=== PATIENT | female | born 1975 | race Caucasian/White ===

== ENCOUNTER 2017-04-28 14:52 | Inpatient (IN) | payer MEDICAID ==
[~2017-04-28] VITALS: Ht 160 cm; Wt 72.6 kg
[~2017-04-28 14:52] MED LIST: ALPR0.25 PO; AMLO5TAB2 PO; AMLO5TAB4 PO; CALC200T3 PO; CEFD300C37 PO; CIPR500T87 PO; CYAN10005 PO; DIAZ5TAB PO; FLUC200T PO; FOLI-17 PO; HYDR2TAB40 PO; LEVE500T53 PO; LEVO750T26 PO; MAGN400T26 PO; METO25TA35 PO; METO50TA82 PO; METR500T PO; MULT-484 PO; ONDA4TAB10 PO; OXYC5CAP4 PO; OXYC5TAB3 PO; POLY17PO5 PO; POTA20TA89 PO; RISPERADOL; THIA100T6 PO; celexa
[2017-04-28 16:00] LABS: HEMATOCRIT 39.1 % (34.6-47.8); HEMOGLOBIN 12.7 g/dL (11.7-16.4); WHITE BLOOD COUNT 13.7 x10^3/uL (3.4-10)
[2017-04-28 16:09] LABS: BLOOD UREA NITROGEN 6 mg/dL (7-18)
[2017-04-28] MEDS ORDERED: ONDANSETRON 2MG/ML, 2ML IVPush ONE (16:30)
[2017-04-28] MEDS ORDERED: SODIUM CHLORIDE 0.9% 1,000ML IVBOLUS ONE ×2 (16:30→18:30)
[2017-04-28] MEDS ORDERED: SODIUM CHLORIDE FLUSH 10ML SYR IVF ONE (16:30)
[2017-04-28 16:33] LABS: ASPARTATE AMINO TRANSFERASE 88 U/L (15-37)
[2017-04-28] MEDS ORDERED: ONDANSETRON 2MG/ML, 2ML ONE (16:49)
[2017-04-28] MEDS ORDERED: MORPHINE SULFATE 4 MG/ML, 1ML ONE ×2 (16:49→17:27)
[2017-04-28] MEDS: MORPHINE SULFATE 4 MG/ML, 1ML IVPush PRN ×2 (16:51→17:27)
[2017-04-28] MEDS ORDERED: POTASSIUM CHLORIDE 40 MEQ in SODIUM CHLORIDE 0.9% 500 ML IV ONE (17:00)
[2017-04-28] MEDS ORDERED: CEFTRIAXONE PMX 1GM/50ML 50 ML ONE (18:27)
[2017-04-28] MEDS ORDERED: CEFTRIAXONE PMX 1GM/50ML 50 ML IV ONE (18:30)
[2017-04-28] MEDS: ENOXAPARIN 40 MG/0.4 ML SQ SCH (20:00)
[2017-04-28] MEDS ORDERED: ONDANSETRON 2MG/ML, 2ML IVPush PRN (20:00)
[2017-04-28] MEDS ORDERED: MAGNESIUM SULFATE PMX 2GM/50ML 50 ML IV ONE (20:30)
[2017-04-28 20:43] VITALS: BP 116/80
[2017-04-28] MEDS: POTASSIUM CHLORIDE 30 MEQ in SODIUM CHLORIDE 0.9% 1,000 ML IV SCH (21:14)
[2017-04-28] MEDS: NICOTINE 14MG/24 HR PATCH.TD24 TD SCH (21:15)
[2017-04-28] MEDS: HYDROmorphone 2 MG/ML, 1ML IVPush PRN (21:16)
[2017-04-28 21:34] VITALS: BP 113/76
[2017-04-28] MEDS: METOPROLOL TARTRATE 50 MG TABLET PO SCH (21:34)
[2017-04-29] MEDS: HYDROmorphone 2 MG/ML, 1ML IVPush PRN ×8 (00:33→22:47)
[2017-04-29 01:55] VITALS: BP 99/65
[2017-04-29 05:56] LABS: HEMATOCRIT 32.6 % (34.6-47.8); HEMOGLOBIN 10.6 g/dL (11.7-16.4); WHITE BLOOD COUNT 12.4 x10^3/uL (3.4-10)
[2017-04-29 06:16] LABS: ASPARTATE AMINO TRANSFERASE 66 U/L (15-37); BLOOD UREA NITROGEN 7 mg/dL (7-18)
[2017-04-29 07:07] VITALS: BP 98/67
[2017-04-29] MEDS ORDERED: HYDROmorphone 1 MG/ML, 1ML ONE ×4 (07:17→16:18)
[2017-04-29] MEDS: POTASSIUM CHLORIDE 30 MEQ in SODIUM CHLORIDE 0.9% 1,000 ML IV SCH ×2 (08:13→23:19)
[2017-04-29 08:55] VITALS: BP 104/69
[2017-04-29] MEDS: METOPROLOL TARTRATE 50 MG TABLET PO SCH ×2 (08:56→20:23)
[2017-04-29] MEDS ORDERED: CALCIUM GLUCONATE 9.2 MEQ in SODIUM CHLORIDE 0.9% 100 ML IV ONE (12:00)
[2017-04-29] MEDS ORDERED: MAGNESIUM SULFATE PMX 2GM/50ML 50 ML IV ONE (12:00)
[2017-04-29 16:26] VITALS: BP 104/71
[2017-04-29] MEDS: CEFTRIAXONE PMX 1GM/50ML 50 ML IV SCH (18:26)
[2017-04-29 19:55] VITALS: BP 114/83
[2017-04-29] MEDS: NICOTINE 14MG/24 HR PATCH.TD24 TD SCH (20:23)
[2017-04-29] MEDS: ENOXAPARIN 40 MG/0.4 ML SQ SCH (20:23)
[2017-04-29 21:00] VITALS: BP 114/69
[2017-04-30] MEDS: HYDROmorphone 2 MG/ML, 1ML IVPush PRN ×7 (01:29→20:47)
[2017-04-30 02:20] VITALS: BP 113/76
[2017-04-30] MEDS ORDERED: OMNIPAQUE 350 MG/ML, 100ML BOTTLE ONE (08:08)
[2017-04-30] MEDS ORDERED: HYDROmorphone 1 MG/ML, 1ML ONE ×4 (08:10→17:53)
[2017-04-30] MEDS: METOPROLOL TARTRATE 50 MG TABLET PO SCH ×2 (08:16→20:47)
[2017-04-30 11:11] VITALS: BP 114/76
[2017-04-30 11:13] LABS: HEMOGLOBIN 9.9 g/dL (11.7-16.4); WHITE BLOOD COUNT 12.8 x10^3/uL (3.4-10)
[2017-04-30] MEDS: POTASSIUM CHLORIDE 30 MEQ in SODIUM CHLORIDE 0.9% 1,000 ML IV SCH ×2 (11:14→20:48)
[2017-04-30 11:21] LABS: BLOOD UREA NITROGEN 9 mg/dL (7-18)
[2017-04-30 11:30] LABS: ANISOCYTOSIS 1+
[2017-04-30 11:31] LABS: POLYCHROMASIA 1+
[2017-04-30 13:07] VITALS: BP 106/74
[2017-04-30] MEDS: CEFTRIAXONE PMX 1GM/50ML 50 ML IV SCH (17:55)
[2017-04-30 20:44] VITALS: BP 123/89
[2017-04-30] MEDS: ENOXAPARIN 40 MG/0.4 ML SQ SCH (20:47)
[2017-04-30] MEDS: NICOTINE 14MG/24 HR PATCH.TD24 TD SCH (20:47)
[2017-04-30] MEDS: NYSTATIN 500,000 UNITS/5 ML UDC PO SCH (20:48)
[2017-05-01] MEDS: HYDROmorphone 2 MG/ML, 1ML IVPush PRN ×6 (00:27→19:34)
[2017-05-01 02:02] VITALS: BP 125/74
[2017-05-01] MEDS ORDERED: HYDROmorphone 2 MG/ML, 1ML ONE (06:39)
[2017-05-01] MEDS: NYSTATIN 500,000 UNITS/5 ML UDC PO SCH ×5 (06:43→19:40)
[2017-05-01 07:30] VITALS: BP 121/84
[2017-05-01] MEDS: METOPROLOL TARTRATE 50 MG TABLET PO SCH ×3 (09:49→20:56)
[2017-05-01] MEDS: POTASSIUM CHLORIDE 30 MEQ in SODIUM CHLORIDE 0.9% 1,000 ML IV SCH ×2 (09:49→20:56)
[2017-05-01 10:42] LABS: HEMATOCRIT 29.9 % (34.6-47.8); HEMOGLOBIN 9.7 g/dL (11.7-16.4); WHITE BLOOD COUNT 11.8 x10^3/uL (3.4-10)
[2017-05-01 10:56] LABS: BLOOD UREA NITROGEN 6 mg/dL (7-18)
[2017-05-01 11:00] LABS: ASPARTATE AMINO TRANSFERASE 59 U/L (15-37)
[2017-05-01 13:22] VITALS: BP 127/89
[2017-05-01] MEDS ORDERED: MAGNESIUM SULFATE PMX 2GM/50ML 50 ML IV ONE (13:30)
[2017-05-01] MEDS ORDERED: POTASSIUM CHLORIDE 40 MEQ in SODIUM CHLORIDE 0.9% 500 ML IV ONE (13:30)
[2017-05-01] MEDS: OXYcodone IR 5MG TABLET PO SCH ×2 (15:54→20:56)
[2017-05-01] MEDS: CEFTRIAXONE PMX 1GM/50ML 50 ML IV SCH (18:08)
[2017-05-01 19:01] VITALS: BP 127/87
[2017-05-01] MEDS ORDERED: HYDROmorphone 1 MG/ML, 1ML ONE (19:26)
[2017-05-01] MEDS: NICOTINE 14MG/24 HR PATCH.TD24 TD SCH (19:34)
[2017-05-02] MEDS: HYDROmorphone 2 MG/ML, 1ML IVPush PRN ×4 (01:27→20:02)
[2017-05-02 02:10] VITALS: BP 118/79
[2017-05-02] MEDS: OXYcodone IR 5MG TABLET PO SCH ×4 (02:50→21:04)
[2017-05-02] MEDS: POTASSIUM CHLORIDE 30 MEQ in SODIUM CHLORIDE 0.9% 1,000 ML IV SCH ×2 (05:34→15:30)
[2017-05-02] MEDS: NYSTATIN 500,000 UNITS/5 ML UDC PO SCH ×4 (05:37→21:00)
[2017-05-02 05:52] LABS: BLOOD UREA NITROGEN 2 mg/dL (7-18)
[2017-05-02 06:19] LABS: HEMATOCRIT 31.6 % (34.6-47.8); HEMOGLOBIN 10.3 g/dL (11.7-16.4); WHITE BLOOD COUNT 12.3 x10^3/uL (3.4-10)
[2017-05-02 08:58] VITALS: BP 114/61
[2017-05-02] MEDS: METOPROLOL TARTRATE 50 MG TABLET PO SCH ×2 (09:00→21:05)
[2017-05-02 14:44] VITALS: BP 116/82
[2017-05-02] MEDS: CEFTRIAXONE PMX 1GM/50ML 50 ML IV SCH (18:40)
[2017-05-02 18:46] VITALS: BP 121/85
[2017-05-02] MEDS: NICOTINE 14MG/24 HR PATCH.TD24 TD SCH (20:01)
[2017-05-02] MEDS: DOCUSATE 100 MG CAPSULE PO PRN (22:53)
[2017-05-03] MEDS: POTASSIUM CHLORIDE 30 MEQ in SODIUM CHLORIDE 0.9% 1,000 ML IV SCH ×2 (00:49→08:08)
[2017-05-03 01:21] VITALS: BP 123/85
[2017-05-03] MEDS: HYDROmorphone 2 MG/ML, 1ML IVPush PRN ×2 (02:04→08:08)
[2017-05-03] MEDS: OXYcodone IR 5MG TABLET PO SCH ×2 (03:11→09:46)
[2017-05-03 05:37] LABS: HEMATOCRIT 31.3 % (34.6-47.8); HEMOGLOBIN 10.1 g/dL (11.7-16.4); WHITE BLOOD COUNT 11.5 x10^3/uL (3.4-10)
[2017-05-03] MEDS: NYSTATIN 500,000 UNITS/5 ML UDC PO SCH ×2 (05:37→11:00)
[2017-05-03 06:02] LABS: ASPARTATE AMINO TRANSFERASE 35 U/L (15-37); BLOOD UREA NITROGEN 3 mg/dL (7-18)
[2017-05-03 07:31] VITALS: BP 129/86
[2017-05-03] MEDS: DOCUSATE 100 MG CAPSULE PO PRN (08:17)
[2017-05-03] MEDS: METOPROLOL TARTRATE 50 MG TABLET PO SCH (08:17)
[2017-05-03] MEDS ORDERED: DOCU-30 PO (11:50)
[2017-05-03] MEDS ORDERED: OXYC5TAB3 PO ×2 (11:50→11:51)
== END 2017-05-03 12:48 | disposition home or self-care (01) | DRG 871 ==
LOC: ED 16:54 → EDIP 18:20 → 4WST 19:51
PROVIDERS: ADMIT Internal Medicine; ATTEND Internal Medicine
DX: A41.9 Sepsis, unspecified organism (principal); E43 Unspecified severe protein-calorie malnutrition; K86.2 Cyst of pancreas; E87.2 Acidosis; K85.90 Acute pancreatitis without necrosis or infection, unspecified; K76.0 Fatty (change of) liver, not elsewhere classified; K86.3 Pseudocyst of pancreas; J98.11 Atelectasis; N12 Tubulo-interstitial nephritis, not specified as acute or chronic; Z88.8 Allergy status to other drugs, medicaments and biological substances; D75.89 Other specified diseases of blood and blood-forming organs; E87.6 Hypokalemia; F10.20 Alcohol dependence, uncomplicated; F20.9 Schizophrenia, unspecified; I10 Essential (primary) hypertension; Z86.32 Personal history of gestational diabetes; Z68.28 Body mass index [BMI] 28.0-28.9, adult
CPT/HCPCS: 36415; 74020; 74177; 76700; 80048; 80053; 81001; 83605; 83690; 83735; 84100; 84145; 84478; 84703; 85025; 87040; 87077; 87086; 87186; 93005; 96365; 96368; 96375; 96376; J0610; J0696; J1170; J1650; J2405; J3480; Q9967; J3475; J7030; J7040

== ENCOUNTER 2017-05-05 12:25 | Emergency (ER) | payer MEDICAID ==
[~2017-05-05] VITALS: Ht 157.5 cm; Wt 73.0 kg
[~2017-05-05 12:25] MED LIST changes: +DOCU-131 PO
[2017-05-05] MEDS ORDERED: ONDANSETRON 2MG/ML, 2ML ONE (13:00)
[2017-05-05] MEDS ORDERED: MORPHINE SULFATE 4 MG/ML, 1ML ONE ×2 (13:00→13:47)
[2017-05-05] MEDS ORDERED: ONDANSETRON 2MG/ML, 2ML IVPush ONE (13:00)
[2017-05-05] MEDS: MORPHINE SULFATE 4 MG/ML, 1ML IVPush PRN ×2 (13:04→13:49)
[2017-05-05 13:16] LABS: HEMATOCRIT 30.4 % (34.6-47.8); HEMOGLOBIN 9.8 g/dL (11.7-16.4); WHITE BLOOD COUNT 8.4 x10^3/uL (3.4-10)
[2017-05-05 13:27] LABS: ASPARTATE AMINO TRANSFERASE 68 U/L (15-37); BLOOD UREA NITROGEN 6 mg/dL (7-18)
[2017-05-05 14:40] VITALS: BP 121/79
== END 2017-05-05 15:08 | disposition left against medical advice (07) ==
LOC: ED 14:34
DX: G89.29 Other chronic pain (principal); R10.12 Left upper quadrant pain; Z88.6 Allergy status to analgesic agent; F20.9 Schizophrenia, unspecified; F17.200 Nicotine dependence, unspecified, uncomplicated; Z90.49 Acquired absence of other specified parts of digestive tract
CPT/HCPCS: 36415; 80053; 83690; 85025; 85610; 96374; 96375; 96376; 99284; J2405

== ENCOUNTER 2017-05-06 08:25 | Inpatient (IN) | payer MEDICAID ==
[~2017-05-06] VITALS: Ht 157.5 cm; Wt 77.4 kg
[~2017-05-06 08:25] MED LIST changes: +OXYC5CAP2 PO; -OXYC5CAP4 PO
[2017-05-06] MEDS ORDERED: SODIUM CHLORIDE 0.9% 1,000ML IVBOLUS ONE (09:00)
[2017-05-06] MEDS ORDERED: SODIUM CHLORIDE FLUSH 10ML SYR IVF ONE (09:00)
[2017-05-06] MEDS ORDERED: ONDANSETRON 2MG/ML, 2ML IVPush ONE (09:00)
[2017-05-06] MEDS ORDERED: HYDROmorphone 1 MG/ML, 1ML ONE ×2 (09:18→10:10)
[2017-05-06] MEDS ORDERED: ONDANSETRON 2MG/ML, 2ML ONE (09:18)
[2017-05-06] MEDS: HYDROmorphone 1 MG/ML, 1ML IVPush PRN ×2 (09:23→10:12)
[2017-05-06 09:39] LABS: ASPARTATE AMINO TRANSFERASE 66 U/L (15-37); BLOOD UREA NITROGEN 6 mg/dL (7-18)
[2017-05-06 09:43] LABS: HEMOGLOBIN 9.9 g/dL (11.7-16.4); WHITE BLOOD COUNT 7.3 x10^3/uL (3.4-10)
[2017-05-06] MEDS ORDERED: POTASSIUM CHLORIDE 40 MEQ in SODIUM CHLORIDE 0.9% 500 ML IV ONE (10:00)
[2017-05-06] MEDS ORDERED: CEFTRIAXONE PMX 1GM/50ML 50 ML ONE (11:19)
[2017-05-06] MEDS ORDERED: CEFTRIAXONE PMX 1GM/50ML 50 ML IV ONE (11:30)
[2017-05-06 13:30] VITALS: BP 122/82
[2017-05-06] MEDS ORDERED: ONDANSETRON 2MG/ML, 2ML IVPush PRN (14:30)
[2017-05-06] MEDS ORDERED: POLYETHYLENE GLYCOL 17 GM PACKET PO PRN (14:30)
[2017-05-06] MEDS ORDERED: hydrALAzine 20 MG/ML, 1ML IVPush PRN (14:30)
[2017-05-06] MEDS ORDERED: ENALAPRILAT 1.25 MG/ML, 2ML IVPush PRN (14:30)
[2017-05-06] MEDS ORDERED: BISACODYL 10 MG SUPP PR PRN (14:30)
[2017-05-06] MEDS: OXYcodone IR 5MG TABLET PO PRN ×3 (15:15→23:36)
[2017-05-06] MEDS: SODIUM CHLORIDE 0.9% 1,000 ML IV SCH ×2 (15:59→23:22)
[2017-05-06 16:09] VITALS: BP 124/88
[2017-05-06] MEDS: METOPROLOL TARTRATE 50 MG TABLET PO SCH (18:23)
[2017-05-06 19:49] VITALS: BP 121/84
[2017-05-06] MEDS: NICOTINE 21 MG/24 HR PATCH.TD24 TD SCH ×2 (21:40→22:00)
[2017-05-07 00:33] VITALS: BP 131/94
[2017-05-07] MEDS: OXYcodone IR 5MG TABLET PO PRN ×2 (04:14→08:12)
[2017-05-07 05:50] LABS: HEMATOCRIT 28.5 % (34.6-47.8); HEMOGLOBIN 9.2 g/dL (11.7-16.4); WHITE BLOOD COUNT 7.5 x10^3/uL (3.4-10)
[2017-05-07 05:51] LABS: ASPARTATE AMINO TRANSFERASE 67 U/L (15-37); BLOOD UREA NITROGEN 5 mg/dL (7-18)
[2017-05-07] MEDS: METOPROLOL TARTRATE 50 MG TABLET PO SCH ×2 (06:38→18:07)
[2017-05-07 08:11] VITALS: BP 128/94
[2017-05-07] MEDS: SENNA/DOCUSATE TABLET PO SCH (08:13)
[2017-05-07] MEDS: POTASSIUM CHLORIDE 40 MEQ in SODIUM CHLORIDE 0.9% 1,000 ML IV SCH ×3 (09:06→23:29)
[2017-05-07] MEDS: HYDROmorphone 1 MG/ML, 1ML IV PRN ×2 (11:55→18:07)
[2017-05-07] MEDS: ENOXAPARIN 40 MG/0.4 ML SQ SCH (12:03)
[2017-05-07 13:09] LABS: BLOOD UREA NITROGEN 5 mg/dL (7-18)
[2017-05-07 14:03] VITALS: BP 115/78
[2017-05-07] MEDS: HYDROmorphone 2MG TABLET PO PRN ×2 (14:59→21:06)
[2017-05-07 15:14] LABS: DAU SCREEN DISCLAIMER
[2017-05-07 18:57] VITALS: BP 113/78
[2017-05-07] MEDS ORDERED: PNEUMOCOCCAL 23 VACCINE IM-VACC ONE (21:00)
[2017-05-08] MEDS: HYDROmorphone 1 MG/ML, 1ML IV PRN ×5 (00:11→23:58)
[2017-05-08 00:43] VITALS: BP 126/83
[2017-05-08] MEDS: HYDROmorphone 2MG TABLET PO PRN ×4 (03:08→21:04)
[2017-05-08 05:20] LABS: HEMATOCRIT 29.2 % (34.6-47.8); HEMOGLOBIN 9.3 g/dL (11.7-16.4); WHITE BLOOD COUNT 6.9 x10^3/uL (3.4-10)
[2017-05-08 05:31] LABS: BLOOD UREA NITROGEN 2 mg/dL (7-18)
[2017-05-08] MEDS: POTASSIUM CHLORIDE 40 MEQ in SODIUM CHLORIDE 0.9% 1,000 ML IV SCH ×2 (06:20→13:04)
[2017-05-08] MEDS: METOPROLOL TARTRATE 50 MG TABLET PO SCH ×2 (06:20→18:03)
[2017-05-08 08:04] VITALS: BP 118/81
[2017-05-08] MEDS: NICOTINE 21 MG/24 HR PATCH.TD24 TD SCH (08:04)
[2017-05-08] MEDS: SENNA/DOCUSATE TABLET PO SCH (08:04)
[2017-05-08] MEDS: ENOXAPARIN 40 MG/0.4 ML SQ SCH (13:05)
[2017-05-08 15:17] VITALS: BP 110/89
[2017-05-08 20:00] VITALS: BP 136/94
[2017-05-09 01:04] VITALS: BP 137/92
[2017-05-09] MEDS: HYDROmorphone 2MG TABLET PO PRN ×3 (04:22→13:31)
[2017-05-09] MEDS: METOPROLOL TARTRATE 50 MG TABLET PO SCH (06:10)
[2017-05-09 07:01] VITALS: BP 101/65
[2017-05-09] MEDS: NICOTINE 21 MG/24 HR PATCH.TD24 TD SCH (09:30)
[2017-05-09] MEDS: SENNA/DOCUSATE TABLET PO SCH (09:32)
[2017-05-09] MEDS: ENOXAPARIN 40 MG/0.4 ML SQ SCH (12:33)
[2017-05-09] MEDS ORDERED: METO50TA82 PO (14:02)
[2017-05-09] MEDS ORDERED: HYDR2TAB40 PO (14:02)
== END 2017-05-09 14:27 | disposition home or self-care (01) | DRG 438 ==
LOC: ED 08:39 → EDIP 11:53 → 3NE 12:25
PROVIDERS: ADMIT Internal Medicine
DX: K85.90 Acute pancreatitis without necrosis or infection, unspecified (principal); E43 Unspecified severe protein-calorie malnutrition; E87.2 Acidosis; D69.6 Thrombocytopenia, unspecified; E87.8 Other disorders of electrolyte and fluid balance, not elsewhere classified; F20.9 Schizophrenia, unspecified; K86.3 Pseudocyst of pancreas; F17.213 Nicotine dependence, cigarettes, with withdrawal; N39.0 Urinary tract infection, site not specified; B96.20 Unspecified Escherichia coli [E. coli] as the cause of diseases classified elsewhere; D64.9 Anemia, unspecified; Z68.31 Body mass index [BMI] 31.0-31.9, adult; E87.6 Hypokalemia; I10 Essential (primary) hypertension; Z87.440 Personal history of urinary (tract) infections; Z90.49 Acquired absence of other specified parts of digestive tract; Z91.19 Patient's noncompliance with other medical treatment and regimen; Z88.5 Allergy status to narcotic agent; Z28.82 Immunization not carried out because of caregiver refusal
CPT/HCPCS: 36415; 74177; 80048; 80053; 80061; 80307; 81001; 83036; 83605; 83690; 83735; 84145; 84439; 84443; 85025; 87086; 93005; 96361; 96365; 96375; 96376; J0696; J1170; J1650; J2405; J3480; J7030; J7040

== ENCOUNTER 2017-05-21 14:37 | Inpatient (IN) | payer MEDICAID ==
[~2017-05-21] VITALS: Ht 160 cm; Wt 65.4 kg
[2017-05-21] MEDS ORDERED: HYDR-3241 PO (14:52)
[2017-05-21] MEDS ORDERED: HYDR2TAB29 PO (14:52)
[2017-05-21] MEDS: MORPHINE SULFATE 4 MG/ML, 1ML IVPush PRN ×4 (15:25→23:33)
[2017-05-21] MEDS ORDERED: ONDANSETRON 2MG/ML, 2ML IVPush ONE (15:30)
[2017-05-21] MEDS ORDERED: SODIUM CHLORIDE 0.9% 1,000ML IVBOLUS ONE (15:30)
[2017-05-21] MEDS ORDERED: SODIUM CHLORIDE FLUSH 10ML SYR IVF ONE ×2 (15:30→18:00)
[2017-05-21 15:49] LABS: ASPARTATE AMINO TRANSFERASE 173 U/L (15-37); BLOOD UREA NITROGEN 4 mg/dL (7-18)
[2017-05-21 15:52] LABS: HEMATOCRIT 39.4 % (34.6-47.8); HEMOGLOBIN 12.8 g/dL (11.7-16.4); WHITE BLOOD COUNT 9.2 x10^3/uL (3.4-10)
[2017-05-21 16:10] LABS: ANISOCYTOSIS 1+; POLYCHROMASIA 1+
[2017-05-21] MEDS ORDERED: POTASSIUM CHLORIDE 40 MEQ in SODIUM CHLORIDE 0.9% 1,000 ML IV ONE (16:30)
[2017-05-21] MEDS ORDERED: POTASSIUM CHLORIDE 10% 40 MEQ/30 ML UDC PO ONE (16:30)
[2017-05-21] MEDS ORDERED: MORPHINE SULFATE 4 MG/ML, 1ML ONE ×2 (16:34→19:14)
[2017-05-21] MEDS ORDERED: POTASSIUM CHLORIDE 20 MEQ TAB.ER.PRT ONE (16:59)
[2017-05-21] MEDS ORDERED: MAGNESIUM SULFATE 1 GM in SODIUM CHLORIDE 0.9% 50 ML IV ONE (17:00)
[2017-05-21] MEDS ORDERED: SODIUM CHLORIDE 0.9% 1,000 ML IV ONE (17:39)
[2017-05-21] MEDS: ENOXAPARIN 40 MG/0.4 ML SQ SCH (19:00)
[2017-05-21] MEDS: SODIUM CHLORIDE 0.9% 1,000 ML IV SCH (19:05)
[2017-05-21] MEDS: CALCIUM CARBONATE 500 MG TABLET PO SCH (19:54)
[2017-05-21] MEDS: FAMOTIDINE 20 MG/2 ML IVPush SCH (21:00)
[2017-05-21] MEDS: NICOTINE 14MG/24 HR PATCH.TD24 TD SCH (23:33)
[2017-05-21] MEDS: TEMAZEPAM 15 MG CAPSULE PO PRN (23:41)
[2017-05-22 01:16] VITALS: BP 113/78
[2017-05-22 02:52] VITALS: BP 108/76
[2017-05-22] MEDS: SODIUM CHLORIDE 0.9% 1,000 ML IV SCH ×3 (03:05→20:48)
[2017-05-22] MEDS: MORPHINE SULFATE 4 MG/ML, 1ML IVPush PRN ×5 (03:30→20:48)
[2017-05-22 06:07] LABS: HEMATOCRIT 32.8 % (34.6-47.8); HEMOGLOBIN 10.8 g/dL (11.7-16.4); WHITE BLOOD COUNT 8.4 x10^3/uL (3.4-10)
[2017-05-22 06:41] LABS: ASPARTATE AMINO TRANSFERASE 123 U/L (15-37); BLOOD UREA NITROGEN 5 mg/dL (7-18)
[2017-05-22] MEDS: FAMOTIDINE 20 MG/2 ML IVPush SCH ×2 (08:03→20:48)
[2017-05-22] MEDS: CALCIUM CARBONATE 500 MG TABLET PO SCH ×3 (08:04→20:48)
[2017-05-22 08:50] VITALS: BP 107/75
[2017-05-22 15:20] VITALS: BP 117/69
[2017-05-22] MEDS: ENOXAPARIN 40 MG/0.4 ML SQ SCH (19:00)
[2017-05-22 20:30] VITALS: BP 106/73
[2017-05-22] MEDS: TEMAZEPAM 15 MG CAPSULE PO PRN (22:19)
[2017-05-22] MEDS: NICOTINE 14MG/24 HR PATCH.TD24 TD SCH (22:20)
[2017-05-22] MEDS: ONDANSETRON 2MG/ML, 2ML IVPush PRN (22:25)
[2017-05-23 02:51] VITALS: BP 112/77
[2017-05-23] MEDS: MORPHINE SULFATE 4 MG/ML, 1ML IVPush PRN ×5 (03:01→20:56)
[2017-05-23] MEDS: SODIUM CHLORIDE 0.9% 1,000 ML IV SCH ×3 (03:01→23:30)
[2017-05-23 05:52] LABS: HEMATOCRIT 30.5 % (34.6-47.8); HEMOGLOBIN 9.9 g/dL (11.7-16.4); WHITE BLOOD COUNT 5.7 x10^3/uL (3.4-10)
[2017-05-23 05:57] LABS: BLOOD UREA NITROGEN 3 mg/dL (7-18)
[2017-05-23 06:01] LABS: ASPARTATE AMINO TRANSFERASE 67 U/L (15-37)
[2017-05-23] MEDS: FAMOTIDINE 20 MG/2 ML IVPush SCH ×2 (07:59→20:06)
[2017-05-23] MEDS: CALCIUM CARBONATE 500 MG TABLET PO SCH ×3 (07:59→20:06)
[2017-05-23 08:00] VITALS: BP 124/82
[2017-05-23 14:00] VITALS: BP 114/79
[2017-05-23] MEDS: POTASSIUM CHLORIDE 20 MEQ TAB.ER.PRT PO SCH ×2 (16:06→17:37)
[2017-05-23] MEDS: ENOXAPARIN 40 MG/0.4 ML SQ SCH (17:33)
[2017-05-23 19:22] VITALS: BP 109/74
[2017-05-23] MEDS: NICOTINE 14MG/24 HR PATCH.TD24 TD SCH (22:11)
[2017-05-23] MEDS: TEMAZEPAM 15 MG CAPSULE PO PRN (22:11)
[2017-05-24] MEDS: MORPHINE SULFATE 4 MG/ML, 1ML IVPush PRN ×2 (00:56→05:12)
[2017-05-24 01:39] VITALS: BP 123/83
[2017-05-24 06:08] LABS: ASPARTATE AMINO TRANSFERASE 46 U/L (15-37); BLOOD UREA NITROGEN 3 mg/dL (7-18)
[2017-05-24 07:19] VITALS: BP 125/89
[2017-05-24] MEDS: POTASSIUM CHLORIDE 20 MEQ TAB.ER.PRT PO SCH ×2 (09:06→16:54)
[2017-05-24] MEDS: CALCIUM CARBONATE 500 MG TABLET PO SCH ×3 (09:06→19:46)
[2017-05-24] MEDS: FAMOTIDINE 20 MG/2 ML IVPush SCH ×2 (09:06→19:46)
[2017-05-24] MEDS: SODIUM CHLORIDE 0.9% 1,000 ML IV SCH ×2 (09:06→19:47)
[2017-05-24] MEDS: HYDROmorphone 2 MG/ML, 1ML IVPush PRN ×8 (09:16→22:47)
[2017-05-24] MEDS: DOCUSATE 100 MG CAPSULE PO PRN (13:15)
[2017-05-24 14:26] VITALS: BP 123/87
[2017-05-24] MEDS: ENOXAPARIN 40 MG/0.4 ML SQ SCH (19:00)
[2017-05-24 19:28] VITALS: BP 128/91
[2017-05-24] MEDS: NICOTINE 14MG/24 HR PATCH.TD24 TD SCH (22:03)
[2017-05-24] MEDS: TEMAZEPAM 15 MG CAPSULE PO PRN (22:03)
[2017-05-25 00:56] VITALS: BP 134/90
[2017-05-25] MEDS: HYDROmorphone 2 MG/ML, 1ML IVPush PRN ×8 (01:51→23:30)
[2017-05-25 05:15] LABS: BLOOD UREA NITROGEN 2 mg/dL (7-18)
[2017-05-25 06:20] VITALS: BP 125/89
[2017-05-25 06:44] LABS: HEMATOCRIT 32.8 % (34.6-47.8); HEMOGLOBIN 10.6 g/dL (11.7-16.4); WHITE BLOOD COUNT 5.5 x10^3/uL (3.4-10)
[2017-05-25] MEDS: POTASSIUM CHLORIDE 20 MEQ TAB.ER.PRT PO SCH ×2 (08:15→17:09)
[2017-05-25] MEDS: CALCIUM CARBONATE 500 MG TABLET PO SCH ×3 (08:15→20:27)
[2017-05-25] MEDS ORDERED: D5%-0.9% NACL 1,000 ML IV SCH (10:00)
[2017-05-25] MEDS: FAMOTIDINE 20 MG/2 ML IVPush SCH ×2 (10:37→20:27)
[2017-05-25 15:33] VITALS: BP 126/85
[2017-05-25] MEDS: ENOXAPARIN 40 MG/0.4 ML SQ SCH (19:00)
[2017-05-25 19:49] VITALS: BP 146/96
[2017-05-25] MEDS: DOCUSATE 100 MG CAPSULE PO PRN (20:27)
[2017-05-25] MEDS: NICOTINE 14MG/24 HR PATCH.TD24 TD SCH (20:28)
[2017-05-25] MEDS: TEMAZEPAM 15 MG CAPSULE PO PRN (21:17)
[2017-05-25] MEDS: D5%-0.9% NACL 1,000 ML IV SCH (23:30)
[2017-05-26] MEDS: HYDROmorphone 2 MG/ML, 1ML IVPush PRN ×7 (02:31→21:17)
[2017-05-26 02:42] VITALS: BP 119/81
[2017-05-26 05:39] LABS: HEMATOCRIT 35.7 % (34.6-47.8); HEMOGLOBIN 11.6 g/dL (11.7-16.4); WHITE BLOOD COUNT 4.6 x10^3/uL (3.4-10)
[2017-05-26 05:52] LABS: ASPARTATE AMINO TRANSFERASE 65 U/L (15-37)
[2017-05-26 05:59] LABS: BLOOD UREA NITROGEN < 1 mg/dL (7-18)
[2017-05-26 07:44] VITALS: BP 133/94
[2017-05-26] MEDS: CALCIUM CARBONATE 500 MG TABLET PO SCH ×3 (08:49→21:17)
[2017-05-26] MEDS: FAMOTIDINE 20 MG/2 ML IVPush SCH ×2 (08:49→21:18)
[2017-05-26] MEDS: POTASSIUM CHLORIDE 20 MEQ TAB.ER.PRT PO SCH ×2 (08:50→16:33)
[2017-05-26] MEDS: D5%-0.9% NACL 1,000 ML IV SCH ×2 (08:57→21:17)
[2017-05-26] MEDS ORDERED: MAGNESIUM SULFATE PMX 4GM/100M 100 ML IV ONE (10:30)
[2017-05-26 15:30] VITALS: BP 129/90
[2017-05-26] MEDS: DOCUSATE 100 MG CAPSULE PO PRN (18:12)
[2017-05-26] MEDS: ENOXAPARIN 40 MG/0.4 ML SQ SCH (19:00)
[2017-05-26 19:18] VITALS: BP 122/78
[2017-05-26] MEDS: NICOTINE 14MG/24 HR PATCH.TD24 TD SCH (21:17)
[2017-05-27] MEDS: HYDROmorphone 2 MG/ML, 1ML IVPush PRN ×6 (00:14→20:31)
[2017-05-27 01:59] VITALS: BP 126/89
[2017-05-27] MEDS: TEMAZEPAM 15 MG CAPSULE PO PRN (02:00)
[2017-05-27] MEDS: D5%-0.9% NACL 1,000 ML IV SCH ×2 (04:52→14:38)
[2017-05-27 05:21] LABS: HEMATOCRIT 34.9 % (34.6-47.8); HEMOGLOBIN 11.4 g/dL (11.7-16.4)
[2017-05-27 05:25] LABS: ASPARTATE AMINO TRANSFERASE 58 U/L (15-37)
[2017-05-27 05:31] LABS: BLOOD UREA NITROGEN < 1 mg/dL (7-18)
[2017-05-27 07:30] VITALS: BP 102/71
[2017-05-27] MEDS: CALCIUM CARBONATE 500 MG TABLET PO SCH ×4 (09:02→20:34)
[2017-05-27] MEDS: FAMOTIDINE 20 MG/2 ML IVPush SCH ×2 (09:02→20:31)
[2017-05-27] MEDS: POTASSIUM CHLORIDE 20 MEQ TAB.ER.PRT PO SCH ×2 (09:03→17:41)
[2017-05-27 13:00] VITALS: BP 114/76
[2017-05-27] MEDS: ENOXAPARIN 40 MG/0.4 ML SQ SCH (19:00)
[2017-05-27 19:56] VITALS: BP 144/95
[2017-05-27] MEDS: NICOTINE 14MG/24 HR PATCH.TD24 TD SCH (20:31)
[2017-05-28] MEDS: TEMAZEPAM 15 MG CAPSULE PO PRN ×2 (00:36→22:41)
[2017-05-28] MEDS: HYDROmorphone 2 MG/ML, 1ML IVPush PRN ×2 (00:36→07:24)
[2017-05-28] MEDS: D5%-0.9% NACL 1,000 ML IV SCH ×2 (00:37→10:54)
[2017-05-28 01:07] VITALS: BP 112/78
[2017-05-28 07:16] VITALS: BP 111/76
[2017-05-28] MEDS ORDERED: HYDROmorphone 1 MG/ML, 1ML ONE (07:20)
[2017-05-28] MEDS: ONDANSETRON 2MG/ML, 2ML IVPush PRN (07:24)
[2017-05-28] MEDS: POTASSIUM CHLORIDE 20 MEQ TAB.ER.PRT PO SCH ×2 (08:20→16:24)
[2017-05-28] MEDS: CALCIUM CARBONATE 500 MG TABLET PO SCH ×3 (08:20→20:54)
[2017-05-28] MEDS: FAMOTIDINE 20 MG/2 ML IVPush SCH ×2 (08:23→20:54)
[2017-05-28] MEDS: OXYcodone IR 5MG TABLET PO PRN ×4 (10:18→22:41)
[2017-05-28 15:46] VITALS: BP 111/70
[2017-05-28] MEDS: ENOXAPARIN 40 MG/0.4 ML SQ SCH (19:00)
[2017-05-28 19:21] VITALS: BP 130/93
[2017-05-28] MEDS: NICOTINE 14MG/24 HR PATCH.TD24 TD SCH (20:54)
[2017-05-29 02:43] VITALS: BP 107/76
[2017-05-29] MEDS: OXYcodone IR 5MG TABLET PO PRN ×2 (05:16→09:14)
[2017-05-29 05:38] LABS: HEMATOCRIT 34.6 % (34.6-47.8); HEMOGLOBIN 11.2 g/dL (11.7-16.4); WHITE BLOOD COUNT 3.9 x10^3/uL (3.4-10)
[2017-05-29 05:40] LABS: ASPARTATE AMINO TRANSFERASE 39 U/L (15-37); BLOOD UREA NITROGEN 2 mg/dL (7-18)
[2017-05-29 08:02] VITALS: BP_SYST 91; BP_SYST 92; BP_DIAS 59; BP_DIAS 60
[2017-05-29] MEDS ORDERED: FAMO20TA7 PO (09:12)
[2017-05-29] MEDS ORDERED: OXYC5TAB3 PO (09:12)
[2017-05-29] MEDS ORDERED: POTA20TA6 PO (09:12)
[2017-05-29] MEDS: CALCIUM CARBONATE 500 MG TABLET PO SCH (09:14)
[2017-05-29] MEDS: POTASSIUM CHLORIDE 20 MEQ TAB.ER.PRT PO SCH (09:14)
[2017-05-29] MEDS ORDERED: CALC-666 PO (10:20)
== END 2017-05-29 11:29 | disposition home or self-care (01) | DRG 438 ==
LOC: ED 16:36 → EDIP 17:39 → 3NE 20:31 → DCLOUNGE 05-29 11:21
PROVIDERS: ADMIT Hospitalist; ATTEND Hospitalist
DX: K85.20 Alcohol induced acute pancreatitis without necrosis or infection (principal); E43 Unspecified severe protein-calorie malnutrition; E83.42 Hypomagnesemia; E83.51 Hypocalcemia; F20.9 Schizophrenia, unspecified; K70.0 Alcoholic fatty liver; K86.3 Pseudocyst of pancreas; E87.1 Hypo-osmolality and hyponatremia; D64.9 Anemia, unspecified; K86.1 Other chronic pancreatitis; E87.6 Hypokalemia; F10.20 Alcohol dependence, uncomplicated; F17.210 Nicotine dependence, cigarettes, uncomplicated; I10 Essential (primary) hypertension; Z86.32 Personal history of gestational diabetes; Z90.49 Acquired absence of other specified parts of digestive tract; Z68.25 Body mass index [BMI] 25.0-25.9, adult; Z88.6 Allergy status to analgesic agent
CPT/HCPCS: 36415; 80048; 80053; 83690; 83735; 84100; 84703; 85025; 93005; 96361; 96365; 96366; 96375; J1170; J2405; J3475; J3480; J7042; J7030; S0028

== ENCOUNTER 2017-06-10 17:54 | Inpatient (IN) | payer MEDICAID ==
[~2017-06-10] VITALS: Ht 157.5 cm; Wt 66.0 kg
[~2017-06-10 17:54] MED LIST changes: +CALC-666 PO; +FAMO20TA7 PO; +HYDR-3241 PO; +HYDR2TAB29 PO; +POTA20TA6 PO
[2017-06-10] MEDS ORDERED: FAMOTIDINE 20 MG/2 ML ONE (18:24)
[2017-06-10] MEDS ORDERED: MORPHINE SULFATE 4 MG/ML, 1ML ONE ×3 (18:24→22:24)
[2017-06-10] MEDS ORDERED: ONDANSETRON 2MG/ML, 2ML ONE (18:24)
[2017-06-10] MEDS: MORPHINE SULFATE 4 MG/ML, 1ML IVPush PRN ×2 (18:27→19:12)
[2017-06-10] MEDS ORDERED: ONDANSETRON 2MG/ML, 2ML IVPush ONE (18:30)
[2017-06-10] MEDS ORDERED: FAMOTIDINE 20 MG/2 ML IVP ONE (18:30)
[2017-06-10] MEDS ORDERED: SODIUM CHLORIDE FLUSH 10ML SYR IVF ONE (18:30)
[2017-06-10 18:39] LABS: HEMATOCRIT 38.1 % (34.6-47.8); HEMOGLOBIN 12.8 g/dL (11.7-16.4); WHITE BLOOD COUNT 6.6 x10^3/uL (3.4-10)
[2017-06-10 18:46] LABS: ASPARTATE AMINO TRANSFERASE 72 U/L (15-37); BLOOD UREA NITROGEN 4 mg/dL (7-18)
[2017-06-10] MEDS ORDERED: FENTANYL PF 100 MCG/2ML IVPush STA (19:52)
[2017-06-10] MEDS ORDERED: FENTANYL PF 100 MCG/2ML ONE (19:53)
[2017-06-10] MEDS ORDERED: SODIUM CHLORIDE 0.9% 1,000ML IVBOLUS ONE (20:00)
[2017-06-10] MEDS ORDERED: POTASSIUM CHLORIDE 40 MEQ in SODIUM CHLORIDE 0.9% 500 ML IV ONE (20:00)
[2017-06-10] MEDS ORDERED: FENTANYL PF 100 MCG/2ML IVPush ONE (20:00)
[2017-06-10] MEDS ORDERED: ONDANSETRON 2MG/ML, 2ML IVPush PRN (21:00)
[2017-06-10] MEDS ORDERED: BISACODYL 10 MG SUPP PR PRN (21:00)
[2017-06-10 21:34] VITALS: BP 108/74
[2017-06-10] MEDS: NICOTINE 14MG/24 HR PATCH.TD24 TD SCH (22:29)
[2017-06-10] MEDS: morphine SULFATE 10 MG/ML, 1ML IVPush PRN (22:29)
[2017-06-10] MEDS: HEPARIN 5,000 UNITS/ML, 1ML SQ SCH (22:29)
[2017-06-11] MEDS: NS + 20MEQ KCL 1,000 ML IV SCH ×4 (01:38→21:20)
[2017-06-11] MEDS: morphine SULFATE 10 MG/ML, 1ML IVPush PRN ×7 (01:38→22:24)
[2017-06-11 02:00] VITALS: BP 102/69
[2017-06-11 06:05] LABS: HEMATOCRIT 33.6 % (34.6-47.8); HEMOGLOBIN 11.1 g/dL (11.7-16.4); WHITE BLOOD COUNT 5.9 x10^3/uL (3.4-10)
[2017-06-11 06:54] LABS: ASPARTATE AMINO TRANSFERASE 57 U/L (15-37); BLOOD UREA NITROGEN 5 mg/dL (7-18)
[2017-06-11 07:06] VITALS: BP 97/59
[2017-06-11] MEDS: HEPARIN 5,000 UNITS/ML, 1ML SQ SCH ×2 (08:00→16:00)
[2017-06-11 12:17] VITALS: BP 103/70
[2017-06-11 20:00] VITALS: BP 109/78
[2017-06-11] MEDS: NICOTINE 14MG/24 HR PATCH.TD24 TD SCH (21:20)
[2017-06-12 01:26] VITALS: BP 110/81
[2017-06-12] MEDS: morphine SULFATE 10 MG/ML, 1ML IVPush PRN ×4 (01:28→13:08)
[2017-06-12] MEDS: NS + 20MEQ KCL 1,000 ML IV SCH ×2 (04:04→11:53)
[2017-06-12 06:32] LABS: BLOOD UREA NITROGEN 5 mg/dL (7-18)
[2017-06-12 07:56] VITALS: BP 106/72
[2017-06-12] MEDS: HEPARIN 5,000 UNITS/ML, 1ML SQ SCH ×2 (09:32)
[2017-06-12 13:00] VITALS: BP 97/71
[2017-06-12] MEDS ORDERED: morphine SULFATE 10 MG/ML, 1ML IVPush PRN (14:30)
== END 2017-06-12 16:46 | disposition left against medical advice (07) | DRG 439 ==
LOC: ED 19:46 → EDIP 19:52 → 4EST 20:53
PROVIDERS: ADMIT Hospitalist; ATTEND Hospitalist
DX: K85.20 Alcohol induced acute pancreatitis without necrosis or infection (principal); E44.0 Moderate protein-calorie malnutrition; E87.2 Acidosis; K76.0 Fatty (change of) liver, not elsewhere classified; E87.5 Hyperkalemia; E87.6 Hypokalemia; F10.20 Alcohol dependence, uncomplicated; F17.210 Nicotine dependence, cigarettes, uncomplicated; F20.9 Schizophrenia, unspecified; I10 Essential (primary) hypertension; Z82.49 Family history of ischemic heart disease and other diseases of the circulatory system; Z86.32 Personal history of gestational diabetes
CPT/HCPCS: 36415; 80048; 80053; 81003; 83690; 84703; 85025; 93005; 96361; 96374; 96375; 96376; J1644; J2405; J3010; J3480; J2270; J7030; J7040; S0028

== ENCOUNTER 2017-06-20 09:23 | Inpatient (IN) | payer MEDICAID ==
[~2017-06-20] VITALS: Ht 162.6 cm; Wt 70.0 kg
[2017-06-20] MEDS ORDERED: SODIUM CHLORIDE 0.9% 1,000ML IVBOLUS ONE (09:30)
[2017-06-20] MEDS ORDERED: SODIUM CHLORIDE FLUSH 10ML SYR IVF ONE (09:30)
[2017-06-20 09:53] LABS: HEMATOCRIT 36.3 % (34.6-47.8); HEMOGLOBIN 12.1 g/dL (11.7-16.4); WHITE BLOOD COUNT 3.9 x10^3/uL (3.4-10)
[2017-06-20 09:59] LABS: ASPARTATE AMINO TRANSFERASE 63 U/L (15-37); BLOOD UREA NITROGEN 3 mg/dL (7-18)
[2017-06-20] MEDS ORDERED: POTASSIUM CHLORIDE 40 MEQ in SODIUM CHLORIDE 0.9% 1,000 ML IV ONE ×2 (10:05→10:12)
[2017-06-20] MEDS ORDERED: MORPHINE SULFATE 4 MG/ML, 1ML ONE (10:22)
[2017-06-20] MEDS ORDERED: ONDANSETRON 2MG/ML, 2ML ONE (10:22)
[2017-06-20] MEDS ORDERED: MORPHINE SULFATE 4 MG/ML, 1ML IVPush PRN (10:30)
[2017-06-20] MEDS ORDERED: SODIUM CHLORIDE FLUSH 10ML SYR IVF PRN (10:30)
[2017-06-20] MEDS ORDERED: ONDANSETRON 2MG/ML, 2ML IVPush ONE (10:30)
[2017-06-20] MEDS ORDERED: NS + 40MEQ KCL 1,000 ML IV ONE (10:31)
[2017-06-20] MEDS ORDERED: ONDANSETRON 2MG/ML, 2ML IVPush PRN (11:30)
[2017-06-20] MEDS ORDERED: hydrALAzine 20 MG/ML, 1ML IVPush PRN (11:30)
[2017-06-20] MEDS ORDERED: LORazepam 2 MG/ML, 1ML IVPush PRN (11:30)
[2017-06-20] MEDS ORDERED: HYDROmorphone 1 MG/ML, 1ML ONE (11:35)
[2017-06-20] MEDS: HYDROmorphone 2 MG/ML, 1ML IVPush PRN ×6 (11:37→21:15)
[2017-06-20 11:53] VITALS: BP 118/87
[2017-06-20] MEDS: HEPARIN 5,000 UNITS/ML, 1ML SQ SCH ×2 (12:14→19:22)
[2017-06-20] MEDS: NS + 20MEQ KCL 1,000 ML IV SCH ×2 (12:14→19:22)
[2017-06-20] MEDS: NICOTINE 14MG/24 HR PATCH.TD24 TD SCH (12:14)
[2017-06-20] MEDS: PANTOPRAZOLE 40 MG IV IVPush SCH (12:14)
[2017-06-20 13:57] VITALS: BP 110/76
[2017-06-20 19:46] VITALS: BP 122/77
[2017-06-21 00:15] VITALS: BP 118/84
[2017-06-21] MEDS: HYDROmorphone 2 MG/ML, 1ML IVPush PRN ×7 (00:19→20:01)
[2017-06-21] MEDS: NS + 20MEQ KCL 1,000 ML IV SCH ×2 (03:01→15:00)
[2017-06-21] MEDS: HEPARIN 5,000 UNITS/ML, 1ML SQ SCH ×3 (03:30→20:01)
[2017-06-21 06:14] LABS: HEMATOCRIT 33.2 % (34.6-47.8); HEMOGLOBIN 10.8 g/dL (11.7-16.4); WHITE BLOOD COUNT 4.2 x10^3/uL (3.4-10)
[2017-06-21 06:26] LABS: BLOOD UREA NITROGEN 4 mg/dL (7-18)
[2017-06-21] MEDS: PANTOPRAZOLE 40 MG IV IVPush SCH (07:56)
[2017-06-21 08:21] VITALS: BP 102/67
[2017-06-21] MEDS: NICOTINE 14MG/24 HR PATCH.TD24 TD SCH (11:30)
[2017-06-21 19:01] VITALS: BP 119/90
[2017-06-22] MEDS: NS + 20MEQ KCL 1,000 ML IV SCH ×3 (00:30→23:02)
[2017-06-22] MEDS: HYDROmorphone 2 MG/ML, 1ML IVPush PRN ×7 (00:30→21:22)
[2017-06-22 00:55] VITALS: BP 119/83
[2017-06-22] MEDS: HEPARIN 5,000 UNITS/ML, 1ML SQ SCH ×3 (03:35→21:22)
[2017-06-22 06:24] LABS: HEMATOCRIT 33.6 % (34.6-47.8); HEMOGLOBIN 10.9 g/dL (11.7-16.4); WHITE BLOOD COUNT 4.3 x10^3/uL (3.4-10)
[2017-06-22 06:36] LABS: BLOOD UREA NITROGEN 4 mg/dL (7-18)
[2017-06-22 08:00] VITALS: BP 106/80
[2017-06-22] MEDS: PANTOPRAZOLE 40 MG IV IVPush SCH (11:34)
[2017-06-22] MEDS: NICOTINE 14MG/24 HR PATCH.TD24 TD SCH (11:34)
[2017-06-22 14:00] VITALS: BP 110/75
[2017-06-22 19:45] VITALS: BP 131/93
[2017-06-23] MEDS: HYDROmorphone 2 MG/ML, 1ML IVPush PRN ×8 (00:44→22:55)
[2017-06-23 01:35] VITALS: BP 125/86
[2017-06-23] MEDS: HEPARIN 5,000 UNITS/ML, 1ML SQ SCH ×3 (04:32→22:54)
[2017-06-23 04:52] LABS: HEMATOCRIT 30.3 % (34.6-47.8); HEMOGLOBIN 9.9 g/dL (11.7-16.4); WHITE BLOOD COUNT 3.8 x10^3/uL (3.4-10)
[2017-06-23 05:03] LABS: BLOOD UREA NITROGEN 2 mg/dL (7-18)
[2017-06-23 07:15] VITALS: BP 126/89
[2017-06-23] MEDS: PANTOPRAZOLE 40 MG IV IVPush SCH (07:43)
[2017-06-23] MEDS: NS + 20MEQ KCL 1,000 ML IV SCH (10:47)
[2017-06-23] MEDS: NICOTINE 14MG/24 HR PATCH.TD24 TD SCH (13:47)
[2017-06-23 13:49] VITALS: BP 117/82
[2017-06-23 19:40] VITALS: BP 139/97
[2017-06-24 01:55] VITALS: BP 121/85
[2017-06-24] MEDS: HYDROmorphone 2 MG/ML, 1ML IVPush PRN ×3 (04:58→13:06)
[2017-06-24 05:50] LABS: HEMATOCRIT 30.5 % (34.6-47.8); WHITE BLOOD COUNT 3.5 x10^3/uL (3.4-10)
[2017-06-24 06:06] LABS: BLOOD UREA NITROGEN < 1 mg/dL (7-18)
[2017-06-24] MEDS: PANTOPRAZOLE 40 MG IV IVPush SCH (08:24)
[2017-06-24] MEDS: HEPARIN 5,000 UNITS/ML, 1ML SQ SCH (08:25)
[2017-06-24 10:12] VITALS: BP 120/86
[2017-06-24] MEDS ORDERED: POTASSIUM CHLORIDE 20 MEQ TAB.ER.PRT PO ONE (12:00)
[2017-06-24] MEDS: NICOTINE 14MG/24 HR PATCH.TD24 TD SCH (13:06)
[2017-06-24 13:50] VITALS: BP 112/75
[2017-06-24] MEDS ORDERED: HYDR2TAB29 PO (14:29)
== END 2017-06-24 17:48 | disposition home or self-care (01) | DRG 439 ==
LOC: ED 09:35 → EDIP 10:12 → 3NE 11:27
PROVIDERS: ADMIT Family Medicine; ATTEND Family Medicine
DX: K85.20 Alcohol induced acute pancreatitis without necrosis or infection (principal); F10.988 Alcohol use, unspecified with other alcohol-induced disorder; K76.0 Fatty (change of) liver, not elsewhere classified; F20.9 Schizophrenia, unspecified; I10 Essential (primary) hypertension; K86.1 Other chronic pancreatitis; Z80.1 Family history of malignant neoplasm of trachea, bronchus and lung; Z82.49 Family history of ischemic heart disease and other diseases of the circulatory system; Z90.49 Acquired absence of other specified parts of digestive tract
CPT/HCPCS: 36415; 80048; 80053; 80061; 80307; 83690; 84703; 85025; J1170; J1644; J2405; J3480; C9113; G0479; J7030

== ENCOUNTER 2017-07-08 12:25 | Inpatient (IN) | payer MEDICAID ==
[~2017-07-08] VITALS: Ht 157.5 cm; Wt 71.7 kg
[2017-07-08] MEDS ORDERED: SODIUM CHLORIDE 0.9% 1,000 ML IV ONE ×2 (12:39→14:58)
[2017-07-08] MEDS ORDERED: ONDANSETRON 2MG/ML, 2ML ONE (12:52)
[2017-07-08] MEDS ORDERED: HYDROmorphone 1 MG/ML, 1ML ONE ×2 (12:52→13:53)
[2017-07-08 12:57] LABS: HEMATOCRIT 39.8 % (34.6-47.8); HEMOGLOBIN 13.2 g/dL (11.7-16.4); WHITE BLOOD COUNT 7.8 x10^3/uL (3.4-10)
[2017-07-08] MEDS ORDERED: SODIUM CHLORIDE FLUSH 10ML SYR IVF ONE (13:00)
[2017-07-08] MEDS ORDERED: SODIUM CHLORIDE 0.9% 1,000ML IVBOLUS ONE (13:00)
[2017-07-08] MEDS ORDERED: ONDANSETRON 2MG/ML, 2ML IVPush ONE (13:00)
[2017-07-08 13:06] LABS: ASPARTATE AMINO TRANSFERASE 109 U/L (15-37); BLOOD UREA NITROGEN 5 mg/dL (7-18)
[2017-07-08] MEDS: HYDROmorphone 1 MG/ML, 1ML IVPush PRN ×2 (13:06→13:53)
[2017-07-08] MEDS ORDERED: POTASSIUM CHLORIDE 40 MEQ in SODIUM CHLORIDE 0.9% 1,000 ML IV ONE (13:30)
[2017-07-08] MEDS ORDERED: NS + 40MEQ KCL 1,000 ML IV ONE (13:45)
[2017-07-08] MEDS ORDERED: SODIUM CHLORIDE FLUSH 10ML SYR IVF PRN (15:00)
[2017-07-08] MEDS ORDERED: POLYETHYLENE GLYCOL 17 GM PACKET PO PRN (16:00)
[2017-07-08] MEDS ORDERED: DOCUSATE 100 MG CAPSULE PO PRN (16:00)
[2017-07-08] MEDS ORDERED: HYDROcodone/APAP 5/325 TABLET PO PRN (16:00)
[2017-07-08] MEDS ORDERED: ACETAMINOPHEN 325 MG TABLET PO PRN (16:00)
[2017-07-08] MEDS ORDERED: LABETALOL 5MG/ML, 20ML IVPush PRN (16:00)
[2017-07-08] MEDS ORDERED: BISACODYL 10 MG SUPP PR PRN (16:00)
[2017-07-08 16:01] LABS: IS PT STATUS REG ER OR PRE ER? YES
[2017-07-08] MEDS ORDERED: KETOROLAC 30 MG/1 ML ONE (16:12)
[2017-07-08 16:44] LABS: DAU SCREEN DISCLAIMER
[2017-07-08] MEDS ORDERED: KETOROLAC 30 MG/1 ML IVPush ONE (17:00)
[2017-07-08 17:10] VITALS: BP 119/75
[2017-07-08] MEDS ORDERED: OXYcodone/APAP 5/325MG TABLET PO PRN ×2 (18:00→22:00)
[2017-07-08] MEDS ORDERED: KETOROLAC 30 MG/1 ML IVPush SCH (18:00)
[2017-07-08] MEDS: NS + 20MEQ KCL 1,000 ML IV SCH (18:01)
[2017-07-08] MEDS: POTASSIUM CHLORIDE 20 MEQ TAB.ER.PRT PO SCH (18:29)
[2017-07-08] MEDS ORDERED: KETOROLAC 30 MG/1 ML IM PRN (18:30)
[2017-07-08 19:09] VITALS: BP 124/78
[2017-07-08] MEDS: OXYcodone/APAP 5/325MG TABLET PO PRN ×2 (21:26→22:22)
[2017-07-08 22:05] LABS: IS PT STATUS REG ER OR PRE ER? NO
[2017-07-08] MEDS: NICOTINE 21 MG/24 HR PATCH.TD24 TD SCH (23:18)
[2017-07-09 01:18] VITALS: BP 108/72
[2017-07-09] MEDS: NS + 20MEQ KCL 1,000 ML IV SCH (03:49)
[2017-07-09] MEDS: OXYcodone/APAP 5/325MG TABLET PO PRN ×2 (03:49→08:48)
[2017-07-09 05:56] LABS: HEMATOCRIT 30.6 % (34.6-47.8); HEMOGLOBIN 10.1 g/dL (11.7-16.4); WHITE BLOOD COUNT 5.3 x10^3/uL (3.4-10)
[2017-07-09 06:02] LABS: BLOOD UREA NITROGEN 6 mg/dL (7-18)
[2017-07-09 06:05] LABS: ASPARTATE AMINO TRANSFERASE 82 U/L (15-37)
[2017-07-09] MEDS ORDERED: OMNIPAQUE 350 MG/ML, 100ML BOTTLE ONE (07:50)
[2017-07-09] MEDS: POTASSIUM CHLORIDE 20 MEQ TAB.ER.PRT PO SCH ×3 (08:48→21:34)
[2017-07-09] MEDS: CEFTRIAXONE PMX 1GM/50ML 50 ML IV SCH (08:48)
[2017-07-09] MEDS ORDERED: MAALOX/HYOSCYAMINE/LIDOCAINE 45 ML BTL PO ONE (09:30)
[2017-07-09] MEDS ORDERED: PHENAZOPYRIDINE 100 MG TABLET PO PRN (10:30)
[2017-07-09 10:54] VITALS: BP 108/79
[2017-07-09] MEDS: KETOROLAC 30 MG/1 ML IVPush PRN ×2 (13:45→19:47)
[2017-07-09 14:05] VITALS: BP 123/78
[2017-07-09] MEDS ORDERED: HYDROcodone/APAP 5/325 TABLET PO PRN (15:30)
[2017-07-09] MEDS: ONDANSETRON 2MG/ML, 2ML IVPush PRN (17:53)
[2017-07-09 18:49] VITALS: BP 112/76
[2017-07-09 21:07] LABS: OCCBLD OBC PASS
[2017-07-09] MEDS: NICOTINE 21 MG/24 HR PATCH.TD24 TD SCH (21:35)
[2017-07-10 01:48] VITALS: BP 118/84
[2017-07-10] MEDS: KETOROLAC 30 MG/1 ML IVPush PRN ×2 (02:04→09:25)
[2017-07-10] MEDS: ONDANSETRON 2MG/ML, 2ML IVPush PRN ×2 (02:04→09:25)
[2017-07-10 06:02] LABS: HEMATOCRIT 31.4 % (34.6-47.8); HEMOGLOBIN 10.3 g/dL (11.7-16.4); WHITE BLOOD COUNT 4.5 x10^3/uL (3.4-10)
[2017-07-10 06:28] LABS: ASPARTATE AMINO TRANSFERASE 58 U/L (15-37); BLOOD UREA NITROGEN 6 mg/dL (7-18)
[2017-07-10 09:22] VITALS: BP 132/93
[2017-07-10] MEDS: NICOTINE 21 MG/24 HR PATCH.TD24 TD SCH (09:25)
[2017-07-10] MEDS: CEFTRIAXONE PMX 1GM/50ML 50 ML IV SCH (09:25)
[2017-07-10] MEDS ORDERED: OMNIPAQUE 350 MG/ML, 100ML BOTTLE ONE (11:57)
[2017-07-10 14:35] VITALS: BP 122/82
== END 2017-07-10 15:21 | disposition left against medical advice (07) | DRG 641 ==
LOC: ED 12:54 → EDIP 14:58 → 4WST 16:58
PROVIDERS: ADMIT Internal Medicine; ATTEND Internal Medicine
DX: E87.6 Hypokalemia (principal); E44.0 Moderate protein-calorie malnutrition; I11.9 Hypertensive heart disease without heart failure; K74.60 Unspecified cirrhosis of liver; Z53.21 Procedure and treatment not carried out due to patient leaving prior to being seen by health care provider; E87.1 Hypo-osmolality and hyponatremia; F20.9 Schizophrenia, unspecified; F10.10 Alcohol abuse, uncomplicated; Y90.9 Presence of alcohol in blood, level not specified; R74.0 Nonspecific elevation of levels of transaminase and lactic acid dehydrogenase [LDH]; F17.210 Nicotine dependence, cigarettes, uncomplicated; G40.909 Epilepsy, unspecified, not intractable, without status epilepticus; G89.29 Other chronic pain; K76.0 Fatty (change of) liver, not elsewhere classified; Z88.5 Allergy status to narcotic agent; Z68.28 Body mass index [BMI] 28.0-28.9, adult; Z86.32 Personal history of gestational diabetes; Z90.49 Acquired absence of other specified parts of digestive tract
CPT/HCPCS: 36415; 71275; 74177; 80053; 80307; 81001; 82272; 83690; 83735; 84484; 84703; 85025; 85379; 85610; 85730; 87086; 87324; 93005; 96365; 96366; 96375; J0696; J1170; J1885; J2405; J3480; Q9967; G0479; J7030

== ENCOUNTER 2017-08-08 08:45 | Inpatient (IN) | payer MEDICAID ==
[~2017-08-08] VITALS: Ht 157.5 cm; Wt 58.2 kg
[2017-08-08] MEDS ORDERED: SODIUM CHLORIDE 0.9% 1,000 ML IV ONE (09:08)
[2017-08-08] MEDS ORDERED: HYDROmorphone 1 MG/ML, 1ML ONE ×2 (09:22→10:20)
[2017-08-08] MEDS ORDERED: ONDANSETRON 2MG/ML, 2ML ONE (09:23)
[2017-08-08] MEDS ORDERED: FAMOTIDINE 20 MG/2 ML ONE (09:23)
[2017-08-08] MEDS ORDERED: FAMOTIDINE 20 MG/2 ML IVP ONE (09:30)
[2017-08-08] MEDS ORDERED: SODIUM CHLORIDE FLUSH 10ML SYR IVF ONE (09:30)
[2017-08-08] MEDS ORDERED: SODIUM CHLORIDE 0.9% 1,000ML IVBOLUS ONE (09:30)
[2017-08-08] MEDS ORDERED: ONDANSETRON 2MG/ML, 2ML IVPush ONE (09:30)
[2017-08-08] MEDS: HYDROmorphone 1 MG/ML, 1ML IVPush PRN ×2 (09:30→10:28)
[2017-08-08 09:56] LABS: HEMATOCRIT 34.7 % (34.6-47.8); HEMOGLOBIN 11.4 g/dL (11.7-16.4); WHITE BLOOD COUNT 6.5 x10^3/uL (3.4-10)
[2017-08-08 10:04] LABS: BLOOD UREA NITROGEN 5 mg/dL (7-18)
[2017-08-08 10:10] LABS: ASPARTATE AMINO TRANSFERASE 70 U/L (15-37)
[2017-08-08] MEDS ORDERED: POTASSIUM CHLORIDE 40 MEQ in SODIUM CHLORIDE 0.9% 500 ML IV ONE (11:00)
[2017-08-08] MEDS ORDERED: PROMETHAZINE 25 MG/ML, 1ML IM ONE (11:00)
[2017-08-08] MEDS ORDERED: PROMETHAZINE 25 MG/ML, 1ML ONE (11:09)
[2017-08-08 13:09] VITALS: BP 120/94
[2017-08-08] MEDS ORDERED: ENALAPRILAT 1.25 MG/ML, 2ML IVPush PRN (13:30)
[2017-08-08] MEDS ORDERED: BISACODYL 10 MG SUPP PR PRN (13:30)
[2017-08-08] MEDS ORDERED: ONDANSETRON 2MG/ML, 2ML IVPush PRN (13:30)
[2017-08-08] MEDS ORDERED: POLYETHYLENE GLYCOL 17 GM PACKET PO PRN (13:30)
[2017-08-08] MEDS ORDERED: DOCUSATE 100 MG CAPSULE PO PRN (13:30)
[2017-08-08] MEDS: OXYcodone IR 5MG TABLET PO PRN ×3 (13:52→21:52)
[2017-08-08 14:04] VITALS: BP 120/94
[2017-08-08] MEDS: HEPARIN 5,000 UNITS/ML, 1ML SQ SCH ×2 (15:17→23:00)
[2017-08-08] MEDS: NICOTINE 7 MG/24 HR PATCH.TD24 TD SCH (15:17)
[2017-08-08] MEDS: D5%-0.9% NACL+KCL 20MEQ 1,000 ML IV SCH (15:17)
[2017-08-08] MEDS: METOPROLOL TARTRATE 25 MG TABLET PO SCH (17:52)
[2017-08-08 20:00] VITALS: BP 96/71
[2017-08-09] MEDS: D5%-0.9% NACL+KCL 20MEQ 1,000 ML IV SCH ×2 (00:50→10:18)
[2017-08-09 02:00] VITALS: BP 110/73
[2017-08-09] MEDS: OXYcodone IR 5MG TABLET PO PRN ×6 (02:02→22:13)
[2017-08-09 05:50] LABS: ASPARTATE AMINO TRANSFERASE 46 U/L (15-37); BLOOD UREA NITROGEN 4 mg/dL (7-18)
[2017-08-09 06:09] LABS: HEMATOCRIT 29.1 % (34.6-47.8); HEMOGLOBIN 9.7 g/dL (11.7-16.4); WHITE BLOOD COUNT 5.2 x10^3/uL (3.4-10)
[2017-08-09] MEDS: METOPROLOL TARTRATE 25 MG TABLET PO SCH ×2 (06:13→18:04)
[2017-08-09] MEDS: HEPARIN 5,000 UNITS/ML, 1ML SQ SCH ×3 (07:48→23:21)
[2017-08-09 07:51] VITALS: BP 99/66
[2017-08-09] MEDS ORDERED: POTASSIUM CHLORIDE 40 MEQ in SODIUM CHLORIDE 0.9% 500 ML IV ONE (09:00)
[2017-08-09] MEDS ORDERED: MAGNESIUM SULFATE PMX 4GM/100M 100 ML IV ONE (12:00)
[2017-08-09] MEDS: KETOROLAC 30 MG/1 ML IVPush PRN ×2 (12:33→19:05)
[2017-08-09] MEDS: THIAMINE 100MG TABLET PO SCH (12:33)
[2017-08-09 14:09] VITALS: BP 103/80
[2017-08-09] MEDS: NICOTINE 7 MG/24 HR PATCH.TD24 TD SCH (16:14)
[2017-08-09 20:19] VITALS: BP_SYST 89; BP_SYST 93; BP_DIAS 60; BP_DIAS 66
[2017-08-10 01:40] VITALS: BP_SYST 92; BP_SYST 95; BP_DIAS 71; BP_DIAS 72
[2017-08-10] MEDS: OXYcodone IR 5MG TABLET PO PRN ×6 (02:13→22:23)
[2017-08-10] MEDS: KETOROLAC 30 MG/1 ML IVPush PRN ×4 (02:54→23:46)
[2017-08-10] MEDS: D5%-0.9% NACL+KCL 20MEQ 1,000 ML IV SCH ×3 (05:04→16:52)
[2017-08-10 05:46] LABS: ASPARTATE AMINO TRANSFERASE 45 U/L (15-37); BLOOD UREA NITROGEN 5 mg/dL (7-18)
[2017-08-10] MEDS: METOPROLOL TARTRATE 25 MG TABLET PO SCH ×2 (06:12→16:54)
[2017-08-10 06:44] LABS: HEMATOCRIT 27.5 % (34.6-47.8); HEMOGLOBIN 9.1 g/dL (11.7-16.4); WHITE BLOOD COUNT 5.1 x10^3/uL (3.4-10)
[2017-08-10 08:40] VITALS: BP 107/69
[2017-08-10] MEDS: FOLIC ACID 1 MG TABLET PO SCH (09:12)
[2017-08-10] MEDS: HEPARIN 5,000 UNITS/ML, 1ML SQ SCH ×2 (09:12→16:54)
[2017-08-10] MEDS: THIAMINE 100MG TABLET PO SCH (09:12)
[2017-08-10] MEDS ORDERED: OMNIPAQUE 350 MG/ML, 100ML BOTTLE ONE (13:09)
[2017-08-10] MEDS: NICOTINE 7 MG/24 HR PATCH.TD24 TD SCH (14:17)
[2017-08-10 14:57] VITALS: BP 105/76
[2017-08-10 19:12] VITALS: BP 95/70
[2017-08-11 01:16] VITALS: BP 101/76
[2017-08-11] MEDS: D5%-0.9% NACL+KCL 20MEQ 1,000 ML IV SCH ×2 (02:03→11:44)
[2017-08-11] MEDS: HEPARIN 5,000 UNITS/ML, 1ML SQ SCH ×2 (02:03→09:15)
[2017-08-11] MEDS: OXYcodone IR 5MG TABLET PO PRN ×3 (02:23→10:45)
[2017-08-11] MEDS: METOPROLOL TARTRATE 25 MG TABLET PO SCH ×2 (06:33→06:34)
[2017-08-11 07:47] LABS: HEMATOCRIT 25.6 % (34.6-47.8); HEMOGLOBIN 8.3 g/dL (11.7-16.4); WHITE BLOOD COUNT 5.2 x10^3/uL (3.4-10)
[2017-08-11 07:59] LABS: ASPARTATE AMINO TRANSFERASE 25 U/L (15-37); BLOOD UREA NITROGEN 9 mg/dL (7-18)
[2017-08-11 09:00] VITALS: BP 112/79
[2017-08-11] MEDS: THIAMINE 100MG TABLET PO SCH (09:11)
[2017-08-11] MEDS: KETOROLAC 30 MG/1 ML IVPush PRN (09:11)
[2017-08-11] MEDS: FOLIC ACID 1 MG TABLET PO SCH (09:11)
[2017-08-11] MEDS ORDERED: FOLI-17 PO (10:28)
[2017-08-11] MEDS ORDERED: METO25TA35 PO (10:28)
[2017-08-11] MEDS ORDERED: THIA100T6 PO (10:28)
[2017-08-11] MEDS ORDERED: PHOS250T3 PO (10:35)
== END 2017-08-11 13:00 | disposition home or self-care (01) | DRG 438 ==
LOC: ED 09:39 → EDIP 10:54 → 3NE 13:20 → DCLOUNGE 08-11 12:53
PROVIDERS: ADMIT Internal Medicine; ATTEND Internal Medicine
DX: K85.90 Acute pancreatitis without necrosis or infection, unspecified (principal); E43 Unspecified severe protein-calorie malnutrition; D69.6 Thrombocytopenia, unspecified; E83.42 Hypomagnesemia; F20.9 Schizophrenia, unspecified; E83.39 Other disorders of phosphorus metabolism; K86.3 Pseudocyst of pancreas; D64.9 Anemia, unspecified; Z68.23 Body mass index [BMI] 23.0-23.9, adult; E87.6 Hypokalemia; F17.210 Nicotine dependence, cigarettes, uncomplicated; I10 Essential (primary) hypertension; F10.10 Alcohol abuse, uncomplicated; Y90.2 Blood alcohol level of 40-59 mg/100 ml; K86.1 Other chronic pancreatitis; Z76.5 Malingerer [conscious simulation]; Z90.49 Acquired absence of other specified parts of digestive tract; Z87.440 Personal history of urinary (tract) infections
CPT/HCPCS: 36415; 74022; 74177; 76700; 80053; 80061; 81001; 83036; 83690; 83735; 84100; 84439; 84443; 84703; 85025; 87086; 93005; 96361; 96372; 96374; 96375; 96376; J1170; J1644; J1885; J2405; J2550; J3480; Q9967; J3475; J7030; J7040; S0028

== ENCOUNTER 2017-08-30 16:23 | Inpatient (IN) | payer MEDICAID ==
[~2017-08-30] VITALS: Ht 157.5 cm; Wt 65.0 kg
[~2017-08-30 16:23] MED LIST changes: +PHOS250T3 PO
[2017-08-30] MEDS ORDERED: SODIUM CHLORIDE 0.9% 1,000 ML IV ONE ×2 (17:15→18:45)
[2017-08-30] MEDS ORDERED: morphine SULFATE 10 MG/ML, 1ML ONE ×2 (17:29→17:34)
[2017-08-30] MEDS ORDERED: ONDANSETRON 2MG/ML, 2ML ONE ×2 (17:29→18:59)
[2017-08-30] MEDS ORDERED: ONDANSETRON 2MG/ML, 2ML IVPush ONE (17:30)
[2017-08-30] MEDS ORDERED: MORPHINE SULFATE 4 MG/ML, 1ML IVPush PRN (17:30)
[2017-08-30 17:40] LABS: HEMATOCRIT 32.3 % (34.6-47.8); HEMOGLOBIN 10.6 g/dL (11.7-16.4); WHITE BLOOD COUNT 7.4 x10^3/uL (3.4-10)
[2017-08-30 17:48] LABS: ASPARTATE AMINO TRANSFERASE 127 U/L (15-37); BLOOD UREA NITROGEN 7 mg/dL (7-18)
[2017-08-30] MEDS ORDERED: NS + 40MEQ KCL 1,000 ML IV SCH (18:30)
[2017-08-30] MEDS ORDERED: HYDROmorphone 2 MG/ML, 1ML ONE (18:59)
[2017-08-30] MEDS ORDERED: ONDANSETRON 2MG/ML, 2ML IVPush PRN ×2 (19:00→21:00)
[2017-08-30] MEDS ORDERED: HYDROmorphone 1 MG/ML, 1ML IVPush PRN ×2 (19:00)
[2017-08-30] MEDS ORDERED: SODIUM CHLORIDE FLUSH 10ML SYR IVF PRN (19:00)
[2017-08-30 19:35] VITALS: BP 124/81
[2017-08-30] MEDS: SODIUM CHLORIDE 0.9% 1,000 ML IV SCH (20:35)
[2017-08-30] MEDS: HYDROmorphone 1 MG/ML, 1ML IV PRN ×4 (22:01→23:11)
[2017-08-30] MEDS: NICOTINE 14MG/24 HR PATCH.TD24 TD SCH (22:50)
[2017-08-30] MEDS: NS + 40MEQ KCL 1,000 ML IV SCH (22:51)
[2017-08-31 00:39] LABS: DAU SCREEN DISCLAIMER
[2017-08-31 00:44] LABS: PATH.CAST-FLAG NOT PRESENT; SPERM-FLAG NOT PRESENT; SRC-FLAG NOT PRESENT; XTAL-FLAG NOT PRESENT; YLC-FLAG NOT PRESENT
[2017-08-31 01:03] VITALS: BP 117/80
[2017-08-31] MEDS: HYDROmorphone 1 MG/ML, 1ML IV PRN ×3 (02:15→08:26)
[2017-08-31] MEDS: CEFTRIAXONE PMX 1GM/50ML 50 ML IV SCH (05:21)
[2017-08-31 05:25] VITALS: BP 111/75
[2017-08-31] MEDS: METOPROLOL TARTRATE 25 MG TABLET PO SCH ×2 (05:28→17:00)
[2017-08-31 05:36] LABS: HEMATOCRIT 27.2 % (34.6-47.8); WHITE BLOOD COUNT 6.7 x10^3/uL (3.4-10)
[2017-08-31 05:42] LABS: BLOOD UREA NITROGEN 7 mg/dL (7-18)
[2017-08-31 05:54] LABS: ASPARTATE AMINO TRANSFERASE 123 U/L (15-37)
[2017-08-31 06:50] VITALS: BP 117/82
[2017-08-31] MEDS: THIAMINE 100MG TABLET PO SCH (07:46)
[2017-08-31] MEDS: NEUTRA PHOS K 250 MG TABLET PO SCH ×2 (07:46→20:45)
[2017-08-31] MEDS: FOLIC ACID 1 MG TABLET PO SCH (07:46)
[2017-08-31] MEDS: SODIUM CHLORIDE 0.9% 1,000 ML IV SCH ×3 (07:48→23:49)
[2017-08-31] MEDS ORDERED: HYDROmorphone 2 MG/ML, 1ML ONE (08:21)
[2017-08-31] MEDS: NS + 40MEQ KCL 1,000 ML IV SCH (09:23)
[2017-08-31] MEDS ORDERED: MAGNESIUM SULFATE PMX 2GM/50ML 50 ML IV ONE (11:00)
[2017-08-31] MEDS: OXYcodone IR 5MG TABLET PO PRN ×3 (11:55→23:49)
[2017-08-31] MEDS ORDERED: POTASSIUM CHLORIDE 40 MEQ in SODIUM CHLORIDE 0.9% 500 ML IV ONE (12:00)
[2017-08-31 12:48] VITALS: BP 108/73
[2017-08-31] MEDS ORDERED: POTASSIUM PHOSPHATE 22 MEQ in SODIUM CHLORIDE 0.9% 500 ML IV ONE (16:00)
[2017-08-31 19:41] VITALS: BP 99/71
[2017-08-31 19:47] VITALS: BP 102/58
[2017-08-31] MEDS: NICOTINE 14MG/24 HR PATCH.TD24 TD SCH (20:45)
[2017-09-01 03:29] VITALS: BP 119/80
[2017-09-01] MEDS: CEFTRIAXONE PMX 1GM/50ML 50 ML IV SCH (04:44)
[2017-09-01] MEDS ORDERED: LORazepam 1MG TABLET ONE ×2 (04:56→06:04)
[2017-09-01] MEDS ORDERED: LORazepam 0.5MG TABLET PO ONE ×2 (05:00→06:30)
[2017-09-01] MEDS: SODIUM CHLORIDE 0.9% 1,000 ML IV SCH (05:55)
[2017-09-01] MEDS: METOPROLOL TARTRATE 25 MG TABLET PO SCH (06:01)
[2017-09-01 06:39] VITALS: BP 101/69
[2017-09-01 07:53] LABS: ASPARTATE AMINO TRANSFERASE 84 U/L (15-37); BLOOD UREA NITROGEN 8 mg/dL (7-18)
[2017-09-01] MEDS: THIAMINE 100MG TABLET PO SCH (08:03)
[2017-09-01] MEDS: NEUTRA PHOS K 250 MG TABLET PO SCH (08:03)
[2017-09-01] MEDS: FOLIC ACID 1 MG TABLET PO SCH (08:03)
[2017-09-01] MEDS: OXYcodone IR 5MG TABLET PO PRN (08:05)
[2017-09-01 08:06] LABS: HEMATOCRIT 24.9 % (34.6-47.8); HEMOGLOBIN 8.1 g/dL (11.7-16.4); WHITE BLOOD COUNT 6.4 x10^3/uL (3.4-10)
== END 2017-09-01 10:28 | disposition home or self-care (01) | DRG 438 ==
LOC: ED 18:45 → EDIP 18:46 → ED 19:09 → 4NOR 19:35 → DCLOUNGE 09-01 10:20
PROVIDERS: ADMIT Surgery; ATTEND Surgery
DX: K85.20 Alcohol induced acute pancreatitis without necrosis or infection (principal); E43 Unspecified severe protein-calorie malnutrition; K76.0 Fatty (change of) liver, not elsewhere classified; K86.3 Pseudocyst of pancreas; N39.0 Urinary tract infection, site not specified; K86.0 Alcohol-induced chronic pancreatitis; F20.9 Schizophrenia, unspecified; D64.9 Anemia, unspecified; E87.6 Hypokalemia; I10 Essential (primary) hypertension; F10.20 Alcohol dependence, uncomplicated; Z76.5 Malingerer [conscious simulation]; Z72.0 Tobacco use; Z68.26 Body mass index [BMI] 26.0-26.9, adult; Z71.41 Alcohol abuse counseling and surveillance of alcoholic; Z71.6 Tobacco abuse counseling; Z88.5 Allergy status to narcotic agent
CPT/HCPCS: 36415; 80053; 80074; 80307; 81001; 83690; 83735; 84100; 84443; 84703; 85025; 87086; 96374; 96375; 96376; J0696; J1170; J2405; J3480; G0479; J3475; J7030; J7040

== ENCOUNTER 2017-10-16 10:41 | Inpatient (IN) | payer MEDICAID ==
[~2017-10-16] VITALS: Ht 157.5 cm; Wt 61.2 kg
[2017-10-16] MEDS ORDERED: ONDANSETRON 2MG/ML, 2ML ONE (11:27)
[2017-10-16] MEDS ORDERED: SODIUM CHLORIDE 0.9% 1,000ML IVBOLUS ONE (11:30)
[2017-10-16] MEDS ORDERED: ONDANSETRON 2MG/ML, 2ML IVPush ONE (11:30)
[2017-10-16 11:42] LABS: BASOPHILS # (AUTO) 0.07 x10^3/uL (0-0.1); BASOPHILS % (AUTO) 1 % (0-1); EOSINOPHILS # (AUTO) 0.03 x10^3/uL (0-0.4); EOSINOPHILS % (AUTO) 1 % (1-7); LYMPHOCYTES # (AUTO) 1.89 x10^3/uL (1-3.4); LYMPHOCYTES % (AUTO) 29 % (22-44); MD NO; MEAN CORPUSCULAR HEMOGLOBIN 26.6 pg (27.0-34.8); MEAN CORPUSCULAR HGB CONC 32.3 g/dL (32.4-35.8); MEAN CORPUSCULAR VOLUME 82.6 fL (80-100); MONOCYTES # (AUTO) 0.53 x10^3/uL (0.2-0.8); MONOCYTES % (AUTO) 8 % (2-9); NEUTROPHILS # (AUTO) 4.12 x10^3/uL (1.8-6.8); NEUTROPHILS % (AUTO) 62 % (42-75); PLATELET COUNT 261 x10^3/uL (130-400); RED BLOOD COUNT 4.09 x10^6/uL (3.82-5.3); RED CELL DISTRIBUTION WIDTH 20.1 % (9.6-15.2)
[2017-10-16 11:50] LABS: ALANINE AMINOTRANSFERASE 44 U/L (12-78); ALBUMIN 2.4 g/dL (3.4-5.0); ANION GAP 14 mmol/L (5-15); CALCIUM 7.1 mg/dL (8.5-10.1); CHLORIDE 105 mmol/L (98-107); CREATININE 0.48 mg/dL (0.55-1.02)
[2017-10-16 11:55] LABS: ALKALINE PHOSPHATASE 239 U/L (45-117); BILIRUBIN,TOTAL 0.7 mg/dL (0.2-1.0); TOTAL PROTEIN 7.7 g/dL (6.4-8.2)
[2017-10-16] MEDS ORDERED: SODIUM CHLORIDE 0.9% 1,000 ML IV ONE (12:11)
[2017-10-16] MEDS ORDERED: MORPHINE SULFATE 4 MG/ML, 1ML ONE ×3 (12:17→15:56)
[2017-10-16] MEDS: MORPHINE SULFATE 4 MG/ML, 1ML IVPush PRN ×2 (12:19→13:05)
[2017-10-16] MEDS ORDERED: POTASSIUM CHLORIDE 40 MEQ in SODIUM CHLORIDE 0.9% 500 ML IV ONE (12:30)
[2017-10-16] MEDS ORDERED: hydrALAzine 20 MG/ML, 1ML IVPush PRN (14:00)
[2017-10-16 14:26] VITALS: BP 119/86
[2017-10-16] MEDS ORDERED: HYDROmorphone 2 MG/ML, 1ML ONE (14:48)
[2017-10-16] MEDS ORDERED: HALOPERIDOL 5 MG/ML IM PRN (15:00)
[2017-10-16] MEDS: morphine SULFATE 10 MG/ML, 1ML IVPush PRN ×2 (15:59→21:55)
[2017-10-16] MEDS: NICOTINE 21 MG/24 HR PATCH.TD24 TD SCH (15:59)
[2017-10-16] MEDS ORDERED: POTASSIUM CHLORIDE 80 MEQ in SODIUM CHLORIDE 0.9% 1,000 ML IV ONE ×2 (16:00→22:30)
[2017-10-16] MEDS: ONDANSETRON 2MG/ML, 2ML IVPush PRN (17:51)
[2017-10-16] MEDS: LORazepam 2 MG/ML, 1ML IVPush PRN ×2 (17:51→23:13)
[2017-10-16] MEDS: METOPROLOL TARTRATE 25 MG TABLET PO SCH (18:00)
[2017-10-16 19:06] LABS: MICROSCOPIC AUTO
[2017-10-16 19:07] LABS: CULTURE INDICATED? NO
[2017-10-16 19:15] LABS: AMPHETAMINE SCREEN, URINE Negative (Negative); BARBITURATE SCREEN, URINE Negative (Negative); BENZODIAZEPINE SCREEN, URINE Negative (Negative); CANNABINOID SCREEN, URINE Negative (Negative); COCAINE SCREEN, URINE Negative (Negative); METHADONE SCREEN, URINE Negative (Negative); OPIATE SCREEN, URINE Positive (Negative)
[2017-10-16 20:24] VITALS: BP 131/89
[2017-10-16] MEDS: PANTOPRAZOLE 40 MG IV IVPush SCH (21:55)
[2017-10-17] MEDS ORDERED: NS + 20MEQ KCL 1,000 ML IV SCH
[2017-10-17 01:30] VITALS: BP 100/68
[2017-10-17] MEDS: morphine SULFATE 10 MG/ML, 1ML IVPush PRN ×7 (01:45→23:59)
[2017-10-17] MEDS: LORazepam 2 MG/ML, 1ML IVPush PRN (03:42)
[2017-10-17] MEDS: METOPROLOL TARTRATE 25 MG TABLET PO SCH ×2 (05:46→18:40)
[2017-10-17 05:54] LABS: CHLORIDE 109 mmol/L (98-107)
[2017-10-17 06:10] LABS: ALANINE AMINOTRANSFERASE 32 U/L (12-78); ALBUMIN 1.9 g/dL (3.4-5.0); ALKALINE PHOSPHATASE 191 U/L (45-117); ANION GAP 6 mmol/L (5-15); BILIRUBIN,TOTAL 1.9 mg/dL (0.2-1.0); CALCIUM 6.9 mg/dL (8.5-10.1); CREATININE 0.44 mg/dL (0.55-1.02); TOTAL PROTEIN 6.1 g/dL (6.4-8.2)
[2017-10-17 06:12] LABS: BASOPHILS # (AUTO) 0.04 x10^3/uL (0-0.1); BASOPHILS % (AUTO) 1 % (0-1); EOSINOPHILS # (AUTO) 0.04 x10^3/uL (0-0.4); EOSINOPHILS % (AUTO) 1 % (1-7); LYMPHOCYTES # (AUTO) 1.26 x10^3/uL (1-3.4); LYMPHOCYTES % (AUTO) 32 % (22-44); MD NO; MEAN CORPUSCULAR HGB CONC 32.7 g/dL (32.4-35.8); MEAN CORPUSCULAR VOLUME 82.6 fL (80-100); MEAN PLATELET VOLUME 6.7 fL (7.4-10.4); MONOCYTES # (AUTO) 0.37 x10^3/uL (0.2-0.8); MONOCYTES % (AUTO) 9 % (2-9); NEUTROPHILS # (AUTO) 2.29 x10^3/uL (1.8-6.8); NEUTROPHILS % (AUTO) 57 % (42-75); PLATELET COUNT 139 x10^3/uL (130-400); RED BLOOD COUNT 3.17 x10^6/uL (3.82-5.3); RED CELL DISTRIBUTION WIDTH 19.1 % (9.6-15.2)
[2017-10-17] MEDS ORDERED: POTASSIUM PHOSPHATE 44 MEQ in SODIUM CHLORIDE 0.9% 500 ML IV ONE ×2 (08:30→18:30)
[2017-10-17] MEDS ORDERED: MAGNESIUM SULFATE 6 GM in SODIUM CHLORIDE 0.9% 150 ML IV ONE (08:30)
[2017-10-17] MEDS: PANTOPRAZOLE 40 MG IV IVPush SCH ×2 (09:03→20:44)
[2017-10-17] MEDS: SODIUM CHLORIDE 0.9% 1,000 ML IV SCH (09:03)
[2017-10-17 14:00] VITALS: BP 96/63
[2017-10-17] MEDS: NICOTINE 21 MG/24 HR PATCH.TD24 TD SCH (15:46)
[2017-10-17 15:50] VITALS: BP 101/70
[2017-10-17 20:00] VITALS: BP 95/65
[2017-10-18] MEDS: ONDANSETRON 2MG/ML, 2ML IVPush PRN (00:13)
[2017-10-18 01:18] VITALS: BP 111/79
[2017-10-18] MEDS: morphine SULFATE 10 MG/ML, 1ML IVPush PRN ×3 (03:03→12:02)
[2017-10-18 04:32] LABS: BASOPHILS # (AUTO) 0.01 x10^3/uL (0-0.1); BASOPHILS % (AUTO) 0 % (0-1); EOSINOPHILS # (AUTO) 0.07 x10^3/uL (0-0.4); EOSINOPHILS % (AUTO) 2 % (1-7); LYMPHOCYTES # (AUTO) 1.36 x10^3/uL (1-3.4); LYMPHOCYTES % (AUTO) 32 % (22-44); MD NO; MEAN CORPUSCULAR HEMOGLOBIN 26.6 pg (27.0-34.8); MEAN CORPUSCULAR HGB CONC 32.1 g/dL (32.4-35.8); MEAN CORPUSCULAR VOLUME 82.6 fL (80-100); MEAN PLATELET VOLUME 6.9 fL (7.4-10.4); MONOCYTES # (AUTO) 0.34 x10^3/uL (0.2-0.8); MONOCYTES % (AUTO) 8 % (2-9); NEUTROPHILS # (AUTO) 2.46 x10^3/uL (1.8-6.8); NEUTROPHILS % (AUTO) 58 % (42-75); PLATELET COUNT 134 x10^3/uL (130-400); RED BLOOD COUNT 2.99 x10^6/uL (3.82-5.3); RED CELL DISTRIBUTION WIDTH 19.6 % (9.6-15.2)
[2017-10-18 04:40] LABS: ALANINE AMINOTRANSFERASE 24 U/L (12-78); ALBUMIN 1.8 g/dL (3.4-5.0); ANION GAP 6 mmol/L (5-15); CALCIUM 6.9 mg/dL (8.5-10.1); CHLORIDE 106 mmol/L (98-107); CREATININE 0.23 mg/dL (0.55-1.02)
[2017-10-18 04:43] LABS: ALKALINE PHOSPHATASE 163 U/L (45-117); BILIRUBIN,TOTAL 1.4 mg/dL (0.2-1.0)
[2017-10-18 07:04] VITALS: BP 99/66
[2017-10-18] MEDS: METOPROLOL TARTRATE 25 MG TABLET PO SCH (08:00)
[2017-10-18] MEDS: PANTOPRAZOLE 40 MG IV IVPush SCH (09:23)
[2017-10-18] MEDS: SODIUM CHLORIDE 0.9% 1,000 ML IV SCH ×2 (09:29)
[2017-10-18] MEDS ORDERED: MAGNESIUM OXIDE 400 MG TABLET PO SCH (09:30)
[2017-10-18 13:13] VITALS: BP 108/77
== END 2017-10-18 14:24 | disposition left against medical advice (07) | DRG 438 ==
LOC: ED 11:57 → EDIP 12:50 → 4WST 14:19
PROVIDERS: ADMIT Internal Medicine; ATTEND Internal Medicine
DX: K85.20 Alcohol induced acute pancreatitis without necrosis or infection (principal); E43 Unspecified severe protein-calorie malnutrition; K70.10 Alcoholic hepatitis without ascites; E87.6 Hypokalemia; R00.0 Tachycardia, unspecified; I10 Essential (primary) hypertension; E83.39 Other disorders of phosphorus metabolism; E83.42 Hypomagnesemia; F20.9 Schizophrenia, unspecified; F10.20 Alcohol dependence, uncomplicated; Z90.49 Acquired absence of other specified parts of digestive tract; Z76.5 Malingerer [conscious simulation]; Z87.891 Personal history of nicotine dependence; Z68.24 Body mass index [BMI] 24.0-24.9, adult
CPT/HCPCS: 36415; 74022; 80053; 80307; 81001; 83690; 83735; 84100; 84703; 85025; 93005; 96365; 96374; 96375; 96376; J2405; J3475; J3480; C9113; J2060; J2270; J7030; J7040

== ENCOUNTER 2017-10-26 12:13 | Emergency (ER) | payer MEDICAID ==
[~2017-10-26] VITALS: Ht 157.5 cm; Wt 52.0 kg
[2017-10-26] MEDS ORDERED: THIAMINE 100MG TABLET PO ONE (12:30)
[2017-10-26] MEDS ORDERED: SODIUM CHLORIDE 0.9% 1,000ML IVBOLUS ONE ×3 (12:30→16:30)
[2017-10-26] MEDS ORDERED: LORazepam 2 MG/ML, 1ML IVPush ONE (12:30)
[2017-10-26] MEDS ORDERED: ONDANSETRON 2MG/ML, 2ML IVPush ONE (12:30)
[2017-10-26] MEDS ORDERED: PLEASE ENTER HEIGHT AND WEIGHT MC SCH (12:30)
[2017-10-26 12:47] LABS: BASOPHILS # (AUTO) 0.06 x10^3/uL (0-0.1); BASOPHILS % (AUTO) 1 % (0-1); EOSINOPHILS % (AUTO) 0 % (1-7); LYMPHOCYTES # (AUTO) 0.47 x10^3/uL (1-3.4); LYMPHOCYTES % (AUTO) 10 % (22-44); MD NO; MEAN CORPUSCULAR HEMOGLOBIN 26.6 pg (27.0-34.8); MEAN CORPUSCULAR HGB CONC 32.4 g/dL (32.4-35.8); MEAN PLATELET VOLUME 6.2 fL (7.4-10.4); MONOCYTES # (AUTO) 0.63 x10^3/uL (0.2-0.8); MONOCYTES % (AUTO) 13 % (2-9); NEUTROPHILS # (AUTO) 3.78 x10^3/uL (1.8-6.8); NEUTROPHILS % (AUTO) 76 % (42-75); PLATELET COUNT 255 x10^3/uL (130-400); RED BLOOD COUNT 3.89 x10^6/uL (3.82-5.3); RED CELL DISTRIBUTION WIDTH 21.2 % (9.6-15.2)
[2017-10-26] MEDS ORDERED: THIAMINE 100MG TABLET ONE (12:49)
[2017-10-26] MEDS ORDERED: LORazepam 2 MG/ML, 1ML ONE (12:49)
[2017-10-26] MEDS ORDERED: ONDANSETRON 2MG/ML, 2ML ONE (12:49)
[2017-10-26 13:00] LABS: ALANINE AMINOTRANSFERASE 55 U/L (12-78); ALBUMIN 2.4 g/dL (3.4-5.0); ANION GAP 13 mmol/L (5-15); CALCIUM 7.7 mg/dL (8.5-10.1); CHLORIDE 102 mmol/L (98-107); CREATININE 0.63 mg/dL (0.55-1.02)
[2017-10-26] MEDS ORDERED: ACETAMINOPHEN 325 MG TABLET PO ONE (13:00)
[2017-10-26 13:07] LABS: ALKALINE PHOSPHATASE 286 U/L (45-117); BILIRUBIN,TOTAL 1.8 mg/dL (0.2-1.0); TOTAL PROTEIN 7.9 g/dL (6.4-8.2)
[2017-10-26] MEDS ORDERED: ACETAMINOPHEN 500 MG TABLET ONE (13:16)
[2017-10-26 16:54] VITALS: BP 112/60
== END 2017-10-26 17:37 | disposition home or self-care (01) ==
LOC: ED 13:03
DX: R56.9 Unspecified convulsions (principal); F10.239 Alcohol dependence with withdrawal, unspecified; E86.0 Dehydration; I10 Essential (primary) hypertension; Z90.49 Acquired absence of other specified parts of digestive tract
CPT/HCPCS: 36415; 70450; 80053; 80307; 83605; 84703; 85025; 93005; 96361; 96374; 96375; 99285; J2060; J2405; J7030

== ENCOUNTER 2017-12-24 17:08 | Emergency (ER) | payer MEDICAID ==
[~2017-12-24] VITALS: Ht 157.5 cm; Wt 65.0 kg
[2017-12-24] MEDS ORDERED: ONDANSETRON 2MG/ML, 2ML IVPush ONE (18:00)
[2017-12-24] MEDS ORDERED: ONDANSETRON ODT 4 MG ONE (18:04)
[2017-12-24] MEDS ORDERED: MORPHINE SULFATE 4 MG/ML, 1ML ONE ×2 (18:05→19:08)
[2017-12-24] MEDS: MORPHINE SULFATE 4 MG/ML, 1ML IVPush PRN ×2 (18:10→19:08)
[2017-12-24 18:12] VITALS: BP 105/75
[2017-12-24 18:14] LABS: BASOPHILS # (AUTO) 0.07 x10^3/uL (0-0.1); BASOPHILS % (AUTO) 1 % (0-1); EOSINOPHILS # (AUTO) 0.08 x10^3/uL (0-0.4); EOSINOPHILS % (AUTO) 2 % (1-7); LYMPHOCYTES # (AUTO) 2.35 x10^3/uL (1-3.4); LYMPHOCYTES % (AUTO) 41 % (22-44); MD NO; MEAN CORPUSCULAR HEMOGLOBIN 23.6 pg (27.0-34.8); MEAN CORPUSCULAR HGB CONC 31.9 g/dL (32.4-35.8); MEAN PLATELET VOLUME 6.7 fL (7.4-10.4); MONOCYTES # (AUTO) 0.19 x10^3/uL (0.2-0.8); MONOCYTES % (AUTO) 3 % (2-9); NEUTROPHILS # (AUTO) 3.04 x10^3/uL (1.8-6.8); NEUTROPHILS % (AUTO) 53 % (42-75); PLATELET COUNT 338 x10^3/uL (130-400); RED BLOOD COUNT 4.45 x10^6/uL (3.82-5.3); RED CELL DISTRIBUTION WIDTH 18.3 % (9.6-15.2)
[2017-12-24 18:24] LABS: ALANINE AMINOTRANSFERASE 23 U/L (12-78); ALBUMIN 2.9 g/dL (3.4-5.0); ANION GAP 14 mmol/L (5-15); CALCIUM 7.5 mg/dL (8.5-10.1); CHLORIDE 110 mmol/L (98-107); CREATININE 0.57 mg/dL (0.55-1.02)
[2017-12-24 18:29] LABS: ALKALINE PHOSPHATASE 95 U/L (45-117); BILIRUBIN,TOTAL 0.9 mg/dL (0.2-1.0); TOTAL PROTEIN 7.4 g/dL (6.4-8.2)
[2017-12-24] MEDS ORDERED: SODIUM CHLORIDE FLUSH 10ML SYR IVF ONE (19:00)
[2017-12-24 19:31] LABS: MICROSCOPIC AUTO
[2017-12-24 19:34] LABS: CULTURE INDICATED? YES
== END 2017-12-24 20:11 | disposition left against medical advice (07) ==
LOC: ED 18:15
DX: K86.0 Alcohol-induced chronic pancreatitis (principal); E87.6 Hypokalemia; I10 Essential (primary) hypertension; F17.200 Nicotine dependence, unspecified, uncomplicated; Z90.49 Acquired absence of other specified parts of digestive tract
CPT/HCPCS: 36415; 80053; 81001; 83690; 84703; 85025; 87086; 96374; 96375; 96376; 99284; J2405

== ENCOUNTER 2018-01-11 14:48 | Emergency (ER) | payer MEDICAID ==
[2018-01-11] MEDS ORDERED: FENTANYL PF 100 MCG/2ML IM ONE (15:00)
[2018-01-11] MEDS ORDERED: ONDANSETRON ODT 4 MG PO ONE (15:00)
[2018-01-11] MEDS ORDERED: ONDANSETRON ODT 4 MG ONE (15:15)
[2018-01-11] MEDS ORDERED: FENTANYL PF 100 MCG/2ML ONE (15:16)
[2018-01-11 15:19] LABS: BASOPHILS # (AUTO) 0.07 x10^3/uL (0-0.1); BASOPHILS % (AUTO) 1 % (0-1); EOSINOPHILS # (AUTO) 0.04 x10^3/uL (0-0.4); EOSINOPHILS % (AUTO) 1 % (1-7); LYMPHOCYTES # (AUTO) 2.21 x10^3/uL (1-3.4); LYMPHOCYTES % (AUTO) 38 % (22-44); MD NO; MEAN CORPUSCULAR HEMOGLOBIN 22.9 pg (27.0-34.8); MEAN CORPUSCULAR HGB CONC 31.8 g/dL (32.4-35.8); MEAN CORPUSCULAR VOLUME 72.1 fL (80-100); MEAN PLATELET VOLUME 6.2 fL (7.4-10.4); MONOCYTES % (AUTO) 3 % (2-9); NEUTROPHILS # (AUTO) 3.28 x10^3/uL (1.8-6.8); NEUTROPHILS % (AUTO) 57 % (42-75); PLATELET COUNT 680 x10^3/uL (130-400); RED CELL DISTRIBUTION WIDTH 18.6 % (9.6-15.2)
[2018-01-11 15:30] LABS: ALANINE AMINOTRANSFERASE 38 U/L (12-78); ALBUMIN 3.7 g/dL (3.4-5.0); ANION GAP 14 mmol/L (5-15); CALCIUM 8.7 mg/dL (8.5-10.1); CHLORIDE 106 mmol/L (98-107); CREATININE 0.74 mg/dL (0.55-1.02)
[2018-01-11] MEDS ORDERED: PLEASE ENTER HEIGHT AND WEIGHT MC SCH (15:30)
[2018-01-11 15:32] LABS: ALKALINE PHOSPHATASE 126 U/L (45-117); BILIRUBIN,TOTAL 0.8 mg/dL (0.2-1.0); TOTAL PROTEIN 8.9 g/dL (6.4-8.2)
[2018-01-11 16:12] VITALS: BP 99/78
== END 2018-01-11 16:15 | disposition home or self-care (01) ==
LOC: ED 15:30
DX: K86.3 Pseudocyst of pancreas (principal); K86.0 Alcohol-induced chronic pancreatitis; F10.20 Alcohol dependence, uncomplicated; I10 Essential (primary) hypertension; F17.200 Nicotine dependence, unspecified, uncomplicated; Y90.9 Presence of alcohol in blood, level not specified
CPT/HCPCS: 36415; 71045; 80053; 83690; 85025; 93005; 96372; 99285; J3010; Q0162

== ENCOUNTER 2018-01-13 02:56 | Emergency (ER) | payer MEDICAID ==
[~2018-01-13] VITALS: Ht 157.5 cm; Wt 60.0 kg
[2018-01-13 03:01] VITALS: BP 114/74
[2018-01-13] MEDS ORDERED: ONDANSETRON ODT 4 MG ONE (03:12)
[2018-01-13] MEDS ORDERED: MORPHINE SULFATE 4 MG/ML, 1ML ONE ×2 (03:13→03:49)
[2018-01-13 03:27] LABS: HCG UR SG 1.012 (1.003-1.030); MICROSCOPIC AUTO
[2018-01-13 03:28] LABS: CULTURE INDICATED? YES
[2018-01-13] MEDS ORDERED: PROCHLORPERAZINE 5 MG/ML, 2ML ONE (03:28)
[2018-01-13] MEDS ORDERED: MORPHINE SULFATE 4 MG/ML, 1ML IVPush PRN (03:30)
[2018-01-13] MEDS ORDERED: PROCHLORPERAZINE 5 MG/ML, 2ML IVPush ONE (03:30)
[2018-01-13] MEDS ORDERED: SODIUM CHLORIDE FLUSH 10ML SYR IVF ONE (03:30)
[2018-01-13] MEDS ORDERED: SODIUM CHLORIDE 0.9% 1,000ML IVBOLUS ONE (03:30)
[2018-01-13] MEDS ORDERED: ZIPRASIDONE 20 MG INJ IM ONE ×2 (03:54→04:00)
[2018-01-13 03:56] LABS: BASOPHILS # (AUTO) 0.04 x10^3/uL (0-0.1); BASOPHILS % (AUTO) 1 % (0-1); EOSINOPHILS # (AUTO) 0.08 x10^3/uL (0-0.4); EOSINOPHILS % (AUTO) 1 % (1-7); LYMPHOCYTES # (AUTO) 2.03 x10^3/uL (1-3.4); LYMPHOCYTES % (AUTO) 26 % (22-44); MD NO; MEAN CORPUSCULAR HEMOGLOBIN 22.1 pg (27.0-34.8); MEAN CORPUSCULAR HGB CONC 30.7 g/dL (32.4-35.8); MEAN CORPUSCULAR VOLUME 71.9 fL (80-100); MEAN PLATELET VOLUME 6.3 fL (7.4-10.4); MONOCYTES # (AUTO) 0.26 x10^3/uL (0.2-0.8); MONOCYTES % (AUTO) 3 % (2-9); NEUTROPHILS # (AUTO) 5.34 x10^3/uL (1.8-6.8); NEUTROPHILS % (AUTO) 69 % (42-75); PLATELET COUNT 548 x10^3/uL (130-400); RED CELL DISTRIBUTION WIDTH 19.5 % (9.6-15.2)
[2018-01-13 04:00] LABS: INTERNATIONAL NORMALIZED RATIO 1.1 (0.93-1.1); PROTHROMBIN TIME 11.4 Seconds (9.6-11.5)
[2018-01-13 04:04] LABS: ALANINE AMINOTRANSFERASE 35 U/L (12-78); ALBUMIN 3.3 g/dL (3.4-5.0); ANION GAP 15 mmol/L (5-15); CHLORIDE 104 mmol/L (98-107)
[2018-01-13 04:06] LABS: ALKALINE PHOSPHATASE 114 U/L (45-117); BILIRUBIN,TOTAL 0.9 mg/dL (0.2-1.0); TOTAL PROTEIN 7.9 g/dL (6.4-8.2)
== END 2018-01-13 04:52 | disposition left against medical advice (07) ==
LOC: ED 03:07
DX: K86.1 Other chronic pancreatitis (principal); E86.0 Dehydration; I10 Essential (primary) hypertension; Z90.49 Acquired absence of other specified parts of digestive tract; F20.9 Schizophrenia, unspecified; F10.10 Alcohol abuse, uncomplicated; F19.10 Other psychoactive substance abuse, uncomplicated
CPT/HCPCS: 36415; 71045; 80053; 81001; 81025; 83690; 85025; 85610; 85730; 87086; 96361; 96372; 96374; 96375; 99285; J0780; J3486; J7030

== ENCOUNTER 2018-04-16 11:45 | Emergency (ER) | payer SELFPAY ==
[~2018-04-16] VITALS: Ht 157.5 cm; Wt 59.1 kg
[2018-04-16 11:45] VITALS: BP 113/72
[~2018-04-16 11:45] MED LIST changes: -THIA100T6 PO; +THIA100T67 PO
[2018-04-16] MEDS ORDERED: LEVETIRACETAM 500 MG TABLET PO ONE (12:00)
[2018-04-16] MEDS ORDERED: PLEASE ENTER HEIGHT AND WEIGHT MC SCH (12:30)
== END 2018-04-16 17:41 | disposition home or self-care (01) ==
LOC: ED 15:52
DX: F33.9 Major depressive disorder, recurrent, unspecified (principal); F10.229 Alcohol dependence with intoxication, unspecified; F20.9 Schizophrenia, unspecified
CPT/HCPCS: 99283

== ENCOUNTER 2018-06-01 06:49 | Inpatient (IN) | payer MEDICAID, OTHER ==
[~2018-06-01] VITALS: Ht 157.5 cm; Wt 67.0 kg
[~2018-06-01 06:49] MED LIST changes: -AMLO5TAB2 PO; +AMLO5TAB7 PO
[2018-06-01] MEDS ORDERED: SODIUM CHLORIDE FLUSH 10ML SYR IVF ONE (07:30)
[2018-06-01] MEDS ORDERED: FAMOTIDINE 20 MG/2 ML IVP ONE (07:30)
[2018-06-01] MEDS ORDERED: SODIUM CHLORIDE 0.9% 1,000ML IVBOLUS ONE ×2 (07:30→11:00)
[2018-06-01 07:36] LABS: BASOPHILS # (AUTO) 0.03 x10^3/uL (0-0.1); BASOPHILS % (AUTO) 0 % (0-1); EOSINOPHILS # (AUTO) 0.03 x10^3/uL (0-0.4); EOSINOPHILS % (AUTO) 0 % (1-7); LYMPHOCYTES # (AUTO) 1.21 x10^3/uL (1-3.4); LYMPHOCYTES % (AUTO) 11 % (22-44); MD NO; MEAN CORPUSCULAR HEMOGLOBIN 22.1 pg (27.0-34.8); MEAN CORPUSCULAR HGB CONC 32.4 g/dL (32.4-35.8); MEAN CORPUSCULAR VOLUME 68.1 fL (80-100); MEAN PLATELET VOLUME 6.7 fL (7.4-10.4); MONOCYTES # (AUTO) 0.73 x10^3/uL (0.2-0.8); MONOCYTES % (AUTO) 7 % (2-9); NEUTROPHILS # (AUTO) 8.61 x10^3/uL (1.8-6.8); NEUTROPHILS % (AUTO) 81 % (42-75); PLATELET COUNT 772 x10^3/uL (130-400); RED BLOOD COUNT 3.61 x10^6/uL (3.82-5.3)
[2018-06-01] MEDS ORDERED: MORPHINE SULFATE 4 MG/ML, 1ML ONE ×2 (07:40→09:36)
[2018-06-01] MEDS ORDERED: FAMOTIDINE 20 MG/2 ML ONE (07:40)
[2018-06-01 07:45] LABS: ALANINE AMINOTRANSFERASE 23 U/L (12-78); ALBUMIN 1.9 g/dL (3.4-5.0); ANION GAP 10 mmol/L (5-15); CALCIUM 8.2 mg/dL (8.5-10.1); CHLORIDE 107 mmol/L (98-107); CREATININE 0.68 mg/dL (0.55-1.02)
[2018-06-01] MEDS: MORPHINE SULFATE 4 MG/ML, 1ML IVPush PRN ×2 (07:46→09:41)
[2018-06-01 07:49] LABS: ALKALINE PHOSPHATASE 138 U/L (45-117); BILIRUBIN,TOTAL 0.3 mg/dL (0.2-1.0); TOTAL PROTEIN 8.2 g/dL (6.4-8.2)
[2018-06-01 08:39] LABS: CULTURE INDICATED? YES; MICROSCOPIC INDICATED
[2018-06-01] MEDS ORDERED: CEFTRIAXONE 1,000 MG in SODIUM CHLORIDE 0.9% 50 ML IV ONE (12:00)
[2018-06-01] MEDS ORDERED: ONDANSETRON ODT 4 MG PO PRN (13:30)
[2018-06-01] MEDS ORDERED: ONDANSETRON 2MG/ML, 2ML IVPush PRN (13:30)
[2018-06-01 14:27] VITALS: BP 95/67
[2018-06-01] MEDS: HEPARIN 5,000 UNITS/ML, 1ML SQ SCH ×2 (15:05→21:30)
[2018-06-01] MEDS: morphine SULFATE 10 MG/ML, 1ML IVPush PRN ×3 (15:05→21:46)
[2018-06-01] MEDS: SODIUM CHLORIDE 0.9% 1,000 ML IV SCH ×2 (15:05→21:46)
[2018-06-01] MEDS: NICOTINE 14MG/24 HR PATCH.TD24 TD SCH (15:05)
[2018-06-01 18:33] VITALS: BP 95/67
[2018-06-01 18:43] VITALS: BP 94/61
[2018-06-02 01:31] VITALS: BP 101/66
[2018-06-02] MEDS: morphine SULFATE 10 MG/ML, 1ML IVPush PRN ×8 (01:33→23:44)
[2018-06-02] MEDS: SODIUM CHLORIDE 0.9% 1,000 ML IV SCH ×3 (03:48→20:42)
[2018-06-02] MEDS: HEPARIN 5,000 UNITS/ML, 1ML SQ SCH ×3 (04:38→20:54)
[2018-06-02 05:49] LABS: CHLORIDE 109 mmol/L (98-107)
[2018-06-02 06:11] LABS: ALANINE AMINOTRANSFERASE 13 U/L (12-78); ALBUMIN 1.6 g/dL (3.4-5.0); ALKALINE PHOSPHATASE 105 U/L (45-117); ANION GAP 7 mmol/L (5-15); BILIRUBIN,TOTAL 0.4 mg/dL (0.2-1.0); CALCIUM 7.5 mg/dL (8.5-10.1); CHOL/HDL RATIO 5.1; CHOLESTEROL, TOTAL 82 mg/dL (140-239); CREATININE 0.45 mg/dL (0.55-1.02); FREE T4 (FREE THYROXINE) 1.35 ng/dL (0.76-1.46); HDL CHOL % 20 % (28-40); HDL CHOLESTEROL (DIRECT) 16 mg/dL (40-60); LDL CHOLESTEROL,CALCULATED 42 mg/dL (54-169); LDL/HDL RATIO 2.6 (0.5-3.0); TOTAL PROTEIN 6.5 g/dL (6.4-8.2); TRIGLYCERIDES 122 mg/dL (50-200); VLDL CHOLESTEROL 24 mg/dL (0-25)
[2018-06-02 06:35] LABS: MEAN CORPUSCULAR HEMOGLOBIN 21.8 pg (27.0-34.8); MEAN PLATELET VOLUME 6.4 fL (7.4-10.4); PLATELET COUNT 608 x10^3/uL (130-400); RED BLOOD COUNT 3.22 x10^6/uL (3.82-5.3); RED CELL DISTRIBUTION WIDTH 20.7 % (9.6-15.2)
[2018-06-02 07:28] VITALS: BP 94/58
[2018-06-02 08:32] LABS: BASOPHILS # (AUTO) 0.06 x10^3/uL (0-0.1); BASOPHILS % (AUTO) 1 % (0-1); EOSINOPHILS # (AUTO) 0.14 x10^3/uL (0-0.4); EOSINOPHILS % (AUTO) 2 % (1-7); LYMPHOCYTES # (AUTO) 1.91 x10^3/uL (1-3.4); LYMPHOCYTES % (AUTO) 25 % (22-44); MD SCAN; MONOCYTES # (AUTO) 0.94 x10^3/uL (0.2-0.8); MONOCYTES % (AUTO) 13 % (2-9); NEUTROPHILS # (AUTO) 4.48 x10^3/uL (1.8-6.8); NEUTROPHILS % (AUTO) 60 % (42-75)
[2018-06-02] MEDS: IRON SUCROSE COMPLEX 100MG/5ML IV SCH (09:33)
[2018-06-02] MEDS: PANTOPRAZOLE 40 MG IV IVPush SCH (09:33)
[2018-06-02 13:33] VITALS: BP 96/62
[2018-06-02] MEDS: NICOTINE 14MG/24 HR PATCH.TD24 TD SCH (17:33)
[2018-06-02 19:06] VITALS: BP 98/61
[2018-06-03] VITALS (14 sets, daily range): BP systolic 93–108; BP diastolic 60–74
[2018-06-03] MEDS: morphine SULFATE 10 MG/ML, 1ML IVPush PRN ×7 (02:48→22:51)
[2018-06-03] MEDS: SODIUM CHLORIDE 0.9% 1,000 ML IV SCH ×2 (03:39→11:43)
[2018-06-03] MEDS: HEPARIN 5,000 UNITS/ML, 1ML SQ SCH ×3 (05:05→21:30)
[2018-06-03 05:41] LABS: ALBUMIN 1.6 g/dL (3.4-5.0); ANION GAP 8 mmol/L (5-15); CALCIUM 7.4 mg/dL (8.5-10.1); CHLORIDE 108 mmol/L (98-107)
[2018-06-03 05:44] LABS: MEAN CORPUSCULAR HEMOGLOBIN 21.9 pg (27.0-34.8); MEAN CORPUSCULAR HGB CONC 31.9 g/dL (32.4-35.8); MEAN CORPUSCULAR VOLUME 68.7 fL (80-100); MEAN PLATELET VOLUME 6.3 fL (7.4-10.4); PLATELET COUNT 601 x10^3/uL (130-400); RED BLOOD COUNT 3.08 x10^6/uL (3.82-5.3); RED CELL DISTRIBUTION WIDTH 20.5 % (9.6-15.2)
[2018-06-03 05:45] LABS: ALANINE AMINOTRANSFERASE 12 U/L (12-78); ALKALINE PHOSPHATASE 101 U/L (45-117); BILIRUBIN,TOTAL 0.5 mg/dL (0.2-1.0); CREATININE 0.34 mg/dL (0.55-1.02); TOTAL PROTEIN 6.5 g/dL (6.4-8.2)
[2018-06-03 06:28] LABS: BASOPHILS # (AUTO) 0.06 x10^3/uL (0-0.1); BASOPHILS % (AUTO) 1 % (0-1); EOSINOPHILS # (AUTO) 0.03 x10^3/uL (0-0.4); EOSINOPHILS % (AUTO) 0 % (1-7); LYMPHOCYTES # (AUTO) 1.78 x10^3/uL (1-3.4); LYMPHOCYTES % (AUTO) 22 % (22-44); MD SCAN; MONOCYTES # (AUTO) 0.87 x10^3/uL (0.2-0.8); MONOCYTES % (AUTO) 11 % (2-9); NEUTROPHILS # (AUTO) 5.27 x10^3/uL (1.8-6.8); NEUTROPHILS % (AUTO) 66 % (42-75)
[2018-06-03] MEDS: PANTOPRAZOLE 40 MG IV IVPush SCH (08:23)
[2018-06-03] MEDS: IRON SUCROSE COMPLEX 100MG/5ML IV SCH (09:34)
[2018-06-03] MEDS ORDERED: LIDOCAINE-MPF 2%, 2ML ONE (12:40)
[2018-06-03 15:27] LABS: CELLS COUNTED 108
[2018-06-03] MEDS: NICOTINE 14MG/24 HR PATCH.TD24 TD SCH (17:31)
[2018-06-03] MEDS ORDERED: MAGNESIUM SULFATE PMX 4GM/100M 100 ML IV ONE (18:30)
[2018-06-03] MEDS: DOCUSATE 100 MG CAPSULE PO SCH (19:41)
[2018-06-04] MEDS: SODIUM CHLORIDE 0.9% 1,000 ML IV SCH ×4 (01:51→21:33)
[2018-06-04 01:52] VITALS: BP 112/76
[2018-06-04] MEDS: morphine SULFATE 10 MG/ML, 1ML IVPush PRN ×7 (01:59→21:15)
[2018-06-04] MEDS: HEPARIN 5,000 UNITS/ML, 1ML SQ SCH ×3 (05:06→21:15)
[2018-06-04 05:28] LABS: CHLORIDE 110 mmol/L (98-107)
[2018-06-04 05:35] LABS: ALANINE AMINOTRANSFERASE 12 U/L (12-78); ALBUMIN 1.5 g/dL (3.4-5.0); ALKALINE PHOSPHATASE 99 U/L (45-117); ANION GAP 8 mmol/L (5-15); BILIRUBIN,TOTAL 1.2 mg/dL (0.2-1.0); CALCIUM 7.1 mg/dL (8.5-10.1); CREATININE 0.42 mg/dL (0.55-1.02); TOTAL PROTEIN 6.3 g/dL (6.4-8.2)
[2018-06-04 05:38] LABS: MEAN CORPUSCULAR HEMOGLOBIN 23.2 pg (27.0-34.8); MEAN CORPUSCULAR VOLUME 72.5 fL (80-100); MEAN PLATELET VOLUME 6.5 fL (7.4-10.4); PLATELET COUNT 597 x10^3/uL (130-400); RED BLOOD COUNT 3.74 x10^6/uL (3.82-5.3)
[2018-06-04 06:04] LABS: BASOPHILS # (AUTO) 0.04 x10^3/uL (0-0.1); BASOPHILS % (AUTO) 1 % (0-1); EOSINOPHILS # (AUTO) 0.03 x10^3/uL (0-0.4); EOSINOPHILS % (AUTO) 0 % (1-7); LYMPHOCYTES # (AUTO) 1.72 x10^3/uL (1-3.4); LYMPHOCYTES % (AUTO) 24 % (22-44); MD SCAN; MONOCYTES % (AUTO) 11 % (2-9); NEUTROPHILS # (AUTO) 4.72 x10^3/uL (1.8-6.8); NEUTROPHILS % (AUTO) 65 % (42-75)
[2018-06-04 07:45] VITALS: BP 102/70
[2018-06-04] MEDS: PANTOPRAZOLE 40 MG IV IVPush SCH (08:07)
[2018-06-04] MEDS: DOCUSATE 100 MG CAPSULE PO SCH ×2 (08:08→21:15)
[2018-06-04] MEDS: IRON SUCROSE COMPLEX 100MG/5ML IV SCH (08:08)
[2018-06-04] MEDS ORDERED: MAGNESIUM SULFATE PMX 2GM/50ML 50 ML IV ONE (10:00)
[2018-06-04 13:23] VITALS: BP 101/67
[2018-06-04] MEDS: NICOTINE 14MG/24 HR PATCH.TD24 TD SCH (17:57)
[2018-06-04 20:00] VITALS: BP 121/82
[2018-06-04] MEDS: MAGNESIUM CHLORIDE 64 MG TABLET.DR PO SCH (21:15)
[2018-06-04] MEDS: ACETAMINOPHEN 325 MG TABLET PO PRN (21:34)
[2018-06-05] MEDS: morphine SULFATE 10 MG/ML, 1ML IVPush PRN ×7 (00:37→21:15)
[2018-06-05 00:48] VITALS: BP 117/80
[2018-06-05] MEDS: SODIUM CHLORIDE 0.9% 1,000 ML IV SCH ×3 (04:45→18:04)
[2018-06-05] MEDS: HEPARIN 5,000 UNITS/ML, 1ML SQ SCH ×3 (05:13→19:44)
[2018-06-05] MEDS ORDERED: MAGNESIUM SULFATE PMX 2GM/50ML 50 ML IV ONE (06:30)
[2018-06-05 08:08] VITALS: BP 114/76
[2018-06-05] MEDS: DOCUSATE 100 MG CAPSULE PO SCH ×2 (08:23→21:14)
[2018-06-05] MEDS: NICOTINE 14MG/24 HR PATCH.TD24 TD SCH (08:24)
[2018-06-05] MEDS: PANTOPRAZOLE 40 MG IV IVPush SCH (08:24)
[2018-06-05] MEDS: MAGNESIUM CHLORIDE 64 MG TABLET.DR PO SCH ×2 (08:24→21:14)
[2018-06-05] MEDS: FLUCONAZOLE 200 MG TABLET PO SCH (08:24)
[2018-06-05 09:55] VITALS: BP 112/76
[2018-06-05 13:25] VITALS: BP 126/86
[2018-06-05 21:30] VITALS: BP 130/86
[2018-06-06] MEDS: morphine SULFATE 10 MG/ML, 1ML IVPush PRN ×8 (00:30→23:31)
[2018-06-06] MEDS: SODIUM CHLORIDE 0.9% 1,000 ML IV SCH ×4 (00:30→23:58)
[2018-06-06] MEDS: HEPARIN 5,000 UNITS/ML, 1ML SQ SCH ×3 (01:05→20:32)
[2018-06-06 02:09] VITALS: BP 107/73
[2018-06-06 05:08] LABS: MEAN CORPUSCULAR HEMOGLOBIN 23.1 pg (27.0-34.8); MEAN CORPUSCULAR HGB CONC 31.1 g/dL (32.4-35.8); MEAN CORPUSCULAR VOLUME 74.2 fL (80-100); MEAN PLATELET VOLUME 6.3 fL (7.4-10.4); PLATELET COUNT 604 x10^3/uL (130-400); RED BLOOD COUNT 3.77 x10^6/uL (3.82-5.3); RED CELL DISTRIBUTION WIDTH 23.1 % (9.6-15.2)
[2018-06-06 05:14] LABS: CHLORIDE 108 mmol/L (98-107)
[2018-06-06 05:33] LABS: ANION GAP 9 mmol/L (5-15); CALCIUM 7.5 mg/dL (8.5-10.1); CREATININE 0.39 mg/dL (0.55-1.02)
[2018-06-06 06:08] LABS: BASOPHILS # (AUTO) 0.02 x10^3/uL (0-0.1); BASOPHILS % (AUTO) 0 % (0-1); EOSINOPHILS # (AUTO) 0.09 x10^3/uL (0-0.4); EOSINOPHILS % (AUTO) 1 % (1-7); LYMPHOCYTES # (AUTO) 1.78 x10^3/uL (1-3.4); LYMPHOCYTES % (AUTO) 27 % (22-44); MD SCAN; MONOCYTES # (AUTO) 0.67 x10^3/uL (0.2-0.8); MONOCYTES % (AUTO) 10 % (2-9); NEUTROPHILS # (AUTO) 4.16 x10^3/uL (1.8-6.8); NEUTROPHILS % (AUTO) 62 % (42-75)
[2018-06-06 06:42] VITALS: BP 115/67
[2018-06-06] MEDS ORDERED: MAGNESIUM SULFATE PMX 2GM/50ML 50 ML IV ONE (07:00)
[2018-06-06] MEDS ORDERED: POTASSIUM CHLORIDE 40 MEQ in SODIUM CHLORIDE 0.9% 500 ML IV ONE (07:00)
[2018-06-06] MEDS ORDERED: MAGNESIUM SULFATE PMX 4GM/100M 100 ML IVPB ONE (08:00)
[2018-06-06] MEDS: NICOTINE 14MG/24 HR PATCH.TD24 TD SCH (09:49)
[2018-06-06] MEDS: PANTOPRAZOLE 40 MG IV IVPush SCH (09:49)
[2018-06-06] MEDS: POTASSIUM CHLORIDE 20 MEQ TAB.ER.PRT PO SCH ×2 (09:49→18:03)
[2018-06-06] MEDS: MAGNESIUM CHLORIDE 64 MG TABLET.DR PO SCH ×2 (09:49→20:30)
[2018-06-06] MEDS: FLUCONAZOLE 200 MG TABLET PO SCH (09:49)
[2018-06-06] MEDS: AMPICILLIN/SULBACTAM 3 GM in SODIUM CHLORIDE 0.9% 100 ML IV SCH ×3 (10:26→23:57)
[2018-06-06] MEDS: DOCUSATE 100 MG CAPSULE PO SCH ×2 (10:58→20:30)
[2018-06-06] MEDS: MAGNESIUM HYDROXIDE 8%, 30ML UDC PO SCH (10:58)
[2018-06-06 12:29] VITALS: BP 122/82
[2018-06-06 13:00] LABS: INTERNATIONAL NORMALIZED RATIO 1.21 (0.93-1.1); PROTHROMBIN TIME 12.5 Seconds (9.6-11.5)
[2018-06-06 14:49] VITALS: BP 131/88
[2018-06-06] MEDS: DIPHENHYDRAMINE 25 MG CAPSULE PO PRN ×2 (15:15→23:36)
[2018-06-06 20:16] VITALS: BP 139/84
[2018-06-07 03:36] VITALS: BP 117/69
[2018-06-07] MEDS: morphine SULFATE 10 MG/ML, 1ML IVPush PRN ×6 (03:43→20:55)
[2018-06-07 04:43] LABS: MEAN CORPUSCULAR HEMOGLOBIN 23.3 pg (27.0-34.8); MEAN CORPUSCULAR HGB CONC 31.7 g/dL (32.4-35.8); MEAN CORPUSCULAR VOLUME 73.5 fL (80-100); MEAN PLATELET VOLUME 6.4 fL (7.4-10.4); PLATELET COUNT 599 x10^3/uL (130-400); RED BLOOD COUNT 4.01 x10^6/uL (3.82-5.3); RED CELL DISTRIBUTION WIDTH 23.9 % (9.6-15.2)
[2018-06-07 04:49] LABS: CHLORIDE 106 mmol/L (98-107)
[2018-06-07 04:58] LABS: ALANINE AMINOTRANSFERASE 11 U/L (12-78); ALBUMIN 1.7 g/dL (3.4-5.0); ALKALINE PHOSPHATASE 96 U/L (45-117); ANION GAP 9 mmol/L (5-15); BILIRUBIN,TOTAL 0.5 mg/dL (0.2-1.0); CALCIUM 7.9 mg/dL (8.5-10.1); TOTAL PROTEIN 7.2 g/dL (6.4-8.2)
[2018-06-07 05:19] LABS: BASOPHILS # (AUTO) 0.03 x10^3/uL (0-0.1); BASOPHILS % (AUTO) 1 % (0-1); EOSINOPHILS # (AUTO) 0.08 x10^3/uL (0-0.4); EOSINOPHILS % (AUTO) 1 % (1-7); LYMPHOCYTES # (AUTO) 1.83 x10^3/uL (1-3.4); LYMPHOCYTES % (AUTO) 28 % (22-44); MD SCAN; MONOCYTES # (AUTO) 0.58 x10^3/uL (0.2-0.8); MONOCYTES % (AUTO) 9 % (2-9); NEUTROPHILS # (AUTO) 4.04 x10^3/uL (1.8-6.8); NEUTROPHILS % (AUTO) 62 % (42-75)
[2018-06-07] MEDS: HEPARIN 5,000 UNITS/ML, 1ML SQ SCH (05:23)
[2018-06-07] MEDS: DIPHENHYDRAMINE 25 MG CAPSULE PO PRN ×3 (05:23→17:30)
[2018-06-07] MEDS: AMPICILLIN/SULBACTAM 3 GM in SODIUM CHLORIDE 0.9% 100 ML IV SCH ×3 (06:00→18:24)
[2018-06-07 06:56] VITALS: BP 105/71
[2018-06-07] MEDS ORDERED: MAGNESIUM SULFATE PMX 2GM/50ML 50 ML IV ONE (07:00)
[2018-06-07] MEDS: POTASSIUM CHLORIDE 20 MEQ TAB.ER.PRT PO SCH ×2 (08:00→17:21)
[2018-06-07] MEDS ORDERED: MAGNESIUM HYDROXIDE 8%, 30ML UDC PO SCH (09:00)
[2018-06-07] MEDS: MAGNESIUM HYDROXIDE 8%, 30ML UDC PO SCH (09:16)
[2018-06-07] MEDS: PANTOPRAZOLE 40 MG IV IVPush SCH (09:17)
[2018-06-07] MEDS: DOCUSATE 100 MG CAPSULE PO SCH ×2 (09:17→19:36)
[2018-06-07] MEDS: MAGNESIUM OXIDE 400 MG TABLET PO SCH ×2 (09:17→19:36)
[2018-06-07] MEDS: MAGNESIUM CHLORIDE 64 MG TABLET.DR PO SCH ×2 (09:17→19:36)
[2018-06-07] MEDS: NICOTINE 14MG/24 HR PATCH.TD24 TD SCH (09:17)
[2018-06-07] MEDS: FLUCONAZOLE 200 MG TABLET PO SCH (09:17)
[2018-06-07 12:05] VITALS: BP 109/71
[2018-06-07] MEDS: SODIUM CHLORIDE 0.9% 1,000 ML IV SCH (12:25)
[2018-06-07 21:45] VITALS: BP 107/75
[2018-06-08] MEDS: AMPICILLIN/SULBACTAM 3 GM in SODIUM CHLORIDE 0.9% 100 ML IV SCH ×4 (00:05→19:26)
[2018-06-08] MEDS: ACETAMINOPHEN 325 MG TABLET PO PRN (00:05)
[2018-06-08] MEDS: DIPHENHYDRAMINE 25 MG CAPSULE PO PRN ×3 (00:05→19:26)
[2018-06-08] MEDS: morphine SULFATE 10 MG/ML, 1ML IVPush PRN ×4 (00:06→09:16)
[2018-06-08 01:10] VITALS: BP 97/71
[2018-06-08] MEDS: PANTOPRAZOLE 40 MG IV IVPush SCH (06:10)
[2018-06-08 06:15] LABS: CHLORIDE 103 mmol/L (98-107)
[2018-06-08 06:24] LABS: ALANINE AMINOTRANSFERASE 11 U/L (12-78); ALKALINE PHOSPHATASE 99 U/L (45-117); ANION GAP 8 mmol/L (5-15); BILIRUBIN,TOTAL 0.5 mg/dL (0.2-1.0); CALCIUM 8.4 mg/dL (8.5-10.1); CREATININE 0.62 mg/dL (0.55-1.02); TOTAL PROTEIN 7.8 g/dL (6.4-8.2)
[2018-06-08 06:34] LABS: MEAN CORPUSCULAR HEMOGLOBIN 23.4 pg (27.0-34.8); MEAN CORPUSCULAR HGB CONC 31.5 g/dL (32.4-35.8); MEAN CORPUSCULAR VOLUME 74.5 fL (80-100); MEAN PLATELET VOLUME 6.6 fL (7.4-10.4); PLATELET COUNT 575 x10^3/uL (130-400); RED BLOOD COUNT 4.22 x10^6/uL (3.82-5.3); RED CELL DISTRIBUTION WIDTH 24.2 % (9.6-15.2)
[2018-06-08 07:05] LABS: BASOPHILS # (AUTO) 0.05 x10^3/uL (0-0.1); BASOPHILS % (AUTO) 1 % (0-1); EOSINOPHILS # (AUTO) 0.14 x10^3/uL (0-0.4); EOSINOPHILS % (AUTO) 2 % (1-7); LYMPHOCYTES # (AUTO) 1.92 x10^3/uL (1-3.4); LYMPHOCYTES % (AUTO) 28 % (22-44); MD SCAN; MONOCYTES % (AUTO) 10 % (2-9); NEUTROPHILS # (AUTO) 4.07 x10^3/uL (1.8-6.8); NEUTROPHILS % (AUTO) 59 % (42-75)
[2018-06-08 07:11] VITALS: BP 106/74
[2018-06-08] MEDS: MAGNESIUM CHLORIDE 64 MG TABLET.DR PO SCH ×2 (09:00→21:50)
[2018-06-08] MEDS: NICOTINE 14MG/24 HR PATCH.TD24 TD SCH (09:00)
[2018-06-08] MEDS: FLUCONAZOLE 200 MG TABLET PO SCH (09:14)
[2018-06-08] MEDS: DOCUSATE 100 MG CAPSULE PO SCH ×2 (09:14→21:51)
[2018-06-08] MEDS: MAGNESIUM OXIDE 400 MG TABLET PO SCH ×2 (09:14→21:50)
[2018-06-08] MEDS: POTASSIUM CHLORIDE 20 MEQ TAB.ER.PRT PO SCH (09:15)
[2018-06-08] MEDS: MAGNESIUM HYDROXIDE 8%, 30ML UDC PO SCH (09:15)
[2018-06-08] MEDS: SODIUM CHLORIDE 0.9% 1,000 ML IV SCH (09:16)
[2018-06-08 12:54] VITALS: BP 116/80
[2018-06-08] MEDS: OXYcodone/APAP 5/325MG TABLET PO PRN ×2 (13:29→19:16)
[2018-06-08] MEDS ORDERED: BUPIVACAINE/PF-EPI 0.5% 1:200K ONE (17:41)
[2018-06-08] MEDS ORDERED: DOXYCYCLINE 100 MG ONE (17:45)
[2018-06-08] MEDS ORDERED: ALBUTEROL SULFATE 2.5 MG/3 ML NPPB PRN (18:00)
[2018-06-08] MEDS ORDERED: HYDROmorphone 1 MG/ML, 1ML IV PRN (18:00)
[2018-06-08] MEDS ORDERED: LORazepam 2 MG/ML, 1ML IVPush PRN (18:00)
[2018-06-08] MEDS ORDERED: LABETALOL 5MG/ML, 20ML IV PRN (18:00)
[2018-06-08] MEDS ORDERED: MEPERIDINE/PF 25MG/0.5ML IVPush PRN (18:00)
[2018-06-08] MEDS ORDERED: PROMETHAZINE 25 MG/ML, 1ML IV PRN (18:00)
[2018-06-08] MEDS ORDERED: OXYcodone 5 MG/5 ML ORAL.SOL UDC PO PRN (18:00)
[2018-06-08] MEDS ORDERED: HALOPERIDOL 5 MG/ML IV PRN (18:00)
[2018-06-08] MEDS ORDERED: hydrALAzine 20 MG/ML, 1ML IV PRN (18:00)
[2018-06-08 18:44] VITALS: BP 104/70
[2018-06-08 21:37] LABS: OCCULT BLOOD NEGATIVE (NEGATIVE)
[2018-06-09 01:08] VITALS: BP 114/76
[2018-06-09] MEDS: AMPICILLIN/SULBACTAM 3 GM in SODIUM CHLORIDE 0.9% 100 ML IV SCH ×4 (01:49→18:56)
[2018-06-09] MEDS: OXYcodone/APAP 5/325MG TABLET PO PRN ×4 (01:49→21:24)
[2018-06-09] MEDS: DIPHENHYDRAMINE 25 MG CAPSULE PO PRN ×2 (01:53→21:27)
[2018-06-09] MEDS: SODIUM CHLORIDE 0.9% 1,000 ML IV SCH ×2 (04:22→23:32)
[2018-06-09 05:46] LABS: ALBUMIN 2.1 g/dL (3.4-5.0); ANION GAP 9 mmol/L (5-15); CALCIUM 8.4 mg/dL (8.5-10.1); CHLORIDE 103 mmol/L (98-107)
[2018-06-09 05:51] LABS: ALANINE AMINOTRANSFERASE 11 U/L (12-78); ALKALINE PHOSPHATASE 99 U/L (45-117); BILIRUBIN,TOTAL 0.5 mg/dL (0.2-1.0); CREATININE 0.66 mg/dL (0.55-1.02); TOTAL PROTEIN 8.2 g/dL (6.4-8.2)
[2018-06-09 06:01] LABS: MEAN CORPUSCULAR HEMOGLOBIN 23.5 pg (27.0-34.8); MEAN CORPUSCULAR HGB CONC 31.6 g/dL (32.4-35.8); MEAN CORPUSCULAR VOLUME 74.4 fL (80-100); MEAN PLATELET VOLUME 6.9 fL (7.4-10.4); PLATELET COUNT 583 x10^3/uL (130-400); RED CELL DISTRIBUTION WIDTH 24.1 % (9.6-15.2)
[2018-06-09 06:28] LABS: BASOPHILS # (AUTO) 0.05 x10^3/uL (0-0.1); BASOPHILS % (AUTO) 1 % (0-1); EOSINOPHILS # (AUTO) 0.11 x10^3/uL (0-0.4); EOSINOPHILS % (AUTO) 2 % (1-7); LYMPHOCYTES # (AUTO) 1.81 x10^3/uL (1-3.4); LYMPHOCYTES % (AUTO) 26 % (22-44); MD SCAN; MONOCYTES # (AUTO) 0.71 x10^3/uL (0.2-0.8); MONOCYTES % (AUTO) 10 % (2-9); NEUTROPHILS # (AUTO) 4.38 x10^3/uL (1.8-6.8); NEUTROPHILS % (AUTO) 62 % (42-75)
[2018-06-09] MEDS ORDERED: BUPIVACAINE/PF-EPI 0.5% 1:200K ONE (06:37)
[2018-06-09] MEDS ORDERED: MIDAZOLAM 1 MG/ML, 2ML ONE (06:58)
[2018-06-09] MEDS ORDERED: FENTANYL PF 250 MCG/5ML ONE (06:58)
[2018-06-09] MEDS ORDERED: DIPHENHYDRAMINE 50 MG/ML, 1ML ONE (07:10)
[2018-06-09] MEDS ORDERED: LIDOCAINE-MPF 2% ,5ML ONE (07:53)
[2018-06-09] MEDS ORDERED: ROCURONIUM 10MG/ML,5ML ONE (07:53)
[2018-06-09] MEDS ORDERED: PROPOFOL 10 MG/ML, 20ML ONE (07:53)
[2018-06-09] MEDS ORDERED: GLYCOPYRROLATE 0.4 MG/2 ML, 2ML ONE (07:56)
[2018-06-09] MEDS ORDERED: NEOSTIGMINE 1 MG/ML, 10ML ONE (07:56)
[2018-06-09] MEDS ORDERED: FENTANYL PF 100 MCG/2ML ONE ×3 (08:14→09:56)
[2018-06-09] MEDS ORDERED: OXYcodone 5 MG/5 ML ORAL.SOL UDC ONE (08:26)
[2018-06-09] MEDS: FENTANYL PF 100 MCG/2ML IV PRN ×6 (08:27→10:27)
[2018-06-09] MEDS: MAGNESIUM HYDROXIDE 8%, 30ML UDC PO SCH (09:00)
[2018-06-09] MEDS ORDERED: LACTATED RINGERS 1,000 ML IVBOLUS ONE (09:30)
[2018-06-09 10:09] LABS: BASOPHILS # (AUTO) 0.04 x10^3/uL (0-0.1); BASOPHILS % (AUTO) 0 % (0-1); EOSINOPHILS # (AUTO) 0.05 x10^3/uL (0-0.4); EOSINOPHILS % (AUTO) 1 % (1-7); LYMPHOCYTES # (AUTO) 1.69 x10^3/uL (1-3.4); LYMPHOCYTES % (AUTO) 16 % (22-44); MD NO; MEAN CORPUSCULAR HEMOGLOBIN 23.1 pg (27.0-34.8); MEAN CORPUSCULAR HGB CONC 31.2 g/dL (32.4-35.8); MEAN PLATELET VOLUME 6.9 fL (7.4-10.4); MONOCYTES # (AUTO) 0.71 x10^3/uL (0.2-0.8); MONOCYTES % (AUTO) 7 % (2-9); NEUTROPHILS # (AUTO) 8.03 x10^3/uL (1.8-6.8); NEUTROPHILS % (AUTO) 76 % (42-75); PLATELET COUNT 500 x10^3/uL (130-400); RED BLOOD COUNT 4.42 x10^6/uL (3.82-5.3)
[2018-06-09] MEDS: POTASSIUM CHLORIDE 20 MEQ TAB.ER.PRT PO SCH (13:28)
[2018-06-09] MEDS: NICOTINE 14MG/24 HR PATCH.TD24 TD SCH (13:28)
[2018-06-09] MEDS: DOCUSATE 100 MG CAPSULE PO SCH ×2 (13:29→21:27)
[2018-06-09] MEDS ORDERED: HYDROmorphone 2 MG/ML, 1ML ONE ×3 (13:38→23:25)
[2018-06-09] MEDS: HYDROmorphone 1 MG/ML, 1ML IV PRN ×4 (13:45→23:28)
[2018-06-09] MEDS: MAGNESIUM OXIDE 400 MG TABLET PO SCH ×2 (13:49→21:23)
[2018-06-09] MEDS: FLUCONAZOLE 200 MG TABLET PO SCH (13:49)
[2018-06-09 20:02] VITALS: BP 89/65
[2018-06-09 21:35] VITALS: BP 100/62
[2018-06-09 23:22] VITALS: BP 100/63
[2018-06-10] MEDS: OXYcodone/APAP 5/325MG TABLET PO PRN ×6 (01:26→22:31)
[2018-06-10] MEDS: AMPICILLIN/SULBACTAM 3 GM in SODIUM CHLORIDE 0.9% 100 ML IV SCH ×4 (02:20→20:00)
[2018-06-10 03:18] VITALS: BP 97/62
[2018-06-10] MEDS ORDERED: HYDROmorphone 2 MG/ML, 1ML ONE ×5 (03:25→19:48)
[2018-06-10] MEDS: HYDROmorphone 1 MG/ML, 1ML IV PRN ×5 (03:30→19:53)
[2018-06-10 04:36] LABS: MEAN CORPUSCULAR HEMOGLOBIN 22.3 pg (27.0-34.8); MEAN CORPUSCULAR VOLUME 75.4 fL (80-100); MEAN PLATELET VOLUME 7.1 fL (7.4-10.4); PLATELET COUNT 535 x10^3/uL (130-400); RED BLOOD COUNT 3.62 x10^6/uL (3.82-5.3); RED CELL DISTRIBUTION WIDTH 23.5 % (9.6-15.2)
[2018-06-10 04:59] LABS: BASOPHILS # (AUTO) 0.04 x10^3/uL (0-0.1); BASOPHILS % (AUTO) 1 % (0-1); EOSINOPHILS # (AUTO) 0.11 x10^3/uL (0-0.4); EOSINOPHILS % (AUTO) 2 % (1-7); LYMPHOCYTES # (AUTO) 1.99 x10^3/uL (1-3.4); LYMPHOCYTES % (AUTO) 27 % (22-44); MD SCAN; MONOCYTES # (AUTO) 0.78 x10^3/uL (0.2-0.8); MONOCYTES % (AUTO) 11 % (2-9); NEUTROPHILS % (AUTO) 61 % (42-75)
[2018-06-10 05:52] LABS: MEAN CORPUSCULAR HGB CONC 29.6 g/dL (32.4-35.8)
[2018-06-10 07:20] VITALS: BP 103/65
[2018-06-10] MEDS: SODIUM CHLORIDE 0.9% 1,000 ML IV SCH (09:07)
[2018-06-10] MEDS: MAGNESIUM OXIDE 400 MG TABLET PO SCH ×2 (09:43→22:31)
[2018-06-10] MEDS: DOCUSATE 100 MG CAPSULE PO SCH ×2 (09:43→22:31)
[2018-06-10] MEDS: POTASSIUM CHLORIDE 20 MEQ TAB.ER.PRT PO SCH (09:46)
[2018-06-10] MEDS: FLUCONAZOLE 200 MG TABLET PO SCH (09:47)
[2018-06-10] MEDS: NICOTINE 14MG/24 HR PATCH.TD24 TD SCH (09:48)
[2018-06-10] MEDS: MAGNESIUM HYDROXIDE 8%, 30ML UDC PO SCH (09:48)
[2018-06-10 15:51] VITALS: BP 99/64
[2018-06-10] MEDS: DIPHENHYDRAMINE 25 MG CAPSULE PO PRN (17:27)
[2018-06-10 18:27] VITALS: BP 93/58
[2018-06-11] MEDS ORDERED: HYDROmorphone 2 MG/ML, 1ML ONE ×2 (00:30→03:48)
[2018-06-11] MEDS: HYDROmorphone 1 MG/ML, 1ML IV PRN ×2 (00:35→03:54)
[2018-06-11] MEDS: AMPICILLIN/SULBACTAM 3 GM in SODIUM CHLORIDE 0.9% 100 ML IV SCH ×2 (02:08→08:10)
[2018-06-11 02:11] VITALS: BP 98/68
[2018-06-11] MEDS: OXYcodone/APAP 5/325MG TABLET PO PRN ×5 (02:35→19:49)
[2018-06-11 05:13] LABS: MEAN CORPUSCULAR HEMOGLOBIN 23.1 pg (27.0-34.8); MEAN CORPUSCULAR VOLUME 74.3 fL (80-100); MEAN PLATELET VOLUME 6.8 fL (7.4-10.4); PLATELET COUNT 499 x10^3/uL (130-400); RED BLOOD COUNT 3.37 x10^6/uL (3.82-5.3); RED CELL DISTRIBUTION WIDTH 22.9 % (9.6-15.2)
[2018-06-11 05:21] LABS: ALANINE AMINOTRANSFERASE 10 U/L (12-78); ANION GAP 7 mmol/L (5-15); CALCIUM 8.2 mg/dL (8.5-10.1); CHLORIDE 103 mmol/L (98-107); CREATININE 0.76 mg/dL (0.55-1.02)
[2018-06-11 05:23] LABS: ALKALINE PHOSPHATASE 93 U/L (45-117); BILIRUBIN,TOTAL 0.3 mg/dL (0.2-1.0); TOTAL PROTEIN 7.7 g/dL (6.4-8.2)
[2018-06-11 06:04] LABS: BASOPHILS # (AUTO) 0.05 x10^3/uL (0-0.1); BASOPHILS % (AUTO) 1 % (0-1); EOSINOPHILS # (AUTO) 0.19 x10^3/uL (0-0.4); EOSINOPHILS % (AUTO) 3 % (1-7); LYMPHOCYTES # (AUTO) 1.95 x10^3/uL (1-3.4); LYMPHOCYTES % (AUTO) 30 % (22-44); MD MORPH REVIEW ONLY; MONOCYTES # (AUTO) 0.68 x10^3/uL (0.2-0.8); MONOCYTES % (AUTO) 10 % (2-9); NEUTROPHILS # (AUTO) 3.69 x10^3/uL (1.8-6.8); NEUTROPHILS % (AUTO) 56 % (42-75)
[2018-06-11] MEDS: DIPHENHYDRAMINE 25 MG CAPSULE PO PRN ×2 (06:20→19:49)
[2018-06-11 06:38] LABS: ANISOCYTOSIS 1+; MICROCYTOSIS 1+
[2018-06-11 06:39] LABS: <PLATELET ESTIMATE> INCREASED; <PLT MORPHOLOGY> NORMAL PLT MORPH
[2018-06-11 07:55] VITALS: BP 96/58
[2018-06-11] MEDS: NICOTINE 14MG/24 HR PATCH.TD24 TD SCH (08:10)
[2018-06-11] MEDS: MAGNESIUM HYDROXIDE 8%, 30ML UDC PO SCH (08:10)
[2018-06-11] MEDS: POTASSIUM CHLORIDE 20 MEQ TAB.ER.PRT PO SCH (08:10)
[2018-06-11] MEDS: FLUCONAZOLE 200 MG TABLET PO SCH (08:11)
[2018-06-11] MEDS: DOCUSATE 100 MG CAPSULE PO SCH ×2 (08:11→19:49)
[2018-06-11] MEDS: MAGNESIUM OXIDE 400 MG TABLET PO SCH ×2 (08:11→19:49)
[2018-06-11] MEDS: SODIUM CHLORIDE 0.9% 1,000 ML IV SCH (08:15)
[2018-06-11] MEDS: AMOXICILLIN/CLAV 875-125MG TABLET PO SCH ×2 (11:47→19:49)
[2018-06-11 13:55] VITALS: BP 106/70
[2018-06-11 18:48] VITALS: BP 109/71
[2018-06-12] MEDS: OXYcodone/APAP 5/325MG TABLET PO PRN ×6 (00:03→22:04)
[2018-06-12 01:45] VITALS: BP 116/76
[2018-06-12 04:45] LABS: MEAN CORPUSCULAR HEMOGLOBIN 23.2 pg (27.0-34.8); MEAN CORPUSCULAR HGB CONC 31.3 g/dL (32.4-35.8); MEAN CORPUSCULAR VOLUME 74.3 fL (80-100); MEAN PLATELET VOLUME 7.2 fL (7.4-10.4); PLATELET COUNT 521 x10^3/uL (130-400); RED BLOOD COUNT 3.96 x10^6/uL (3.82-5.3); RED CELL DISTRIBUTION WIDTH 23.5 % (9.6-15.2)
[2018-06-12 04:54] LABS: ANION GAP 7 mmol/L (5-15); CHLORIDE 102 mmol/L (98-107)
[2018-06-12 04:59] LABS: ALANINE AMINOTRANSFERASE 11 U/L (12-78); ALBUMIN 2.2 g/dL (3.4-5.0); ALKALINE PHOSPHATASE 110 U/L (45-117); BILIRUBIN,TOTAL 0.2 mg/dL (0.2-1.0); CREATININE 0.78 mg/dL (0.55-1.02); TOTAL PROTEIN 8.6 g/dL (6.4-8.2)
[2018-06-12 05:03] LABS: BASOPHILS # (AUTO) 0.02 x10^3/uL (0-0.1); BASOPHILS % (AUTO) 0 % (0-1); EOSINOPHILS # (AUTO) 0.08 x10^3/uL (0-0.4); EOSINOPHILS % (AUTO) 1 % (1-7); LYMPHOCYTES # (AUTO) 1.99 x10^3/uL (1-3.4); LYMPHOCYTES % (AUTO) 33 % (22-44); MD SCAN; MONOCYTES # (AUTO) 0.46 x10^3/uL (0.2-0.8); MONOCYTES % (AUTO) 8 % (2-9); NEUTROPHILS # (AUTO) 3.55 x10^3/uL (1.8-6.8); NEUTROPHILS % (AUTO) 58 % (42-75)
[2018-06-12 07:04] VITALS: BP 103/71
[2018-06-12] MEDS: MAGNESIUM OXIDE 400 MG TABLET PO SCH ×2 (08:53→22:04)
[2018-06-12] MEDS: AMOXICILLIN/CLAV 875-125MG TABLET PO SCH ×2 (08:53→22:03)
[2018-06-12] MEDS: MAGNESIUM HYDROXIDE 8%, 30ML UDC PO SCH (08:53)
[2018-06-12] MEDS: DOCUSATE 100 MG CAPSULE PO SCH ×2 (08:53→22:03)
[2018-06-12] MEDS: NICOTINE 14MG/24 HR PATCH.TD24 TD SCH (08:54)
[2018-06-12] MEDS: FLUCONAZOLE 200 MG TABLET PO SCH (08:54)
[2018-06-12 13:12] VITALS: BP 107/73
[2018-06-12] MEDS ORDERED: MORPHINE SULFATE 4 MG/ML, 1ML ONE (13:41)
[2018-06-12] MEDS ORDERED: MORPHINE SULFATE 4 MG/ML, 1ML IVPush PRN (14:00)
[2018-06-12] MEDS: MICAFUNGIN 100 MG in SODIUM CHLORIDE 0.9% 100 ML IV SCH (14:04)
[2018-06-12 19:51] VITALS: BP 109/76
[2018-06-13 01:46] VITALS: BP 118/64
[2018-06-13] MEDS: OXYcodone/APAP 5/325MG TABLET PO PRN ×4 (02:06→14:51)
[2018-06-13 05:14] LABS: ANION GAP 9 mmol/L (5-15); CALCIUM 8.6 mg/dL (8.5-10.1); CHLORIDE 104 mmol/L (98-107)
[2018-06-13 05:18] LABS: ALANINE AMINOTRANSFERASE 9 U/L (12-78); ALKALINE PHOSPHATASE 108 U/L (45-117); BILIRUBIN,TOTAL 0.2 mg/dL (0.2-1.0); CREATININE 0.78 mg/dL (0.55-1.02); TOTAL PROTEIN 8.1 g/dL (6.4-8.2)
[2018-06-13 05:22] LABS: MEAN CORPUSCULAR HEMOGLOBIN 23.3 pg (27.0-34.8); MEAN CORPUSCULAR HGB CONC 31.9 g/dL (32.4-35.8); MEAN CORPUSCULAR VOLUME 72.9 fL (80-100); PLATELET COUNT 539 x10^3/uL (130-400); RED BLOOD COUNT 3.84 x10^6/uL (3.82-5.3); RED CELL DISTRIBUTION WIDTH 23.1 % (9.6-15.2)
[2018-06-13 06:02] LABS: BASOPHILS # (AUTO) 0.03 x10^3/uL (0-0.1); BASOPHILS % (AUTO) 1 % (0-1); EOSINOPHILS # (AUTO) 0.08 x10^3/uL (0-0.4); EOSINOPHILS % (AUTO) 1 % (1-7); LYMPHOCYTES % (AUTO) 40 % (22-44); MD SCAN; MONOCYTES % (AUTO) 8 % (2-9); NEUTROPHILS # (AUTO) 2.67 x10^3/uL (1.8-6.8); NEUTROPHILS % (AUTO) 51 % (42-75)
[2018-06-13 06:43] VITALS: BP 100/65
[2018-06-13] MEDS: MAGNESIUM HYDROXIDE 8%, 30ML UDC PO SCH (08:31)
[2018-06-13] MEDS: DOCUSATE 100 MG CAPSULE PO SCH (08:31)
[2018-06-13] MEDS: NICOTINE 14MG/24 HR PATCH.TD24 TD SCH (08:31)
[2018-06-13] MEDS: MAGNESIUM OXIDE 400 MG TABLET PO SCH (08:31)
[2018-06-13 12:28] VITALS: BP 100/65
[2018-06-13] MEDS: MICAFUNGIN 100 MG in SODIUM CHLORIDE 0.9% 100 ML IV SCH (13:13)
[2018-06-13] MEDS ORDERED: FLUC200T PO (15:39)
[2018-06-13] MEDS ORDERED: ACET325T14 PO (15:39)
[2018-06-13] MEDS ORDERED: NICO-486 TD (15:39)
== END 2018-06-13 17:57 | disposition home or self-care (01) | DRG 163 ==
LOC: ED 10:36 → EDIP 11:58 → 3NE 12:43 → 4NOR 06-09 08:54
PROVIDERS: ADMIT Internal Medicine; ATTEND Internal Medicine
PROC: 30233N1 Transfusion of Nonautologous Red Blood Cells into Peripheral Vein, Percutaneous Approach (ICD-10-PCS; principal; 2018-06-03)
PROC: 0W9B3ZZ Drainage of Left Pleural Cavity, Percutaneous Approach (ICD-10-PCS; 2018-06-03)
PROC: 0BCL4ZZ Extirpation of Matter from Left Lung, Percutaneous Endoscopic Approach (ICD-10-PCS; 2018-06-09)
DX: J86.9 Pyothorax without fistula (principal); K85.00 Idiopathic acute pancreatitis without necrosis or infection; E43 Unspecified severe protein-calorie malnutrition; J96.00 Acute respiratory failure, unspecified whether with hypoxia or hypercapnia; J90 Pleural effusion, not elsewhere classified; K86.3 Pseudocyst of pancreas; F11.20 Opioid dependence, uncomplicated; K86.1 Other chronic pancreatitis; J98.11 Atelectasis; B37.9 Candidiasis, unspecified; F32.9 Major depressive disorder, single episode, unspecified; F20.9 Schizophrenia, unspecified; N30.90 Cystitis, unspecified without hematuria; F10.10 Alcohol abuse, uncomplicated; I10 Essential (primary) hypertension; D50.9 Iron deficiency anemia, unspecified; G89.29 Other chronic pain; D47.3 Essential (hemorrhagic) thrombocythemia; Y90.9 Presence of alcohol in blood, level not specified; E87.6 Hypokalemia; E83.42 Hypomagnesemia; K59.00 Constipation, unspecified; Z68.27 Body mass index [BMI] 27.0-27.9, adult; Z76.5 Malingerer [conscious simulation]; Z88.5 Allergy status to narcotic agent; Z90.49 Acquired absence of other specified parts of digestive tract; Z59.0 Homelessness; Z87.891 Personal history of nicotine dependence
CPT/HCPCS: 32555; 36415; 74018; 82042; 83986; 84145; 87106; 99285; S0028; 71045; 71250; 74177; 80048; 80053; 80061; 81001; 82272; 82728; 83540; 83550; 83615; 83690; 83735; 84157; 84439; 84443; 84466; 84703; 85025; 85610; 85730; 86677; 86850; 86900; 86923; 87040; 87070; 87075; 87086; 87102; 87176; 87205; 88112; 88305; 89051; 96361; 96374; 96375; C1729; G0378; J0295; J1170; J1644; J1756; J2248; J2250; J2704; J2710; J3010; J3490; Q0162; C9113; J1200; J2270; J3475; J7030; J7120; P9016; Q0163

== ENCOUNTER 2018-06-20 14:42 | Inpatient (IN) | payer MEDICAID ==
[~2018-06-20] VITALS: Ht 157.5 cm; Wt 50.0 kg
[~2018-06-20 14:42] MED LIST changes: +ACET325T14 PO; +NICO-486 TD
[2018-06-20] MEDS ORDERED: PLEASE ENTER HEIGHT AND WEIGHT MC SCH (15:00)
[2018-06-20] MEDS ORDERED: SODIUM CHLORIDE FLUSH 10ML SYR IVF ONE (15:00)
[2018-06-20 15:11] LABS: INTERNATIONAL NORMALIZED RATIO 1.08 (0.93-1.1); PROTHROMBIN TIME 11.1 Seconds (9.6-11.5)
[2018-06-20 15:12] LABS: ALBUMIN 2.9 g/dL (3.4-5.0); ANION GAP 9 mmol/L (5-15); CALCIUM 8.4 mg/dL (8.5-10.1); CHLORIDE 107 mmol/L (98-107); CREATININE 0.71 mg/dL (0.55-1.02); MEAN CORPUSCULAR HGB CONC 31.6 g/dL (32.4-35.8); MEAN CORPUSCULAR VOLUME 72.9 fL (80-100); MEAN PLATELET VOLUME 6.8 fL (7.4-10.4); PLATELET COUNT 585 x10^3/uL (130-400); RED BLOOD COUNT 4.52 x10^6/uL (3.82-5.3); RED CELL DISTRIBUTION WIDTH 24.1 % (9.6-15.2)
[2018-06-20 15:53] LABS: ALBUMIN 2.9 g/dL (3.4-5.0); BILIRUBIN, DIRECT 0.1 mg/dL (0.1-0.2)
[2018-06-20 15:55] LABS: BILIRUBIN,INDIRECT 0.2 mg/dL (0.0-2.0); BILIRUBIN,TOTAL 0.3 mg/dL (0.2-1.0); TOTAL PROTEIN 9.1 g/dL (6.4-8.2)
[2018-06-20 16:03] LABS: BASOPHILS % (AUTO) 1 % (0-1); EOSINOPHILS # (AUTO) 0.21 x10^3/uL (0-0.4); EOSINOPHILS % (AUTO) 2 % (1-7); LYMPHOCYTES # (AUTO) 2.32 x10^3/uL (1-3.4); LYMPHOCYTES % (AUTO) 21 % (22-44); MONOCYTES # (AUTO) 0.85 x10^3/uL (0.2-0.8); MONOCYTES % (AUTO) 8 % (2-9); NEUTROPHILS # (AUTO) 7.85 x10^3/uL (1.8-6.8); NEUTROPHILS % (AUTO) 69 % (42-75)
[2018-06-20 16:04] LABS: MD SCAN
[2018-06-20] MEDS ORDERED: ONDANSETRON ODT 4 MG ONE (16:08)
[2018-06-20] MEDS ORDERED: MORPHINE SULFATE 4 MG/ML, 1ML ONE (16:09)
[2018-06-20] MEDS: MORPHINE SULFATE 4 MG/ML, 1ML IVPush PRN ×2 (16:12→17:39)
[2018-06-20] MEDS ORDERED: ONDANSETRON ODT 4 MG PO ONE (16:30)
[2018-06-20] MEDS ORDERED: BISACODYL 10 MG SUPP PR PRN (17:00)
[2018-06-20] MEDS ORDERED: ONDANSETRON 2MG/ML, 2ML IVPush PRN (17:00)
[2018-06-20] MEDS ORDERED: ENALAPRILAT 1.25 MG/ML, 2ML IVPush PRN (17:00)
[2018-06-20] MEDS: ENOXAPARIN 40 MG/0.4 ML SQ SCH (17:00)
[2018-06-20] MEDS ORDERED: MICAFUNGIN 100 MG in SODIUM CHLORIDE 0.9% 100 ML IV SCH (17:00)
[2018-06-20] MEDS ORDERED: LABETALOL 5MG/ML, 20ML IVPush PRN (17:00)
[2018-06-20] MEDS ORDERED: POLYETHYLENE GLYCOL 17 GM PACKET PO PRN (17:00)
[2018-06-20] MEDS ORDERED: ONDANSETRON ODT 4 MG PO PRN (17:00)
[2018-06-20] MEDS ORDERED: DOCUSATE 100 MG CAPSULE PO PRN (17:00)
[2018-06-20] MEDS ORDERED: GUAIFENESIN/DM 200-20MG, 10ML UDC PO PRN (17:00)
[2018-06-20 17:55] VITALS: BP 102/66
[2018-06-20] MEDS: LACTATED RINGERS 1,000 ML IV SCH (18:30)
[2018-06-20 18:32] VITALS: BP 102/66
[2018-06-20 20:24] VITALS: BP 100/69
[2018-06-20] MEDS: NICOTINE 14MG/24 HR PATCH.TD24 TD SCH (21:22)
[2018-06-20] MEDS: KETOROLAC 30 MG/1 ML IV PRN (21:22)
[2018-06-21] MEDS: ACETAMINOPHEN 325 MG TABLET PO PRN ×4 (01:25→22:22)
[2018-06-21 01:54] VITALS: BP 106/75
[2018-06-21] MEDS: KETOROLAC 30 MG/1 ML IV PRN ×2 (03:44→09:58)
[2018-06-21] MEDS: LACTATED RINGERS 1,000 ML IV SCH ×3 (04:41→22:24)
[2018-06-21 05:25] LABS: MEAN CORPUSCULAR HEMOGLOBIN 23.5 pg (27.0-34.8); MEAN CORPUSCULAR HGB CONC 31.9 g/dL (32.4-35.8); MEAN CORPUSCULAR VOLUME 73.9 fL (80-100); MEAN PLATELET VOLUME 7.1 fL (7.4-10.4); PLATELET COUNT 478 x10^3/uL (130-400); RED BLOOD COUNT 3.96 x10^6/uL (3.82-5.3); RED CELL DISTRIBUTION WIDTH 24.1 % (9.6-15.2)
[2018-06-21 05:35] LABS: ANION GAP 8 mmol/L (5-15); CALCIUM 8.2 mg/dL (8.5-10.1); CHLORIDE 108 mmol/L (98-107)
[2018-06-21 05:41] LABS: CREATININE 0.79 mg/dL (0.55-1.02)
[2018-06-21 05:51] LABS: BASOPHILS # (AUTO) 0.05 x10^3/uL (0-0.1); BASOPHILS % (AUTO) 1 % (0-1); EOSINOPHILS % (AUTO) 2 % (1-7); LYMPHOCYTES # (AUTO) 2.24 x10^3/uL (1-3.4); LYMPHOCYTES % (AUTO) 27 % (22-44); MD SCAN; MONOCYTES # (AUTO) 0.86 x10^3/uL (0.2-0.8); MONOCYTES % (AUTO) 10 % (2-9); NEUTROPHILS # (AUTO) 5.08 x10^3/uL (1.8-6.8); NEUTROPHILS % (AUTO) 60 % (42-75)
[2018-06-21 07:20] VITALS: BP 109/75
[2018-06-21] MEDS ORDERED: OMNIPAQUE 350 MG/ML, 100ML BOTTLE ONE ×2 (11:46→17:17)
[2018-06-21 14:02] VITALS: BP 117/79
[2018-06-21] MEDS: morphine SULFATE 10 MG/ML, 1ML IVPush PRN ×2 (16:17→20:24)
[2018-06-21] MEDS: ENOXAPARIN 40 MG/0.4 ML SQ SCH (17:00)
[2018-06-21] MEDS: FLUCONAZOLE 200 MG TABLET PO SCH (20:24)
[2018-06-21 20:30] VITALS: BP 123/87
[2018-06-21] MEDS: NICOTINE 14MG/24 HR PATCH.TD24 TD SCH (20:32)
[2018-06-22 00:18] VITALS: BP 120/83
[2018-06-22] MEDS: morphine SULFATE 10 MG/ML, 1ML IVPush PRN ×6 (00:22→20:13)
[2018-06-22 06:13] LABS: ALBUMIN 2.2 g/dL (3.4-5.0); ANION GAP 9 mmol/L (5-15); CALCIUM 8.8 mg/dL (8.5-10.1); CHLORIDE 106 mmol/L (98-107)
[2018-06-22 06:14] LABS: MEAN CORPUSCULAR HEMOGLOBIN 23.6 pg (27.0-34.8); MEAN CORPUSCULAR VOLUME 73.8 fL (80-100); MEAN PLATELET VOLUME 7.1 fL (7.4-10.4); PLATELET COUNT 405 x10^3/uL (130-400); RED BLOOD COUNT 3.82 x10^6/uL (3.82-5.3); RED CELL DISTRIBUTION WIDTH 23.8 % (9.6-15.2)
[2018-06-22 06:16] LABS: ALANINE AMINOTRANSFERASE 10 U/L (12-78); ALKALINE PHOSPHATASE 94 U/L (45-117); BILIRUBIN,TOTAL 0.5 mg/dL (0.2-1.0); CREATININE 0.59 mg/dL (0.55-1.02); TOTAL PROTEIN 7.5 g/dL (6.4-8.2)
[2018-06-22 06:42] LABS: BASOPHILS # (AUTO) 0.03 x10^3/uL (0-0.1); BASOPHILS % (AUTO) 0 % (0-1); EOSINOPHILS # (AUTO) 0.12 x10^3/uL (0-0.4); EOSINOPHILS % (AUTO) 2 % (1-7); LYMPHOCYTES # (AUTO) 2.04 x10^3/uL (1-3.4); LYMPHOCYTES % (AUTO) 25 % (22-44); MD SCAN; MONOCYTES # (AUTO) 0.86 x10^3/uL (0.2-0.8); MONOCYTES % (AUTO) 11 % (2-9); NEUTROPHILS # (AUTO) 5.08 x10^3/uL (1.8-6.8); NEUTROPHILS % (AUTO) 63 % (42-75)
[2018-06-22] MEDS: LACTATED RINGERS 1,000 ML IV SCH ×2 (07:00→20:14)
[2018-06-22 07:18] VITALS: BP 102/70
[2018-06-22 13:03] VITALS: BP 101/68
[2018-06-22] MEDS: ACETAMINOPHEN 325 MG TABLET PO PRN (16:59)
[2018-06-22 18:37] VITALS: BP 102/68
[2018-06-22] MEDS: FLUCONAZOLE 200 MG TABLET PO SCH (20:13)
[2018-06-22] MEDS: NICOTINE 14MG/24 HR PATCH.TD24 TD SCH (20:13)
[2018-06-23] MEDS: morphine SULFATE 10 MG/ML, 1ML IVPush PRN ×3 (00:14→09:21)
[2018-06-23] MEDS: ACETAMINOPHEN 325 MG TABLET PO PRN (00:17)
[2018-06-23 01:15] VITALS: BP 113/79
[2018-06-23 05:39] LABS: MEAN CORPUSCULAR HEMOGLOBIN 23.6 pg (27.0-34.8); MEAN PLATELET VOLUME 6.9 fL (7.4-10.4); PLATELET COUNT 472 x10^3/uL (130-400); RED BLOOD COUNT 3.93 x10^6/uL (3.82-5.3); RED CELL DISTRIBUTION WIDTH 23.4 % (9.6-15.2)
[2018-06-23 05:46] LABS: ANION GAP 10 mmol/L (5-15); CALCIUM 8.6 mg/dL (8.5-10.1); CHLORIDE 103 mmol/L (98-107); CREATININE 0.72 mg/dL (0.55-1.02)
[2018-06-23 06:09] LABS: BASOPHILS # (AUTO) 0.06 x10^3/uL (0-0.1); BASOPHILS % (AUTO) 1 % (0-1); EOSINOPHILS # (AUTO) 0.11 x10^3/uL (0-0.4); EOSINOPHILS % (AUTO) 2 % (1-7); LYMPHOCYTES # (AUTO) 2.47 x10^3/uL (1-3.4); LYMPHOCYTES % (AUTO) 35 % (22-44); MD SCAN; MONOCYTES # (AUTO) 0.72 x10^3/uL (0.2-0.8); MONOCYTES % (AUTO) 10 % (2-9); NEUTROPHILS # (AUTO) 3.81 x10^3/uL (1.8-6.8); NEUTROPHILS % (AUTO) 53 % (42-75)
[2018-06-23 06:55] VITALS: BP 125/87
[2018-06-23] MEDS ORDERED: FENTANYL PF 100 MCG/2ML ONE ×2 (09:47→12:30)
[2018-06-23] MEDS ORDERED: FLUMAZENIL 0.1 MG/1 ML, 5ML ONE (09:48)
[2018-06-23] MEDS ORDERED: NALOXONE 1 MG/ML, 2ML ONE (09:48)
[2018-06-23] MEDS ORDERED: MIDAZOLAM 1 MG/ML, 5ML ONE (09:48)
[2018-06-23] MEDS ORDERED: LIDOCAINE-MPF 1%, 5ML ONE (10:49)
[2018-06-23] MEDS ORDERED: VISIPAQUE 270 MG/ML, 50ML BOTTLE ONE (13:17)
[2018-06-23] MEDS ORDERED: VISIPAQUE 270 MG/ML, 150ML BOTTLE ONE (13:17)
[2018-06-23 13:30] VITALS: BP 141/95
[2018-06-23] MEDS ORDERED: HAEMOPH B POLY CONJ-TET TOX/PF 10 MCG/0.5 ML INJ IM-VACC ONE (16:30)
[2018-06-23] MEDS ORDERED: MENING VAC A,C,Y,W-135 DIP/PF 0.5 ML AGE<55 IM-VACC ONE (16:30)
[2018-06-23] MEDS ORDERED: PNEUMOCOCCAL 23 VACCINE IM-VACC ONE (16:30)
[2018-06-23] MEDS: LACTATED RINGERS 1,000 ML IV SCH (17:54)
[2018-06-23 19:10] VITALS: BP 120/86
[2018-06-23] MEDS: NICOTINE 14MG/24 HR PATCH.TD24 TD SCH (20:21)
[2018-06-23] MEDS: FLUCONAZOLE 200 MG TABLET PO SCH (20:21)
[2018-06-24] MEDS: ACETAMINOPHEN 325 MG TABLET PO PRN (00:43)
[2018-06-24 01:08] VITALS: BP 127/85
[2018-06-24 05:38] LABS: MEAN CORPUSCULAR HEMOGLOBIN 23.9 pg (27.0-34.8); MEAN CORPUSCULAR HGB CONC 32.4 g/dL (32.4-35.8); MEAN CORPUSCULAR VOLUME 73.8 fL (80-100); MEAN PLATELET VOLUME 7.2 fL (7.4-10.4); PLATELET COUNT 509 x10^3/uL (130-400); RED BLOOD COUNT 3.55 x10^6/uL (3.82-5.3); RED CELL DISTRIBUTION WIDTH 22.6 % (9.6-15.2)
[2018-06-24 05:51] LABS: ANION GAP 9 mmol/L (5-15); CALCIUM 8.2 mg/dL (8.5-10.1); CHLORIDE 97 mmol/L (98-107)
[2018-06-24 05:54] LABS: CREATININE 0.69 mg/dL (0.55-1.02)
[2018-06-24 06:05] LABS: BASOPHILS # (AUTO) 0.06 x10^3/uL (0-0.1); BASOPHILS % (AUTO) 1 % (0-1); EOSINOPHILS # (AUTO) 0.08 x10^3/uL (0-0.4); EOSINOPHILS % (AUTO) 1 % (1-7); LYMPHOCYTES # (AUTO) 1.87 x10^3/uL (1-3.4); LYMPHOCYTES % (AUTO) 20 % (22-44); MD SCAN; MONOCYTES % (AUTO) 11 % (2-9); NEUTROPHILS # (AUTO) 6.27 x10^3/uL (1.8-6.8); NEUTROPHILS % (AUTO) 68 % (42-75)
[2018-06-24] MEDS ORDERED: POTASSIUM CHLORIDE 20 MEQ TAB.ER.PRT PO ONE (07:00)
[2018-06-24 07:46] LABS: CULTURE INDICATED? YES; MICROSCOPIC INDICATED
[2018-06-24 09:00] VITALS: BP 127/87
[2018-06-24] MEDS ORDERED: CEFTRIAXONE PMX 1GM/50ML 50 ML IV SCH (11:30)
[2018-06-24 13:38] VITALS: BP 113/77
[2018-06-24] MEDS: LACTATED RINGERS 1,000 ML IV SCH (15:30)
[2018-06-24] MEDS: DOXYCYCLINE 100 MG in DEXTROSE 5% 250 ML IV SCH (18:23)
[2018-06-24 19:23] VITALS: BP 115/80
[2018-06-24] MEDS: FLUCONAZOLE 200 MG TABLET PO SCH (20:10)
[2018-06-24] MEDS: NICOTINE 14MG/24 HR PATCH.TD24 TD SCH (20:11)
[2018-06-25 01:20] VITALS: BP 104/62
[2018-06-25 05:06] LABS: MEAN CORPUSCULAR HEMOGLOBIN 23.7 pg (27.0-34.8); MEAN CORPUSCULAR VOLUME 74.1 fL (80-100); MEAN PLATELET VOLUME 6.9 fL (7.4-10.4); PLATELET COUNT 450 x10^3/uL (130-400); RED BLOOD COUNT 3.59 x10^6/uL (3.82-5.3); RED CELL DISTRIBUTION WIDTH 22.4 % (9.6-15.2)
[2018-06-25 05:13] LABS: ALBUMIN 2.2 g/dL (3.4-5.0); ANION GAP 10 mmol/L (5-15); CALCIUM 8.5 mg/dL (8.5-10.1); CHLORIDE 101 mmol/L (98-107); CREATININE 0.59 mg/dL (0.55-1.02)
[2018-06-25] MEDS: DOXYCYCLINE 100 MG in DEXTROSE 5% 250 ML IV SCH (05:45)
[2018-06-25 05:48] LABS: BASOPHILS # (AUTO) 0.05 x10^3/uL (0-0.1); BASOPHILS % (AUTO) 1 % (0-1); EOSINOPHILS # (AUTO) 0.08 x10^3/uL (0-0.4); EOSINOPHILS % (AUTO) 1 % (1-7); LYMPHOCYTES # (AUTO) 1.62 x10^3/uL (1-3.4); LYMPHOCYTES % (AUTO) 21 % (22-44); MD SCAN; MONOCYTES # (AUTO) 0.79 x10^3/uL (0.2-0.8); MONOCYTES % (AUTO) 10 % (2-9); NEUTROPHILS # (AUTO) 5.06 x10^3/uL (1.8-6.8); NEUTROPHILS % (AUTO) 67 % (42-75)
[2018-06-25] MEDS ORDERED: POTASSIUM CHLORIDE 40 MEQ in SODIUM CHLORIDE 0.9% 500 ML IV ONE (06:30)
[2018-06-25 07:13] VITALS: BP 97/65
[2018-06-25] MEDS: LACTATED RINGERS 1,000 ML IV SCH (08:31)
[2018-06-25] MEDS ORDERED: PHARMACOKINETIC CONSULTATION MC ONE (11:00)
[2018-06-25] MEDS ORDERED: PHARMACOKINETIC MONITORING MC PRN (11:00)
[2018-06-25] MEDS ORDERED: VANCOMYCIN 800 MG in SODIUM CHLORIDE 0.9% 100 ML IV SCH (11:00)
[2018-06-25] MEDS ORDERED: VANCOMYCIN PER PHARMACY MC PRN (11:00)
[2018-06-25] MEDS ORDERED: CEFAZOLIN 1,000 MG IV SCH (11:30)
[2018-06-25 12:51] VITALS: BP 91/60
[2018-06-25] MEDS: CEFAZOLIN PMX 1GM/50ML 50 ML IVPB SCH ×2 (13:10→13:14)
[2018-06-25 19:00] VITALS: BP 104/69
[2018-06-25] MEDS: NICOTINE 14MG/24 HR PATCH.TD24 TD SCH (20:30)
[2018-06-25] MEDS: FLUCONAZOLE 200 MG TABLET PO SCH (20:30)
[2018-06-26 01:18] VITALS: BP 116/79
[2018-06-26] MEDS ORDERED: DIPHENHYDRAMINE 25 MG CAPSULE PO PRN (02:00)
[2018-06-26] MEDS: CEFAZOLIN PMX 1GM/50ML 50 ML IVPB SCH ×3 (03:42→20:23)
[2018-06-26] MEDS: LACTATED RINGERS 1,000 ML IV SCH (04:25)
[2018-06-26 05:16] LABS: BASOPHILS # (AUTO) 0.02 x10^3/uL (0-0.1); BASOPHILS % (AUTO) 0 % (0-1); EOSINOPHILS # (AUTO) 0.15 x10^3/uL (0-0.4); EOSINOPHILS % (AUTO) 3 % (1-7); LYMPHOCYTES % (AUTO) 31 % (22-44); MD NO; MEAN CORPUSCULAR HEMOGLOBIN 22.7 pg (27.0-34.8); MEAN CORPUSCULAR HGB CONC 31.1 g/dL (32.4-35.8); MEAN CORPUSCULAR VOLUME 72.9 fL (80-100); MEAN PLATELET VOLUME 6.7 fL (7.4-10.4); MONOCYTES # (AUTO) 0.66 x10^3/uL (0.2-0.8); MONOCYTES % (AUTO) 12 % (2-9); NEUTROPHILS # (AUTO) 2.99 x10^3/uL (1.8-6.8); NEUTROPHILS % (AUTO) 54 % (42-75); PLATELET COUNT 459 x10^3/uL (130-400); RED BLOOD COUNT 3.57 x10^6/uL (3.82-5.3)
[2018-06-26 05:31] LABS: CHLORIDE 103 mmol/L (98-107)
[2018-06-26 05:43] LABS: ALBUMIN 2.3 g/dL (3.4-5.0); ANION GAP 10 mmol/L (5-15); CALCIUM 8.9 mg/dL (8.5-10.1); CREATININE 0.61 mg/dL (0.55-1.02)
[2018-06-26 08:05] VITALS: BP 103/68
[2018-06-26] MEDS ORDERED: ACETAMINOPHEN 325 MG TABLET PO PRN (08:30)
[2018-06-26] MEDS: morphine SULFATE 10 MG/ML, 1ML IVPush PRN ×3 (13:00→21:31)
[2018-06-26] MEDS ORDERED: OMNIPAQUE 350 MG/ML, 75ML BOTTLE ONE (13:55)
[2018-06-26 13:57] VITALS: BP 117/80
[2018-06-26] MEDS: NICOTINE 14MG/24 HR PATCH.TD24 TD SCH (20:23)
[2018-06-26] MEDS: FLUCONAZOLE 200 MG TABLET PO SCH (20:24)
[2018-06-26 20:45] VITALS: BP 110/73
[2018-06-27 01:03] VITALS: BP 111/75
[2018-06-27] MEDS: CEFAZOLIN PMX 1GM/50ML 50 ML IVPB SCH ×3 (04:07→20:06)
[2018-06-27] MEDS: LACTATED RINGERS 1,000 ML IV SCH ×2 (04:07→23:58)
[2018-06-27 05:59] LABS: CALCIUM 8.7 mg/dL (8.5-10.1); CHLORIDE 103 mmol/L (98-107)
[2018-06-27 06:03] LABS: ALBUMIN 2.3 g/dL (3.4-5.0); ANION GAP 7 mmol/L (5-15); CREATININE 0.67 mg/dL (0.55-1.02); MEAN CORPUSCULAR HEMOGLOBIN 23.8 pg (27.0-34.8); MEAN CORPUSCULAR HGB CONC 32.3 g/dL (32.4-35.8); MEAN CORPUSCULAR VOLUME 73.7 fL (80-100); MEAN PLATELET VOLUME 7.1 fL (7.4-10.4); PLATELET COUNT 476 x10^3/uL (130-400); RED CELL DISTRIBUTION WIDTH 22.2 % (9.6-15.2)
[2018-06-27] MEDS: morphine SULFATE 10 MG/ML, 1ML IVPush PRN ×4 (06:21→18:32)
[2018-06-27 06:30] LABS: BASOPHILS # (AUTO) 0.03 x10^3/uL (0-0.1); BASOPHILS % (AUTO) 1 % (0-1); EOSINOPHILS # (AUTO) 0.19 x10^3/uL (0-0.4); EOSINOPHILS % (AUTO) 3 % (1-7); LYMPHOCYTES # (AUTO) 1.73 x10^3/uL (1-3.4); LYMPHOCYTES % (AUTO) 32 % (22-44); MD SCAN; MONOCYTES # (AUTO) 0.57 x10^3/uL (0.2-0.8); MONOCYTES % (AUTO) 10 % (2-9); NEUTROPHILS # (AUTO) 2.97 x10^3/uL (1.8-6.8); NEUTROPHILS % (AUTO) 54 % (42-75)
[2018-06-27 07:28] VITALS: BP 115/76
[2018-06-27 12:06] VITALS: BP 117/78
[2018-06-27] MEDS: OXYcodone 5 MG/5 ML ORAL.SOL UDC PO PRN (17:47)
[2018-06-27] MEDS: ACETAMINOPHEN 325 MG TABLET PO SCH ×2 (17:47→22:00)
[2018-06-27] MEDS: FLUCONAZOLE 200 MG TABLET PO SCH (20:07)
[2018-06-27] MEDS: NICOTINE 14MG/24 HR PATCH.TD24 TD SCH (20:07)
[2018-06-27 21:47] VITALS: BP 110/74
[2018-06-28] MEDS: OXYcodone 5 MG/5 ML ORAL.SOL UDC PO PRN (01:49)
[2018-06-28] MEDS: morphine SULFATE 10 MG/ML, 1ML IVPush PRN ×3 (02:44→19:55)
[2018-06-28 02:51] VITALS: BP 105/68
[2018-06-28] MEDS: CEFAZOLIN PMX 1GM/50ML 50 ML IVPB SCH ×3 (03:48→19:54)
[2018-06-28] MEDS: ACETAMINOPHEN 325 MG TABLET PO SCH ×4 (03:56→21:02)
[2018-06-28 05:58] LABS: MEAN CORPUSCULAR HEMOGLOBIN 23.5 pg (27.0-34.8); MEAN CORPUSCULAR VOLUME 73.5 fL (80-100); MEAN PLATELET VOLUME 6.8 fL (7.4-10.4); PLATELET COUNT 504 x10^3/uL (130-400); RED BLOOD COUNT 3.64 x10^6/uL (3.82-5.3); RED CELL DISTRIBUTION WIDTH 22.1 % (9.6-15.2)
[2018-06-28 06:10] LABS: ALBUMIN 2.2 g/dL (3.4-5.0); ANION GAP 11 mmol/L (5-15); CALCIUM 8.7 mg/dL (8.5-10.1); CHLORIDE 103 mmol/L (98-107); CREATININE 0.62 mg/dL (0.55-1.02)
[2018-06-28 06:38] LABS: BASOPHILS # (AUTO) 0.04 x10^3/uL (0-0.1); BASOPHILS % (AUTO) 1 % (0-1); EOSINOPHILS # (AUTO) 0.19 x10^3/uL (0-0.4); EOSINOPHILS % (AUTO) 3 % (1-7); LYMPHOCYTES # (AUTO) 2.14 x10^3/uL (1-3.4); LYMPHOCYTES % (AUTO) 39 % (22-44); MD SCAN; MONOCYTES # (AUTO) 0.49 x10^3/uL (0.2-0.8); MONOCYTES % (AUTO) 9 % (2-9); NEUTROPHILS # (AUTO) 2.66 x10^3/uL (1.8-6.8); NEUTROPHILS % (AUTO) 48 % (42-75)
[2018-06-28 07:38] VITALS: BP 107/67
[2018-06-28] MEDS ORDERED: POTASSIUM CHLORIDE 20 MEQ TAB.ER.PRT PO ONE (10:00)
[2018-06-28] MEDS: GABAPENTIN 100 MG CAPSULE PO SCH ×3 (10:12→21:03)
[2018-06-28 13:51] VITALS: BP 114/81
[2018-06-28] MEDS: OXYcodone IR 5MG TABLET PO PRN ×2 (14:15→22:35)
[2018-06-28 19:09] VITALS: BP 114/76
[2018-06-28] MEDS: LACTATED RINGERS 1,000 ML IV SCH (19:55)
[2018-06-28] MEDS: FLUCONAZOLE 200 MG TABLET PO SCH (21:02)
[2018-06-28] MEDS: NICOTINE 14MG/24 HR PATCH.TD24 TD SCH (21:03)
[2018-06-29 01:14] VITALS: BP 125/82
[2018-06-29] MEDS: ACETAMINOPHEN 325 MG TABLET PO SCH ×4 (04:15→21:47)
[2018-06-29] MEDS: CEFAZOLIN PMX 1GM/50ML 50 ML IVPB SCH ×3 (04:15→20:20)
[2018-06-29] MEDS: morphine SULFATE 10 MG/ML, 1ML IVPush PRN ×2 (04:16→12:49)
[2018-06-29 05:30] LABS: ALBUMIN 2.3 g/dL (3.4-5.0); ANION GAP 8 mmol/L (5-15); CALCIUM 8.2 mg/dL (8.5-10.1); CHLORIDE 105 mmol/L (98-107)
[2018-06-29 05:32] LABS: CREATININE 0.66 mg/dL (0.55-1.02); MEAN CORPUSCULAR HEMOGLOBIN 23.7 pg (27.0-34.8); MEAN CORPUSCULAR HGB CONC 31.9 g/dL (32.4-35.8); MEAN CORPUSCULAR VOLUME 74.4 fL (80-100); MEAN PLATELET VOLUME 7.1 fL (7.4-10.4); PLATELET COUNT 475 x10^3/uL (130-400); RED BLOOD COUNT 3.55 x10^6/uL (3.82-5.3); RED CELL DISTRIBUTION WIDTH 22.3 % (9.6-15.2)
[2018-06-29 05:54] LABS: BASOPHILS # (AUTO) 0.03 x10^3/uL (0-0.1); BASOPHILS % (AUTO) 1 % (0-1); EOSINOPHILS # (AUTO) 0.19 x10^3/uL (0-0.4); EOSINOPHILS % (AUTO) 3 % (1-7); LYMPHOCYTES % (AUTO) 35 % (22-44); MD SCAN; MONOCYTES # (AUTO) 0.55 x10^3/uL (0.2-0.8); MONOCYTES % (AUTO) 9 % (2-9); NEUTROPHILS # (AUTO) 3.07 x10^3/uL (1.8-6.8); NEUTROPHILS % (AUTO) 52 % (42-75)
[2018-06-29] MEDS: GABAPENTIN 100 MG CAPSULE PO SCH ×4 (06:17→20:21)
[2018-06-29] MEDS: OXYcodone IR 5MG TABLET PO PRN ×3 (06:40→20:43)
[2018-06-29 06:56] VITALS: BP 128/77
[2018-06-29] MEDS ORDERED: OXYcodone IR 5MG TABLET PO PRN (11:30)
[2018-06-29 13:24] VITALS: BP 123/84
[2018-06-29] MEDS: LACTATED RINGERS 1,000 ML IV SCH (16:31)
[2018-06-29 18:37] VITALS: BP 103/70
[2018-06-29] MEDS: FLUCONAZOLE 200 MG TABLET PO SCH (20:20)
[2018-06-29] MEDS: NICOTINE 14MG/24 HR PATCH.TD24 TD SCH (20:21)
[2018-06-30 01:37] VITALS: BP 112/70
[2018-06-30] MEDS: OXYcodone IR 5MG TABLET PO PRN ×2 (02:57→09:49)
[2018-06-30] MEDS: CEFAZOLIN PMX 1GM/50ML 50 ML IVPB SCH ×2 (03:50→12:00)
[2018-06-30] MEDS: ACETAMINOPHEN 325 MG TABLET PO SCH ×2 (03:51→09:49)
[2018-06-30] MEDS: GABAPENTIN 100 MG CAPSULE PO SCH ×2 (05:17→09:49)
[2018-06-30 07:31] VITALS: BP 131/80
[2018-06-30] MEDS: LACTATED RINGERS 1,000 ML IV SCH (12:00)
[2018-06-30] MEDS ORDERED: AMOX1TAB64 PO (12:17)
[2018-06-30] MEDS ORDERED: OXYC5TAB3 PO (12:17)
[2018-06-30] MEDS ORDERED: GABA-826 PO (12:17)
== END 2018-06-30 14:06 | disposition home or self-care (01) | DRG 270 ==
LOC: ED 15:45 → 3NE 16:51 → OBSVTOIN 06-21 15:39
PROVIDERS: ADMIT Internal Medicine; ATTEND Family Medicine
PROC: B4101ZZ Fluoroscopy of Abdominal Aorta using Low Osmolar Contrast (ICD-10-PCS; 2018-06-21)
PROC: 04L43DZ Occlusion of Splenic Artery with Intraluminal Device, Percutaneous Approach (ICD-10-PCS; principal; 2018-06-23)
PROC: 04H Lower Arteries, Insertion (ICD-10-PCS; 2018-06-23)
DX: I72.8 Aneurysm of other specified arteries (principal); K85.20 Alcohol induced acute pancreatitis without necrosis or infection; E44.0 Moderate protein-calorie malnutrition; E87.1 Hypo-osmolality and hyponatremia; J90 Pleural effusion, not elsewhere classified; J98.11 Atelectasis; K86.3 Pseudocyst of pancreas; K86.0 Alcohol-induced chronic pancreatitis; S21.102A Unspecified open wound of left front wall of thorax without penetration into thoracic cavity, initial encounter; L03.313 Cellulitis of chest wall; D89.9 Disorder involving the immune mechanism, unspecified; E87.6 Hypokalemia; F17.210 Nicotine dependence, cigarettes, uncomplicated; F20.9 Schizophrenia, unspecified; F32.9 Major depressive disorder, single episode, unspecified; G89.29 Other chronic pain; I10 Essential (primary) hypertension; Z23 Encounter for immunization; Z90.49 Acquired absence of other specified parts of digestive tract; Z68.20 Body mass index [BMI] 20.0-20.9, adult
CPT/HCPCS: 36247; 36415; 37236; 37244; 71045; 71046; 71260; 74160; 74175; 75726; 80048; 80053; 80076; 81001; 82040; 83605; 83690; 85025; 85610; 85651; 85730; 87040; 87070; 87077; 87086; 87147; 87186; 87205; 90648; 90732; 90734; 93005; 99156; 99157; 99285; G0378; J0690; J0696; J1885; J2248; J2250; J2270; J3010; J3370; J3480; J7060; Q0162; Q9966; Q9967; C1751; C1769; C1874; C1894; J2310; J7040; J7120; Q0163

== ENCOUNTER 2018-07-16 15:49 | Emergency (ER) | payer BC, MEDICAID ==
[~2018-07-16] VITALS: Ht 160 cm; Wt 56.0 kg
[~2018-07-16 15:49] MED LIST changes: +AMOX1TAB64 PO; +GABA-826 PO
[2018-07-16 15:53] VITALS: BP 114/88
[2018-07-16] MEDS ORDERED: SODIUM CHLORIDE FLUSH 10ML SYR IVF ONE (16:30)
[2018-07-16] MEDS ORDERED: KETOROLAC 30 MG/1 ML IVPush ONE (16:30)
[2018-07-16 16:33] LABS: MEAN CORPUSCULAR HGB CONC 31.7 g/dL (32.4-35.8); MEAN CORPUSCULAR VOLUME 75.6 fL (80-100); MEAN PLATELET VOLUME 7.1 fL (7.4-10.4); PLATELET COUNT 421 x10^3/uL (130-400); RED BLOOD COUNT 5.02 x10^6/uL (3.82-5.3); RED CELL DISTRIBUTION WIDTH 23.4 % (9.6-15.2)
[2018-07-16 16:34] LABS: ANION GAP 10 mmol/L (5-15); CALCIUM 9.6 mg/dL (8.5-10.1); CHLORIDE 109 mmol/L (98-107); CREATININE 0.79 mg/dL (0.55-1.02)
[2018-07-16 16:38] LABS: TROPONIN I < 0.015 ng/mL (0.000-0.045)
[2018-07-16] MEDS ORDERED: KETOROLAC 30 MG/1 ML ONE (16:51)
[2018-07-16 17:13] LABS: BASOPHILS # (AUTO) 0.06 x10^3/uL (0-0.1); BASOPHILS % (AUTO) 1 % (0-1); EOSINOPHILS # (AUTO) 0.15 x10^3/uL (0-0.4); EOSINOPHILS % (AUTO) 2 % (1-7); LYMPHOCYTES # (AUTO) 2.84 x10^3/uL (1-3.4); LYMPHOCYTES % (AUTO) 35 % (22-44); MONOCYTES # (AUTO) 0.48 x10^3/uL (0.2-0.8); MONOCYTES % (AUTO) 6 % (2-9); NEUTROPHILS # (AUTO) 4.56 x10^3/uL (1.8-6.8); NEUTROPHILS % (AUTO) 56 % (42-75)
[2018-07-16 17:14] LABS: MD SCAN
[2018-07-16] MEDS ORDERED: MORPHINE SULFATE 4 MG/ML, 1ML IVPush PRN (18:00)
[2018-07-16] MEDS ORDERED: ONDANSETRON 2MG/ML, 2ML IVPush ONE (18:00)
[2018-07-16] MEDS ORDERED: MORPHINE SULFATE 4 MG/ML, 1ML ONE (18:01)
[2018-07-16] MEDS ORDERED: ONDANSETRON 2MG/ML, 2ML ONE (18:01)
[2018-07-16] MEDS ORDERED: OMNIPAQUE 350 MG/ML, 100ML BOTTLE ONE (18:36)
== END 2018-07-16 19:41 | disposition home or self-care (01) ==
LOC: ED 18:58
DX: M94.0 Chondrocostal junction syndrome [Tietze] (principal); F32.9 Major depressive disorder, single episode, unspecified; R07.89 Other chest pain; Z72.9 Problem related to lifestyle, unspecified; Z90.49 Acquired absence of other specified parts of digestive tract
CPT/HCPCS: 36415; 71046; 71275; 80048; 84484; 85025; 93005; 96374; 96375; 99285; J2405; Q9967

== ENCOUNTER 2018-07-31 16:24 | Emergency (ER) | payer MEDICAID ==
[~2018-07-31] VITALS: Ht 160 cm; Wt 60.1 kg
[2018-07-31 16:26] VITALS: BP 94/65
== END 2018-07-31 17:12 | disposition left against medical advice (07) ==
LOC: ED 17:05
DX: R07.89 Other chest pain (principal)
CPT/HCPCS: 99283

== ENCOUNTER 2018-08-04 12:50 | Emergency (ER) | payer MEDICAID ==
[~2018-08-04] VITALS: Ht 170.2 cm; Wt 66.0 kg
[2018-08-04 13:38] LABS: ALANINE AMINOTRANSFERASE 18 U/L (12-78); ALBUMIN 3.4 g/dL (3.4-5.0); CALCIUM 8.2 mg/dL (8.5-10.1); CREATININE 2.35 mg/dL (0.55-1.02)
[2018-08-04 13:41] LABS: ALKALINE PHOSPHATASE 101 U/L (45-117); BILIRUBIN,TOTAL 0.3 mg/dL (0.2-1.0); TOTAL PROTEIN 8.4 g/dL (6.4-8.2)
[2018-08-04 13:43] LABS: MEAN CORPUSCULAR HEMOGLOBIN 25.3 pg (27.0-34.8); MEAN CORPUSCULAR HGB CONC 32.3 g/dL (32.4-35.8); MEAN CORPUSCULAR VOLUME 78.2 fL (80-100); MEAN PLATELET VOLUME 6.6 fL (7.4-10.4); PLATELET COUNT 458 x10^3/uL (130-400); RED CELL DISTRIBUTION WIDTH 23.5 % (9.6-15.2)
[2018-08-04 13:49] LABS: ANION GAP 6 mmol/L (5-15); CHLORIDE 114 mmol/L (98-107)
[2018-08-04 13:50] LABS: AMPHETAMINE SCREEN, URINE Negative (Negative); BARBITURATE SCREEN, URINE Negative (Negative); BENZODIAZEPINE SCREEN, URINE Positive (Negative); CANNABINOID SCREEN, URINE Negative (Negative); COCAINE SCREEN, URINE Negative (Negative); METHADONE SCREEN, URINE Negative (Negative); OPIATE SCREEN, URINE Negative (Negative)
[2018-08-04 14:13] LABS: BASOPHILS # (AUTO) 0.07 x10^3/uL (0-0.1); BASOPHILS % (AUTO) 1 % (0-1); EOSINOPHILS % (AUTO) 0 % (1-7); LYMPHOCYTES # (AUTO) 2.46 x10^3/uL (1-3.4); LYMPHOCYTES % (AUTO) 31 % (22-44); MONOCYTES # (AUTO) 0.22 x10^3/uL (0.2-0.8); MONOCYTES % (AUTO) 3 % (2-9); NEUTROPHILS # (AUTO) 5.27 x10^3/uL (1.8-6.8); NEUTROPHILS % (AUTO) 66 % (42-75)
[2018-08-04 14:14] LABS: MD SCAN
[2018-08-04] MEDS ORDERED: ONDANSETRON 2MG/ML, 2ML ONE (14:23)
[2018-08-04] MEDS ORDERED: MORPHINE SULFATE 4 MG/ML, 1ML ONE (14:24)
[2018-08-04] MEDS ORDERED: ONDANSETRON 2MG/ML, 2ML IVPush ONE (14:30)
[2018-08-04] MEDS ORDERED: MORPHINE SULFATE 4 MG/ML, 1ML IVPush ONE (14:30)
[2018-08-04 15:04] LABS: MICROSCOPIC INDICATED
[2018-08-04 15:15] LABS: CULTURE INDICATED? NO
[2018-08-04 15:29] VITALS: BP 130/81
== END 2018-08-04 15:32 | disposition home or self-care (01) ==
LOC: ED 14:37
DX: K85.20 Alcohol induced acute pancreatitis without necrosis or infection (principal); F10.239 Alcohol dependence with withdrawal, unspecified; F17.200 Nicotine dependence, unspecified, uncomplicated
CPT/HCPCS: 36415; 80053; 80307; 81001; 82140; 83690; 85025; 93005; 96374; 96375; 99284; J2405

== ENCOUNTER 2018-08-08 18:34 | Emergency (ER) | payer MEDICAID ==
[~2018-08-08] VITALS: Ht 157.5 cm; Wt 54.5 kg
[2018-08-08] MEDS ORDERED: KEPPRA PO (18:47)
[2018-08-08] MEDS ORDERED: ONDANSETRON 2MG/ML, 2ML ONE (19:27)
[2018-08-08] MEDS ORDERED: HYDROmorphone 2 MG/ML, 1ML ONE (19:28)
[2018-08-08] MEDS ORDERED: SODIUM CHLORIDE FLUSH 10ML SYR IVF ONE (19:30)
[2018-08-08] MEDS ORDERED: ONDANSETRON 2MG/ML, 2ML IVPush ONE (19:30)
[2018-08-08] MEDS ORDERED: HYDROmorphone 2 MG/ML, 1ML IVPush PRN (19:30)
[2018-08-08 19:47] LABS: MEAN CORPUSCULAR HEMOGLOBIN 25.4 pg (27.0-34.8); MEAN CORPUSCULAR HGB CONC 32.4 g/dL (32.4-35.8); MEAN CORPUSCULAR VOLUME 78.5 fL (80-100); MEAN PLATELET VOLUME 6.3 fL (7.4-10.4); PLATELET COUNT 334 x10^3/uL (130-400); RED BLOOD COUNT 4.41 x10^6/uL (3.82-5.3); RED CELL DISTRIBUTION WIDTH 23.1 % (9.6-15.2)
[2018-08-08 19:50] LABS: ALANINE AMINOTRANSFERASE 26 U/L (12-78); ALBUMIN 3.6 g/dL (3.4-5.0); ANION GAP 7 mmol/L (5-15); CHLORIDE 111 mmol/L (98-107); CREATININE 1.51 mg/dL (0.55-1.02)
[2018-08-08 19:52] LABS: ALKALINE PHOSPHATASE 77 U/L (45-117); BILIRUBIN,TOTAL 0.4 mg/dL (0.2-1.0); TOTAL PROTEIN 7.4 g/dL (6.4-8.2)
[2018-08-08 20:13] LABS: BASOPHILS # (AUTO) 0.09 x10^3/uL (0-0.1); BASOPHILS % (AUTO) 2 % (0-1); EOSINOPHILS % (AUTO) 2 % (1-7); LYMPHOCYTES # (AUTO) 2.29 x10^3/uL (1-3.4); LYMPHOCYTES % (AUTO) 40 % (22-44); MD MORPH REVIEW ONLY; MONOCYTES # (AUTO) 0.27 x10^3/uL (0.2-0.8); MONOCYTES % (AUTO) 5 % (2-9); NEUTROPHILS # (AUTO) 2.92 x10^3/uL (1.8-6.8); NEUTROPHILS % (AUTO) 52 % (42-75)
[2018-08-08 20:14] LABS: ANISOCYTOSIS 1+; MICROCYTOSIS 1+
[2018-08-08 20:15] LABS: <PLATELET ESTIMATE> ADEQUATE; <PLT MORPHOLOGY> NORMAL PLT MORPH
[2018-08-08 20:17] VITALS: BP 138/85
== END 2018-08-08 21:23 | disposition home or self-care (01) ==
LOC: ED 20:06
DX: R10.13 Epigastric pain (principal); F17.200 Nicotine dependence, unspecified, uncomplicated
CPT/HCPCS: 36415; 76700; 80053; 83690; 85025; 96374; 96375; 99284; J1170; J2405

== ENCOUNTER 2018-08-09 12:10 | Emergency (ER) | payer MEDICAID ==
[~2018-08-09] VITALS: Ht 157.5 cm; Wt 59.0 kg
[~2018-08-09 12:10] MED LIST changes: +KEPPRA PO
[2018-08-09 12:46] LABS: MEAN CORPUSCULAR HEMOGLOBIN 25.3 pg (27.0-34.8); MEAN CORPUSCULAR HGB CONC 32.3 g/dL (32.4-35.8); MEAN CORPUSCULAR VOLUME 78.4 fL (80-100); MEAN PLATELET VOLUME 6.6 fL (7.4-10.4); PLATELET COUNT 311 x10^3/uL (130-400); RED BLOOD COUNT 4.58 x10^6/uL (3.82-5.3)
[2018-08-09 12:52] LABS: ALBUMIN 3.6 g/dL (3.4-5.0); ANION GAP 15 mmol/L (5-15); CALCIUM 8.5 mg/dL (8.5-10.1); CHLORIDE 110 mmol/L (98-107)
[2018-08-09 12:56] LABS: ALANINE AMINOTRANSFERASE 29 U/L (12-78); ALKALINE PHOSPHATASE 78 U/L (45-117); BILIRUBIN,TOTAL 0.5 mg/dL (0.2-1.0); CREATININE 1.33 mg/dL (0.55-1.02); TOTAL PROTEIN 7.6 g/dL (6.4-8.2)
[2018-08-09] MEDS ORDERED: MORPHINE SULFATE 4 MG/ML, 1ML IVPush ONE (13:00)
[2018-08-09 13:08] LABS: BASOPHILS # (AUTO) 0.09 x10^3/uL (0-0.1); BASOPHILS % (AUTO) 2 % (0-1); EOSINOPHILS # (AUTO) 0.13 x10^3/uL (0-0.4); EOSINOPHILS % (AUTO) 2 % (1-7); LYMPHOCYTES # (AUTO) 1.31 x10^3/uL (1-3.4); LYMPHOCYTES % (AUTO) 25 % (22-44); MD SCAN; MONOCYTES # (AUTO) 0.26 x10^3/uL (0.2-0.8); MONOCYTES % (AUTO) 5 % (2-9); NEUTROPHILS # (AUTO) 3.46 x10^3/uL (1.8-6.8); NEUTROPHILS % (AUTO) 66 % (42-75)
[2018-08-09] MEDS ORDERED: MORPHINE SULFATE 4 MG/ML, 1ML ONE (13:13)
[2018-08-09 13:36] VITALS: BP 130/83
== END 2018-08-09 13:41 | disposition home or self-care (01) ==
LOC: ED 12:43
DX: R10.13 Epigastric pain (principal); F17.200 Nicotine dependence, unspecified, uncomplicated
CPT/HCPCS: 36415; 80053; 82150; 83690; 85025; 96374

== ENCOUNTER 2018-08-10 05:32 | Observation (INO) | payer MEDICAID ==
[~2018-08-10] VITALS: Ht 157.5 cm; Wt 54.7 kg
[~2018-08-10 05:32] MED LIST changes: +AMLO-150 PO; -AMLO5TAB7 PO
[2018-08-10] MEDS ORDERED: METOCLOPRAMIDE 5 MG/ML, 2ML ONE (05:45)
[2018-08-10] MEDS ORDERED: DIPHENHYDRAMINE 50 MG/ML, 1ML ONE (05:45)
[2018-08-10] MEDS ORDERED: MORPHINE SULFATE 4 MG/ML, 1ML ONE ×2 (05:45→07:59)
[2018-08-10] MEDS ORDERED: SODIUM CHLORIDE FLUSH 10ML SYR IVF ONE (06:00)
[2018-08-10] MEDS ORDERED: DIPHENHYDRAMINE 50 MG/ML, 1ML IVPush ONE (06:00)
[2018-08-10] MEDS ORDERED: METOCLOPRAMIDE 5 MG/ML, 2ML IVPush ONE (06:00)
[2018-08-10] MEDS: MORPHINE SULFATE 4 MG/ML, 1ML IVPush PRN ×2 (06:01→08:10)
[2018-08-10 06:18] LABS: ALBUMIN 3.7 g/dL (3.4-5.0); ANION GAP 19 mmol/L (5-15); CALCIUM 8.3 mg/dL (8.5-10.1); CHLORIDE 104 mmol/L (98-107); MEAN CORPUSCULAR HEMOGLOBIN 25.5 pg (27.0-34.8); MEAN CORPUSCULAR HGB CONC 32.7 g/dL (32.4-35.8); MEAN CORPUSCULAR VOLUME 78.1 fL (80-100); MEAN PLATELET VOLUME 6.6 fL (7.4-10.4); PLATELET COUNT 332 x10^3/uL (130-400); RED BLOOD COUNT 4.43 x10^6/uL (3.82-5.3); RED CELL DISTRIBUTION WIDTH 23.6 % (9.6-15.2)
[2018-08-10 06:23] LABS: ALANINE AMINOTRANSFERASE 29 U/L (12-78); ALKALINE PHOSPHATASE 77 U/L (45-117); BILIRUBIN,TOTAL 0.4 mg/dL (0.2-1.0); CREATININE 0.85 mg/dL (0.55-1.02); TOTAL PROTEIN 7.8 g/dL (6.4-8.2)
[2018-08-10 06:38] LABS: BASOPHILS # (AUTO) 0.03 x10^3/uL (0-0.1); BASOPHILS % (AUTO) 1 % (0-1); EOSINOPHILS # (AUTO) 0.15 x10^3/uL (0-0.4); EOSINOPHILS % (AUTO) 4 % (1-7); LYMPHOCYTES # (AUTO) 1.95 x10^3/uL (1-3.4); LYMPHOCYTES % (AUTO) 44 % (22-44); MD SCAN; MONOCYTES # (AUTO) 0.16 x10^3/uL (0.2-0.8); MONOCYTES % (AUTO) 4 % (2-9); NEUTROPHILS # (AUTO) 2.11 x10^3/uL (1.8-6.8); NEUTROPHILS % (AUTO) 48 % (42-75)
[2018-08-10 07:45] LABS: MICROSCOPIC AUTO
[2018-08-10 07:55] LABS: AMPHETAMINE SCREEN, URINE Negative (Negative); BARBITURATE SCREEN, URINE Negative (Negative); BENZODIAZEPINE SCREEN, URINE Negative (Negative); CANNABINOID SCREEN, URINE Negative (Negative); COCAINE SCREEN, URINE Negative (Negative); METHADONE SCREEN, URINE Negative (Negative); OPIATE SCREEN, URINE Positive (Negative)
[2018-08-10 07:58] LABS: CULTURE INDICATED? NO
[2018-08-10] MEDS ORDERED: PROMETHAZINE 25 MG/ML, 1ML IM ONE (08:30)
[2018-08-10] MEDS ORDERED: PROMETHAZINE 25 MG/ML, 1ML ONE (08:50)
[2018-08-10] MEDS ORDERED: hydrALAzine 20 MG/ML, 1ML IVPush PRN (10:00)
[2018-08-10] MEDS ORDERED: BISACODYL 10 MG SUPP PR PRN (10:00)
[2018-08-10] MEDS ORDERED: ONDANSETRON ODT 4 MG PO PRN (10:00)
[2018-08-10] MEDS ORDERED: DOCUSATE 100 MG CAPSULE PO PRN (10:00)
[2018-08-10] MEDS ORDERED: POLYETHYLENE GLYCOL 17 GM PACKET PO PRN (10:00)
[2018-08-10] MEDS ORDERED: ONDANSETRON 2MG/ML, 2ML IVPush PRN (10:00)
[2018-08-10 10:34] VITALS: BP 106/71
[2018-08-10] MEDS: HEPARIN 5,000 UNITS/ML, 1ML SQ SCH ×2 (11:51→20:24)
[2018-08-10] MEDS: KETOROLAC 30 MG/1 ML IV PRN ×2 (11:51→20:24)
[2018-08-10] MEDS: NICOTINE 14MG/24 HR PATCH.TD24 TD SCH (11:54)
[2018-08-10] MEDS: NS + 20MEQ KCL 1,000 ML IV SCH ×2 (12:00→23:40)
[2018-08-10 13:38] VITALS: BP 97/60
[2018-08-10] MEDS ORDERED: MAGNESIUM SULFATE PMX 2GM/50ML 50 ML IV ONE (18:30)
[2018-08-10 20:08] VITALS: BP 109/71
[2018-08-10] MEDS: LACTULOSE 10 GM/15 ML UDC PO SCH (20:22)
[2018-08-10] MEDS: LEVETIRACETAM 500 MG TABLET PO SCH (20:22)
[2018-08-10] MEDS: GABAPENTIN 100 MG CAPSULE PO SCH (20:22)
[2018-08-10] MEDS: FAMOTIDINE 20 MG/2 ML IVPush SCH (20:23)
[2018-08-11 02:13] VITALS: BP 98/62
[2018-08-11] MEDS: KETOROLAC 30 MG/1 ML IV PRN ×2 (04:14→11:51)
[2018-08-11] MEDS: HEPARIN 5,000 UNITS/ML, 1ML SQ SCH ×2 (04:14→11:51)
[2018-08-11 05:35] LABS: MEAN CORPUSCULAR HEMOGLOBIN 25.7 pg (27.0-34.8); MEAN CORPUSCULAR HGB CONC 33.1 g/dL (32.4-35.8); MEAN CORPUSCULAR VOLUME 77.8 fL (80-100); MEAN PLATELET VOLUME 6.6 fL (7.4-10.4); PLATELET COUNT 254 x10^3/uL (130-400); RED BLOOD COUNT 3.89 x10^6/uL (3.82-5.3); RED CELL DISTRIBUTION WIDTH 23.4 % (9.6-15.2)
[2018-08-11 05:44] LABS: CHLORIDE 112 mmol/L (98-107)
[2018-08-11 05:52] LABS: ANION GAP 12 mmol/L (5-15); BASOPHILS # (AUTO) 0.06 x10^3/uL (0-0.1); BASOPHILS % (AUTO) 1 % (0-1); CALCIUM 7.9 mg/dL (8.5-10.1); CREATININE 0.85 mg/dL (0.55-1.02); EOSINOPHILS # (AUTO) 0.27 x10^3/uL (0-0.4); EOSINOPHILS % (AUTO) 7 % (1-7); LYMPHOCYTES # (AUTO) 1.97 x10^3/uL (1-3.4); LYMPHOCYTES % (AUTO) 49 % (22-44); MD SCAN; MONOCYTES # (AUTO) 0.24 x10^3/uL (0.2-0.8); MONOCYTES % (AUTO) 6 % (2-9); NEUTROPHILS # (AUTO) 1.45 x10^3/uL (1.8-6.8); NEUTROPHILS % (AUTO) 36 % (42-75)
[2018-08-11 07:01] VITALS: BP 105/65
[2018-08-11] MEDS ORDERED: POTASSIUM CHLORIDE 20 MEQ TAB.ER.PRT PO ONE (08:30)
[2018-08-11] MEDS: LEVETIRACETAM 500 MG TABLET PO SCH (08:49)
[2018-08-11] MEDS: GABAPENTIN 100 MG CAPSULE PO SCH (08:49)
[2018-08-11] MEDS: FAMOTIDINE 20 MG/2 ML IVPush SCH (08:50)
[2018-08-11] MEDS: LACTULOSE 10 GM/15 ML UDC PO SCH (08:50)
[2018-08-11] MEDS ORDERED: SENNA/DOCUSATE TABLET PO SCH (09:00)
[2018-08-11] MEDS: NICOTINE 14MG/24 HR PATCH.TD24 TD SCH (11:51)
== END 2018-08-11 15:44 | disposition home or self-care (01) ==
LOC: ED 05:56 → INTOOBSV 09:09 → EDIP 09:09 → 4NOR 10:27
PROVIDERS: ADMIT Hospitalist; ATTEND Hospitalist
DX: R10.9 Unspecified abdominal pain (principal); R00.0 Tachycardia, unspecified; R11.2 Nausea with vomiting, unspecified; G40.909 Epilepsy, unspecified, not intractable, without status epilepticus; F32.9 Major depressive disorder, single episode, unspecified; F20.9 Schizophrenia, unspecified; I10 Essential (primary) hypertension; F17.200 Nicotine dependence, unspecified, uncomplicated; Z72.89 Other problems related to lifestyle; Z90.49 Acquired absence of other specified parts of digestive tract
CPT/HCPCS: 36415; 74176; 80048; 80053; 80307; 81001; 82150; 83690; 83735; 84100; 85025; 96361; 96365; 96366; 96372; 96375; 96376; 99285; G0378; J1200; J1644; J1885; J2550; J2765; J3475; J3480; J3490; 96374

== ENCOUNTER 2018-09-04 16:16 | Emergency (ER) | payer MEDICAID ==
[2018-09-04] MEDS ORDERED: FLUO10CA13 PO (16:28)
[2018-09-04] MEDS ORDERED: IRON15TA3 PO (16:28)
== END 2018-09-04 16:20 ==
LOC: ED 16:17
DX: K85.20 Alcohol induced acute pancreatitis without necrosis or infection (principal); F32.9 Major depressive disorder, single episode, unspecified; F20.9 Schizophrenia, unspecified; Z90.49 Acquired absence of other specified parts of digestive tract
CPT/HCPCS: 99283

== ENCOUNTER 2018-09-05 17:47 | Emergency (ER) | payer MEDICAID ==
[~2018-09-05] VITALS: Ht 154.9 cm; Wt 57.7 kg
[~2018-09-05 17:47] MED LIST changes: +FLUO10CA13 PO; +IRON15TA3 PO
[2018-09-05 17:51] VITALS: BP 105/82
[2018-09-05] MEDS ORDERED: MAALOX/HYOSCYAMINE/LIDOCAINE 45 ML BTL ONE (18:13)
[2018-09-05 18:26] LABS: BASOPHILS # (AUTO) 0.05 x10^3/uL (0-0.1); BASOPHILS % (AUTO) 1 % (0-1); EOSINOPHILS % (AUTO) 0 % (1-7); LYMPHOCYTES # (AUTO) 1.98 x10^3/uL (1-3.4); LYMPHOCYTES % (AUTO) 23 % (22-44); MD NO; MEAN CORPUSCULAR HEMOGLOBIN 25.4 pg (27.0-34.8); MEAN CORPUSCULAR HGB CONC 32.6 g/dL (32.4-35.8); MEAN CORPUSCULAR VOLUME 77.9 fL (80-100); MEAN PLATELET VOLUME 6.5 fL (7.4-10.4); MONOCYTES # (AUTO) 0.19 x10^3/uL (0.2-0.8); MONOCYTES % (AUTO) 2 % (2-9); NEUTROPHILS # (AUTO) 6.55 x10^3/uL (1.8-6.8); NEUTROPHILS % (AUTO) 75 % (42-75); PLATELET COUNT 661 x10^3/uL (130-400); RED BLOOD COUNT 5.49 x10^6/uL (3.82-5.3); RED CELL DISTRIBUTION WIDTH 21.3 % (9.6-15.2)
[2018-09-05] MEDS ORDERED: MAALOX/HYOSCYAMINE/LIDOCAINE 45 ML BTL PO ONE (18:30)
[2018-09-05 18:35] LABS: ALANINE AMINOTRANSFERASE 20 U/L (12-78); ANION GAP 12 mmol/L (5-15); CALCIUM 8.9 mg/dL (8.5-10.1); CHLORIDE 108 mmol/L (98-107); CREATININE 2.64 mg/dL (0.55-1.02)
[2018-09-05 18:37] LABS: ALKALINE PHOSPHATASE 96 U/L (45-117); BILIRUBIN,TOTAL 0.3 mg/dL (0.2-1.0); TOTAL PROTEIN 9.4 g/dL (6.4-8.2)
[2018-09-06] MEDS ORDERED: ERGO400T3 PO (11:33)
[2018-09-06] MEDS ORDERED: LEVE250T28 PO (11:33)
[2018-09-06] MEDS ORDERED: FERR140T3 PO (11:34)
[2018-09-06] MEDS ORDERED: FLUO20CA19 PO (11:34)
== END 2018-09-05 19:08 | disposition home or self-care (01) ==
LOC: ED 18:25
DX: K86.0 Alcohol-induced chronic pancreatitis (principal); N28.9 Disorder of kidney and ureter, unspecified; F10.20 Alcohol dependence, uncomplicated
CPT/HCPCS: 36415; 80053; 83690; 85025; 99283

== ENCOUNTER 2018-09-06 11:12 | Inpatient (IN) | payer MEDICAID ==
[~2018-09-06] VITALS: Ht 154.9 cm; Wt 57.8 kg
[2018-09-06] MEDS ORDERED: LEVE250T28 PO (11:33)
[2018-09-06] MEDS ORDERED: ERGO400T3 PO (11:33)
[2018-09-06] MEDS ORDERED: FLUO20CA19 PO (11:34)
[2018-09-06] MEDS ORDERED: FERR140T3 PO (11:34)
[2018-09-06 12:25] LABS: BASOPHILS # (AUTO) 0.12 x10^3/uL (0-0.1); BASOPHILS % (AUTO) 1 % (0-1); EOSINOPHILS # (AUTO) 0.05 x10^3/uL (0-0.4); EOSINOPHILS % (AUTO) 1 % (1-7); LYMPHOCYTES # (AUTO) 1.93 x10^3/uL (1-3.4); LYMPHOCYTES % (AUTO) 19 % (22-44); MD NO; MEAN CORPUSCULAR HEMOGLOBIN 25.1 pg (27.0-34.8); MEAN CORPUSCULAR HGB CONC 32.3 g/dL (32.4-35.8); MEAN CORPUSCULAR VOLUME 77.7 fL (80-100); MEAN PLATELET VOLUME 6.6 fL (7.4-10.4); MONOCYTES # (AUTO) 0.28 x10^3/uL (0.2-0.8); MONOCYTES % (AUTO) 3 % (2-9); NEUTROPHILS # (AUTO) 7.76 x10^3/uL (1.8-6.8); NEUTROPHILS % (AUTO) 77 % (42-75); PLATELET COUNT 649 x10^3/uL (130-400); RED BLOOD COUNT 5.66 x10^6/uL (3.82-5.3); RED CELL DISTRIBUTION WIDTH 20.7 % (9.6-15.2)
[2018-09-06 12:33] LABS: ALBUMIN 4.3 g/dL (3.4-5.0); ANION GAP 8 mmol/L (5-15); CALCIUM 9.4 mg/dL (8.5-10.1); CHLORIDE 109 mmol/L (98-107)
[2018-09-06 12:36] LABS: ALANINE AMINOTRANSFERASE 16 U/L (12-78); ALKALINE PHOSPHATASE 95 U/L (45-117); BILIRUBIN,TOTAL 0.3 mg/dL (0.2-1.0); CREATININE 2.71 mg/dL (0.55-1.02); TOTAL PROTEIN 9.8 g/dL (6.4-8.2)
[2018-09-06] MEDS ORDERED: MAALOX/HYOSCYAMINE/LIDOCAINE 45 ML BTL ONE (12:57)
[2018-09-06] MEDS ORDERED: MAALOX/HYOSCYAMINE/LIDOCAINE 45 ML BTL PO ONE (13:00)
[2018-09-06 13:32] LABS: MICROSCOPIC INDICATED
[2018-09-06 13:36] LABS: CULTURE INDICATED? YES
[2018-09-06] MEDS ORDERED: NICOTINE 14MG/24 HR PATCH.TD24 TD SCH (14:00)
[2018-09-06] MEDS ORDERED: ACETAMINOPHEN 325 MG TABLET PO PRN (14:00)
[2018-09-06] MEDS ORDERED: HEPARIN 5,000 UNITS/ML, 1ML SQ SCH (14:00)
[2018-09-06] MEDS ORDERED: PANTOPRAZOLE 40 MG IV IVPush SCH (14:00)
[2018-09-06] MEDS ORDERED: ONDANSETRON 2MG/ML, 2ML IVPush PRN ×2 (14:00→16:00)
[2018-09-06] MEDS ORDERED: DOCUSATE 100 MG CAPSULE PO PRN ×2 (14:00→16:00)
[2018-09-06] MEDS ORDERED: SODIUM CHLORIDE FLUSH 10ML SYR IVF PRN (14:00)
[2018-09-06] MEDS ORDERED: SODIUM CHLORIDE 0.9% 1,000ML IVBOLUS ONE (14:00)
[2018-09-06 14:18] LABS: TROPONIN I < 0.015 ng/mL (0.000-0.045)
[2018-09-06] MEDS ORDERED: THIAMINE 100MG TABLET PO ONE (14:30)
[2018-09-06] MEDS ORDERED: D5%-0.45% NACL 1,000 ML IV SCH ×2 (14:30→16:00)
[2018-09-06] MEDS ORDERED: NICOTINE 14MG/24 HR PATCH.TD24 ONE (15:18)
[2018-09-06] MEDS ORDERED: THIAMINE 100MG TABLET ONE (15:18)
[2018-09-06] MEDS ORDERED: PANTOPRAZOLE 40 MG IV ONE (15:18)
[2018-09-06] MEDS ORDERED: HEPARIN 5,000 UNITS/ML, 1ML ONE (15:18)
[2018-09-06] MEDS ORDERED: TEMPLATE NON-FORMULARY MED. (Gabapentin 100 MG) PO SCH (16:00)
[2018-09-06 16:10] VITALS: BP 132/80
[2018-09-06] MEDS ORDERED: GABAPENTIN 100 MG CAPSULE PO SCH (16:15)
[2018-09-06] MEDS ORDERED: OXYcodone IR 5MG TABLET ONE (16:44)
[2018-09-06] MEDS: OXYcodone IR 5MG TABLET PO PRN ×2 (16:52→23:31)
[2018-09-06] MEDS ORDERED: FERROUS SULFATE 325 MG TABLET PO SCH (17:00)
[2018-09-06] MEDS: ACETAMINOPHEN 325 MG TABLET PO PRN ×2 (18:15→22:28)
[2018-09-06 19:34] VITALS: BP 126/80
[2018-09-07 00:29] VITALS: BP 114/81
[2018-09-07] MEDS ORDERED: ONDANSETRON 2MG/ML, 2ML IVPush PRN (00:30)
[2018-09-07] MEDS: HEPARIN 5,000 UNITS/ML, 1ML SQ SCH ×3 (00:39→16:30)
[2018-09-07] MEDS: ACETAMINOPHEN 325 MG TABLET PO PRN ×4 (02:40→19:00)
[2018-09-07] MEDS: D5%-0.45% NACL 1,000 ML IV SCH ×2 (03:48→14:00)
[2018-09-07] MEDS: OXYcodone IR 5MG TABLET PO PRN ×3 (05:37→19:00)
[2018-09-07 07:25] VITALS: BP 93/51
[2018-09-07 08:54] LABS: ANION GAP 5 mmol/L (5-15); CALCIUM 8.2 mg/dL (8.5-10.1); CHLORIDE 111 mmol/L (98-107); CREATININE 1.93 mg/dL (0.55-1.02)
[2018-09-07] MEDS ORDERED: LEVETIRACETAM 500 MG TABLET PO SCH (09:00)
[2018-09-07] MEDS ORDERED: FLUOXETINE HCL 20 MG CAPSULE PO SCH ×2 (09:00)
[2018-09-07] MEDS ORDERED: LEVETIRACETAM 250 MG PO SCH (09:00)
[2018-09-07] MEDS ORDERED: ERGOCALCIFEROL 400 UNIT PO SCH (09:00)
[2018-09-07] MEDS: DOCUSATE 100 MG CAPSULE PO SCH ×2 (09:00→21:00)
[2018-09-07] MEDS ORDERED: FERROUS SULFATE 140 MG PO SCH (09:00)
[2018-09-07] MEDS: PANTOPRAZOLE 40 MG IV IVPush SCH ×2 (09:00→10:09)
[2018-09-07] MEDS ORDERED: LEVETIRACETAM 100 MG/ML ORAL SOL PO SCH ×2 (09:00)
[2018-09-07] MEDS ORDERED: CHOLECALCIFEROL 400 UNITS TABLET PO SCH (09:00)
[2018-09-07 10:05] LABS: MEAN CORPUSCULAR HEMOGLOBIN 24.3 pg (27.0-34.8); MEAN CORPUSCULAR HGB CONC 31.3 g/dL (32.4-35.8); MEAN CORPUSCULAR VOLUME 77.7 fL (80-100); MEAN PLATELET VOLUME 6.6 fL (7.4-10.4); PLATELET COUNT 434 x10^3/uL (130-400); RED BLOOD COUNT 4.44 x10^6/uL (3.82-5.3); RED CELL DISTRIBUTION WIDTH 20.4 % (9.6-15.2)
[2018-09-07] MEDS ORDERED: LEVETIRACETAM 500 MG TABLET ONE (10:07)
[2018-09-07 10:08] LABS: HEMOGRAM NOTE RECHECKED
[2018-09-07] MEDS: LEVETIRACETAM 500 MG TABLET PO SCH ×2 (10:10→21:16)
[2018-09-07] MEDS: CHOLECALCIFEROL 400 UNITS TABLET PO SCH (10:10)
[2018-09-07] MEDS: GABAPENTIN 100 MG CAPSULE PO SCH ×3 (10:10→21:16)
[2018-09-07] MEDS: FLUOXETINE HCL 20 MG CAPSULE PO SCH (10:10)
[2018-09-07 10:21] LABS: MD YES
[2018-09-07 10:26] LABS: ANISOCYTOSIS 1+; BASOS#(MANUAL) 0.07 x10^3/uL (0-0.1); BASOS% (MANUAL) 1 % (0-1); EOS#(MANUAL) 0.13 x10^3/uL (0.0-0.4); EOS% (MANUAL) 2 % (1-7); LYMPH#(MANUAL) 2.44 x10^3/uL (1-3.4); LYMPHS% (MANUAL) 37 % (22-44); MICROCYTOSIS 1+; MONOS% (MANUAL) 3 % (2-9); SEG#(MANUAL) 3.76 x10^3/uL (1.8-6.8); SEGS% (MANUAL) 57 % (42-75)
[2018-09-07 10:27] LABS: <PLATELET ESTIMATE> INCREASED; <PLT MORPHOLOGY> NORMAL PLT MORPH
[2018-09-07 12:43] VITALS: BP 110/68
[2018-09-07] MEDS ORDERED: NICOTINE 14MG/24 HR PATCH.TD24 TD SCH (14:30)
[2018-09-07] MEDS ORDERED: FERROUS SULFATE 325 MG TABLET PO SCH (17:00)
[2018-09-07 19:54] VITALS: BP 107/69
[2018-09-08] MEDS: D5%-0.45% NACL 1,000 ML IV SCH ×2 (00:26→10:00)
[2018-09-08] MEDS: HEPARIN 5,000 UNITS/ML, 1ML SQ SCH ×2 (00:30→08:30)
[2018-09-08] MEDS: ACETAMINOPHEN 325 MG TABLET PO PRN ×2 (00:58→09:44)
[2018-09-08] MEDS: OXYcodone IR 5MG TABLET PO PRN ×2 (00:58→09:44)
[2018-09-08 02:33] VITALS: BP 92/49
[2018-09-08 05:49] LABS: ANION GAP 4 mmol/L (5-15); CALCIUM 8.2 mg/dL (8.5-10.1); CHLORIDE 113 mmol/L (98-107); CREATININE 1.38 mg/dL (0.55-1.02)
[2018-09-08 06:46] VITALS: BP 104/66
[2018-09-08] MEDS ORDERED: SODIUM CHLORIDE 0.9% 1,000ML IVBOLUS ONE (08:00)
[2018-09-08] MEDS: CHOLECALCIFEROL 400 UNITS TABLET PO SCH (08:34)
[2018-09-08] MEDS: PANTOPRAZOLE 40 MG IV IVPush SCH (08:34)
[2018-09-08] MEDS: LEVETIRACETAM 500 MG TABLET PO SCH (08:34)
[2018-09-08] MEDS: FLUOXETINE HCL 20 MG CAPSULE PO SCH (08:34)
[2018-09-08] MEDS: GABAPENTIN 100 MG CAPSULE PO SCH (08:36)
[2018-09-08] MEDS ORDERED: PANT20TA3 PO (08:49)
[2018-09-08] MEDS: DOCUSATE 100 MG CAPSULE PO SCH (09:00)
[2018-09-08] MEDS ORDERED: PANTOPRAZOLE 20MG TABLET PO SCH (09:00)
== END 2018-09-08 12:45 | disposition home or self-care (01) | DRG 438 ==
LOC: SUATTDRO 13:40 → ED 14:02 → EDIP 14:29 → 4NOR 15:42 → UNDODISIN 15:45 → DCLOUNGE 09-08 12:30
PROVIDERS: ADMIT Internal Medicine; ATTEND Internal Medicine
DX: K85.20 Alcohol induced acute pancreatitis without necrosis or infection (principal); N17.0 Acute kidney failure with tubular necrosis; E86.0 Dehydration; K86.0 Alcohol-induced chronic pancreatitis; F17.210 Nicotine dependence, cigarettes, uncomplicated; F20.9 Schizophrenia, unspecified; G40.909 Epilepsy, unspecified, not intractable, without status epilepticus; G89.29 Other chronic pain; I10 Essential (primary) hypertension; Z59.0 Homelessness; Z86.73 Personal history of transient ischemic attack (TIA), and cerebral infarction without residual deficits; K29.20 Alcoholic gastritis without bleeding
CPT/HCPCS: 36415; 74022; 80048; 80053; 81001; 82040; 83690; 84484; 85025; 87086; 93005; 96374; 99285; G0378; J1644; C9113; J7030

== ENCOUNTER 2018-09-09 11:35 | Emergency (ER) | payer MEDICAID ==
[~2018-09-09] VITALS: Ht 154.9 cm; Wt 58.0 kg
[~2018-09-09 11:35] MED LIST changes: +ERGO400T3 PO; +FERR140T3 PO; +FLUO20CA19 PO; +LEVE250T28 PO; +PANT20TA3 PO
[2018-09-09 12:10] VITALS: BP 128/89
[2018-09-09] MEDS ORDERED: MAALOX/HYOSCYAMINE/LIDOCAINE 45 ML BTL ONE (12:14)
[2018-09-09] MEDS ORDERED: MAALOX/HYOSCYAMINE/LIDOCAINE 45 ML BTL PO ONE (12:30)
[2018-09-09] MEDS ORDERED: ONDANSETRON ODT 4 MG PO ONE (12:30)
[2018-09-09 12:59] LABS: MEAN CORPUSCULAR HEMOGLOBIN 24.9 pg (27.0-34.8); MEAN CORPUSCULAR VOLUME 77.9 fL (80-100); MEAN PLATELET VOLUME 6.7 fL (7.4-10.4); PLATELET COUNT 409 x10^3/uL (130-400); RED BLOOD COUNT 4.96 x10^6/uL (3.82-5.3); RED CELL DISTRIBUTION WIDTH 20.2 % (9.6-15.2)
[2018-09-09 13:05] LABS: CALCIUM 8.8 mg/dL (8.5-10.1); CHLORIDE 113 mmol/L (98-107)
[2018-09-09 13:14] LABS: ALANINE AMINOTRANSFERASE 15 U/L (12-78); ALBUMIN 4.1 g/dL (3.4-5.0); ALKALINE PHOSPHATASE 70 U/L (45-117); ANION GAP 6 mmol/L (5-15); BILIRUBIN,TOTAL 0.3 mg/dL (0.2-1.0); CREATININE 2.09 mg/dL (0.55-1.02); TOTAL PROTEIN 8.2 g/dL (6.4-8.2)
[2018-09-09] MEDS ORDERED: ONDANSETRON ODT 4 MG ONE (13:18)
[2018-09-09 13:21] LABS: <PLATELET ESTIMATE> INCREASED; <PLT MORPHOLOGY> NORMAL PLT MORPH; ANISOCYTOSIS 1+; BASOPHILS # (AUTO) 0.06 x10^3/uL (0-0.1); BASOPHILS % (AUTO) 1 % (0-1); EOSINOPHILS # (AUTO) 0.06 x10^3/uL (0-0.4); EOSINOPHILS % (AUTO) 1 % (1-7); LYMPHOCYTES # (AUTO) 1.61 x10^3/uL (1-3.4); LYMPHOCYTES % (AUTO) 35 % (22-44); MD MORPH REVIEW ONLY; MICROCYTOSIS 1+; MONOCYTES # (AUTO) 0.28 x10^3/uL (0.2-0.8); MONOCYTES % (AUTO) 6 % (2-9); NEUTROPHILS # (AUTO) 2.55 x10^3/uL (1.8-6.8); NEUTROPHILS % (AUTO) 56 % (42-75)
[2018-09-09 13:22] LABS: HYPOCHROMIA 1+; OVALOCYTES 1+
[2018-09-09] MEDS ORDERED: DICYCLOMINE 10 MG/ML, 2ML ONE (13:49)
[2018-09-09 13:51] LABS: MICROSCOPIC AUTO
[2018-09-09] MEDS ORDERED: ONDANSETRON ODT 8 MG PO ONE (14:00)
[2018-09-09] MEDS ORDERED: DICYCLOMINE 10 MG/ML, 2ML IM ONE (14:00)
[2018-09-09 14:01] LABS: CULTURE INDICATED? YES
[2018-09-09] MEDS ORDERED: POTASSIUM CHLORIDE 20 MEQ TAB.ER.PRT ONE (14:15)
[2018-09-09] MEDS ORDERED: POTASSIUM CHLORIDE 20 MEQ TAB.ER.PRT PO ONE (14:30)
== END 2018-09-09 14:28 | disposition home or self-care (01) ==
LOC: ED 14:08
DX: R10.13 Epigastric pain (principal); E87.6 Hypokalemia; R79.89 Other specified abnormal findings of blood chemistry; F20.9 Schizophrenia, unspecified; Z90.89 Acquired absence of other organs; Z88.6 Allergy status to analgesic agent
CPT/HCPCS: 36415; 80053; 80307; 81001; 83690; 84703; 85025; 87086; 96372; 99283; J0500

== ENCOUNTER 2018-09-11 12:30 | Emergency (ER) | payer MEDICAID ==
[2018-09-11] MEDS ORDERED: MAALOX/HYOSCYAMINE/LIDOCAINE 45 ML BTL ONE (12:55)
[2018-09-11] MEDS ORDERED: ONDANSETRON 2MG/ML, 2ML IVPush ONE (13:00)
[2018-09-11] MEDS ORDERED: MAALOX/HYOSCYAMINE/LIDOCAINE 45 ML BTL PO ONE (13:00)
[2018-09-11] MEDS ORDERED: FAMOTIDINE 20 MG/2 ML IVP ONE (13:00)
--- NOTE | 2018-09-11 13:15 | NUR ---
break coverage: assumed care of pt on behalf of primary ALICIA Salas for lunch break only. pt here for abd pain and nausea. no vomiting. pt to have IV placed and medication. reports no relief after GI cocktail. no family at bedside
[2018-09-11 13:16] LABS: ALANINE AMINOTRANSFERASE 16 U/L (12-78); ALBUMIN 3.9 g/dL (3.4-5.0); ANION GAP 10 mmol/L (5-15); CALCIUM 8.5 mg/dL (8.5-10.1); CHLORIDE 106 mmol/L (98-107); CREATININE 1.13 mg/dL (0.55-1.02)
[2018-09-11 13:18] LABS: ALKALINE PHOSPHATASE 75 U/L (45-117); BILIRUBIN,TOTAL 0.5 mg/dL (0.2-1.0)
[2018-09-11] MEDS ORDERED: ONDANSETRON 2MG/ML, 2ML ONE (13:30)
[2018-09-11] MEDS ORDERED: FAMOTIDINE 20 MG/2 ML ONE (13:30)
--- NOTE | 2018-09-11 13:43 | NUR ---
break coverage: pt has been medicated per order. well tolerated. pt making repeated requests for pain meds. pt education that the medication that she is recieving is for pain. pt positioning and lights dimmed for comfort.
[2018-09-11 13:48] LABS: MEAN CORPUSCULAR HEMOGLOBIN 25.3 pg (27.0-34.8); MEAN CORPUSCULAR HGB CONC 32.7 g/dL (32.4-35.8); MEAN CORPUSCULAR VOLUME 77.5 fL (80-100); MEAN PLATELET VOLUME 7.1 fL (7.4-10.4); PLATELET COUNT 329 x10^3/uL (130-400); RED BLOOD COUNT 4.59 x10^6/uL (3.82-5.3); RED CELL DISTRIBUTION WIDTH 19.5 % (9.6-15.2)
[2018-09-11 13:52] LABS: MD SCAN
[2018-09-11] MEDS ORDERED: PLEASE ENTER HEIGHT AND WEIGHT MC SCH (15:00)
[2018-09-11] MEDS ORDERED: DICYCLOMINE 10 MG/ML, 2ML IM ONE (15:00)
[2018-09-11] MEDS ORDERED: DICYCLOMINE 10 MG/ML, 2ML ONE (15:34)
[2018-09-11 15:41] VITALS: BP 124/78
== END 2018-09-11 15:47 | disposition home or self-care (01) ==
LOC: ED 13:20
DX: K85.00 Idiopathic acute pancreatitis without necrosis or infection (principal); K29.00 Acute gastritis without bleeding; R10.84 Generalized abdominal pain; F32.9 Major depressive disorder, single episode, unspecified; F20.9 Schizophrenia, unspecified; Z90.49 Acquired absence of other specified parts of digestive tract
CPT/HCPCS: 36415; 80053; 83690; 85025; 86677; 96372; 96374; 96375; 99283; J0500; J2405; J3490

== ENCOUNTER 2019-01-27 02:32 | Inpatient (IN) | payer MEDICAID ==
[~2019-01-27] VITALS: Ht 154.9 cm; Wt 74.2 kg
[2019-01-27] MEDS ORDERED: FAMOTIDINE 20 MG/2 ML ONE (03:20)
[2019-01-27] MEDS ORDERED: MORPHINE SULFATE 4 MG/ML, 1ML ONE (03:20)
[2019-01-27] MEDS ORDERED: ONDANSETRON 2MG/ML, 2ML ONE (03:20)
[2019-01-27] MEDS ORDERED: FAMOTIDINE 20 MG/2 ML IVP ONE (03:30)
[2019-01-27] MEDS ORDERED: SODIUM CHLORIDE FLUSH 10ML SYR IVF ONE (03:30)
[2019-01-27] MEDS ORDERED: ONDANSETRON 2MG/ML, 2ML IVPush ONE (03:30)
[2019-01-27] MEDS ORDERED: MORPHINE SULFATE 4 MG/ML, 1ML IVPush PRN (03:30)
[2019-01-27 03:34] LABS: BASOPHILS # (AUTO) 0.04 x10^3/uL (0-0.1); BASOPHILS % (AUTO) 1 % (0-1); EOSINOPHILS # (AUTO) 0.15 x10^3/uL (0-0.4); EOSINOPHILS % (AUTO) 2 % (1-7); LYMPHOCYTES # (AUTO) 2.35 x10^3/uL (1-3.4); LYMPHOCYTES % (AUTO) 25 % (22-44); MD NO; MEAN CORPUSCULAR HEMOGLOBIN 26.8 pg (27.0-34.8); MEAN CORPUSCULAR HGB CONC 32.5 g/dL (32.4-35.8); MEAN CORPUSCULAR VOLUME 82.4 fL (80-100); MEAN PLATELET VOLUME 7.1 fL (7.4-10.4); MONOCYTES # (AUTO) 0.54 x10^3/uL (0.2-0.8); MONOCYTES % (AUTO) 6 % (2-9); NEUTROPHILS % (AUTO) 67 % (42-75); PLATELET COUNT 328 x10^3/uL (130-400); RED BLOOD COUNT 4.74 x10^6/uL (3.82-5.3); RED CELL DISTRIBUTION WIDTH 17.6 % (9.6-15.2)
[2019-01-27 03:41] LABS: INTERNATIONAL NORMALIZED RATIO 1.02 (0.93-1.1); PROTHROMBIN TIME 10.7 Seconds (9.6-11.5)
[2019-01-27 03:43] LABS: ALANINE AMINOTRANSFERASE 14 U/L (12-78); ALBUMIN 3.2 g/dL (3.4-5.0); ANION GAP 3 mmol/L (5-15); CALCIUM 8.6 mg/dL (8.5-10.1); CHLORIDE 110 mmol/L (98-107); CREATININE 0.81 mg/dL (0.55-1.02)
[2019-01-27 03:48] LABS: ALKALINE PHOSPHATASE 88 U/L (45-117); BILIRUBIN,TOTAL 0.3 mg/dL (0.2-1.0)
[2019-01-27] MEDS ORDERED: NARCAN PO (03:58)
[2019-01-27 04:38] VITALS: BP 119/77
[2019-01-27] MEDS: HEPARIN 5,000 UNITS/ML, 1ML SQ SCH ×3 (07:00→23:03)
[2019-01-27] MEDS ORDERED: BISACODYL 10 MG SUPP PR PRN (07:00)
[2019-01-27] MEDS ORDERED: PROMETHAZINE 25 MG/ML, 1ML IM PRN (07:00)
[2019-01-27] MEDS ORDERED: ONDANSETRON 2MG/ML, 2ML IVPush PRN (07:00)
[2019-01-27] MEDS ORDERED: hydrALAzine 20 MG/ML, 1ML IVPush PRN (07:00)
[2019-01-27] MEDS ORDERED: ONDANSETRON ODT 4 MG PO PRN (07:00)
[2019-01-27] MEDS ORDERED: DOCUSATE 100 MG CAPSULE PO PRN (07:00)
[2019-01-27] MEDS ORDERED: POLYETHYLENE GLYCOL 17 GM PACKET PO PRN (07:00)
[2019-01-27] MEDS: LACTATED RINGERS 1,000 ML IV SCH ×3 (07:14→20:55)
[2019-01-27] MEDS: morphine SULFATE 10 MG/ML, 1ML IVPush PRN ×5 (07:22→20:55)
[2019-01-27] MEDS: NICOTINE 14MG/24 HR PATCH.TD24 TD SCH (07:23)
[2019-01-27 07:26] VITALS: BP 95/60
[2019-01-27 07:37] LABS: FREE T4 (FREE THYROXINE) 0.85 ng/dL (0.76-1.46); THYROID STIMULATING HORMONE 0.522 mIU/L (0.358-3.740)
[2019-01-27] MEDS: GABAPENTIN 100 MG CAPSULE PO SCH ×3 (09:00→20:55)
[2019-01-27] MEDS: FERROUS SULFATE 325 MG TABLET PO SCH (09:00)
[2019-01-27] MEDS: CHOLECALCIFEROL 400 UNITS TABLET PO SCH (09:00)
[2019-01-27] MEDS: FLUOXETINE HCL 20 MG CAPSULE PO SCH (09:00)
[2019-01-27] MEDS: LEVETIRACETAM 100 MG/ML ORAL SOL PO SCH (09:00)
[2019-01-27 16:43] VITALS: BP 100/65
[2019-01-27 20:33] VITALS: BP 90/58
[2019-01-27] MEDS ORDERED: OMNIPAQUE 350 MG/ML, 100ML BOTTLE ONE (22:31)
[2019-01-28 01:19] VITALS: BP 103/71
[2019-01-28] MEDS: morphine SULFATE 10 MG/ML, 1ML IVPush PRN ×6 (01:26→21:41)
[2019-01-28] MEDS: LACTATED RINGERS 1,000 ML IV SCH (04:43)
[2019-01-28 05:50] LABS: BASOPHILS # (AUTO) 0.04 x10^3/uL (0-0.1); BASOPHILS % (AUTO) 1 % (0-1); EOSINOPHILS # (AUTO) 0.09 x10^3/uL (0-0.4); EOSINOPHILS % (AUTO) 1 % (1-7); LYMPHOCYTES % (AUTO) 30 % (22-44); MD NO; MEAN PLATELET VOLUME 7.6 fL (7.4-10.4); MONOCYTES # (AUTO) 0.45 x10^3/uL (0.2-0.8); MONOCYTES % (AUTO) 7 % (2-9); NEUTROPHILS # (AUTO) 4.12 x10^3/uL (1.8-6.8); NEUTROPHILS % (AUTO) 62 % (42-75); PLATELET COUNT 266 x10^3/uL (130-400); RED BLOOD COUNT 4.57 x10^6/uL (3.82-5.3); RED CELL DISTRIBUTION WIDTH 17.3 % (9.6-15.2)
[2019-01-28 05:52] LABS: ALBUMIN 2.8 g/dL (3.4-5.0); ANION GAP 4 mmol/L (5-15); CALCIUM 8.1 mg/dL (8.5-10.1); CHLORIDE 110 mmol/L (98-107)
[2019-01-28 05:56] LABS: ALANINE AMINOTRANSFERASE 12 U/L (12-78); ALKALINE PHOSPHATASE 89 U/L (45-117); BILIRUBIN,TOTAL 0.7 mg/dL (0.2-1.0); CHOL/HDL RATIO 4.1; CHOLESTEROL, TOTAL 146 mg/dL (140-239); CREATININE 0.62 mg/dL (0.55-1.02); HDL CHOL % 25 % (28-40); HDL CHOLESTEROL (DIRECT) 36 mg/dL (40-60); LDL CHOLESTEROL,CALCULATED 80 mg/dL (54-169); LDL/HDL RATIO 2.2 (0.5-3.0); TOTAL PROTEIN 6.3 g/dL (6.4-8.2); TRIGLYCERIDES 151 mg/dL (50-200); VLDL CHOLESTEROL 30 mg/dL (0-25)
[2019-01-28] MEDS: HEPARIN 5,000 UNITS/ML, 1ML SQ SCH ×3 (06:28→22:49)
[2019-01-28] MEDS: NICOTINE 14MG/24 HR PATCH.TD24 TD SCH (06:29)
[2019-01-28 08:15] VITALS: BP 120/75
[2019-01-28] MEDS ORDERED: MORPHINE SULFATE 4 MG/ML, 1ML ONE (08:54)
[2019-01-28] MEDS: GABAPENTIN 100 MG CAPSULE PO SCH ×3 (09:03→20:53)
[2019-01-28] MEDS: CHOLECALCIFEROL 400 UNITS TABLET PO SCH (09:03)
[2019-01-28] MEDS: FERROUS SULFATE 325 MG TABLET PO SCH (09:03)
[2019-01-28] MEDS: PANTOPRAZOLE 40 MG IV IVPush SCH ×2 (09:03→20:53)
[2019-01-28] MEDS: FLUOXETINE HCL 20 MG CAPSULE PO SCH (09:03)
[2019-01-28] MEDS: LEVETIRACETAM 100 MG/ML ORAL SOL PO SCH (09:04)
[2019-01-28 13:16] VITALS: BP 115/77
[2019-01-28] MEDS: SODIUM CHLORIDE 0.9% 1,000 ML IV SCH (18:18)
[2019-01-28 19:05] VITALS: BP 100/69
[2019-01-28] MEDS: OXYcodone IR 5MG TABLET PO PRN ×2 (19:51→23:53)
[2019-01-29 00:24] VITALS: BP 96/64
[2019-01-29] MEDS: morphine SULFATE 10 MG/ML, 1ML IVPush PRN ×3 (01:00→08:59)
[2019-01-29] MEDS: SODIUM CHLORIDE 0.9% 1,000 ML IV SCH (05:01)
[2019-01-29 05:37] LABS: BASOPHILS # (AUTO) 0.04 x10^3/uL (0-0.1); BASOPHILS % (AUTO) 1 % (0-1); EOSINOPHILS # (AUTO) 0.08 x10^3/uL (0-0.4); EOSINOPHILS % (AUTO) 2 % (1-7); LYMPHOCYTES # (AUTO) 2.32 x10^3/uL (1-3.4); LYMPHOCYTES % (AUTO) 41 % (22-44); MD NO; MEAN CORPUSCULAR HEMOGLOBIN 26.9 pg (27.0-34.8); MEAN CORPUSCULAR HGB CONC 32.6 g/dL (32.4-35.8); MEAN CORPUSCULAR VOLUME 82.3 fL (80-100); MEAN PLATELET VOLUME 7.5 fL (7.4-10.4); MONOCYTES # (AUTO) 0.44 x10^3/uL (0.2-0.8); MONOCYTES % (AUTO) 8 % (2-9); NEUTROPHILS # (AUTO) 2.75 x10^3/uL (1.8-6.8); NEUTROPHILS % (AUTO) 49 % (42-75); PLATELET COUNT 247 x10^3/uL (130-400); RED BLOOD COUNT 4.23 x10^6/uL (3.82-5.3); RED CELL DISTRIBUTION WIDTH 16.8 % (9.6-15.2)
[2019-01-29 05:39] LABS: CHLORIDE 114 mmol/L (98-107)
[2019-01-29 05:46] LABS: ALANINE AMINOTRANSFERASE 11 U/L (12-78); ALBUMIN 2.7 g/dL (3.4-5.0); ALKALINE PHOSPHATASE 78 U/L (45-117); ANION GAP 7 mmol/L (5-15); BILIRUBIN,TOTAL 0.5 mg/dL (0.2-1.0); CALCIUM 7.8 mg/dL (8.5-10.1); CREATININE 0.57 mg/dL (0.55-1.02); TOTAL PROTEIN 5.7 g/dL (6.4-8.2)
[2019-01-29] MEDS: NICOTINE 14MG/24 HR PATCH.TD24 TD SCH (06:28)
[2019-01-29] MEDS: HEPARIN 5,000 UNITS/ML, 1ML SQ SCH (06:28)
[2019-01-29] MEDS: OXYcodone IR 5MG TABLET PO PRN ×2 (06:28→11:22)
[2019-01-29 06:44] VITALS: BP 94/61
[2019-01-29] MEDS ORDERED: MORPHINE SULFATE 4 MG/ML, 1ML ONE (08:48)
[2019-01-29] MEDS: PANTOPRAZOLE 40 MG IV IVPush SCH (08:58)
[2019-01-29] MEDS: FERROUS SULFATE 325 MG TABLET PO SCH (08:59)
[2019-01-29] MEDS: FLUOXETINE HCL 20 MG CAPSULE PO SCH (08:59)
[2019-01-29] MEDS: GABAPENTIN 100 MG CAPSULE PO SCH (08:59)
[2019-01-29] MEDS: CHOLECALCIFEROL 400 UNITS TABLET PO SCH (08:59)
[2019-01-29] MEDS: LEVETIRACETAM 100 MG/ML ORAL SOL PO SCH (09:00)
[2019-01-29] MEDS ORDERED: IBUP-1222 PO (12:07)
[2019-01-29] MEDS ORDERED: ONDA4TAB13 PO (12:07)
[2019-01-29] MEDS ORDERED: NICO-486 TD (12:07)
[2019-01-29] MEDS ORDERED: SIMV20TA PO (12:11)
[2019-01-29] MEDS ORDERED: LIPA1CAP PO (12:13)
[2019-01-29 13:27] VITALS: BP 96/58
== END 2019-01-29 14:56 | disposition home or self-care (01) | DRG 439 ==
LOC: ED 03:06 → EDIP 03:55 → 3NE 04:40 → DCLOUNGE 01-29 14:41
PROVIDERS: ADMIT Internal Medicine; ATTEND Internal Medicine
DX: K85.20 Alcohol induced acute pancreatitis without necrosis or infection (principal); E44.0 Moderate protein-calorie malnutrition; K86.1 Other chronic pancreatitis; F32.9 Major depressive disorder, single episode, unspecified; E74.39 Other disorders of intestinal carbohydrate absorption; F17.210 Nicotine dependence, cigarettes, uncomplicated; F20.9 Schizophrenia, unspecified; G40.909 Epilepsy, unspecified, not intractable, without status epilepticus; Z86.73 Personal history of transient ischemic attack (TIA), and cerebral infarction without residual deficits; F10.10 Alcohol abuse, uncomplicated; Y90.9 Presence of alcohol in blood, level not specified; Z90.49 Acquired absence of other specified parts of digestive tract; Z68.30 Body mass index [BMI] 30.0-30.9, adult; Z88.6 Allergy status to analgesic agent
CPT/HCPCS: 36415; 99285; J3490; 71045; 74170; 74181; 80053; 80061; 83036; 83690; 83735; 84100; 84439; 84443; 84703; 85025; 85610; 85730; 96374; G0378; J1644; J2405; Q9967; C9113; J2270; J7030; J7120

== ENCOUNTER 2019-02-14 09:15 | Emergency (ER) | payer MEDICAID ==
[~2019-02-14] VITALS: Ht 167.6 cm; Wt 73.0 kg
[~2019-02-14 09:15] MED LIST changes: +IBUP-1222 PO; +LIPA1CAP PO; +NARCAN PO; +ONDA4TAB13 PO; +SIMV20TA PO
[2019-02-14] MEDS ORDERED: ONDANSETRON 2MG/ML, 2ML IVPush ONE (09:30)
[2019-02-14] MEDS ORDERED: HYDROmorphone 2 MG/ML, 1ML ONE (09:41)
[2019-02-14] MEDS ORDERED: ONDANSETRON 2MG/ML, 2ML ONE (09:41)
[2019-02-14] MEDS: HYDROmorphone 2 MG/ML, 1ML IVPush PRN ×2 (09:47→10:33)
--- NOTE | 2019-02-14 09:50 | NUR ---
PT ON BP CUFF, PULSE OX. MEDS GIVEN PER ERP ORDER FOR 810 ABD PAIN AND NAUSEA. CALL LIGHT WITHIN REACH.
[2019-02-14 09:54] LABS: BASOPHILS # (AUTO) 0.03 x10^3/uL (0-0.1); BASOPHILS % (AUTO) 0 % (0-1); EOSINOPHILS # (AUTO) 0.08 x10^3/uL (0-0.4); EOSINOPHILS % (AUTO) 1 % (1-7); LYMPHOCYTES # (AUTO) 1.32 x10^3/uL (1-3.4); LYMPHOCYTES % (AUTO) 16 % (22-44); MD NO; MEAN CORPUSCULAR HEMOGLOBIN 26.4 pg (27.0-34.8); MEAN CORPUSCULAR HGB CONC 31.4 g/dL (32.4-35.8); MEAN CORPUSCULAR VOLUME 84.1 fL (80-100); MEAN PLATELET VOLUME 7.3 fL (7.4-10.4); MONOCYTES # (AUTO) 0.42 x10^3/uL (0.2-0.8); MONOCYTES % (AUTO) 5 % (2-9); NEUTROPHILS # (AUTO) 6.58 x10^3/uL (1.8-6.8); NEUTROPHILS % (AUTO) 78 % (42-75); PLATELET COUNT 271 x10^3/uL (130-400); RED BLOOD COUNT 4.88 x10^6/uL (3.82-5.3); RED CELL DISTRIBUTION WIDTH 17.4 % (9.6-15.2)
[2019-02-14 10:05] LABS: ALANINE AMINOTRANSFERASE 18 U/L (12-78); ALBUMIN 3.2 g/dL (3.4-5.0); ANION GAP 6 mmol/L (5-15); CALCIUM 8.1 mg/dL (8.5-10.1); CHLORIDE 112 mmol/L (98-107); CREATININE 0.74 mg/dL (0.55-1.02)
[2019-02-14 10:10] LABS: ALKALINE PHOSPHATASE 89 U/L (45-117); BILIRUBIN,TOTAL 0.5 mg/dL (0.2-1.0); TOTAL PROTEIN 6.9 g/dL (6.4-8.2)
--- NOTE | 2019-02-14 10:18 | NUR ---
SANJAY OVALLE PLACED. VS UPDATED IN COMPUTER.
[2019-02-14 10:35] LABS: CULTURE INDICATED? YES; MICROSCOPIC AUTO
--- NOTE | 2019-02-14 10:37 | NUR ---
PT REMEDICATED FOR PERSISTENT PAIN. ALL RESULTS BACK, PT FOR RECHECK.
[2019-02-14 11:46] VITALS: BP 102/64
== END 2019-02-14 11:49 | disposition home or self-care (01) ==
LOC: ED 09:31
DX: K85.00 Idiopathic acute pancreatitis without necrosis or infection (principal); R10.13 Epigastric pain; F20.9 Schizophrenia, unspecified; Z90.49 Acquired absence of other specified parts of digestive tract
CPT/HCPCS: 36415; 80053; 81001; 83690; 84703; 85025; 87086; 87147; 96374; 96375; 96376; 99283; J1170; J2405

== ENCOUNTER 2019-08-16 13:26 | Emergency (ER) ==
[~2019-08-16] VITALS: Ht 160 cm; Wt 72.7 kg
[~2019-08-16 13:26] MED LIST changes: +CYAN-27 PO; -CYAN10005 PO
[2019-08-16] MEDS ORDERED: KETOROLAC 30 MG/1 ML ONE (13:40)
--- NOTE | 2019-08-16 13:52 | NUR ---
PT HERE FOR ABD PAIN IN EPIGASTRIC AREA. PER PT SHE HAS HX OF PANCREATITIS. STILL DECIDED TO HAVE ABOUT TWO SHOTS OF HARD LIQUOR THIS MORNING. PT DENIES TRUAMA. PT IS ALSO HYPOXIC WHILE SLEEPING. PT CONNECTED TO MONITORS AND CALL LIGHT IN REACH. AWAITING FURTHER ORDERS.
--- NOTE | 2019-08-16 13:54 | NUR ---
PT MEDICATED PER EMAR AND O2 THERAPY STARTED.
[2019-08-16 13:55] LABS: BASOPHILS # (AUTO) 0.07 x10^3/uL (0-0.1); BASOPHILS % (AUTO) 1 % (0-1); EOSINOPHILS % (AUTO) 1 % (1-7); LYMPHOCYTES # (AUTO) 2.19 x10^3/uL (1-3.4); LYMPHOCYTES % (AUTO) 28 % (22-44); MD NO; MEAN CORPUSCULAR HEMOGLOBIN 28.8 pg (27.0-34.8); MEAN CORPUSCULAR HGB CONC 32.4 g/dL (32.4-35.8); MEAN CORPUSCULAR VOLUME 88.9 fL (80-100); MEAN PLATELET VOLUME 6.2 fL (7.4-10.4); MONOCYTES # (AUTO) 0.34 x10^3/uL (0.2-0.8); MONOCYTES % (AUTO) 4 % (2-9); NEUTROPHILS # (AUTO) 5.21 x10^3/uL (1.8-6.8); NEUTROPHILS % (AUTO) 66 % (42-75); PLATELET COUNT 536 x10^3/uL (130-400); RED BLOOD COUNT 4.73 x10^6/uL (3.82-5.3); RED CELL DISTRIBUTION WIDTH 16.3 % (9.6-15.2)
[2019-08-16] MEDS ORDERED: KETOROLAC 30 MG/1 ML IM ONE (14:00)
[2019-08-16 14:08] LABS: ALANINE AMINOTRANSFERASE 23 U/L (12-78); ALBUMIN 2.9 g/dL (3.4-5.0); ANION GAP 9 mmol/L (5-15); CALCIUM 8.1 mg/dL (8.5-10.1); CHLORIDE 112 mmol/L (98-107); CREATININE 0.56 mg/dL (0.55-1.02)
[2019-08-16 14:11] LABS: ALKALINE PHOSPHATASE 103 U/L (45-117); BILIRUBIN,TOTAL 0.5 mg/dL (0.2-1.0); TOTAL PROTEIN 7.2 g/dL (6.4-8.2)
--- NOTE | 2019-08-16 14:37 | NUR ---
CHART UP FOR RECHECK AT THIS TIME.
[2019-08-16 15:23] VITALS: BP 142/74
--- NOTE | 2019-08-16 15:39 | NUR ---
Patient/Caregiver given discharge instructions and they have confirmed that they understand the instructions. Patient ambulatory with steady gait.
== END 2019-08-16 15:43 | disposition home or self-care (01) ==
LOC: ED 15:30
DX: K85.20 Alcohol induced acute pancreatitis without necrosis or infection (principal); F20.9 Schizophrenia, unspecified; N28.9 Disorder of kidney and ureter, unspecified; Z90.49 Acquired absence of other specified parts of digestive tract; Z72.9 Problem related to lifestyle, unspecified; Z87.440 Personal history of urinary (tract) infections
CPT/HCPCS: 36415; 80053; 83690; 85025; 96372; 99283; J1885

== ENCOUNTER 2019-09-19 08:27 | Inpatient (IN) | payer MEDICAID ==
[~2019-09-19] VITALS: Ht 154.9 cm; Wt 74.2 kg
--- NOTE | 2019-09-19 08:35 | NUR ---
REPORT RECEIVED, CARE ASSUMED.
--- NOTE | 2019-09-19 08:35 | NUR ---
BREAK RN: THIS IS A 44 YEAR OLD WHO WAS BIB BY AMBULANCE DUE TO ABD PAIN. 06/24 ABD PAIN. PT HAS A HX OF PANCREATITIS, BRAIN ANEURYSM X 3 YEARS AGO, LUNG INFECTION AND DEPRESSION. PT STATES LAST DRINK WAS 3 DAYS AGO. PT RECEIVED 250NS, 4MG OF ZOFAN, 100MCG FENTANYL IN ROUTE. PT PLACED ON CONTINOUS SP02 PLACED ON OXYGEN AT 2LNC DUE TO SAT 88-90%, CYCLE VS. REPORT TO ILDA VARGAS
[2019-09-19] MEDS ORDERED: SODIUM CHLORIDE FLUSH 10ML SYR IVF ONE (09:00)
[2019-09-19] MEDS ORDERED: FAMOTIDINE 20 MG/2 ML ONE (09:00)
[2019-09-19] MEDS ORDERED: FAMOTIDINE 20 MG/2 ML IV ONE (09:00)
[2019-09-19] MEDS ORDERED: LORazepam 2 MG/ML, 1ML IVPush ONE (09:00)
[2019-09-19] MEDS ORDERED: LORazepam 2 MG/ML, 1ML ONE (09:00)
[2019-09-19 09:07] LABS: BASOPHILS # (AUTO) 0.06 x10^3/uL (0-0.1); BASOPHILS % (AUTO) 1 % (0-1); EOSINOPHILS # (AUTO) 0.05 x10^3/uL (0-0.4); EOSINOPHILS % (AUTO) 1 % (1-7); LYMPHOCYTES # (AUTO) 1.34 x10^3/uL (1-3.4); LYMPHOCYTES % (AUTO) 12 % (22-44); MD NO; MEAN CORPUSCULAR HEMOGLOBIN 28.4 pg (27.0-34.8); MEAN CORPUSCULAR HGB CONC 32.3 g/dL (32.4-35.8); MEAN PLATELET VOLUME 6.2 fL (7.4-10.4); MONOCYTES # (AUTO) 0.74 x10^3/uL (0.2-0.8); MONOCYTES % (AUTO) 7 % (2-9); NEUTROPHILS # (AUTO) 8.84 x10^3/uL (1.8-6.8); NEUTROPHILS % (AUTO) 80 % (42-75); PLATELET COUNT 546 x10^3/uL (130-400); RED BLOOD COUNT 4.87 x10^6/uL (3.82-5.3); RED CELL DISTRIBUTION WIDTH 16.9 % (9.6-15.2)
[2019-09-19] MEDS ORDERED: GABA300C10 PO (09:08)
[2019-09-19] MEDS ORDERED: ALPR0.25 PO (09:11)
[2019-09-19] MEDS ORDERED: METH750T2 PO (09:11)
[2019-09-19] MEDS ORDERED: CITA20TA9 PO (09:11)
[2019-09-19 09:19] LABS: ALANINE AMINOTRANSFERASE 18 U/L (12-78); ALBUMIN 3.1 g/dL (3.4-5.0); ANION GAP 10 mmol/L (5-15); CALCIUM 7.6 mg/dL (8.5-10.1); CHLORIDE 107 mmol/L (98-107)
[2019-09-19 09:24] LABS: ALKALINE PHOSPHATASE 144 U/L (45-117); BILIRUBIN,TOTAL 0.4 mg/dL (0.2-1.0); TOTAL PROTEIN 8.4 g/dL (6.4-8.2)
[2019-09-19 09:37] LABS: INTERNATIONAL NORMALIZED RATIO 1.06 (0.93-1.1); PROTHROMBIN TIME 11.1 Seconds (9.6-11.5)
[2019-09-19] MEDS ORDERED: THIAMINE 100MG TABLET PO ONE (10:30)
[2019-09-19] MEDS ORDERED: LORazepam 0.5MG TABLET PO PRN (10:30)
[2019-09-19] MEDS ORDERED: ONDANSETRON ODT 4 MG PO PRN (10:30)
[2019-09-19] MEDS ORDERED: LORazepam 1MG TABLET PO PRN ×2 (10:30)
[2019-09-19] MEDS ORDERED: ONDANSETRON 2MG/ML, 2ML IVPush PRN (10:30)
[2019-09-19] MEDS ORDERED: LORazepam 2 MG/ML, 1ML IV PRN (10:30)
--- NOTE | 2019-09-19 10:43 | NUR ---
PT LAYING ON GURNEY IN DARKENED ROOM, WATCHING TV. STATES "I'M STILL IN PAIN. PAIN ABOVE BELLYBUTTON TO BACK /10" PT UP TO BR BY SELF PRN. PT AWARE OF ADMIT. WAITING ROOM ASSIGNMENT.
--- NOTE | 2019-09-19 10:54 | NUR ---
IV FLUIDS REQUESTED FROM PHARMACY
[2019-09-19] MEDS ORDERED: MORPHINE SULFATE 4 MG/ML, 1ML ONE ×2 (10:58→11:51)
[2019-09-19] MEDS ORDERED: ENOXAPARIN 40 MG/0.4 ML ONE (11:01)
[2019-09-19] MEDS ORDERED: THIAMINE 100MG TABLET ONE (11:01)
[2019-09-19] MEDS ORDERED: NICOTINE 14MG/24 HR PATCH.TD24 ONE (11:01)
--- NOTE | 2019-09-19 11:05 | NUR ---
CALL TO DR PERKINS. DISCUSSED PT NPO. HAS THIMINE PO ORDERED. PT ALSO ASKING FOR PAIN MED. MORPHINE ORDER STATES TO START WITH PO MEDS PRIOR TO IV ADMINISTRATION. "OK TO GIVE PO MEDS WITH SIP OF WATER"
[2019-09-19] MEDS ORDERED: IBUPROFEN 600 MG TABLET ONE (11:08)
[2019-09-19] MEDS: ENOXAPARIN 40 MG/0.4 ML SQ SCH (11:10)
[2019-09-19] MEDS: IBUPROFEN 600 MG TABLET PO PRN (11:10)
[2019-09-19] MEDS: NICOTINE 14MG/24 HR PATCH.TD24 TD SCH (11:10)
--- NOTE | 2019-09-19 11:18 | NUR ---
PT AWARE OF NPO AT THIS TIME.
--- NOTE | 2019-09-19 11:49 | NUR ---
BREAK RN: PT REQUESTED IV PAIN MEDICATION. PT STATES PAIN IS 10/10 ABD PAIN
[2019-09-19] MEDS: morphine SULFATE 10 MG/ML, 1ML IVPush PRN ×3 (11:54→18:09)
--- NOTE | 2019-09-19 11:55 | NUR ---
BREAK RN: MEDICATED WITH 2MG IV MORPHINE PER ORDERS.
--- NOTE | 2019-09-19 12:17 | NUR ---
BREAK RN: PT SLEEPING, RESP EVEN AND UNLABORED.
--- NOTE | 2019-09-19 12:48 | NUR ---
REPORT RECEIVED FROM ALICIA GONSALES.
[2019-09-19] MEDS: ACETAMINOPHEN 325 MG TABLET PO SCH ×3 (12:51→22:30)
--- NOTE | 2019-09-19 12:52 | NUR ---
REPORT TO PREETI VARGAS
--- NOTE | 2019-09-19 12:55 | NUR ---
PT RESTING ON Pivot. JORJE. CONNECTED TO MONITOR. VSS.
--- NOTE | 2019-09-19 13:22 | NUR ---
PT REQUESTING FUTHER PAIN MEDICATION AT THIS TIME. THIS RN REMINDED PT PAIN MEDICATION CAN BE TAKEN EVERY 3 HOURS. PT STATES UNDERSTANDING.
--- NOTE | 2019-09-19 13:45 | NUR ---
REPORT GIVEN TO ALICIA LOVING.
[2019-09-19 14:01] VITALS: BP 123/84
[2019-09-19] MEDS: POTASSIUM CHLORIDE 20 MEQ, MAGNESIUM SULFATE 2 GM, THIAMINE 200 MG, MVI ADULT 10 ML, FO... IV SCH (15:06)
[2019-09-19] MEDS ORDERED: GABAPENTIN 300 MG CAPSULE PO SCH (16:00)
[2019-09-19] MEDS: GABAPENTIN 400 MG CAPSULE PO SCH ×2 (18:29→20:27)
[2019-09-19 19:53] VITALS: BP 118/81
[2019-09-19] MEDS ORDERED: TEMAZEPAM 15 MG CAPSULE ONE (19:57)
[2019-09-19] MEDS: TEMAZEPAM 15 MG CAPSULE PO PRN (20:27)
[2019-09-19] MEDS: OXYcodone IR 5MG TABLET PO PRN (20:27)
[2019-09-19] MEDS: LORazepam 2 MG/ML, 1ML IV PRN (20:27)
[2019-09-19] MEDS: LEVETIRACETAM 500 MG TABLET PO SCH (20:27)
[2019-09-20] MEDS: OXYcodone IR 5MG TABLET PO PRN ×3 (02:21→11:09)
[2019-09-20] MEDS: LORazepam 2 MG/ML, 1ML IV PRN ×5 (02:22→16:50)
[2019-09-20 02:26] VITALS: BP 104/77
[2019-09-20] MEDS: ACETAMINOPHEN 325 MG TABLET PO SCH ×4 (04:30→22:30)
[2019-09-20] MEDS: morphine SULFATE 10 MG/ML, 1ML IVPush PRN ×5 (04:46→21:21)
[2019-09-20 05:14] LABS: BASOPHILS # (AUTO) 0.06 x10^3/uL (0-0.1); BASOPHILS % (AUTO) 1 % (0-1); EOSINOPHILS % (AUTO) 2 % (1-7); LYMPHOCYTES # (AUTO) 1.68 x10^3/uL (1-3.4); LYMPHOCYTES % (AUTO) 32 % (22-44); MD NO; MEAN CORPUSCULAR HEMOGLOBIN 28.1 pg (27.0-34.8); MEAN CORPUSCULAR HGB CONC 31.8 g/dL (32.4-35.8); MEAN CORPUSCULAR VOLUME 88.2 fL (80-100); MEAN PLATELET VOLUME 6.8 fL (7.4-10.4); MONOCYTES # (AUTO) 0.53 x10^3/uL (0.2-0.8); MONOCYTES % (AUTO) 10 % (2-9); NEUTROPHILS # (AUTO) 2.86 x10^3/uL (1.8-6.8); NEUTROPHILS % (AUTO) 55 % (42-75); PLATELET COUNT 438 x10^3/uL (130-400); RED BLOOD COUNT 4.43 x10^6/uL (3.82-5.3); RED CELL DISTRIBUTION WIDTH 16.5 % (9.6-15.2)
[2019-09-20 05:20] LABS: ANION GAP 5 mmol/L (5-15); CALCIUM 7.1 mg/dL (8.5-10.1); CHLORIDE 111 mmol/L (98-107); CREATININE 0.64 mg/dL (0.55-1.02)
[2019-09-20 07:21] VITALS: BP 114/73
[2019-09-20] MEDS: GABAPENTIN 400 MG CAPSULE PO SCH ×3 (08:38→21:19)
[2019-09-20] MEDS: LEVETIRACETAM 500 MG TABLET PO SCH ×2 (08:38→21:20)
[2019-09-20] MEDS: FLUOXETINE HCL 20 MG CAPSULE PO SCH (08:39)
[2019-09-20] MEDS: CHOLECALCIFEROL 400 UNITS TABLET PO SCH (08:39)
[2019-09-20] MEDS: CITALOPRAM 20 MG TABLET PO SCH (08:49)
[2019-09-20] MEDS ORDERED: FERROUS SULFATE 325 MG TABLET PO SCH (09:00)
[2019-09-20] MEDS: POTASSIUM CHLORIDE 20 MEQ, MAGNESIUM SULFATE 2 GM, THIAMINE 200 MG, MVI ADULT 10 ML, FO... IV SCH (11:08)
[2019-09-20] MEDS: NICOTINE 14MG/24 HR PATCH.TD24 TD SCH (11:09)
[2019-09-20] MEDS: ENOXAPARIN 40 MG/0.4 ML SQ SCH (11:09)
[2019-09-20 12:23] VITALS: BP 116/84
[2019-09-20] MEDS ORDERED: GABAPENTIN 400 MG CAPSULE PO SCH (16:00)
[2019-09-20 19:23] VITALS: BP 113/79
[2019-09-20] MEDS: TEMAZEPAM 15 MG CAPSULE PO PRN (21:19)
[2019-09-21] MEDS: morphine SULFATE 10 MG/ML, 1ML IVPush PRN ×2 (00:44→02:40)
[2019-09-21 01:38] VITALS: BP 107/73
[2019-09-21] MEDS: ACETAMINOPHEN 325 MG TABLET PO SCH ×2 (04:30→10:30)
[2019-09-21 06:27] VITALS: BP 105/70
[2019-09-21] MEDS: OXYcodone IR 5MG TABLET PO PRN (06:39)
[2019-09-21] MEDS: IBUPROFEN 600 MG TABLET PO PRN (08:03)
[2019-09-21] MEDS: CHOLECALCIFEROL 400 UNITS TABLET PO SCH (08:03)
[2019-09-21] MEDS: CITALOPRAM 20 MG TABLET PO SCH (08:03)
[2019-09-21] MEDS: FLUOXETINE HCL 20 MG CAPSULE PO SCH (08:04)
[2019-09-21] MEDS: GABAPENTIN 400 MG CAPSULE PO SCH (08:04)
[2019-09-21] MEDS: LEVETIRACETAM 500 MG TABLET PO SCH (08:04)
[2019-09-21] MEDS: POTASSIUM CHLORIDE 20 MEQ, MAGNESIUM SULFATE 2 GM, THIAMINE 200 MG, MVI ADULT 10 ML, FO... IV SCH (10:27)
[2019-09-21] MEDS: ENOXAPARIN 40 MG/0.4 ML SQ SCH (10:30)
[2019-09-21] MEDS: NICOTINE 14MG/24 HR PATCH.TD24 TD SCH (10:30)
[2019-09-22] MEDS ORDERED: FERROUS SULFATE 325 MG TABLET PO SCH (09:00)
== END 2019-09-21 11:00 | disposition left against medical advice (07) | DRG 440 ==
LOC: ED 08:28 → EDIP 10:28 → 4EST 14:24
PROVIDERS: ADMIT Internal Medicine; ATTEND Family Medicine
DX: K85.20 Alcohol induced acute pancreatitis without necrosis or infection (principal); F10.20 Alcohol dependence, uncomplicated; K86.1 Other chronic pancreatitis; F17.210 Nicotine dependence, cigarettes, uncomplicated; F20.9 Schizophrenia, unspecified; G47.00 Insomnia, unspecified; Z53.29 Procedure and treatment not carried out because of patient's decision for other reasons; Z90.49 Acquired absence of other specified parts of digestive tract
CPT/HCPCS: 36415; J3490; J7042; 76700; 80048; 80053; 83690; 84703; 85025; 85610; 93005; G0378; J1650; J3411; J3475; J3480; J2060; J2270

== ENCOUNTER 2019-09-27 16:25 | Emergency (ER) | payer MEDICAID ==
[~2019-09-27] VITALS: Ht 165.1 cm; Wt 67.1 kg
[~2019-09-27 16:25] MED LIST changes: +CITA20TA9 PO; +GABA300C10 PO; +METH750T2 PO
[2019-09-27 16:31] VITALS: BP 131/87
--- NOTE | 2019-09-27 16:34 | NUR ---
44 Y/O FEMALE BIB AMBULANCE WITH C/O ETOH. PER EMS REPORT PT WAS FOUND AT [facility] INN INTOXICATED. PT DRANK 750mL VODKA. PT VSS STABLE FOR EMS. FSBS 114. PT STATES "I DRANK A PINT. I DRINK A PINT A DAY." NADN. PT GIVEN WARM BLANKET. PT PLACED ON CONT PULSE OX,NIBP. NO C/O PAIN.
--- NOTE | 2019-09-27 17:40 | NUR ---
PT IN BED, PROVIDED WITH MORE WARM BLANKETS. DENIES ANY FURTHER NEEDS OR CONCERNS AT THIS TIME.
== END 2019-09-27 19:16 | disposition home or self-care (01) ==
LOC: ED 19:09
DX: F10.229 Alcohol dependence with intoxication, unspecified (principal); Y90.9 Presence of alcohol in blood, level not specified
CPT/HCPCS: 99283

== ENCOUNTER 2019-10-04 21:38 | Emergency (ER) | payer MEDICAID ==
[~2019-10-04] VITALS: Ht 154.9 cm; Wt 70.0 kg
[2019-10-04] MEDS ORDERED: POTA20TA14 PO (21:58)
--- NOTE | 2019-10-04 21:58 | NUR ---
PT A&OX4, RESP EVEN & UNLABORED, SPEECH CLEAR. STATES SHE'S HERE "FOR PANCREATITIS". C/O RUQ PAIN. NO MEDS TAKEN FOR PAIN. ADMITS TO VOMITING AND DIARRHEA; DENIES NAUSEA, CONSTIPATION. PT UNCOOPERATIVE WITH REPLYING TO QUESTIONS. EKG DONE. NICOTINE PATCH ON LT UPPER ARM, DATED 10/03/2019; PT REPORTS IT'S FROM [place]; PT REMOVED PATCH. Addendum: 10/04/19 at 2208 by DELMIS DENIES ETOH INTAKE TODAY; ADMITS ETOH INTAKE YESTERDAY. DENIES STREET DRUGS, MARIJUANA USE.
--- NOTE | 2019-10-04 22:05 | NUR ---
DR KOEHLER BS FOR EXAM
[2019-10-04 22:57] LABS: ALANINE AMINOTRANSFERASE 50 U/L (12-78); ALBUMIN 2.6 g/dL (3.4-5.0); ANION GAP 9 mmol/L (5-15); CHLORIDE 105 mmol/L (98-107); CREATININE 0.54 mg/dL (0.55-1.02)
[2019-10-04 23:00] LABS: ALKALINE PHOSPHATASE 104 U/L (45-117); BILIRUBIN,TOTAL 0.6 mg/dL (0.2-1.0); TOTAL PROTEIN 8.2 g/dL (6.4-8.2)
--- NOTE | 2019-10-04 23:01 | NUR ---
PT RESTING ON GURNEY, SITTER IN HALLWAY IN DIRECT LINE OF SIGHT.
[2019-10-04 23:29] LABS: BASOPHILS % (AUTO) 1 % (0-1); EOSINOPHILS # (AUTO) 0.04 x10^3/uL (0-0.4); EOSINOPHILS % (AUTO) 0 % (1-7); LYMPHOCYTES % (AUTO) 14 % (22-44); MD SCAN; MEAN CORPUSCULAR HEMOGLOBIN 27.6 pg (27.0-34.8); MEAN CORPUSCULAR HGB CONC 31.9 g/dL (32.4-35.8); MEAN CORPUSCULAR VOLUME 86.5 fL (80-100); MEAN PLATELET VOLUME 7.6 fL (7.4-10.4); MONOCYTES # (AUTO) 1.32 x10^3/uL (0.2-0.8); MONOCYTES % (AUTO) 10 % (2-9); NEUTROPHILS # (AUTO) 10.26 x10^3/uL (1.8-6.8); NEUTROPHILS % (AUTO) 75 % (42-75); PLATELET COUNT 172 x10^3/uL (130-400); RED CELL DISTRIBUTION WIDTH 18.3 % (9.6-15.2)
[2019-10-04 23:49] VITALS: BP 112/63
== END 2019-10-05 00:38 | disposition home or self-care (01) ==
LOC: ED 10-05 00:30
DX: K86.0 Alcohol-induced chronic pancreatitis (principal); R10.13 Epigastric pain; F17.200 Nicotine dependence, unspecified, uncomplicated; F10.20 Alcohol dependence, uncomplicated; Z90.49 Acquired absence of other specified parts of digestive tract; Y90.9 Presence of alcohol in blood, level not specified
CPT/HCPCS: 36415; 80053; 80307; 83690; 83735; 85025; 93005; 99284

== ENCOUNTER 2019-10-19 05:24 | Emergency (ER) | payer MEDICAID ==
[~2019-10-19] VITALS: Ht 156.2 cm; Wt 73.0 kg
[~2019-10-19 05:24] MED LIST changes: +POTA20TA14 PO
--- NOTE | 2019-10-19 05:31 | NUR ---
PT MEDICATED PER MAR FOR PAIN
[2019-10-19] MEDS ORDERED: SODIUM CHLORIDE FLUSH 10ML SYR IVF ONE (06:00)
[2019-10-19] MEDS ORDERED: FAMOTIDINE 20 MG/2 ML IV ONE (06:00)
[2019-10-19] MEDS ORDERED: SODIUM CHLORIDE 0.9% 1,000ML IVBOLUS ONE (06:00)
[2019-10-19] MEDS ORDERED: ONDANSETRON 2MG/ML, 2ML IVPush ONE (06:00)
[2019-10-19] MEDS ORDERED: ONDANSETRON 2MG/ML, 2ML ONE (06:04)
[2019-10-19] MEDS ORDERED: MORPHINE SULFATE 4 MG/ML, 1ML ONE ×2 (06:04→07:14)
[2019-10-19] MEDS ORDERED: FAMOTIDINE 20 MG/2 ML ONE (06:04)
[2019-10-19] MEDS: MORPHINE SULFATE 4 MG/ML, 1ML IVPush PRN ×2 (06:10→07:16)
[2019-10-19 06:15] LABS: BASOPHILS # (AUTO) 0.14 x10^3/uL (0-0.1); BASOPHILS % (AUTO) 2 % (0-1); EOSINOPHILS # (AUTO) 0.08 x10^3/uL (0-0.4); EOSINOPHILS % (AUTO) 1 % (1-7); LYMPHOCYTES # (AUTO) 1.47 x10^3/uL (1-3.4); LYMPHOCYTES % (AUTO) 22 % (22-44); MD NO; MEAN CORPUSCULAR HEMOGLOBIN 28.1 pg (27.0-34.8); MEAN CORPUSCULAR HGB CONC 32.3 g/dL (32.4-35.8); MEAN CORPUSCULAR VOLUME 86.8 fL (80-100); MEAN PLATELET VOLUME 6.2 fL (7.4-10.4); MONOCYTES # (AUTO) 0.48 x10^3/uL (0.2-0.8); MONOCYTES % (AUTO) 7 % (2-9); NEUTROPHILS # (AUTO) 4.44 x10^3/uL (1.8-6.8); NEUTROPHILS % (AUTO) 67 % (42-75); PLATELET COUNT 435 x10^3/uL (130-400); RED BLOOD COUNT 4.45 x10^6/uL (3.82-5.3); RED CELL DISTRIBUTION WIDTH 19.4 % (9.6-15.2)
[2019-10-19 06:25] LABS: ALANINE AMINOTRANSFERASE 114 U/L (12-78); ALBUMIN 2.4 g/dL (3.4-5.0); ANION GAP 7 mmol/L (5-15); CALCIUM 7.4 mg/dL (8.5-10.1); CHLORIDE 109 mmol/L (98-107); CREATININE 0.63 mg/dL (0.55-1.02)
[2019-10-19 06:30] LABS: ALKALINE PHOSPHATASE 123 U/L (45-117); BILIRUBIN,TOTAL 0.4 mg/dL (0.2-1.0); TOTAL PROTEIN 6.6 g/dL (6.4-8.2)
--- NOTE | 2019-10-19 06:50 | NUR ---
REPORT OF PT TO ALICIA HENRY. ALL QUESTIONS ANSWERED.
--- NOTE | 2019-10-19 06:56 | NUR ---
REPORT RECEIVED FROM PHILIP VARGAS.
--- NOTE | 2019-10-19 06:59 | NUR ---
pt amb to br with steady gait. urine cup given.
--- NOTE | 2019-10-19 07:15 | NUR ---
pt provided urine sample. ua collected. this rn walked to lab for ua.
--- NOTE | 2019-10-19 07:18 | NUR ---
pt medicated per emar for pain per pt's request. pt tolerated well.
[2019-10-19 07:22] LABS: CULTURE INDICATED? NO; MICROSCOPIC NOT IND
--- NOTE | 2019-10-19 07:43 | NUR ---
some water provided for po challenge per pa's verbal order.
[2019-10-19 08:02] VITALS: BP 105/69
--- NOTE | 2019-10-19 08:03 | NUR ---
Patient given discharge instructions and they have confirmed that they understand the instructions.
== END 2019-10-19 08:04 | disposition home or self-care (01) ==
LOC: ED 07:08
DX: K29.20 Alcoholic gastritis without bleeding (principal); F10.10 Alcohol abuse, uncomplicated; K86.0 Alcohol-induced chronic pancreatitis; R11.2 Nausea with vomiting, unspecified; Y90.0 Blood alcohol level of less than 20 mg/100 ml
CPT/HCPCS: 36415; 80053; 81003; 83690; 84703; 85025; 96361; 96374; 96375; 96376; 99283; J2270; J2405; J3490; J7030

== ENCOUNTER 2019-10-21 21:57 | Emergency (ER) | payer MEDICAID ==
[~2019-10-21] VITALS: Ht 154.9 cm; Wt 75.0 kg
[2019-10-21] MEDS ORDERED: MAALOX/HYOSCYAMINE/LIDOCAINE 45 ML BTL ONE (22:23)
[2019-10-21] MEDS ORDERED: FAMOTIDINE 20 MG TABLET ONE (22:23)
[2019-10-21] MEDS ORDERED: MAALOX/HYOSCYAMINE/LIDOCAINE 45 ML BTL PO ONE (22:30)
[2019-10-21] MEDS ORDERED: FAMOTIDINE 20 MG TABLET PO ONE (22:30)
[2019-10-21 22:37] LABS: BASOPHILS # (AUTO) 0.07 x10^3/uL (0-0.1); BASOPHILS % (AUTO) 1 % (0-1); EOSINOPHILS # (AUTO) 0.05 x10^3/uL (0-0.4); EOSINOPHILS % (AUTO) 1 % (1-7); LYMPHOCYTES % (AUTO) 54 % (22-44); MD NO; MEAN CORPUSCULAR HEMOGLOBIN 27.6 pg (27.0-34.8); MEAN CORPUSCULAR HGB CONC 32.3 g/dL (32.4-35.8); MEAN CORPUSCULAR VOLUME 85.6 fL (80-100); MEAN PLATELET VOLUME 6.5 fL (7.4-10.4); MONOCYTES # (AUTO) 0.27 x10^3/uL (0.2-0.8); MONOCYTES % (AUTO) 5 % (2-9); NEUTROPHILS # (AUTO) 2.06 x10^3/uL (1.8-6.8); NEUTROPHILS % (AUTO) 39 % (42-75); PLATELET COUNT 465 x10^3/uL (130-400); RED BLOOD COUNT 4.78 x10^6/uL (3.82-5.3)
[2019-10-21 22:47] LABS: ALANINE AMINOTRANSFERASE 120 U/L (12-78); ALBUMIN 2.5 g/dL (3.4-5.0); ANION GAP 7 mmol/L (5-15); CALCIUM 7.3 mg/dL (8.5-10.1); CHLORIDE 117 mmol/L (98-107); CREATININE 0.65 mg/dL (0.55-1.02)
[2019-10-21 22:52] LABS: ALKALINE PHOSPHATASE 142 U/L (45-117); BILIRUBIN,TOTAL 0.2 mg/dL (0.2-1.0); TOTAL PROTEIN 6.9 g/dL (6.4-8.2)
[2019-10-21 23:20] VITALS: BP 102/63
--- NOTE | 2019-10-21 23:21 | NUR ---
PT RESTING WITH EYES CLOSED. FRIEND AT BEDSIDE. MONITOR IN PLACE.
--- NOTE | 2019-10-21 23:39 | NUR ---
PT DRINKING WATER WITH NO N/V.
== END 2019-10-21 22:33 ==
LOC: ED 22:32
DX: K29.20 Alcoholic gastritis without bleeding (principal); Z90.49 Acquired absence of other specified parts of digestive tract; F17.200 Nicotine dependence, unspecified, uncomplicated
CPT/HCPCS: 36415; 80053; 83690; 84703; 85025; 99283

== ENCOUNTER 2019-10-23 15:46 | Emergency (ER) | payer MEDICAID ==
--- NOTE | 2019-10-23 15:49 | NUR ---
NO ANSWER X1
--- NOTE | 2019-10-23 16:07 | NUR ---
NO ANSWER X 2
--- NOTE | 2019-10-23 16:40 | NUR ---
NO ANSWER X3
== END 2019-10-23 16:41 | disposition left against medical advice (07) ==
LOC: ED 16:35
DX: R10.9 Unspecified abdominal pain (principal); Z53.21 Procedure and treatment not carried out due to patient leaving prior to being seen by health care provider

== ENCOUNTER 2019-10-24 05:49 | Inpatient (IN) | payer MEDICAID ==
[~2019-10-24] VITALS: Ht 154.9 cm; Wt 67.8 kg
[2019-10-24] MEDS ORDERED: ONDANSETRON ODT 4 MG ONE (06:07)
[2019-10-24] MEDS ORDERED: ONDANSETRON ODT 4 MG PO ONE (06:30)
--- NOTE | 2019-10-24 06:34 | NUR ---
NO ANSWER WHEN CALLED FOR ROOM NEXT PT ROOMED
--- NOTE | 2019-10-24 07:03 | NUR ---
PT TO ROOM FROM [facility], AMBULATED WITH STEADY GAIT
[2019-10-24] MEDS ORDERED: FAMOTIDINE 20 MG/2 ML ONE (07:47)
[2019-10-24] MEDS ORDERED: MORPHINE SULFATE 4 MG/ML, 1ML ONE ×2 (07:47→08:56)
[2019-10-24] MEDS ORDERED: METOCLOPRAMIDE 5 MG/ML, 2ML ONE (07:47)
[2019-10-24] MEDS: MORPHINE SULFATE 4 MG/ML, 1ML IVPush PRN ×2 (07:58→09:00)
[2019-10-24] MEDS ORDERED: METOCLOPRAMIDE 5 MG/ML, 2ML IVPush ONE (08:00)
[2019-10-24] MEDS ORDERED: SODIUM CHLORIDE 0.9% 1,000ML IVBOLUS ONE (08:00)
[2019-10-24] MEDS ORDERED: FAMOTIDINE 20 MG/2 ML IVPush ONE (08:00)
[2019-10-24 08:09] LABS: MEAN CORPUSCULAR HEMOGLOBIN 27.4 pg (27.0-34.8); MEAN CORPUSCULAR HGB CONC 31.4 g/dL (32.4-35.8); MEAN CORPUSCULAR VOLUME 87.2 fL (80-100); MEAN PLATELET VOLUME 6.4 fL (7.4-10.4); PLATELET COUNT 358 x10^3/uL (130-400); RED BLOOD COUNT 4.32 x10^6/uL (3.82-5.3); RED CELL DISTRIBUTION WIDTH 19.9 % (9.6-15.2)
[2019-10-24 08:14] LABS: ALANINE AMINOTRANSFERASE 84 U/L (12-78); ALBUMIN 2.6 g/dL (3.4-5.0); ANION GAP 8 mmol/L (5-15); CALCIUM 7.3 mg/dL (8.5-10.1); CHLORIDE 111 mmol/L (98-107); CREATININE 0.49 mg/dL (0.55-1.02)
[2019-10-24 08:19] LABS: ALKALINE PHOSPHATASE 162 U/L (45-117); BILIRUBIN,TOTAL 0.6 mg/dL (0.2-1.0); TOTAL PROTEIN 6.7 g/dL (6.4-8.2)
[2019-10-24 09:00] LABS: BASOPHILS # (AUTO) 0.05 x10^3/uL (0-0.1); BASOPHILS % (AUTO) 1 % (0-1); EOSINOPHILS # (AUTO) 0.04 x10^3/uL (0-0.4); EOSINOPHILS % (AUTO) 1 % (1-7); LYMPHOCYTES # (AUTO) 1.18 x10^3/uL (1-3.4); LYMPHOCYTES % (AUTO) 16 % (22-44); MD SCAN; MONOCYTES # (AUTO) 0.49 x10^3/uL (0.2-0.8); MONOCYTES % (AUTO) 7 % (2-9); NEUTROPHILS % (AUTO) 76 % (42-75)
--- NOTE | 2019-10-24 09:00 | NUR ---
PT REQUESTING MORE PAIN MEDICATION. PT MEDICATED PER NOV. PT RESTING IN [facility], AWAITNG LAB RESULTS. CALL LIGHT WTIHIN REACH.
[2019-10-24] MEDS ORDERED: SODIUM CHLORIDE 0.9% 1,000 ML IV ONE (09:48)
[2019-10-24] MEDS ORDERED: SODIUM CHLORIDE FLUSH 10ML SYR IVF PRN (10:00)
--- NOTE | 2019-10-24 10:19 | NUR ---
PT RESTING IN [facility], TO BE ADMITTED. AWAITING BED ASSIGNMENT
--- NOTE | 2019-10-24 10:47 | NUR ---
REPORT TO MAEGAN VARGAS
--- NOTE | 2019-10-24 10:57 | NUR ---
REPORT RECEIVED FROM SHANTI VARGAS.
[2019-10-24] MEDS ORDERED: ONDANSETRON ODT 4 MG PO PRN (11:00)
[2019-10-24] MEDS ORDERED: LABETALOL 5MG/ML, 20ML IVPush PRN (11:00)
[2019-10-24] MEDS ORDERED: ENALAPRILAT 1.25 MG/ML, 2ML IVPush PRN (11:00)
[2019-10-24] MEDS ORDERED: DOCUSATE 100 MG CAPSULE PO PRN (11:00)
[2019-10-24] MEDS ORDERED: ACETAMINOPHEN 325 MG TABLET PO PRN (11:00)
[2019-10-24] MEDS ORDERED: POLYETHYLENE GLYCOL 17 GM PACKET PO PRN (11:00)
[2019-10-24] MEDS: POTASSIUM CHLORIDE 20 MEQ, MAGNESIUM SULFATE 1 GM, FOLIC ACID 1 MG, THIAMINE 200 MG, MV... IV SCH (11:00)
[2019-10-24] MEDS: LACTATED RINGERS 1,000 ML IV SCH (11:00)
[2019-10-24] MEDS ORDERED: BISACODYL 10 MG SUPP PR PRN (11:00)
[2019-10-24] MEDS ORDERED: ONDANSETRON 2MG/ML, 2ML IVPush PRN (11:00)
[2019-10-24] MEDS ORDERED: LORazepam 2 MG/ML, 1ML IV PRN ×2 (11:30)
[2019-10-24] MEDS: PANTOPRAZOLE 40 MG IV IVPush SCH (13:12)
[2019-10-24] MEDS: ENOXAPARIN 40 MG/0.4 ML SQ SCH (13:12)
[2019-10-24] MEDS: NICOTINE 21 MG/24 HR PATCH.TD24 TD SCH (13:12)
[2019-10-24] MEDS: LEVETIRACETAM 500 MG in SODIUM CHLORIDE 0.9% 100 ML IV SCH (13:12)
[2019-10-24 13:20] VITALS: BP 121/80
[2019-10-24] MEDS: morphine SULFATE 10 MG/ML, 1ML IVPush PRN ×2 (17:19→20:52)
[2019-10-24 19:42] VITALS: BP 130/88
[2019-10-24] MEDS ORDERED: DIPHENHYDRAMINE 25 MG CAPSULE PO ONE (21:30)
[2019-10-25] MEDS: morphine SULFATE 10 MG/ML, 1ML IVPush PRN ×6 (00:17→20:51)
[2019-10-25] MEDS: LACTATED RINGERS 1,000 ML IV SCH ×3 (00:18→20:52)
[2019-10-25] MEDS: LORazepam 2 MG/ML, 1ML IV PRN ×2 (01:34→11:52)
[2019-10-25] MEDS: LEVETIRACETAM 500 MG in SODIUM CHLORIDE 0.9% 100 ML IV SCH ×2 (01:34→13:21)
[2019-10-25 02:56] VITALS: BP 124/80
[2019-10-25 06:27] VITALS: BP 99/63
[2019-10-25 06:37] LABS: BASOPHILS # (AUTO) 0.05 x10^3/uL (0-0.1); BASOPHILS % (AUTO) 1 % (0-1); EOSINOPHILS # (AUTO) 0.15 x10^3/uL (0-0.4); EOSINOPHILS % (AUTO) 3 % (1-7); LYMPHOCYTES % (AUTO) 37 % (22-44); MD NO; MEAN CORPUSCULAR HEMOGLOBIN 27.5 pg (27.0-34.8); MEAN CORPUSCULAR HGB CONC 31.7 g/dL (32.4-35.8); MEAN CORPUSCULAR VOLUME 86.9 fL (80-100); MEAN PLATELET VOLUME 6.5 fL (7.4-10.4); MONOCYTES # (AUTO) 0.41 x10^3/uL (0.2-0.8); MONOCYTES % (AUTO) 9 % (2-9); NEUTROPHILS # (AUTO) 2.22 x10^3/uL (1.8-6.8); NEUTROPHILS % (AUTO) 49 % (42-75); PLATELET COUNT 254 x10^3/uL (130-400); RED BLOOD COUNT 4.02 x10^6/uL (3.82-5.3); RED CELL DISTRIBUTION WIDTH 19.8 % (9.6-15.2)
[2019-10-25 06:43] LABS: ALBUMIN 2.4 g/dL (3.4-5.0); ANION GAP 5 mmol/L (5-15); CALCIUM 7.2 mg/dL (8.5-10.1); CHLORIDE 110 mmol/L (98-107)
[2019-10-25 06:46] LABS: ALANINE AMINOTRANSFERASE 63 U/L (12-78); ALKALINE PHOSPHATASE 142 U/L (45-117); BILIRUBIN,TOTAL 1.7 mg/dL (0.2-1.0); CREATININE 0.47 mg/dL (0.55-1.02); TOTAL PROTEIN 6.1 g/dL (6.4-8.2)
[2019-10-25] MEDS: PANTOPRAZOLE 40 MG IV IVPush SCH (08:38)
[2019-10-25] MEDS: NICOTINE 21 MG/24 HR PATCH.TD24 TD SCH (11:51)
[2019-10-25] MEDS: POTASSIUM CHLORIDE 20 MEQ, MAGNESIUM SULFATE 1 GM, FOLIC ACID 1 MG, THIAMINE 200 MG, MV... IV SCH (11:51)
[2019-10-25] MEDS: ENOXAPARIN 40 MG/0.4 ML SQ SCH (11:52)
[2019-10-25 12:14] VITALS: BP 100/66
[2019-10-25 20:34] VITALS: BP 125/85
[2019-10-26] MEDS: morphine SULFATE 10 MG/ML, 1ML IVPush PRN ×8 (00:03→23:47)
[2019-10-26] MEDS: LEVETIRACETAM 500 MG in SODIUM CHLORIDE 0.9% 100 ML IV SCH ×2 (01:04→12:37)
[2019-10-26 01:41] VITALS: BP 113/77
[2019-10-26 06:34] VITALS: BP 108/73
[2019-10-26 06:51] LABS: CHLORIDE 112 mmol/L (98-107)
[2019-10-26 06:52] LABS: MEAN CORPUSCULAR HEMOGLOBIN 27.6 pg (27.0-34.8); MEAN CORPUSCULAR HGB CONC 31.7 g/dL (32.4-35.8); MEAN CORPUSCULAR VOLUME 87.2 fL (80-100); MEAN PLATELET VOLUME 7.1 fL (7.4-10.4); PLATELET COUNT 194 x10^3/uL (130-400); RED BLOOD COUNT 4.02 x10^6/uL (3.82-5.3); RED CELL DISTRIBUTION WIDTH 19.5 % (9.6-15.2)
[2019-10-26 07:00] LABS: ALANINE AMINOTRANSFERASE 49 U/L (12-78); ALBUMIN 2.2 g/dL (3.4-5.0); ALKALINE PHOSPHATASE 132 U/L (45-117); ANION GAP 7 mmol/L (5-15); CALCIUM 7.4 mg/dL (8.5-10.1); CREATININE 0.42 mg/dL (0.55-1.02); TOTAL PROTEIN 5.9 g/dL (6.4-8.2)
[2019-10-26] MEDS: PANTOPRAZOLE 40 MG IV IVPush SCH (07:34)
[2019-10-26] MEDS: LACTATED RINGERS 1,000 ML IV SCH ×3 (07:35→23:50)
[2019-10-26 07:45] LABS: BASOPHILS # (AUTO) 0.06 x10^3/uL (0-0.1); BASOPHILS % (AUTO) 1 % (0-1); EOSINOPHILS # (AUTO) 0.18 x10^3/uL (0-0.4); EOSINOPHILS % (AUTO) 4 % (1-7); LYMPHOCYTES # (AUTO) 1.73 x10^3/uL (1-3.4); LYMPHOCYTES % (AUTO) 38 % (22-44); MD SCAN; MONOCYTES # (AUTO) 0.38 x10^3/uL (0.2-0.8); MONOCYTES % (AUTO) 8 % (2-9); NEUTROPHILS # (AUTO) 2.21 x10^3/uL (1.8-6.8); NEUTROPHILS % (AUTO) 49 % (42-75)
[2019-10-26] MEDS: NICOTINE 21 MG/24 HR PATCH.TD24 TD SCH (10:02)
[2019-10-26] MEDS: ENOXAPARIN 40 MG/0.4 ML SQ SCH (10:02)
[2019-10-26 12:25] VITALS: BP 116/78
[2019-10-26 20:43] VITALS: BP 129/88
[2019-10-26] MEDS: LORazepam 2 MG/ML, 1ML IV PRN (22:38)
[2019-10-27] MEDS: LEVETIRACETAM 500 MG in SODIUM CHLORIDE 0.9% 100 ML IV SCH (00:39)
[2019-10-27 00:41] VITALS: BP 115/78
[2019-10-27] MEDS: morphine SULFATE 10 MG/ML, 1ML IVPush PRN ×5 (05:19→19:31)
[2019-10-27 06:23] LABS: BASOPHILS # (AUTO) 0.04 x10^3/uL (0-0.1); BASOPHILS % (AUTO) 1 % (0-1); EOSINOPHILS # (AUTO) 0.17 x10^3/uL (0-0.4); EOSINOPHILS % (AUTO) 4 % (1-7); LYMPHOCYTES # (AUTO) 1.66 x10^3/uL (1-3.4); LYMPHOCYTES % (AUTO) 38 % (22-44); MD NO; MEAN CORPUSCULAR HEMOGLOBIN 27.8 pg (27.0-34.8); MEAN CORPUSCULAR VOLUME 86.7 fL (80-100); MEAN PLATELET VOLUME 7.1 fL (7.4-10.4); MONOCYTES # (AUTO) 0.36 x10^3/uL (0.2-0.8); MONOCYTES % (AUTO) 8 % (2-9); NEUTROPHILS # (AUTO) 2.16 x10^3/uL (1.8-6.8); NEUTROPHILS % (AUTO) 49 % (42-75); PLATELET COUNT 172 x10^3/uL (130-400); RED BLOOD COUNT 4.26 x10^6/uL (3.82-5.3); RED CELL DISTRIBUTION WIDTH 19.5 % (9.6-15.2)
[2019-10-27 06:32] LABS: ANION GAP 8 mmol/L (5-15); CALCIUM 7.5 mg/dL (8.5-10.1); CHLORIDE 111 mmol/L (98-107)
[2019-10-27 07:59] VITALS: BP 110/73
[2019-10-27] MEDS: LACTATED RINGERS 1,000 ML IV SCH ×3 (08:53→22:28)
[2019-10-27] MEDS: PANTOPRAZOLE 40 MG IV IVPush SCH (08:53)
[2019-10-27] MEDS: ENOXAPARIN 40 MG/0.4 ML SQ SCH (10:55)
[2019-10-27] MEDS: LORazepam 1MG TABLET PO PRN ×3 (10:55→22:27)
[2019-10-27] MEDS: LEVETIRACETAM 500 MG TABLET PO SCH ×2 (10:55→20:28)
[2019-10-27] MEDS: NICOTINE 21 MG/24 HR PATCH.TD24 TD SCH (10:56)
[2019-10-27 15:13] VITALS: BP 118/84
[2019-10-27] MEDS ORDERED: LORazepam 0.5MG TABLET ONE (17:33)
[2019-10-27 19:55] VITALS: BP 148/91
[2019-10-28 01:44] VITALS: BP 130/89
[2019-10-28] MEDS: morphine SULFATE 10 MG/ML, 1ML IVPush PRN ×3 (01:51→09:52)
[2019-10-28] MEDS: LACTATED RINGERS 1,000 ML IV SCH (04:56)
[2019-10-28 06:39] VITALS: BP 130/87
[2019-10-28] MEDS: LEVETIRACETAM 500 MG TABLET PO SCH (09:40)
[2019-10-28] MEDS: NICOTINE 21 MG/24 HR PATCH.TD24 TD SCH (09:40)
[2019-10-28] MEDS: PANTOPRAZOLE 40 MG IV IVPush SCH (09:41)
== END 2019-10-28 15:12 | disposition left against medical advice (07) | DRG 438 ==
LOC: ED 08:15 → EDIP 09:48 → 4EST 11:44
PROVIDERS: ADMIT Internal Medicine; ATTEND Internal Medicine
DX: K85.20 Alcohol induced acute pancreatitis without necrosis or infection (principal); E43 Unspecified severe protein-calorie malnutrition; F10.239 Alcohol dependence with withdrawal, unspecified; K86.1 Other chronic pancreatitis; F10.229 Alcohol dependence with intoxication, unspecified; F17.210 Nicotine dependence, cigarettes, uncomplicated; Y90.5 Blood alcohol level of 100-119 mg/100 ml; Z59.0 Homelessness; Z63.8 Other specified problems related to primary support group; G40.909 Epilepsy, unspecified, not intractable, without status epilepticus; Z53.29 Procedure and treatment not carried out because of patient's decision for other reasons
CPT/HCPCS: 36415; 96374; 96375; 99285; J3490; J7121; 76700; 80048; 80053; 80307; 83690; 83735; 84100; 84703; 85025; G0378; J1650; J1953; J3411; J3475; J3480; Q0162; C9113; J2060; J2270; J2765; J7030; J7120; Q0163

== ENCOUNTER 2019-11-02 08:36 | Inpatient (IN) | payer MEDICAID ==
[~2019-11-02] VITALS: Ht 154.9 cm; Wt 69.9 kg
--- NOTE | 2019-11-02 08:44 | NUR ---
qiana. report received from ems. pt c/o epigastric pain with n/v/d. +etoh. last drink 1 hour ago. pt's aox4. resps even and unlabored. bp/spo2 monitors in place. call light within reach.
[2019-11-02] MEDS ORDERED: DIPHENHYDRAMINE 50 MG/ML, 1ML IVPush ONE (09:30)
[2019-11-02] MEDS ORDERED: SODIUM CHLORIDE 0.9% 1,000ML IVBOLUS ONE (09:30)
[2019-11-02] MEDS ORDERED: METOCLOPRAMIDE 5 MG/ML, 2ML IVPush ONE (09:30)
[2019-11-02 09:37] LABS: BASOPHILS # (AUTO) 0.07 x10^3/uL (0-0.1); BASOPHILS % (AUTO) 1 % (0-1); EOSINOPHILS # (AUTO) 0.01 x10^3/uL (0-0.4); EOSINOPHILS % (AUTO) 0 % (1-7); LYMPHOCYTES # (AUTO) 1.07 x10^3/uL (1-3.4); LYMPHOCYTES % (AUTO) 17 % (22-44); MD NO; MEAN CORPUSCULAR HGB CONC 32.4 g/dL (32.4-35.8); MEAN CORPUSCULAR VOLUME 86.5 fL (80-100); MEAN PLATELET VOLUME 7.1 fL (7.4-10.4); MONOCYTES # (AUTO) 0.38 x10^3/uL (0.2-0.8); MONOCYTES % (AUTO) 6 % (2-9); NEUTROPHILS # (AUTO) 4.79 x10^3/uL (1.8-6.8); NEUTROPHILS % (AUTO) 76 % (42-75); PLATELET COUNT 232 x10^3/uL (130-400); RED CELL DISTRIBUTION WIDTH 20.4 % (9.6-15.2)
[2019-11-02 09:42] LABS: ALANINE AMINOTRANSFERASE 63 U/L (12-78); ANION GAP 14 mmol/L (5-15); CALCIUM 7.5 mg/dL (8.5-10.1); CHLORIDE 106 mmol/L (98-107); CREATININE 0.59 mg/dL (0.55-1.02)
[2019-11-02 09:46] LABS: ALKALINE PHOSPHATASE 150 U/L (45-117); BILIRUBIN,TOTAL 0.6 mg/dL (0.2-1.0); TOTAL PROTEIN 7.8 g/dL (6.4-8.2)
[2019-11-02] MEDS ORDERED: METOCLOPRAMIDE 5 MG/ML, 2ML ONE (09:55)
[2019-11-02] MEDS ORDERED: DIPHENHYDRAMINE 50 MG/ML, 1ML ONE (09:55)
[2019-11-02] MEDS ORDERED: MORPHINE SULFATE 4 MG/ML, 1ML ONE ×2 (09:56→11:04)
[2019-11-02] MEDS: MORPHINE SULFATE 4 MG/ML, 1ML IVPush PRN ×2 (09:59→11:07)
--- NOTE | 2019-11-02 10:04 | NUR ---
TASK RN: PT FOUND WANDERING IN BACK HALLWAY. PT INSTRUCTED AGAIN NOT TO REMOVE MONITORS AND GET UP WITHOUT RN. PT ESCORTED BACK TO ROOM AND PLACED BACK ON MONITOR. IVF STARTED AND PT MEDICATED PER NOV PER ELAINE VARGAS. PT REINSTRUCTED TO GET RN IF SHE NEEDS TO GET UP MEDICATIONS CAN CAUSE DIZZINESS AND NEED TO STOP IVF. PT DEMONSTRATES UNDERSTANDING. CALL LIGHT WITHIN REACH.
--- NOTE | 2019-11-02 10:21 | NUR ---
PT AWARES OF UA.
[2019-11-02] MEDS ORDERED: SODIUM CHLORIDE FLUSH 10ML SYR IVF ONE (10:30)
--- NOTE | 2019-11-02 10:54 | NUR ---
IV INFILTRATED D/T CONTRAST AT CT. NEW PIV EST BY SARWAT VARGAS.
--- NOTE | 2019-11-02 11:09 | NUR ---
PT MEDICATED PER EMAR FOR PAIN. PT TOLERATED WELL. NS INFUSING AT THIS TIME.
--- NOTE | 2019-11-02 12:21 | NUR ---
BREAK RN: PT MOVED ON TO HOSPITAL BED. FLUIDS COMPLETED. EJ WORKING WELL, TO BE PICKED UP BY CT
--- NOTE | 2019-11-02 12:24 | NUR ---
BREAK RN: BEING TAKEN TO CT
--- NOTE | 2019-11-02 12:43 | NUR ---
PT BACK TO ROOM FROM CT. PT AMB TO BR WITH STEADY GAIT. URINE CUP GIVEN.
--- NOTE | 2019-11-02 12:52 | NUR ---
PT PROVIDED URINE SAMPLE AT THIS TIME. UA SENT.
[2019-11-02 13:09] LABS: MICROSCOPIC NOT IND
[2019-11-02 13:15] LABS: CULTURE INDICATED? NO
--- NOTE | 2019-11-02 13:41 | NUR ---
PT RESTING IN [facility]. PT'S AOX4. RESPS EVEN AND UNLABORED. BP/SPO2 MONITORS IN PLACE. CALL LIGHT WITHIN REACH.
[2019-11-02] MEDS ORDERED: OMNIPAQUE 350 MG/ML, 100ML BOTTLE ONE (13:57)
--- NOTE | 2019-11-02 14:41 | NUR ---
pt requesting pain med at this time. pt's pain level is 8/10. c/o back/abd pain. edmd notified.
--- NOTE | 2019-11-02 15:20 | NUR ---
pt amb to br with steady gait.
[2019-11-02] MEDS ORDERED: LORazepam 2 MG/ML, 1ML IV PRN ×3 (15:30)
[2019-11-02] MEDS ORDERED: hydrALAzine 20 MG/ML, 1ML IVPush PRN (15:30)
[2019-11-02] MEDS ORDERED: ACETAMINOPHEN 325 MG TABLET PO PRN (15:30)
[2019-11-02] MEDS ORDERED: NICOTINE 21 MG/24 HR PATCH.TD24 ONE (15:44)
[2019-11-02] MEDS ORDERED: ENOXAPARIN 40 MG/0.4 ML ONE (15:44)
[2019-11-02] MEDS ORDERED: KETOROLAC 30 MG/1 ML ONE (15:44)
[2019-11-02] MEDS: NICOTINE 21 MG/24 HR PATCH.TD24 TD SCH (15:47)
[2019-11-02] MEDS: KETOROLAC 30 MG/1 ML IV PRN (15:47)
[2019-11-02] MEDS: ENOXAPARIN 40 MG/0.4 ML SQ SCH (15:47)
--- NOTE | 2019-11-02 15:51 | NUR ---
PT MEDICATED PER EMAR. PT TOLERATED WELL. PT'S AOX4. RESPS EVEN AND UNLABORED.
--- NOTE | 2019-11-02 15:54 | NUR ---
med ordered from pharmacy at this time.
--- NOTE | 2019-11-02 16:20 | NUR ---
tc ordered from pharmacy at this time.
[2019-11-02] MEDS: LEVETIRACETAM 500 MG in SODIUM CHLORIDE 0.9% 100 ML IV SCH (16:33)
--- NOTE | 2019-11-02 16:36 | NUR ---
KEPPRA INFUSING AT THIS TIME. PT TOLERATED WELL.
[2019-11-02] MEDS: POTASSIUM CHLORIDE 20 MEQ, MAGNESIUM SULFATE 2 GM, THIAMINE 200 MG, MVI ADULT 10 ML, FO... IV SCH (16:59)
--- NOTE | 2019-11-02 17:03 | NUR ---
BANANA BAG INFUSING AT THIS TIME. PT TOLERATED WELL. RESPS EVEN AND UNLABORED.
[2019-11-02] MEDS ORDERED: morphine SULFATE 10 MG/ML, 1ML ONE ×2 (17:58→21:22)
[2019-11-02] MEDS: morphine SULFATE 10 MG/ML, 1ML IVPush PRN (18:05)
--- NOTE | 2019-11-02 18:07 | NUR ---
PT MEDICATED PER EMAR FOR PAIN PER PT'S REQUEST. PT TOLERATED WELL.
--- NOTE | 2019-11-02 18:22 | NUR ---
PT AMB TO BR WITH STEADY GAIT.
--- NOTE | 2019-11-02 18:55 | NUR ---
REPORT GIVEN TO AIME VARGAS.
--- NOTE | 2019-11-02 19:22 | NUR ---
PT RESTING ON HOSPITAL BED. REMINDED TO USE CALL LIGHT FOR ANY NEEDS, ROOM DIMMED FOR PT COMFORT. PT UPDATED ON POC. CALL LIGHT WITHIN REACH, X3 RAILS RAISED.
[2019-11-02] MEDS ORDERED: LEVETIRACETAM 100 MG/ML, 5ML IV SCH (21:00)
[2019-11-02] MEDS ORDERED: LORazepam 2 MG/ML, 1ML ONE (21:49)
[2019-11-02] MEDS: LORazepam 2 MG/ML, 1ML IV PRN (21:53)
--- NOTE | 2019-11-02 21:56 | NUR ---
LAB CALLED ABOUT DUPLICATE HCG ORDER, LAB TO CANCEL DUPLICATE.
--- NOTE | 2019-11-02 22:16 | NUR ---
PT MEDICATED PER MAR FOR CIWA 9. PT BREATHALYZED AT 0. HOSPITALIST NOTIFIED. HOSPITALIST TO CHANGE ADMIT FLOOR TO MEDICAL BASED ON PT STATUS. PT UPDATED.
[2019-11-03 00:30] VITALS: BP 108/73
[2019-11-03] MEDS: morphine SULFATE 10 MG/ML, 1ML IVPush PRN ×4 (00:57→12:27)
[2019-11-03] MEDS: LORazepam 2 MG/ML, 1ML IV PRN ×3 (02:02→11:04)
[2019-11-03] MEDS: LEVETIRACETAM 500 MG in SODIUM CHLORIDE 0.9% 100 ML IV SCH ×2 (04:34→16:01)
[2019-11-03 07:42] LABS: MEAN CORPUSCULAR HEMOGLOBIN 28.4 pg (27.0-34.8); MEAN CORPUSCULAR HGB CONC 32.9 g/dL (32.4-35.8); MEAN CORPUSCULAR VOLUME 86.2 fL (80-100); MEAN PLATELET VOLUME 7.4 fL (7.4-10.4); PLATELET COUNT 169 x10^3/uL (130-400); RED BLOOD COUNT 4.08 x10^6/uL (3.82-5.3); RED CELL DISTRIBUTION WIDTH 19.5 % (9.6-15.2)
[2019-11-03 07:53] LABS: ANION GAP 8 mmol/L (5-15); CALCIUM 6.9 mg/dL (8.5-10.1); CHLORIDE 106 mmol/L (98-107)
[2019-11-03 07:54] LABS: CREATININE 0.38 mg/dL (0.55-1.02)
[2019-11-03 08:02] LABS: BASOPHILS # (AUTO) 0.04 x10^3/uL (0-0.1); BASOPHILS % (AUTO) 1 % (0-1); EOSINOPHILS # (AUTO) 0.12 x10^3/uL (0-0.4); EOSINOPHILS % (AUTO) 3 % (1-7); LYMPHOCYTES # (AUTO) 1.33 x10^3/uL (1-3.4); LYMPHOCYTES % (AUTO) 35 % (22-44); MD SCAN; MONOCYTES # (AUTO) 0.45 x10^3/uL (0.2-0.8); MONOCYTES % (AUTO) 12 % (2-9); NEUTROPHILS # (AUTO) 1.87 x10^3/uL (1.8-6.8); NEUTROPHILS % (AUTO) 49 % (42-75)
[2019-11-03 08:52] VITALS: BP 117/83
[2019-11-03] MEDS: PANTOPRAZOLE 40 MG IV IVPush SCH (08:56)
[2019-11-03 12:24] VITALS: BP 112/79
[2019-11-03] MEDS ORDERED: POTASSIUM CHLORIDE 20 MEQ TAB.ER.PRT PO ONE (13:00)
[2019-11-03] MEDS: LORazepam 0.5MG TABLET PO PRN ×2 (14:59→20:09)
[2019-11-03] MEDS: NICOTINE 21 MG/24 HR PATCH.TD24 TD SCH (14:59)
[2019-11-03] MEDS: ENOXAPARIN 40 MG/0.4 ML SQ SCH (14:59)
[2019-11-03] MEDS ORDERED: LORazepam 2 MG/ML, 1ML IV PRN (15:00)
[2019-11-03] MEDS ORDERED: LORazepam 1MG TABLET PO PRN (15:00)
[2019-11-03] MEDS: OXYcodone IR 5MG TABLET PO PRN ×2 (16:01→22:27)
[2019-11-03] MEDS: KETOROLAC 30 MG/1 ML IV PRN (17:09)
[2019-11-03] MEDS: POTASSIUM CHLORIDE 20 MEQ, MAGNESIUM SULFATE 2 GM, THIAMINE 200 MG, MVI ADULT 10 ML, FO... IV SCH (17:09)
[2019-11-03 19:07] VITALS: BP 125/83
[2019-11-03] MEDS: NEUTRA PHOS K 250 MG TABLET PO SCH (20:09)
[2019-11-03] MEDS: TEMAZEPAM 15 MG CAPSULE PO PRN (21:08)
[2019-11-04 01:16] VITALS: BP 101/63
[2019-11-04] MEDS: LORazepam 0.5MG TABLET PO PRN ×5 (01:22→20:45)
[2019-11-04] MEDS: KETOROLAC 30 MG/1 ML IV PRN ×2 (01:22→08:50)
[2019-11-04] MEDS: LEVETIRACETAM 500 MG in SODIUM CHLORIDE 0.9% 100 ML IV SCH ×2 (04:32→17:28)
[2019-11-04] MEDS: OXYcodone IR 5MG TABLET PO PRN ×3 (04:33→17:30)
[2019-11-04 08:35] VITALS: BP 117/80
[2019-11-04] MEDS: PANTOPRAZOLE 40 MG IV IVPush SCH (08:44)
[2019-11-04] MEDS: NEUTRA PHOS K 250 MG TABLET PO SCH ×2 (08:44→20:45)
[2019-11-04 10:23] LABS: BASOPHILS # (AUTO) 0.02 x10^3/uL (0-0.1); BASOPHILS % (AUTO) 0 % (0-1); EOSINOPHILS # (AUTO) 0.05 x10^3/uL (0-0.4); EOSINOPHILS % (AUTO) 1 % (1-7); LYMPHOCYTES # (AUTO) 0.82 x10^3/uL (1-3.4); LYMPHOCYTES % (AUTO) 15 % (22-44); MD NO; MEAN CORPUSCULAR HEMOGLOBIN 28.2 pg (27.0-34.8); MEAN CORPUSCULAR HGB CONC 32.9 g/dL (32.4-35.8); MEAN CORPUSCULAR VOLUME 85.8 fL (80-100); MEAN PLATELET VOLUME 7.5 fL (7.4-10.4); MONOCYTES # (AUTO) 0.59 x10^3/uL (0.2-0.8); MONOCYTES % (AUTO) 11 % (2-9); NEUTROPHILS # (AUTO) 4.01 x10^3/uL (1.8-6.8); NEUTROPHILS % (AUTO) 73 % (42-75); PLATELET COUNT 195 x10^3/uL (130-400); RED BLOOD COUNT 4.01 x10^6/uL (3.82-5.3); RED CELL DISTRIBUTION WIDTH 19.6 % (9.6-15.2)
[2019-11-04 10:24] LABS: ALANINE AMINOTRANSFERASE 31 U/L (12-78); ALBUMIN 2.3 g/dL (3.4-5.0); ANION GAP 5 mmol/L (5-15); CHLORIDE 107 mmol/L (98-107); CREATININE 0.45 mg/dL (0.55-1.02)
[2019-11-04 10:28] LABS: ALKALINE PHOSPHATASE 132 U/L (45-117); BILIRUBIN,TOTAL 1.6 mg/dL (0.2-1.0); TOTAL PROTEIN 6.4 g/dL (6.4-8.2)
[2019-11-04] MEDS ORDERED: MAGNESIUM SULFATE PMX 2GM/50ML 50 ML IV ONE (13:30)
[2019-11-04 13:49] VITALS: BP 110/75
[2019-11-04] MEDS: POTASSIUM ACID PHOSPHATE 500 MG TABLET.SOL PO SCH ×2 (14:50→20:45)
[2019-11-04] MEDS: MORPHINE SULFATE 4 MG/ML, 1ML IVPush PRN ×2 (14:50→19:20)
[2019-11-04] MEDS: NICOTINE 21 MG/24 HR PATCH.TD24 TD SCH (15:40)
[2019-11-04] MEDS: ENOXAPARIN 40 MG/0.4 ML SQ SCH (15:40)
[2019-11-04 19:10] VITALS: BP 104/72
[2019-11-04] MEDS: POTASSIUM CHLORIDE 20 MEQ, MAGNESIUM SULFATE 2 GM, THIAMINE 200 MG, MVI ADULT 10 ML, FO... IV SCH (19:20)
[2019-11-04] MEDS: TEMAZEPAM 15 MG CAPSULE PO PRN (20:45)
[2019-11-05] MEDS: MORPHINE SULFATE 4 MG/ML, 1ML IVPush PRN ×6 (00:09→21:17)
[2019-11-05 00:24] VITALS: BP 124/89
[2019-11-05] MEDS: LORazepam 0.5MG TABLET PO PRN ×6 (00:45→21:17)
[2019-11-05] MEDS: OXYcodone IR 5MG TABLET PO PRN ×4 (01:09→20:19)
[2019-11-05] MEDS: POTASSIUM ACID PHOSPHATE 500 MG TABLET.SOL PO SCH ×2 (01:10→07:32)
[2019-11-05] MEDS: LEVETIRACETAM 500 MG in SODIUM CHLORIDE 0.9% 100 ML IV SCH ×2 (04:53→17:08)
[2019-11-05 05:16] LABS: BASOPHILS # (AUTO) 0.03 x10^3/uL (0-0.1); BASOPHILS % (AUTO) 1 % (0-1); EOSINOPHILS # (AUTO) 0.07 x10^3/uL (0-0.4); EOSINOPHILS % (AUTO) 1 % (1-7); LYMPHOCYTES # (AUTO) 1.42 x10^3/uL (1-3.4); LYMPHOCYTES % (AUTO) 22 % (22-44); MD NO; MEAN CORPUSCULAR HEMOGLOBIN 28.4 pg (27.0-34.8); MEAN CORPUSCULAR HGB CONC 32.5 g/dL (32.4-35.8); MEAN CORPUSCULAR VOLUME 87.3 fL (80-100); MEAN PLATELET VOLUME 7.3 fL (7.4-10.4); MONOCYTES # (AUTO) 0.57 x10^3/uL (0.2-0.8); MONOCYTES % (AUTO) 9 % (2-9); NEUTROPHILS # (AUTO) 4.25 x10^3/uL (1.8-6.8); NEUTROPHILS % (AUTO) 67 % (42-75); PLATELET COUNT 184 x10^3/uL (130-400); RED BLOOD COUNT 3.88 x10^6/uL (3.82-5.3); RED CELL DISTRIBUTION WIDTH 19.2 % (9.6-15.2)
[2019-11-05 05:31] LABS: ALBUMIN 2.3 g/dL (3.4-5.0); ANION GAP 5 mmol/L (5-15); CALCIUM 7.3 mg/dL (8.5-10.1); CHLORIDE 109 mmol/L (98-107)
[2019-11-05 05:37] LABS: ALANINE AMINOTRANSFERASE 25 U/L (12-78); ALKALINE PHOSPHATASE 113 U/L (45-117); BILIRUBIN,TOTAL 1.2 mg/dL (0.2-1.0); CREATININE 0.48 mg/dL (0.55-1.02); TOTAL PROTEIN 6.5 g/dL (6.4-8.2)
[2019-11-05 07:00] VITALS: BP 103/69
[2019-11-05] MEDS: PANTOPRAZOLE 40 MG IV IVPush SCH (07:32)
[2019-11-05] MEDS: NEUTRA PHOS K 250 MG TABLET PO SCH ×2 (08:39→21:17)
[2019-11-05] MEDS: NICOTINE 21 MG/24 HR PATCH.TD24 TD SCH (14:10)
[2019-11-05 14:41] VITALS: BP 116/80
[2019-11-05] MEDS: ENOXAPARIN 40 MG/0.4 ML SQ SCH (17:08)
[2019-11-05] MEDS: ONDANSETRON 2MG/ML, 2ML IVPush PRN (18:06)
[2019-11-05 19:00] VITALS: BP 141/91
[2019-11-05] MEDS: TEMAZEPAM 15 MG CAPSULE PO PRN (21:17)
[2019-11-06 01:13] VITALS: BP 120/78
[2019-11-06] MEDS: ONDANSETRON 2MG/ML, 2ML IVPush PRN ×2 (01:42→10:30)
[2019-11-06] MEDS: MORPHINE SULFATE 4 MG/ML, 1ML IVPush PRN ×3 (01:42→10:31)
[2019-11-06] MEDS: LORazepam 0.5MG TABLET PO PRN ×3 (01:42→10:30)
[2019-11-06] MEDS: OXYcodone IR 5MG TABLET PO PRN ×2 (05:09→12:18)
[2019-11-06] MEDS: LEVETIRACETAM 500 MG in SODIUM CHLORIDE 0.9% 100 ML IV SCH (05:12)
[2019-11-06 05:49] LABS: BASOPHILS # (AUTO) 0.03 x10^3/uL (0-0.1); BASOPHILS % (AUTO) 0 % (0-1); EOSINOPHILS # (AUTO) 0.08 x10^3/uL (0-0.4); EOSINOPHILS % (AUTO) 1 % (1-7); LYMPHOCYTES % (AUTO) 18 % (22-44); MD NO; MEAN CORPUSCULAR HEMOGLOBIN 28.2 pg (27.0-34.8); MEAN CORPUSCULAR HGB CONC 32.6 g/dL (32.4-35.8); MEAN CORPUSCULAR VOLUME 86.4 fL (80-100); MEAN PLATELET VOLUME 7.7 fL (7.4-10.4); MONOCYTES # (AUTO) 0.62 x10^3/uL (0.2-0.8); MONOCYTES % (AUTO) 9 % (2-9); NEUTROPHILS # (AUTO) 5.17 x10^3/uL (1.8-6.8); NEUTROPHILS % (AUTO) 72 % (42-75); PLATELET COUNT 188 x10^3/uL (130-400); RED BLOOD COUNT 3.97 x10^6/uL (3.82-5.3); RED CELL DISTRIBUTION WIDTH 19.4 % (9.6-15.2)
[2019-11-06 05:59] LABS: ANION GAP 8 mmol/L (5-15); CALCIUM 7.7 mg/dL (8.5-10.1); CHLORIDE 106 mmol/L (98-107)
[2019-11-06] MEDS ORDERED: PANTOPROZOLE 40MG TABLET PO SCH (06:00)
[2019-11-06] MEDS ORDERED: THIAMINE 100MG TABLET PO SCH (09:00)
[2019-11-06 09:40] VITALS: BP 111/75
[2019-11-06] MEDS: NEUTRA PHOS K 250 MG TABLET PO SCH (09:49)
[2019-11-06] MEDS ORDERED: THIA100T67 PO (11:13)
== END 2019-11-06 13:33 | disposition home or self-care (01) | DRG 439 ==
LOC: ED 08:55 → EDIP 14:00 → 3N 11-03 00:20
PROVIDERS: ADMIT Hospitalist; ATTEND Internal Medicine
DX: K85.20 Alcohol induced acute pancreatitis without necrosis or infection (principal); K86.3 Pseudocyst of pancreas; F10.288 Alcohol dependence with other alcohol-induced disorder; E83.42 Hypomagnesemia; F17.200 Nicotine dependence, unspecified, uncomplicated; G40.909 Epilepsy, unspecified, not intractable, without status epilepticus; E88.09 Other disorders of plasma-protein metabolism, not elsewhere classified; K86.0 Alcohol-induced chronic pancreatitis; E83.39 Other disorders of phosphorus metabolism; Z90.49 Acquired absence of other specified parts of digestive tract; Z59.0 Homelessness; Z88.5 Allergy status to narcotic agent
CPT/HCPCS: 36415; 96361; 96374; 96375; 96376; 99285; J7042; 74177; 80048; 80053; 80307; 81003; 82150; 83690; 83735; 84100; 84703; 85025; 93005; G0378; J1650; J1885; J1953; J2405; J3411; J3475; J3480; Q9967; C9113; J1200; J2060; J2270; J2765; J7030

== ENCOUNTER 2019-11-10 10:25 | Emergency (ER) | payer MEDICAID ==
[~2019-11-10] VITALS: Ht 154.9 cm; Wt 60.7 kg
[2019-11-10 10:32] VITALS: BP 118/83
--- NOTE | 2019-11-10 10:48 | NUR ---
PT CAME IN CO OF RUQ ABD PAIN X2 DAYS. HX OF PANCREATITIS. DRANK A 5TH OF VODKA YESTERDAY SEE MAR FOR INTERVENTIONS
[2019-11-10] MEDS ORDERED: MAALOX/HYOSCYAMINE/LIDOCAINE 45 ML BTL PO ONE ×2 (11:00→12:00)
[2019-11-10] MEDS ORDERED: FAMOTIDINE 20 MG/2 ML IVPush ONE (11:00)
[2019-11-10] MEDS ORDERED: ONDANSETRON 2MG/ML, 2ML IVPush ONE (11:00)
[2019-11-10] MEDS ORDERED: SODIUM CHLORIDE 0.9% 1,000ML IVBOLUS ONE (11:00)
[2019-11-10] MEDS ORDERED: SODIUM CHLORIDE FLUSH 10ML SYR IVF ONE (11:00)
[2019-11-10] MEDS ORDERED: FAMOTIDINE 20 MG/2 ML ONE (11:04)
[2019-11-10] MEDS ORDERED: ONDANSETRON 2MG/ML, 2ML ONE (11:04)
[2019-11-10] MEDS ORDERED: MAALOX/HYOSCYAMINE/LIDOCAINE 45 ML BTL ONE (11:04)
[2019-11-10] MEDS ORDERED: FAMOTIDINE 20 MG TABLET ONE (11:39)
[2019-11-10] MEDS ORDERED: ONDANSETRON ODT 4 MG ONE (11:39)
[2019-11-10] MEDS: ONDANSETRON ODT 4 MG PO ONE ×2 (11:42→11:44)
[2019-11-10] MEDS ORDERED: FAMOTIDINE 20 MG TABLET PO ONE (12:00)
[2019-11-10 12:29] LABS: ALBUMIN 2.8 g/dL (3.4-5.0); ANION GAP 11 mmol/L (5-15); CALCIUM 8.1 mg/dL (8.5-10.1); CHLORIDE 109 mmol/L (98-107)
[2019-11-10] MEDS ORDERED: PROMETHAZINE/COD. 10MG/6.25MG/5 ML ORAL SOL PO ONE (12:30)
[2019-11-10 12:35] LABS: ALANINE AMINOTRANSFERASE 35 U/L (12-78); ALKALINE PHOSPHATASE 112 U/L (45-117); BILIRUBIN,TOTAL 0.5 mg/dL (0.2-1.0); CREATININE 0.48 mg/dL (0.55-1.02); TOTAL PROTEIN 7.8 g/dL (6.4-8.2)
[2019-11-10 12:51] LABS: BASOPHILS # (AUTO) 0.08 x10^3/uL (0-0.1); BASOPHILS % (AUTO) 2 % (0-1); EOSINOPHILS # (AUTO) 0.08 x10^3/uL (0-0.4); EOSINOPHILS % (AUTO) 2 % (1-7); LYMPHOCYTES # (AUTO) 2.36 x10^3/uL (1-3.4); LYMPHOCYTES % (AUTO) 47 % (22-44); MD SCAN; MEAN CORPUSCULAR VOLUME 87.5 fL (80-100); MEAN PLATELET VOLUME 6.3 fL (7.4-10.4); MONOCYTES # (AUTO) 0.37 x10^3/uL (0.2-0.8); MONOCYTES % (AUTO) 7 % (2-9); NEUTROPHILS # (AUTO) 2.13 x10^3/uL (1.8-6.8); NEUTROPHILS % (AUTO) 43 % (42-75); PLATELET COUNT 672 x10^3/uL (130-400); RED CELL DISTRIBUTION WIDTH 19.6 % (9.6-15.2)
--- NOTE | 2019-11-10 13:16 | NUR ---
PT ESCORTED OUT SAFELY. PT AMBULATED WITH STEADY GAIT. WAS GIVEN A TAXI VOUCHER
[2019-11-10] MEDS ORDERED: THIAMINE (20:32)
[2019-11-10] MEDS ORDERED: GABAPENTIN (20:32)
[2019-11-10] MEDS ORDERED: [UNRECOGNIZED DRUG - OTHER] (20:32)
[2019-11-10] MEDS ORDERED: XANAX (20:32)
== END 2019-11-10 13:18 | disposition home or self-care (01) ==
LOC: ED 11:25
DX: F10.220 Alcohol dependence with intoxication, uncomplicated (principal); R10.13 Epigastric pain; Y90.9 Presence of alcohol in blood, level not specified
CPT/HCPCS: 36415; 76700; 80053; 83690; 84703; 85025; 99284; J2405; J3490; J7030

== ENCOUNTER 2019-11-10 17:15 | Inpatient (IN) | payer MEDICAID ==
[~2019-11-10] VITALS: Ht 154.9 cm; Wt 69.6 kg
--- NOTE | 2019-11-10 17:31 | NUR ---
Juan Carlos RN: MD Busch at bedside to evaluate
--- NOTE | 2019-11-10 17:38 | NUR ---
Juan Carlos RN: pt requesting "pain medicine", MD aware, no new orders at this time.
[2019-11-10 18:18] LABS: ANION GAP 12 mmol/L (5-15); CALCIUM 8.2 mg/dL (8.5-10.1); CHLORIDE 108 mmol/L (98-107); CREATININE 0.61 mg/dL (0.55-1.02)
--- NOTE | 2019-11-10 18:54 | NUR ---
CRITICAL LAB VALUE REPORTED TO MD. JOYNER .[phone]
[2019-11-10] MEDS ORDERED: SODIUM CHLORIDE 0.9% 1,000ML IVBOLUS ONE (19:00)
[2019-11-10] MEDS ORDERED: THIAMINE 100 MG in SODIUM CHLORIDE 0.9% 50 ML IVPB ONE (19:00)
[2019-11-10] MEDS ORDERED: ONDANSETRON 2MG/ML, 2ML IVPush ONE (19:00)
[2019-11-10] MEDS ORDERED: SODIUM CHLORIDE FLUSH 10ML SYR IVF ONE (19:00)
[2019-11-10] MEDS ORDERED: ONDANSETRON 2MG/ML, 2ML ONE ×2 (19:01→22:57)
[2019-11-10] MEDS ORDERED: [UNRECOGNIZED DRUG - OTHER] (20:32)
[2019-11-10] MEDS ORDERED: GABAPENTIN (20:32)
[2019-11-10] MEDS ORDERED: THIAMINE (20:32)
[2019-11-10] MEDS ORDERED: XANAX (20:32)
--- NOTE | 2019-11-10 20:46 | NUR ---
PT RESTING IN [facility]. UNDER BLANKET HEATER. NO NEEDS AT THIS TIME. AWAITING ROOM FOR ADMIT
--- NOTE | 2019-11-10 21:17 | NUR ---
PT RESTING IN [facility]. TOOK OFF PULSE OX. PT DOESNT WANT PULSE OX ON SHE SAYS. HER FRIEND, SARWAT ANDRADE, CALLED TO CHECK ON HER. PT NOTIFIED.
[2019-11-10] MEDS ORDERED: ACETAMINOPHEN 325 MG TABLET PO PRN (21:30)
[2019-11-10] MEDS: LACTATED RINGERS 1,000 ML IV SCH (21:30)
[2019-11-10] MEDS ORDERED: hydrALAzine 20 MG/ML, 1ML IVPush PRN (21:30)
[2019-11-10] MEDS: THIAMINE 100 MG in SODIUM CHLORIDE 0.9% 50 ML IV SCH (21:30)
[2019-11-10] MEDS ORDERED: ONDANSETRON 2MG/ML, 2ML IVPush PRN (21:30)
[2019-11-10] MEDS ORDERED: KETOROLAC 30 MG/1 ML IV PRN (21:30)
[2019-11-10] MEDS ORDERED: ENOXAPARIN 40 MG/0.4 ML ONE (21:46)
[2019-11-10] MEDS ORDERED: NICOTINE 14MG/24 HR PATCH.TD24 ONE (21:47)
[2019-11-10] MEDS: ENOXAPARIN 40 MG/0.4 ML SQ SCH (21:50)
[2019-11-10] MEDS: NICOTINE 14MG/24 HR PATCH.TD24 TD SCH (21:50)
--- NOTE | 2019-11-10 21:55 | NUR ---
PT MEDICATED PER MAR
[2019-11-10] MEDS ORDERED: KETOROLAC 30 MG/1 ML ONE (21:59)
--- NOTE | 2019-11-10 22:04 | NUR ---
GAVE REPORT TO ALICIA ROSA.
[2019-11-10] MEDS ORDERED: LEVETIRACETAM 1,000 MG in SODIUM CHLORIDE 0.9% 100 ML IV ONE (22:30)
--- NOTE | 2019-11-10 22:30 | NUR ---
Report received and care assumed. Pt A&Ox4. Denies needs at this time. VSS. Pt pulling monitoring off--will not leave BP and pulse ox on. Pt states hx of seizures--takes keppra but has not been taking it at home since last hospital stay. Call light in reach. Call placed to Dr Palmer and order for 1000 mg IV keppra ordered. Pt then to received 500mg Keppra BID. Orders read back. Discussed CIWA with s/t pt's ETOH hx and hx of seizures. No new orders concerning this received at this time.
[2019-11-10] MEDS ORDERED: MORPHINE SULFATE 4 MG/ML, 1ML ONE (22:57)
[2019-11-10] MEDS: morphine SULFATE 10 MG/ML, 1ML IVPush PRN (23:09)
--- NOTE | 2019-11-10 23:10 | NUR ---
PT ROCKING BACK AND FORTH IN BED. C/O SEVERE ABD PAIN. NO VOMITING. PT MEDICATED PER NOV. PT ON HOSPITAL BED FOR COMFORT. SEIZURE PRECAUTIONS IN PLACE. IV FLUIDS INFUSING. PULSE OX AND BP MONITORING IN PLACE AND PT AWARE SHE NEEDS TO LEAVE THIS ON S/T MORPHINE. PT AGREES AT THIS TIME. CALL LIGHT IN REACH. NO FURTHER NEEDS EXPRESSED.
[2019-11-11] MEDS ORDERED: POTASSIUM CHLORIDE 40 MEQ in SODIUM CHLORIDE 0.9% 500 ML IV ONE
[2019-11-11 00:19] VITALS: BP 110/75
[2019-11-11] MEDS: morphine SULFATE 10 MG/ML, 1ML IVPush PRN ×6 (03:22→22:31)
[2019-11-11] MEDS: LACTATED RINGERS 1,000 ML IV SCH ×2 (06:31→14:33)
[2019-11-11 06:39] LABS: ANION GAP 11 mmol/L (5-15); CHLORIDE 109 mmol/L (98-107)
[2019-11-11 06:42] LABS: CALCIUM 7.1 mg/dL (8.5-10.1); CREATININE 0.38 mg/dL (0.55-1.02)
[2019-11-11 06:43] LABS: BASOPHILS # (AUTO) 0.06 x10^3/uL (0-0.1); BASOPHILS % (AUTO) 1 % (0-1); EOSINOPHILS # (AUTO) 0.09 x10^3/uL (0-0.4); EOSINOPHILS % (AUTO) 2 % (1-7); LYMPHOCYTES # (AUTO) 2.58 x10^3/uL (1-3.4); LYMPHOCYTES % (AUTO) 51 % (22-44); MD NO; MEAN CORPUSCULAR HGB CONC 32.2 g/dL (32.4-35.8); MEAN CORPUSCULAR VOLUME 87.1 fL (80-100); MEAN PLATELET VOLUME 6.2 fL (7.4-10.4); MONOCYTES % (AUTO) 10 % (2-9); NEUTROPHILS # (AUTO) 1.83 x10^3/uL (1.8-6.8); NEUTROPHILS % (AUTO) 36 % (42-75); PLATELET COUNT 516 x10^3/uL (130-400); RED BLOOD COUNT 3.96 x10^6/uL (3.82-5.3); RED CELL DISTRIBUTION WIDTH 19.2 % (9.6-15.2)
[2019-11-11 08:01] VITALS: BP 115/72
[2019-11-11] MEDS: LEVETIRACETAM 500 MG TABLET PO SCH ×2 (08:37→21:24)
[2019-11-11 14:40] VITALS: BP 112/73
[2019-11-11] MEDS ORDERED: MAGNESIUM SULFATE PMX 2GM/50ML 50 ML IV ONE (16:00)
[2019-11-11] MEDS ORDERED: POTASSIUM CHLORIDE 20 MEQ TAB.ER.PRT PO ONE (16:00)
[2019-11-11 20:14] VITALS: BP 143/75
[2019-11-11] MEDS ORDERED: DIPHENHYDRAMINE 50 MG/ML, 1ML ONE (21:19)
[2019-11-11] MEDS: THIAMINE 100 MG in SODIUM CHLORIDE 0.9% 50 ML IV SCH (21:23)
[2019-11-11] MEDS: ENOXAPARIN 40 MG/0.4 ML SQ SCH (21:24)
[2019-11-11] MEDS: NICOTINE 14MG/24 HR PATCH.TD24 TD SCH (21:24)
[2019-11-11] MEDS ORDERED: DIPHENHYDRAMINE 50 MG/ML, 1ML IVPush ONE (21:30)
[2019-11-12 00:23] VITALS: BP 143/75
[2019-11-12] MEDS: LACTATED RINGERS 1,000 ML IV SCH ×3 (00:23→16:00)
[2019-11-12] MEDS: morphine SULFATE 10 MG/ML, 1ML IVPush PRN ×8 (01:28→23:18)
[2019-11-12 06:35] LABS: BASOPHILS # (AUTO) 0.04 x10^3/uL (0-0.1); BASOPHILS % (AUTO) 1 % (0-1); EOSINOPHILS # (AUTO) 0.12 x10^3/uL (0-0.4); EOSINOPHILS % (AUTO) 3 % (1-7); LYMPHOCYTES # (AUTO) 1.62 x10^3/uL (1-3.4); LYMPHOCYTES % (AUTO) 37 % (22-44); MD NO; MEAN CORPUSCULAR HEMOGLOBIN 27.8 pg (27.0-34.8); MEAN CORPUSCULAR VOLUME 86.8 fL (80-100); MEAN PLATELET VOLUME 6.6 fL (7.4-10.4); MONOCYTES # (AUTO) 0.68 x10^3/uL (0.2-0.8); MONOCYTES % (AUTO) 16 % (2-9); NEUTROPHILS # (AUTO) 1.86 x10^3/uL (1.8-6.8); NEUTROPHILS % (AUTO) 43 % (42-75); PLATELET COUNT 491 x10^3/uL (130-400); RED BLOOD COUNT 3.87 x10^6/uL (3.82-5.3); RED CELL DISTRIBUTION WIDTH 18.6 % (9.6-15.2)
[2019-11-12 06:44] LABS: ANION GAP 9 mmol/L (5-15); CALCIUM 7.6 mg/dL (8.5-10.1); CHLORIDE 104 mmol/L (98-107); CREATININE 0.33 mg/dL (0.55-1.02)
[2019-11-12 07:35] VITALS: BP 118/76
[2019-11-12] MEDS: FOLIC ACID 1 MG TABLET PO SCH (07:38)
[2019-11-12] MEDS: LEVETIRACETAM 500 MG TABLET PO SCH ×2 (07:38→20:27)
[2019-11-12] MEDS ORDERED: LORazepam 2 MG/ML, 1ML IV PRN (09:00)
[2019-11-12] MEDS ORDERED: LORazepam 0.5MG TABLET PO PRN (09:00)
[2019-11-12] MEDS ORDERED: LORazepam 1MG TABLET PO PRN (09:00)
[2019-11-12] MEDS ORDERED: DIPHENHYDRAMINE 50 MG/ML, 1ML IVPush ONE (09:30)
[2019-11-12] MEDS: LORazepam 2 MG/ML, 1ML IV PRN ×4 (10:11→23:18)
[2019-11-12 12:18] VITALS: BP 117/81
[2019-11-12 19:37] VITALS: BP 135/89
[2019-11-12] MEDS: NICOTINE 14MG/24 HR PATCH.TD24 TD SCH (20:27)
[2019-11-12] MEDS: ENOXAPARIN 40 MG/0.4 ML SQ SCH (20:27)
[2019-11-12] MEDS: THIAMINE 100 MG in SODIUM CHLORIDE 0.9% 50 ML IV SCH (23:23)
[2019-11-13 01:12] VITALS: BP 116/75
[2019-11-13] MEDS: morphine SULFATE 10 MG/ML, 1ML IVPush PRN ×4 (02:08→11:17)
[2019-11-13] MEDS: LORazepam 2 MG/ML, 1ML IV PRN ×2 (03:07→07:12)
[2019-11-13] MEDS: DIPHENHYDRAMINE 50 MG CAPSULE PO PRN ×3 (03:11→15:32)
[2019-11-13 05:01] LABS: ANION GAP 6 mmol/L (5-15); CALCIUM 7.8 mg/dL (8.5-10.1); CHLORIDE 106 mmol/L (98-107); CREATININE 0.31 mg/dL (0.55-1.02)
[2019-11-13 05:02] LABS: MEAN CORPUSCULAR HEMOGLOBIN 27.7 pg (27.0-34.8); MEAN CORPUSCULAR HGB CONC 32.1 g/dL (32.4-35.8); MEAN CORPUSCULAR VOLUME 86.2 fL (80-100); MEAN PLATELET VOLUME 6.7 fL (7.4-10.4); PLATELET COUNT 414 x10^3/uL (130-400); RED BLOOD COUNT 3.82 x10^6/uL (3.82-5.3); RED CELL DISTRIBUTION WIDTH 18.4 % (9.6-15.2)
[2019-11-13 05:46] LABS: BASOPHILS # (AUTO) 0.04 x10^3/uL (0-0.1); BASOPHILS % (AUTO) 1 % (0-1); EOSINOPHILS # (AUTO) 0.17 x10^3/uL (0-0.4); EOSINOPHILS % (AUTO) 5 % (1-7); LYMPHOCYTES # (AUTO) 1.75 x10^3/uL (1-3.4); LYMPHOCYTES % (AUTO) 46 % (22-44); MD SCAN; MONOCYTES % (AUTO) 13 % (2-9); NEUTROPHILS # (AUTO) 1.31 x10^3/uL (1.8-6.8); NEUTROPHILS % (AUTO) 35 % (42-75)
[2019-11-13 06:53] VITALS: BP 119/83
[2019-11-13] MEDS: LACTATED RINGERS 1,000 ML IV SCH ×3 (08:18→16:46)
[2019-11-13] MEDS: FOLIC ACID 1 MG TABLET PO SCH (09:36)
[2019-11-13] MEDS: LEVETIRACETAM 500 MG TABLET PO SCH ×2 (09:36→20:48)
[2019-11-13] MEDS: LORazepam 1MG TABLET PO PRN ×3 (12:24→20:48)
[2019-11-13 14:41] VITALS: BP 118/76
[2019-11-13] MEDS: OXYcodone/APAP 5/325MG TABLET PO PRN ×2 (15:15→19:37)
[2019-11-13 18:56] VITALS: BP 127/89
[2019-11-13] MEDS: ENOXAPARIN 40 MG/0.4 ML SQ SCH (20:48)
[2019-11-13] MEDS: NICOTINE 14MG/24 HR PATCH.TD24 TD SCH (20:49)
[2019-11-13] MEDS: THIAMINE 100 MG in SODIUM CHLORIDE 0.9% 50 ML IV SCH (22:50)
[2019-11-14] MEDS: OXYcodone/APAP 5/325MG TABLET PO PRN ×6 (00:21→22:12)
[2019-11-14] MEDS: LACTATED RINGERS 1,000 ML IV SCH ×3 (00:47→17:35)
[2019-11-14] MEDS: LORazepam 1MG TABLET PO PRN ×6 (00:47→22:11)
[2019-11-14 01:36] VITALS: BP 115/80
[2019-11-14] MEDS: DIPHENHYDRAMINE 50 MG CAPSULE PO PRN (05:19)
[2019-11-14 06:49] VITALS: BP 92/64
[2019-11-14] MEDS: FOLIC ACID 1 MG TABLET PO SCH (09:14)
[2019-11-14] MEDS: LEVETIRACETAM 500 MG TABLET PO SCH ×2 (09:14→22:11)
[2019-11-14 13:02] VITALS: BP 126/84
[2019-11-14 18:40] VITALS: BP 121/78
[2019-11-14] MEDS: ENOXAPARIN 40 MG/0.4 ML SQ SCH (22:12)
[2019-11-14] MEDS: NICOTINE 14MG/24 HR PATCH.TD24 TD SCH (22:12)
[2019-11-14] MEDS: THIAMINE 100 MG in SODIUM CHLORIDE 0.9% 50 ML IV SCH (22:46)
[2019-11-15] MEDS: LACTATED RINGERS 1,000 ML IV SCH ×2 (01:04→08:54)
[2019-11-15 01:07] VITALS: BP 118/84
[2019-11-15] MEDS: OXYcodone/APAP 5/325MG TABLET PO PRN ×2 (03:36→08:55)
[2019-11-15] MEDS: LEVETIRACETAM 500 MG TABLET PO SCH (08:54)
[2019-11-15] MEDS: LORazepam 1MG TABLET PO PRN (08:54)
[2019-11-15] MEDS: FOLIC ACID 1 MG TABLET PO SCH (08:54)
[2019-11-15 09:13] VITALS: BP 110/62
[2019-11-15] MEDS ORDERED: OXYcodone/APAP 5/325MG TABLET PO PRN (10:30)
[2019-11-15 12:15] VITALS: BP 133/88
== END 2019-11-15 14:46 | disposition left against medical advice (07) | DRG 439 ==
LOC: ED 19:37 → EDIP 19:39 → 4WST 11-11 00:19
PROVIDERS: ADMIT Family Medicine; ATTEND Family Medicine
DX: K85.20 Alcohol induced acute pancreatitis without necrosis or infection (principal); E46 Unspecified protein-calorie malnutrition; K86.0 Alcohol-induced chronic pancreatitis; F10.229 Alcohol dependence with intoxication, unspecified; F17.200 Nicotine dependence, unspecified, uncomplicated; E87.6 Hypokalemia; G40.909 Epilepsy, unspecified, not intractable, without status epilepticus; Y90.8 Blood alcohol level of 240 mg/100 ml or more; Z66 Do not resuscitate; Z90.49 Acquired absence of other specified parts of digestive tract; Z59.0 Homelessness; Z68.29 Body mass index [BMI] 29.0-29.9, adult; Z88.5 Allergy status to narcotic agent; Z91.19 Patient's noncompliance with other medical treatment and regimen; Z53.29 Procedure and treatment not carried out because of patient's decision for other reasons
CPT/HCPCS: 36415; 80048; 80307; 82040; 83690; 83735; 84100; 85025; 96365; 96375; G0378; J1650; J1885; J1953; J2405; J3411; J3480; J1200; J2060; J2270; J3475; J7030; J7040; J7120

== ENCOUNTER 2019-11-18 16:02 | Emergency (ER) | payer MEDICAID ==
[~2019-11-18] VITALS: Ht 175.3 cm; Wt 66.9 kg
[~2019-11-18 16:02] MED LIST changes: +GABAPENTIN; +THIAMINE; +XANAX; +[UNRECOGNIZED DRUG - OTHER]
[2019-11-18] MEDS ORDERED: ONDANSETRON ODT 4 MG ONE (17:10)
[2019-11-18] MEDS ORDERED: ONDANSETRON ODT 4 MG PO ONE (17:30)
[2019-11-18 17:37] LABS: ALANINE AMINOTRANSFERASE 30 U/L (12-78); ALBUMIN 2.8 g/dL (3.4-5.0); ANION GAP 10 mmol/L (5-15); BASOPHILS # (AUTO) 0.06 x10^3/uL (0-0.1); BASOPHILS % (AUTO) 1 % (0-1); CALCIUM 7.9 mg/dL (8.5-10.1); CHLORIDE 110 mmol/L (98-107); CREATININE 0.46 mg/dL (0.55-1.02); EOSINOPHILS # (AUTO) 0.03 x10^3/uL (0-0.4); EOSINOPHILS % (AUTO) 0 % (1-7); LYMPHOCYTES # (AUTO) 2.34 x10^3/uL (1-3.4); LYMPHOCYTES % (AUTO) 30 % (22-44); MD NO; MEAN CORPUSCULAR HEMOGLOBIN 27.6 pg (27.0-34.8); MEAN CORPUSCULAR HGB CONC 31.9 g/dL (32.4-35.8); MEAN CORPUSCULAR VOLUME 86.7 fL (80-100); MEAN PLATELET VOLUME 6.9 fL (7.4-10.4); MONOCYTES # (AUTO) 0.33 x10^3/uL (0.2-0.8); MONOCYTES % (AUTO) 4 % (2-9); NEUTROPHILS # (AUTO) 5.11 x10^3/uL (1.8-6.8); NEUTROPHILS % (AUTO) 65 % (42-75); PLATELET COUNT 367 x10^3/uL (130-400); RED CELL DISTRIBUTION WIDTH 19.4 % (9.6-15.2)
--- NOTE | 2019-11-18 17:40 | NUR ---
PT RESTING AT THIS TIME AROUSES TO LITE VERBAL
[2019-11-18 17:42] LABS: ALKALINE PHOSPHATASE 104 U/L (45-117); BILIRUBIN,TOTAL 0.4 mg/dL (0.2-1.0); TOTAL PROTEIN 7.2 g/dL (6.4-8.2)
--- NOTE | 2019-11-18 18:30 | NUR ---
REPORT TO ERP PT WILL BE A DC
[2019-11-18 19:16] VITALS: BP 132/71
== END 2019-11-18 19:17 | disposition home or self-care (01) ==
LOC: ED 19:12
DX: K29.20 Alcoholic gastritis without bleeding (principal); K86.0 Alcohol-induced chronic pancreatitis; R10.13 Epigastric pain; R11.2 Nausea with vomiting, unspecified; Z90.49 Acquired absence of other specified parts of digestive tract
CPT/HCPCS: 36415; 80053; 82150; 83690; 84703; 85025; 99283; Q0162

== ENCOUNTER 2020-01-11 08:38 | Emergency (ER) | payer MEDICAID ==
[~2020-01-11] VITALS: Ht 157.5 cm; Wt 58.3 kg
[2020-01-11] MEDS ORDERED: SODIUM CHLORIDE 0.9% 1,000ML IVBOLUS ONE (09:00)
[2020-01-11] MEDS ORDERED: ONDANSETRON 2MG/ML, 2ML IVPush ONE (09:00)
[2020-01-11] MEDS ORDERED: PLEASE ENTER WEIGHT MC SCH (09:00)
[2020-01-11] MEDS ORDERED: ONDANSETRON 2MG/ML, 2ML ONE (09:18)
--- NOTE | 2020-01-11 09:18 | NUR ---
THIS IS A 44 YO F BIB EMS W/ C/O LLQ PAIN THAT STARTED THIS MORNING. PT REPORTS HX OF PANCREATITIS AND ETOH ABUSE. PT REPORTS DRINKING 1/2 PINT TODAY. RESP EVEN AND UNLABORED, NADN. PT RESTING ON GURNEY CONNECTED TO MONITORING. CALL LIGHT IN REACH, SIDE RAILS UPX2. UPDATED ON POC FOR LABS AND US. DENIES FURTHER NEEDS AT THIS TIME.
--- NOTE | 2020-01-11 09:24 | NUR ---
THIS RN UNABLE TO START PIV AT THIS TIME. ATTEMPTX3. FLYNE RN IN ROOM TO ATTEMPT.
--- NOTE | 2020-01-11 09:27 | NUR ---
TELEPHONE CALL TO LAB TO LET THEM KNOW WE HAVE BEEN UNABLE TO START A LINE OR DRAW LABS AT THIS TIME. WILL COME DRAW LABS TO PREVENT FURTHER DELAY.
--- NOTE | 2020-01-11 09:27 | NUR ---
US IN ROOM.
--- NOTE | 2020-01-11 09:43 | NUR ---
Inna fregoso in [facility] - 01/11/20 at 0954 by CRAIG LAB IN ROOM.
--- NOTE | 2020-01-11 10:00 | NUR ---
TERRELL VARGAS IN ROOM W/ US TO ATTEMPT PIV.
--- NOTE | 2020-01-11 10:23 | NUR ---
PT AMBULATED TO THE BR W/ A STEADY GAIT. URINE COLLECTED AND SENT TO LAB.
--- NOTE | 2020-01-11 10:28 | NUR ---
UNABLE TO START PIV VIA US AT THIS TIME. LAB NOTIFIED TO COME DRAW LABS, MOHIT VENEGAS UPDATED.
[2020-01-11 10:32] LABS: MICROSCOPIC AUTO
--- NOTE | 2020-01-11 10:32 | NUR ---
LAB IN ROOM.
--- NOTE | 2020-01-11 10:52 | NUR ---
PT HAS BEEN NON COMPLIANT W/ NPO ORDER.
[2020-01-11 10:58] LABS: ALBUMIN 3.3 g/dL (3.4-5.0); ANION GAP 22 mmol/L (5-15); CALCIUM 8.4 mg/dL (8.5-10.1); CHLORIDE 109 mmol/L (98-107)
[2020-01-11 11:01] LABS: ALANINE AMINOTRANSFERASE 28 U/L (12-78); ALKALINE PHOSPHATASE 103 U/L (45-117); BILIRUBIN,TOTAL 0.4 mg/dL (0.2-1.0); CREATININE 0.85 mg/dL (0.55-1.02); TOTAL PROTEIN 8.3 g/dL (6.4-8.2)
--- NOTE | 2020-01-11 11:10 | NUR ---
PT IS UP FOR RECHECK AT THIS TIME.
--- NOTE | 2020-01-11 11:47 | NUR ---
PT PROVIDED WATER PER MD ORDER FOR PO CHALLENGE.
[2020-01-11 12:00] LABS: BASOPHILS # (AUTO) 0.05 x10^3/uL (0-0.1); BASOPHILS % (AUTO) 0 % (0-1); EOSINOPHILS # (AUTO) 0.01 x10^3/uL (0-0.4); EOSINOPHILS % (AUTO) 0 % (1-7); LYMPHOCYTES # (AUTO) 3.17 x10^3/uL (1-3.4); LYMPHOCYTES % (AUTO) 22 % (22-44); MD NO; MEAN CORPUSCULAR HEMOGLOBIN 27.8 pg (27.0-34.8); MEAN CORPUSCULAR HGB CONC 32.6 g/dL (32.4-35.8); MEAN CORPUSCULAR VOLUME 85.3 fL (80-100); MEAN PLATELET VOLUME 6.8 fL (7.4-10.4); MONOCYTES # (AUTO) 0.57 x10^3/uL (0.2-0.8); MONOCYTES % (AUTO) 4 % (2-9); NEUTROPHILS # (AUTO) 10.62 x10^3/uL (1.8-6.8); NEUTROPHILS % (AUTO) 74 % (42-75); PLATELET COUNT 483 x10^3/uL (130-400); RED BLOOD COUNT 4.98 x10^6/uL (3.82-5.3); RED CELL DISTRIBUTION WIDTH 18.4 % (9.6-15.2)
--- NOTE | 2020-01-11 12:01 | NUR ---
PT TOLERATING PO FLUIDS.
[2020-01-11 12:08] VITALS: BP 126/80
--- NOTE | 2020-01-11 12:18 | NUR ---
PT CHANGED, RESTING ON GURCORBIN. AWAITING DC PPWK.
== END 2020-01-11 12:45 | disposition left against medical advice (07) ==
LOC: ED 08:58
DX: K29.20 Alcoholic gastritis without bleeding (principal); R10.13 Epigastric pain; R11.2 Nausea with vomiting, unspecified; F10.220 Alcohol dependence with intoxication, uncomplicated; F17.210 Nicotine dependence, cigarettes, uncomplicated; E87.6 Hypokalemia; Y90.0 Blood alcohol level of less than 20 mg/100 ml
CPT/HCPCS: 36415; 76700; 80053; 80307; 81001; 83690; 84703; 85025; 99284

== ENCOUNTER 2020-01-14 01:05 | Emergency (ER) | payer MEDICAID ==
[~2020-01-14] VITALS: Ht 154.9 cm; Wt 70.0 kg
[2020-01-14] MEDS ORDERED: SODIUM CHLORIDE FLUSH 10ML SYR IVF ONE (01:30)
[2020-01-14] MEDS ORDERED: SODIUM CHLORIDE 0.9% 1,000ML IVBOLUS ONE (01:30)
[2020-01-14] MEDS ORDERED: MORPHINE SULFATE 4 MG/ML, 1ML IVPush PRN (01:30)
[2020-01-14] MEDS ORDERED: LORazepam 2 MG/ML, 1ML IVPush ONE (01:30)
[2020-01-14] MEDS ORDERED: ONDANSETRON 2MG/ML, 2ML IVPush ONE (01:30)
[2020-01-14] MEDS ORDERED: ONDANSETRON 2MG/ML, 2ML ONE (01:32)
[2020-01-14] MEDS ORDERED: LORazepam 2 MG/ML, 1ML ONE (01:32)
[2020-01-14] MEDS ORDERED: MORPHINE SULFATE 4 MG/ML, 1ML ONE (01:32)
[2020-01-14 01:37] LABS: BASOPHILS # (AUTO) 0.11 x10^3/uL (0-0.1); BASOPHILS % (AUTO) 1 % (0-1); EOSINOPHILS # (AUTO) 0.04 x10^3/uL (0-0.4); EOSINOPHILS % (AUTO) 1 % (1-7); LYMPHOCYTES # (AUTO) 2.34 x10^3/uL (1-3.4); LYMPHOCYTES % (AUTO) 25 % (22-44); MD NO; MEAN CORPUSCULAR HEMOGLOBIN 27.3 pg (27.0-34.8); MEAN CORPUSCULAR HGB CONC 32.5 g/dL (32.4-35.8); MEAN PLATELET VOLUME 6.5 fL (7.4-10.4); MONOCYTES # (AUTO) 0.31 x10^3/uL (0.2-0.8); MONOCYTES % (AUTO) 3 % (2-9); NEUTROPHILS # (AUTO) 6.47 x10^3/uL (1.8-6.8); NEUTROPHILS % (AUTO) 70 % (42-75); PLATELET COUNT 355 x10^3/uL (130-400); RED BLOOD COUNT 5.06 x10^6/uL (3.82-5.3)
[2020-01-14 01:48] LABS: ALANINE AMINOTRANSFERASE 27 U/L (12-78); ALBUMIN 3.4 g/dL (3.4-5.0); ANION GAP 17 mmol/L (5-15); CALCIUM 7.7 mg/dL (8.5-10.1); CHLORIDE 99 mmol/L (98-107); CREATININE 0.66 mg/dL (0.55-1.02)
[2020-01-14 01:52] LABS: ALKALINE PHOSPHATASE 97 U/L (45-117); BILIRUBIN,TOTAL 0.7 mg/dL (0.2-1.0); TOTAL PROTEIN 7.6 g/dL (6.4-8.2)
[2020-01-14 02:17] VITALS: BP 124/93
--- NOTE | 2020-01-14 03:14 | NUR ---
Patient/Caregiver given discharge instructions and they have confirmed that they understand the instructions. Patient ambulatory with steady gait. cab called for pt, pt provided with voucher as req.
== END 2020-01-14 03:17 | disposition home or self-care (01) ==
LOC: ED 01:33
DX: K29.20 Alcoholic gastritis without bleeding (principal); K85.20 Alcohol induced acute pancreatitis without necrosis or infection; R10.13 Epigastric pain; F10.20 Alcohol dependence, uncomplicated; F17.210 Nicotine dependence, cigarettes, uncomplicated; Z90.49 Acquired absence of other specified parts of digestive tract; Y90.0 Blood alcohol level of less than 20 mg/100 ml
CPT/HCPCS: 36415; 80053; 80307; 83690; 84703; 85025; 96361; 96374; 96375; 99284; 99406; J2060; J2270; J2405; J7030

== ENCOUNTER 2020-01-14 14:42 | Emergency (ER) | payer MEDICAID ==
[2020-01-14 14:44] VITALS: BP 139/77
--- NOTE | 2020-01-14 14:49 | NUR ---
BIB [facility], HERE EARLIER TO DAY FOR ETOH. WAS DISCHARGED PT NOW INTOXICATED AGAIN
[2020-01-14] MEDS ORDERED: THIAMINE 100 MG/ML, 2ML IM ONE (16:00)
[2020-01-14] MEDS ORDERED: THIAMINE 100 MG/ML, 2ML ONE (16:38)
--- NOTE | 2020-01-14 17:01 | NUR ---
PT MEDICATED PER MAR, AMBULATED TO BR WITH STEADY GAIT.
== END 2020-01-14 17:46 | disposition home or self-care (01) ==
LOC: ED 15:08
DX: F10.129 Alcohol abuse with intoxication, unspecified (principal); Z90.710 Acquired absence of both cervix and uterus; Y90.0 Blood alcohol level of less than 20 mg/100 ml; Z72.9 Problem related to lifestyle, unspecified
CPT/HCPCS: 96372; 99283; J3411

== ENCOUNTER 2020-01-16 07:25 | Inpatient (IN) | payer MEDICAID ==
[~2020-01-16] VITALS: Ht 154.9 cm; Wt 65.0 kg
--- NOTE | 2020-01-16 07:34 | NUR ---
THIS IS A 44 YO F BIB EMS FROM [facility] W/ C/O PERIUMBILICAL ABD PAIN 06/24, N/V. PT REPORTS HX OF PANCREATITIS. LAST DRINK 4 DAYS AGO. EMS REPORTS GIVING 4MG OF ZOFRAN AND 100MCG OF FENTANYL AND IV FLUIDS REGISTERED NURSE CARDIAC TELEMETRY. PT VSS, RESTING ON GURNEY W/ CALL LIGHT IN REACH, SIDE RAILS UPX2. PT STATES SHE IS UNABLE TO PROVIDE A URINE SAMPLE AT THIS TIME. IN ROOM FOR ED EVAL. AWAITING ORDERS.
[2020-01-16] MEDS ORDERED: OXYcodone/APAP 10/325MG TABLET ONE (07:38)
--- NOTE | 2020-01-16 07:42 | NUR ---
PT MEDICATED PER EMAR. LAB IN ROOM.
[2020-01-16 07:53] LABS: BASOPHILS # (AUTO) 0.03 x10^3/uL (0-0.1); BASOPHILS % (AUTO) 0 % (0-1); EOSINOPHILS % (AUTO) 0 % (1-7); LYMPHOCYTES # (AUTO) 1.63 x10^3/uL (1-3.4); LYMPHOCYTES % (AUTO) 17 % (22-44); MD NO; MEAN CORPUSCULAR HEMOGLOBIN 27.4 pg (27.0-34.8); MEAN CORPUSCULAR HGB CONC 32.3 g/dL (32.4-35.8); MEAN CORPUSCULAR VOLUME 84.9 fL (80-100); MEAN PLATELET VOLUME 6.8 fL (7.4-10.4); MONOCYTES # (AUTO) 0.27 x10^3/uL (0.2-0.8); MONOCYTES % (AUTO) 3 % (2-9); NEUTROPHILS # (AUTO) 7.57 x10^3/uL (1.8-6.8); NEUTROPHILS % (AUTO) 80 % (42-75); PLATELET COUNT 250 x10^3/uL (130-400); RED BLOOD COUNT 4.42 x10^6/uL (3.82-5.3); RED CELL DISTRIBUTION WIDTH 18.9 % (9.6-15.2)
[2020-01-16] MEDS ORDERED: OXYcodone/APAP 10/325MG TABLET PO ONE (08:00)
[2020-01-16 08:06] LABS: ALANINE AMINOTRANSFERASE 22 U/L (12-78); ALBUMIN 3.2 g/dL (3.4-5.0); ANION GAP 12 mmol/L (5-15); CALCIUM 7.9 mg/dL (8.5-10.1); CHLORIDE 104 mmol/L (98-107)
[2020-01-16 08:10] LABS: ALKALINE PHOSPHATASE 76 U/L (45-117); BILIRUBIN,TOTAL 0.8 mg/dL (0.2-1.0); TOTAL PROTEIN 6.7 g/dL (6.4-8.2)
--- NOTE | 2020-01-16 08:21 | NUR ---
ALL TESTS RESULTED, PT IS UP FOR RECHECK AT THIS TIME.
--- NOTE | 2020-01-16 08:23 | NUR ---
PT SLEEPING ON GURNEY, CHEST RISE AND FALL OBSERVED, VSS. AWAITING RECHECK.
[2020-01-16] MEDS ORDERED: SODIUM CHLORIDE 0.9% 1,000 ML IV ONE (08:37)
--- NOTE | 2020-01-16 08:49 | NUR ---
MED REC DONE.
--- NOTE | 2020-01-16 08:50 | NUR ---
ATTEMPT TO CALL REPORT, TRINY VARGAS WILL CALL THIS RN BACK WHEN READY.
--- NOTE | 2020-01-16 09:05 | NUR ---
PT AMBULATED TO THE BR W/ A STEADY GAIT.
--- NOTE | 2020-01-16 09:18 | NUR ---
REPORT GIVEN TO TRINY VARGAS. PT IS READY FOR TRANSPORT AT THIS TIME.
--- NOTE | 2020-01-16 09:25 | NUR ---
PT TRANSPORTED UPSTAIRS AT THIS TIME.
[2020-01-16] MEDS ORDERED: hydrALAzine 20 MG/ML, 1ML IVPush PRN (12:30)
[2020-01-16] MEDS ORDERED: HYDROcodone/APAP 5/325 TABLET PO PRN (12:30)
[2020-01-16] MEDS ORDERED: ONDANSETRON ODT 4 MG PO PRN (12:30)
[2020-01-16] MEDS ORDERED: ONDANSETRON 2MG/ML, 2ML IVPush PRN (12:30)
[2020-01-16] MEDS ORDERED: LABETALOL 5MG/ML, 20ML IVPush PRN (12:30)
[2020-01-16 12:58] VITALS: BP 125/86
[2020-01-16] MEDS ORDERED: POTASSIUM CHLORIDE 20 MEQ in LACTATED RINGERS 1,000 ML IV SCH (13:00)
[2020-01-16] MEDS: HEPARIN 5,000 UNITS/ML, 1ML SQ SCH ×2 (13:00→21:00)
[2020-01-16] MEDS: LACTATED RINGERS 1,000 ML IV SCH ×3 (13:28→17:36)
[2020-01-16 13:30] LABS: TRIGLYCERIDES 75 mg/dL (50-200)
[2020-01-16] MEDS: morphine SULFATE 10 MG/ML, 1ML IVPush PRN ×4 (13:30→23:09)
[2020-01-16] MEDS: NICOTINE 21 MG/24 HR PATCH.TD24 TD SCH (13:33)
[2020-01-16] MEDS: LEVETIRACETAM 500 MG TABLET PO SCH ×2 (13:33→20:20)
[2020-01-16] MEDS: THIAMINE 100MG TABLET PO SCH (13:33)
[2020-01-16] MEDS: MULTIVITAMINS/MINERALS TABLET PO SCH (13:33)
[2020-01-16] MEDS: FOLIC ACID 1 MG TABLET PO SCH (13:34)
[2020-01-16 19:51] VITALS: BP 114/70
[2020-01-17 00:45] VITALS: BP 101/64
[2020-01-17] MEDS: morphine SULFATE 10 MG/ML, 1ML IVPush PRN ×7 (02:29→22:53)
[2020-01-17] MEDS: HEPARIN 5,000 UNITS/ML, 1ML SQ SCH ×3 (04:45→20:25)
[2020-01-17 06:25] LABS: BASOPHILS # (AUTO) 0.03 x10^3/uL (0-0.1); BASOPHILS % (AUTO) 0 % (0-1); EOSINOPHILS # (AUTO) 0.05 x10^3/uL (0-0.4); EOSINOPHILS % (AUTO) 1 % (1-7); LYMPHOCYTES # (AUTO) 2.88 x10^3/uL (1-3.4); LYMPHOCYTES % (AUTO) 43 % (22-44); MD NO; MEAN CORPUSCULAR HEMOGLOBIN 27.6 pg (27.0-34.8); MEAN CORPUSCULAR HGB CONC 32.3 g/dL (32.4-35.8); MEAN CORPUSCULAR VOLUME 85.3 fL (80-100); MEAN PLATELET VOLUME 7.1 fL (7.4-10.4); MONOCYTES # (AUTO) 0.25 x10^3/uL (0.2-0.8); MONOCYTES % (AUTO) 4 % (2-9); NEUTROPHILS # (AUTO) 3.47 x10^3/uL (1.8-6.8); NEUTROPHILS % (AUTO) 52 % (42-75); PLATELET COUNT 189 x10^3/uL (130-400); RED CELL DISTRIBUTION WIDTH 18.2 % (9.6-15.2)
[2020-01-17 06:30] LABS: ALBUMIN 2.9 g/dL (3.4-5.0); ANION GAP 8 mmol/L (5-15); CHLORIDE 106 mmol/L (98-107)
[2020-01-17 06:35] LABS: ALANINE AMINOTRANSFERASE 21 U/L (12-78); ALKALINE PHOSPHATASE 68 U/L (45-117); BILIRUBIN,TOTAL 0.6 mg/dL (0.2-1.0); CREATININE 1.57 mg/dL (0.55-1.02); TOTAL PROTEIN 6.1 g/dL (6.4-8.2)
[2020-01-17 07:12] VITALS: BP 103/64
[2020-01-17] MEDS: THIAMINE 100MG TABLET PO SCH (08:29)
[2020-01-17] MEDS: LEVETIRACETAM 500 MG TABLET PO SCH ×2 (08:29→20:25)
[2020-01-17] MEDS: FOLIC ACID 1 MG TABLET PO SCH (08:29)
[2020-01-17] MEDS ORDERED: POTASSIUM CHLORIDE 20 MEQ TAB.ER.PRT PO ONE (08:30)
[2020-01-17] MEDS: MULTIVITAMINS/MINERALS TABLET PO SCH (08:34)
[2020-01-17] MEDS: LORazepam 2 MG/ML, 1ML IVPush PRN ×4 (09:24→20:59)
[2020-01-17] MEDS: POTASSIUM CHLORIDE 20 MEQ in LACTATED RINGERS 1,000 ML IV SCH ×2 (12:34→20:26)
[2020-01-17] MEDS: NICOTINE 21 MG/24 HR PATCH.TD24 TD SCH (12:38)
[2020-01-17 13:36] VITALS: BP 115/80
[2020-01-17 19:00] VITALS: BP 114/75
[2020-01-18] MEDS: LORazepam 2 MG/ML, 1ML IVPush PRN ×6 (00:05→20:42)
[2020-01-18 01:45] VITALS: BP 119/84
[2020-01-18] MEDS: morphine SULFATE 10 MG/ML, 1ML IVPush PRN ×6 (02:13→22:08)
[2020-01-18] MEDS: POTASSIUM CHLORIDE 20 MEQ in LACTATED RINGERS 1,000 ML IV SCH ×3 (03:40→18:07)
[2020-01-18 04:35] LABS: BASOPHILS # (AUTO) 0.02 x10^3/uL (0-0.1); BASOPHILS % (AUTO) 0 % (0-1); EOSINOPHILS # (AUTO) 0.08 x10^3/uL (0-0.4); EOSINOPHILS % (AUTO) 1 % (1-7); LYMPHOCYTES # (AUTO) 2.23 x10^3/uL (1-3.4); LYMPHOCYTES % (AUTO) 42 % (22-44); MD NO; MEAN CORPUSCULAR HEMOGLOBIN 27.1 pg (27.0-34.8); MEAN CORPUSCULAR HGB CONC 31.2 g/dL (32.4-35.8); MEAN CORPUSCULAR VOLUME 86.8 fL (80-100); MEAN PLATELET VOLUME 7.8 fL (7.4-10.4); MONOCYTES # (AUTO) 0.22 x10^3/uL (0.2-0.8); MONOCYTES % (AUTO) 4 % (2-9); NEUTROPHILS # (AUTO) 2.79 x10^3/uL (1.8-6.8); NEUTROPHILS % (AUTO) 52 % (42-75); PLATELET COUNT 118 x10^3/uL (130-400); RED BLOOD COUNT 4.53 x10^6/uL (3.82-5.3); RED CELL DISTRIBUTION WIDTH 18.2 % (9.6-15.2)
[2020-01-18 04:49] LABS: ALBUMIN 2.7 g/dL (3.4-5.0); ANION GAP 6 mmol/L (5-15); CALCIUM 8.1 mg/dL (8.5-10.1); CHLORIDE 105 mmol/L (98-107)
[2020-01-18 04:54] LABS: ALANINE AMINOTRANSFERASE 22 U/L (12-78); ALKALINE PHOSPHATASE 69 U/L (45-117); BILIRUBIN,TOTAL 0.6 mg/dL (0.2-1.0); CREATININE 1.11 mg/dL (0.55-1.02); TOTAL PROTEIN 6.2 g/dL (6.4-8.2)
[2020-01-18] MEDS: HEPARIN 5,000 UNITS/ML, 1ML SQ SCH ×3 (05:00→20:42)
[2020-01-18 06:52] VITALS: BP 123/83
[2020-01-18] MEDS: MULTIVITAMINS/MINERALS TABLET PO SCH (08:31)
[2020-01-18] MEDS: LEVETIRACETAM 500 MG TABLET PO SCH ×2 (08:31→20:42)
[2020-01-18] MEDS: THIAMINE 100MG TABLET PO SCH (08:32)
[2020-01-18] MEDS: FOLIC ACID 1 MG TABLET PO SCH (08:32)
[2020-01-18] MEDS: NICOTINE 21 MG/24 HR PATCH.TD24 TD SCH (11:05)
[2020-01-18 13:25] VITALS: BP 110/78
[2020-01-18 19:04] VITALS: BP 114/76
[2020-01-19] MEDS: POTASSIUM CHLORIDE 20 MEQ in LACTATED RINGERS 1,000 ML IV SCH ×4 (00:44→23:05)
[2020-01-19] MEDS: LORazepam 2 MG/ML, 1ML IVPush PRN ×4 (01:07→19:55)
[2020-01-19 01:18] VITALS: BP 105/72
[2020-01-19] MEDS: morphine SULFATE 10 MG/ML, 1ML IVPush PRN ×7 (02:39→22:17)
[2020-01-19] MEDS: HEPARIN 5,000 UNITS/ML, 1ML SQ SCH ×3 (05:13→20:31)
[2020-01-19 07:43] VITALS: BP 111/80
[2020-01-19] MEDS: FOLIC ACID 1 MG TABLET PO SCH (07:55)
[2020-01-19] MEDS: THIAMINE 100MG TABLET PO SCH (07:55)
[2020-01-19] MEDS: LEVETIRACETAM 500 MG TABLET PO SCH ×2 (07:55→20:30)
[2020-01-19] MEDS: MULTIVITAMINS/MINERALS TABLET PO SCH (07:55)
[2020-01-19] MEDS: NICOTINE 21 MG/24 HR PATCH.TD24 TD SCH (12:50)
[2020-01-19 13:45] VITALS: BP 110/79
[2020-01-19 21:01] VITALS: BP 112/82
[2020-01-20] MEDS: LORazepam 2 MG/ML, 1ML IVPush PRN (00:23)
[2020-01-20 01:30] VITALS: BP 101/92
[2020-01-20] MEDS: morphine SULFATE 10 MG/ML, 1ML IVPush PRN ×2 (01:50→05:58)
[2020-01-20] MEDS: HEPARIN 5,000 UNITS/ML, 1ML SQ SCH (05:12)
[2020-01-20] MEDS: POTASSIUM CHLORIDE 20 MEQ in LACTATED RINGERS 1,000 ML IV SCH (05:57)
[2020-01-20 08:00] VITALS: BP 106/76
[2020-01-20] MEDS: THIAMINE 100MG TABLET PO SCH (08:28)
[2020-01-20] MEDS: MULTIVITAMINS/MINERALS TABLET PO SCH (08:28)
[2020-01-20] MEDS: LEVETIRACETAM 500 MG TABLET PO SCH (08:28)
[2020-01-20] MEDS: FOLIC ACID 1 MG TABLET PO SCH (08:28)
[2020-01-20 09:34] VITALS: BP 106/74
[2020-01-20] MEDS ORDERED: FOLI-17 PO (09:50)
[2020-01-20] MEDS ORDERED: LEVE500T8 PO (09:50)
[2020-01-20] MEDS ORDERED: THIA100T67 PO (09:50)
[2020-01-20] MEDS ORDERED: NICO-485 TD (09:53)
[2020-01-20] MEDS ORDERED: NICO-486 TD (09:53)
[2020-01-20] MEDS ORDERED: NICO-487 TD (09:53)
== END 2020-01-20 10:10 | disposition left against medical advice (07) | DRG 438 ==
LOC: ED 07:39 → EDIP 08:36 → 3N 09:45
PROVIDERS: ADMIT Family Medicine; ATTEND Family Medicine
DX: K85.20 Alcohol induced acute pancreatitis without necrosis or infection (principal); N17.0 Acute kidney failure with tubular necrosis; F10.239 Alcohol dependence with withdrawal, unspecified; E86.0 Dehydration; K86.1 Other chronic pancreatitis; F20.9 Schizophrenia, unspecified; R73.9 Hyperglycemia, unspecified; G40.909 Epilepsy, unspecified, not intractable, without status epilepticus; Z59.0 Homelessness; Z87.891 Personal history of nicotine dependence; Z91.14 Patient's other noncompliance with medication regimen; Z90.49 Acquired absence of other specified parts of digestive tract; Z88.5 Allergy status to narcotic agent; Z71.6 Tobacco abuse counseling
CPT/HCPCS: 36415; 76700; 80053; 80307; 83690; 84478; 84703; 85025; 99285; G0378; J1644; J3480; J2060; J2270; J7030; J7120

== ENCOUNTER 2020-01-20 15:09 | Emergency (ER) | payer MEDICAID ==
[~2020-01-20] VITALS: Ht 154.9 cm; Wt 73.0 kg
[~2020-01-20 15:09] MED LIST changes: +LEVE500T8 PO; +NICO-485 TD; +NICO-487 TD
--- NOTE | 2020-01-20 15:23 | NUR ---
THIS IS A 44 YO FEMALE BIB [facility] FROM [facility], PATIENT STATED TO [facility] "I'M HAVING A PANCREATITIS FLARE UP". PATIENT C/O ACUTE RUQ ABD PAIN STARTING YESTERDAY, +N/V, "SIARRHEA THIS MORNING". WITH [facility], PATIENT WAS TACHCARDIC AT 118, CURRENTLY ON [facility] IN [facility] AT 87 BPM. PIV PLACED BY [facility], GIVEN 100 MCG FENTANYL, 250ML NS, AND 12.5MG PHENERGAN. PATIENT ON 2L NC DUE TO DESAT AFTER FENTANYL. ALL MONITORING IN PLACE, VSS, NAD AT THIS TIME. SHAWN KEMP TO BEDSIDE.
[2020-01-20] MEDS ORDERED: SODIUM CHLORIDE 0.9% 1,000ML IVBOLUS ONE (15:30)
[2020-01-20] MEDS ORDERED: SODIUM CHLORIDE FLUSH 10ML SYR IVF ONE (15:30)
[2020-01-20 15:53] LABS: ALANINE AMINOTRANSFERASE 27 U/L (12-78); ALBUMIN 2.7 g/dL (3.4-5.0); ANION GAP 7 mmol/L (5-15); CALCIUM 8.5 mg/dL (8.5-10.1); CHLORIDE 108 mmol/L (98-107); CREATININE 1.22 mg/dL (0.55-1.02)
[2020-01-20 15:55] LABS: ALKALINE PHOSPHATASE 58 U/L (45-117); BILIRUBIN,TOTAL 0.2 mg/dL (0.2-1.0); TOTAL PROTEIN 6.1 g/dL (6.4-8.2)
[2020-01-20 15:57] LABS: BASOPHILS # (AUTO) 0.02 x10^3/uL (0-0.1); BASOPHILS % (AUTO) 0 % (0-1); EOSINOPHILS # (AUTO) 0.02 x10^3/uL (0-0.4); EOSINOPHILS % (AUTO) 0 % (1-7); LYMPHOCYTES # (AUTO) 1.42 x10^3/uL (1-3.4); LYMPHOCYTES % (AUTO) 29 % (22-44); MD NO; MEAN CORPUSCULAR HEMOGLOBIN 27.7 pg (27.0-34.8); MEAN CORPUSCULAR HGB CONC 32.4 g/dL (32.4-35.8); MEAN CORPUSCULAR VOLUME 85.6 fL (80-100); MEAN PLATELET VOLUME 7.5 fL (7.4-10.4); MONOCYTES # (AUTO) 0.33 x10^3/uL (0.2-0.8); MONOCYTES % (AUTO) 7 % (2-9); NEUTROPHILS # (AUTO) 3.16 x10^3/uL (1.8-6.8); NEUTROPHILS % (AUTO) 64 % (42-75); PLATELET COUNT 170 x10^3/uL (130-400); RED BLOOD COUNT 3.46 x10^6/uL (3.82-5.3); RED CELL DISTRIBUTION WIDTH 18.7 % (9.6-15.2)
--- NOTE | 2020-01-20 16:17 | NUR ---
PATIENT RESTING ON GURNEY, VSS, IVF INFUSING. CALL LIGHT IN REACH
[2020-01-20 16:56] VITALS: BP 107/74
--- NOTE | 2020-01-20 16:56 | NUR ---
PATIENT C/O ABD PAIN AT THIS TIME. SHAWN KEMP NOTIFIED
--- NOTE | 2020-01-20 17:20 | NUR ---
PATIENT RIPPED IV OUT, URINATED ON FLOOR, AND STATES "I'M LEAVING THIS FUCKING PLACE". PATIENT AMBULATORY WITH STEADY GAIT OUT THROUGH DISCHARGE. SHAWN KEMP AWARE.
== END 2020-01-20 17:33 | disposition home or self-care (01) ==
LOC: ED 16:37
DX: R10.9 Unspecified abdominal pain (principal); R11.2 Nausea with vomiting, unspecified; R10.11 Right upper quadrant pain; F17.210 Nicotine dependence, cigarettes, uncomplicated
CPT/HCPCS: 36415; 80053; 80307; 83690; 85025; 99283

== ENCOUNTER 2020-01-21 07:48 | Inpatient (IN) | payer MEDICAID ==
[~2020-01-21] VITALS: Ht 154.9 cm; Wt 61.2 kg
--- NOTE | 2020-01-21 07:57 | NUR ---
TOMI MUÑOZ FROM [facility] D/T EPIGASTRIC PAIN RADIATING TO BACK. PT STATES PAIN WOKE HER UP FROM SLEEP. HX OF ETOH PANCREATITIS. PT RECENTLY ADMITTED TO [facility] FOR PANCREATITIS A "COUPLE WEEKS AGO." LAST DRINK "MONTHS AGO." +NAUSEA. DENIES FEVERS, CHILLS, COUGH, SORE THROAT. DENIES RECENT TRAVEL. 24 L THUMB. 3MG MORPHINE IV AND 325 ASA ADMINISTERED ENROUTE. WARM BLANKET AND BEARHUGGER PROVIDED TO PT.
[2020-01-21] MEDS ORDERED: ONDANSETRON 2MG/ML, 2ML ONE (07:58)
[2020-01-21] MEDS ORDERED: MAALOX/HYOSCYAMINE/LIDOCAINE 45 ML BTL ONE (07:58)
[2020-01-21] MEDS ORDERED: SODIUM CHLORIDE FLUSH 10ML SYR IVF ONE (08:00)
[2020-01-21] MEDS ORDERED: MAALOX/HYOSCYAMINE/LIDOCAINE 45 ML BTL PO ONE (08:00)
[2020-01-21] MEDS ORDERED: ONDANSETRON 2MG/ML, 2ML IVPush ONE (08:00)
--- NOTE | 2020-01-21 08:01 | NUR ---
PT MEDICATED PER EMAR FOR 8/10 EPIGASTRIC PAIN.
--- NOTE | 2020-01-21 08:17 | NUR ---
RN OBTAINED PT'S EKG. RN PROVIDED IT TO PROVIDER.
--- NOTE | 2020-01-21 08:42 | NUR ---
RN OBTAINED PT'S VITAL SIGNS. PT HYPOTENSIVE AT THIS TIME, 83/55. RN TO INFORM PROVIDER. PT ASSYMPTOMATIC AT THIS TIME.
[2020-01-21 08:47] LABS: BASOPHILS # (AUTO) 0.02 x10^3/uL (0-0.1); BASOPHILS % (AUTO) 0 % (0-1); EOSINOPHILS # (AUTO) 0.04 x10^3/uL (0-0.4); EOSINOPHILS % (AUTO) 1 % (1-7); LYMPHOCYTES # (AUTO) 1.24 x10^3/uL (1-3.4); LYMPHOCYTES % (AUTO) 23 % (22-44); MD NO; MEAN CORPUSCULAR HEMOGLOBIN 28.1 pg (27.0-34.8); MEAN CORPUSCULAR HGB CONC 32.2 g/dL (32.4-35.8); MEAN CORPUSCULAR VOLUME 87.2 fL (80-100); MEAN PLATELET VOLUME 6.9 fL (7.4-10.4); MONOCYTES # (AUTO) 0.22 x10^3/uL (0.2-0.8); MONOCYTES % (AUTO) 4 % (2-9); NEUTROPHILS # (AUTO) 3.76 x10^3/uL (1.8-6.8); NEUTROPHILS % (AUTO) 71 % (42-75); PLATELET COUNT 204 x10^3/uL (130-400); RED BLOOD COUNT 3.29 x10^6/uL (3.82-5.3)
[2020-01-21 08:51] LABS: ALANINE AMINOTRANSFERASE 28 U/L (12-78); ALBUMIN 2.6 g/dL (3.4-5.0); ANION GAP 7 mmol/L (5-15); CALCIUM 7.9 mg/dL (8.5-10.1); CHLORIDE 111 mmol/L (98-107); CREATININE 1.37 mg/dL (0.55-1.02)
[2020-01-21 08:55] LABS: ALKALINE PHOSPHATASE 54 U/L (45-117); BILIRUBIN,TOTAL 0.2 mg/dL (0.2-1.0); TOTAL PROTEIN 5.8 g/dL (6.4-8.2); TROPONIN I < 0.015 ng/mL (0.000-0.045)
[2020-01-21 08:59] LABS: RED CELL DISTRIBUTION WIDTH 19.4 % (9.6-15.2)
[2020-01-21] MEDS ORDERED: SODIUM CHLORIDE 0.9% 1,000ML IVBOLUS ONE ×3 (09:00→15:00)
--- NOTE | 2020-01-21 09:04 | NUR ---
FLUID BOLUS BEING ADMINISTERED FOR HYPOTENSION.
--- NOTE | 2020-01-21 09:10 | NUR ---
report taken from [facility], patient in bed, fluids running.
--- NOTE | 2020-01-21 09:11 | NUR ---
REPORT TO ALICIA VITAL.
--- NOTE | 2020-01-21 09:14 | NUR ---
PATIENT STATES STOMACH PAIN JUST ABOVE BELLY PAIN THAT BEGAN LAST NIGHT. SHE RATES IT A 10/10. SHE'S CALM AND IN BED.
--- NOTE | 2020-01-21 09:34 | NUR ---
PATIENT CAN'T PEE AT THIS TIME, GETTING FLUIDS. PATIENT LEFT FOR CT SCAN THEN WILL REASSESS.
--- NOTE | 2020-01-21 09:49 | NUR ---
PATIENT BACK FROM CT SCAN. PATIENT HELPED TO BATHROOM FOR URINE SAMPLE, THEN BACK IN BED ON MONITOR GETTING FLUIDS.
[2020-01-21] MEDS ORDERED: OMNIPAQUE 350 MG/ML, 100ML BOTTLE ONE (09:50)
[2020-01-21] MEDS ORDERED: HYDROmorphone 1 MG/ML, 1ML INJ ONE (10:06)
[2020-01-21] MEDS: HYDROmorphone 2 MG/ML, 1ML IVPush PRN ×4 (10:08→15:26)
--- NOTE | 2020-01-21 10:09 | NUR ---
MEDICATED PATIENT FOR PAIN, NO NAUSEA AND ON MONITOR.
[2020-01-21 10:22] LABS: HCG UR SG 1.022 (1.003-1.030)
[2020-01-21 10:24] LABS: CULTURE INDICATED? YES; MICROSCOPIC INDICATED
--- NOTE | 2020-01-21 10:29 | NUR ---
REPORT RECEIVED FROM ALICIA VITAL. ASSUMED CARE OF PT.
--- NOTE | 2020-01-21 11:38 | NUR ---
PT CURRENTLY RESTING ON GURNEY. PT SLEEPING ON GURNEY. PT AWAKENS EASILY TO NAME BEING CALLED. PT AO X 4. SKIN PWD. RESP EVEN AND UNLABORED. PT'S BP HYPOTENSIVE AT 84/53. DISCUSSED WITH RUBI MOTLEY AND SECOND LITER OF FLUID HUNG. PT REQUESTING FOOD AT THIS TIME. WILL DISCUSS WITH MD AND FEED ORDERED.
[2020-01-21] MEDS ORDERED: CEFTRIAXONE PMX 1GM/50ML 50 ML IV ONE (12:00)
[2020-01-21] MEDS ORDERED: CEFTRIAXONE PMX 1GM/50ML 50 ML ONE (12:34)
--- NOTE | 2020-01-21 12:43 | NUR ---
PT PROVIDED WITH MEAL TRAY AND WATER WITH OKAY BY DREA DAMON. PT AO X 4. SKIN PWD. RESP EVEN AND UNLABORED. NO ACUTE DISTRESS NOTED. PT UP TO RESTROOM AND BACK TO [facility]. STEADY UPON AMBULATION. PT AWARE SHE IS TO BE ADMITTED. PT ON CONT BP, CARDIAC AND O2 MONITORS. PT DENIES OTHER NEEDS AT THIS TIME. CALL LIGHT WITHIN REACH.
--- NOTE | 2020-01-21 13:45 | NUR ---
PT CURRENTLY RESTING ON GURTracour. PT DOZING ON GURTracour, AWAKENS EASILY TO NAME BEING CALLED. NO ACUTE DISTRESS NOTED. PT AO X 4. SKIN PWD. CALL LIGHT WITHIN REACH. WILL CONT TO MONITOR PT.
[2020-01-21] MEDS: SODIUM CHLORIDE 0.9% 1,000 ML IV SCH ×2 (13:56→17:02)
[2020-01-21] MEDS ORDERED: ACETAMINOPHEN 325 MG TABLET PO PRN (14:00)
[2020-01-21] MEDS ORDERED: ONDANSETRON 2MG/ML, 2ML IVPush PRN (14:00)
[2020-01-21] MEDS ORDERED: HYDROmorphone 2 MG/ML, 1ML IVPush PRN (14:00)
[2020-01-21] MEDS ORDERED: hydrALAzine 20 MG/ML, 1ML IVPush PRN (14:00)
[2020-01-21] MEDS ORDERED: LABETALOL 5MG/ML, 20ML IVPush PRN (14:00)
[2020-01-21] MEDS ORDERED: PROMETHAZINE 25 MG/ML, 1ML IM PRN (14:00)
--- NOTE | 2020-01-21 14:48 | NUR ---
REPORT TO ALICIA CHILDS ON MED/SURG. DISCUSSED HYPOTENSION WITH ADMITTING MD BUTLER. PT STILL TO GOT TO MED/SURG. DR. BUTLER ORDERED V.O. LACTIC ACID AND IV BOLUS OF 1 LITER AT 500CC/HR.
[2020-01-21] MEDS ORDERED: NICOTINE 14MG/24 HR PATCH.TD24 ONE (14:54)
[2020-01-21] MEDS: NICOTINE 14MG/24 HR PATCH.TD24 TD SCH (14:57)
--- NOTE | 2020-01-21 15:45 | NUR ---
PT AWARE SHE IS WAITING FOR TRANSPORTATION TO FLOOR. PT STEADY UPON AMBULATION TO RESTROOM AND BACK TO [facility]. PT REQUESTING PAIN MEDICATIONS, HOWEVER, BP IS 90/59. ADMITTING MD LUKE AWARE. PT EDUCATED ON DANGER OF OPIODS WITH HYPOTENSION. PT VERBALIZED UNDERSTANDING. PT INTERMITTENTLY DOZING ON [facility]. NO ACUTE DISTRESS NOTED AT THIS TIME. PT ON CONT BP, CARDIAC AND O2 MONITORS.
[2020-01-21 16:56] VITALS: BP 92/58
[2020-01-21] MEDS: morphine SULFATE 10 MG/ML, 1ML IVPush PRN ×3 (17:11→23:28)
[2020-01-21 18:49] VITALS: BP 102/69
[2020-01-21] MEDS ORDERED: PROPOFOL 10 MG/ML, 20ML ONE (23:53)
[2020-01-21] MEDS ORDERED: FENTANYL PF 100 MCG/2ML ONE (23:53)
[2020-01-22 00:24] VITALS: BP 108/68
[2020-01-22] MEDS: SODIUM CHLORIDE 0.9% 1,000 ML IV SCH ×3 (00:50→16:52)
[2020-01-22] MEDS: morphine SULFATE 10 MG/ML, 1ML IVPush PRN ×8 (02:41→23:41)
[2020-01-22 05:14] LABS: BASOPHILS # (AUTO) 0.02 x10^3/uL (0-0.1); BASOPHILS % (AUTO) 1 % (0-1); EOSINOPHILS % (AUTO) 2 % (1-7); LYMPHOCYTES # (AUTO) 2.17 x10^3/uL (1-3.4); LYMPHOCYTES % (AUTO) 55 % (22-44); MD NO; MEAN CORPUSCULAR HEMOGLOBIN 28.2 pg (27.0-34.8); MEAN CORPUSCULAR HGB CONC 32.3 g/dL (32.4-35.8); MEAN CORPUSCULAR VOLUME 87.2 fL (80-100); MEAN PLATELET VOLUME 7.2 fL (7.4-10.4); MONOCYTES # (AUTO) 0.22 x10^3/uL (0.2-0.8); MONOCYTES % (AUTO) 6 % (2-9); NEUTROPHILS # (AUTO) 1.46 x10^3/uL (1.8-6.8); NEUTROPHILS % (AUTO) 37 % (42-75); PLATELET COUNT 166 x10^3/uL (130-400); RED BLOOD COUNT 2.74 x10^6/uL (3.82-5.3); RED CELL DISTRIBUTION WIDTH 20.5 % (9.6-15.2)
[2020-01-22 05:18] LABS: INTERNATIONAL NORMALIZED RATIO 1.08 (0.93-1.1); PROTHROMBIN TIME 11.5 Seconds (9.6-11.5)
[2020-01-22 05:25] LABS: ALBUMIN 2.1 g/dL (3.4-5.0); ANION GAP 6 mmol/L (5-15); CALCIUM 7.2 mg/dL (8.5-10.1); CHLORIDE 114 mmol/L (98-107)
[2020-01-22 05:29] LABS: ALANINE AMINOTRANSFERASE 27 U/L (12-78); ALKALINE PHOSPHATASE 48 U/L (45-117); BILIRUBIN,TOTAL 0.4 mg/dL (0.2-1.0); CREATININE 0.79 mg/dL (0.55-1.02); TOTAL PROTEIN 4.9 g/dL (6.4-8.2)
[2020-01-22 07:07] VITALS: BP 97/61
[2020-01-22] MEDS ORDERED: SUCCINYLCHOLINE 20 MG/ML, 10ML ONE (10:12)
[2020-01-22] MEDS ORDERED: PROPOFOL 10 MG/ML, 20ML ONE (10:12)
[2020-01-22] MEDS ORDERED: ONDANSETRON 2MG/ML, 2ML ONE (10:12)
[2020-01-22] MEDS ORDERED: DEXAMETHASONE 4 MG/ML, 1ML ONE (10:12)
[2020-01-22] MEDS ORDERED: LABETALOL 5MG/ML, 20ML IV PRN (10:30)
[2020-01-22] MEDS ORDERED: DIAZEPAM 5 MG/ML, 2ML IV PRN ×2 (10:30)
[2020-01-22] MEDS ORDERED: METOCLOPRAMIDE 5 MG/ML, 2ML IV PRN (10:30)
[2020-01-22] MEDS ORDERED: HYDROmorphone 1 MG/ML, 1ML INJ IV PRN (10:30)
[2020-01-22] MEDS ORDERED: PROMETHAZINE 25 MG/ML, 1ML IV PRN (10:30)
[2020-01-22] MEDS ORDERED: OXYcodone 5 MG/5 ML ORAL.SOL UDC PO PRN (10:30)
[2020-01-22] MEDS ORDERED: ONDANSETRON 2MG/ML, 2ML IVPush PRN (10:30)
[2020-01-22] MEDS ORDERED: KETOROLAC 30 MG/1 ML IV PRN (10:30)
[2020-01-22] MEDS ORDERED: hydrALAzine 20 MG/ML, 1ML IV PRN (10:30)
[2020-01-22] MEDS ORDERED: ALBUTEROL SULFATE 2.5 MG/3 ML NPPB PRN (10:30)
[2020-01-22] MEDS ORDERED: MEPERIDINE/PF 25MG/0.5ML IVPush PRN (10:30)
[2020-01-22] MEDS ORDERED: FENTANYL PF 100 MCG/2ML ONE (10:51)
[2020-01-22] MEDS: FENTANYL PF 100 MCG/2ML IV PRN ×2 (10:52→11:07)
[2020-01-22 12:41] VITALS: BP 114/76
[2020-01-22] MEDS: OMEPRAZOLE 20 MG CAPSULE.DR PO SCH (13:22)
[2020-01-22] MEDS: NICOTINE 14MG/24 HR PATCH.TD24 TD SCH (13:54)
[2020-01-22] MEDS: POTASSIUM CHLORIDE 20 MEQ TAB.ER.PRT PO SCH (16:52)
[2020-01-22 20:16] VITALS: BP 130/86
[2020-01-23 01:15] VITALS: BP 88/46
[2020-01-23 01:18] VITALS: BP 114/75
[2020-01-23] MEDS: SODIUM CHLORIDE 0.9% 1,000 ML IV SCH (02:45)
[2020-01-23] MEDS: morphine SULFATE 10 MG/ML, 1ML IVPush PRN ×7 (02:46→21:55)
[2020-01-23] MEDS: OMEPRAZOLE 20 MG CAPSULE.DR PO SCH (05:50)
[2020-01-23 06:04] LABS: BASOPHILS # (AUTO) 0.02 x10^3/uL (0-0.1); BASOPHILS % (AUTO) 1 % (0-1); EOSINOPHILS # (AUTO) 0.08 x10^3/uL (0-0.4); EOSINOPHILS % (AUTO) 3 % (1-7); LYMPHOCYTES # (AUTO) 1.73 x10^3/uL (1-3.4); LYMPHOCYTES % (AUTO) 52 % (22-44); MD NO; MEAN CORPUSCULAR HEMOGLOBIN 28.5 pg (27.0-34.8); MEAN CORPUSCULAR HGB CONC 32.4 g/dL (32.4-35.8); MEAN PLATELET VOLUME 6.8 fL (7.4-10.4); MONOCYTES % (AUTO) 12 % (2-9); NEUTROPHILS # (AUTO) 1.11 x10^3/uL (1.8-6.8); NEUTROPHILS % (AUTO) 33 % (42-75); PLATELET COUNT 185 x10^3/uL (130-400); RED BLOOD COUNT 2.84 x10^6/uL (3.82-5.3)
[2020-01-23 06:15] LABS: CHLORIDE 113 mmol/L (98-107)
[2020-01-23 06:27] LABS: ALANINE AMINOTRANSFERASE 44 U/L (12-78); ALBUMIN 2.3 g/dL (3.4-5.0); ALKALINE PHOSPHATASE 52 U/L (45-117); ANION GAP 6 mmol/L (5-15); BILIRUBIN,TOTAL 0.3 mg/dL (0.2-1.0); CALCIUM 7.7 mg/dL (8.5-10.1); CREATININE 0.52 mg/dL (0.55-1.02); TOTAL PROTEIN 5.2 g/dL (6.4-8.2)
[2020-01-23 06:57] VITALS: BP 109/68
[2020-01-23] MEDS: POTASSIUM CHLORIDE 20 MEQ TAB.ER.PRT PO SCH ×2 (09:22→15:46)
[2020-01-23] MEDS: NICOTINE 14MG/24 HR PATCH.TD24 TD SCH (12:42)
[2020-01-23] MEDS ORDERED: SODIUM CHLORIDE 0.9% 1,000 ML IV SCH (13:56)
[2020-01-23 15:24] VITALS: BP 108/71
[2020-01-23] MEDS ORDERED: IRON DEXTRAN COMPLEX IV ONE (18:30)
[2020-01-23] MEDS ORDERED: IRON DEXTRAN COMPLEX 25 MG in SODIUM CHLORIDE 0.9% 50 ML IV ONE (18:30)
[2020-01-23] MEDS ORDERED: SODIUM CHLORIDE 0.9% IV ONE (18:30)
[2020-01-23] MEDS: PANCRELIPASE 24,000 CAPSULE.DR PO SCH (18:50)
[2020-01-23] MEDS ORDERED: EPINEPHRINE 1 MG/ML, 1ML IV PRN (19:00)
[2020-01-23 19:51] VITALS: BP 103/68
[2020-01-24] MEDS: morphine SULFATE 10 MG/ML, 1ML IVPush PRN ×2 (00:58→04:01)
[2020-01-24 01:28] VITALS: BP 114/78
[2020-01-24] MEDS: OMEPRAZOLE 20 MG CAPSULE.DR PO SCH (05:24)
[2020-01-24 06:25] LABS: BASOPHILS # (AUTO) 0.02 x10^3/uL (0-0.1); BASOPHILS % (AUTO) 1 % (0-1); EOSINOPHILS # (AUTO) 0.07 x10^3/uL (0-0.4); EOSINOPHILS % (AUTO) 2 % (1-7); LYMPHOCYTES # (AUTO) 1.92 x10^3/uL (1-3.4); LYMPHOCYTES % (AUTO) 50 % (22-44); MD NO; MEAN CORPUSCULAR HEMOGLOBIN 29.2 pg (27.0-34.8); MEAN CORPUSCULAR HGB CONC 33.1 g/dL (32.4-35.8); MEAN CORPUSCULAR VOLUME 88.3 fL (80-100); MEAN PLATELET VOLUME 7.2 fL (7.4-10.4); MONOCYTES # (AUTO) 0.45 x10^3/uL (0.2-0.8); MONOCYTES % (AUTO) 12 % (2-9); NEUTROPHILS # (AUTO) 1.41 x10^3/uL (1.8-6.8); NEUTROPHILS % (AUTO) 36 % (42-75); PLATELET COUNT 223 x10^3/uL (130-400); RED BLOOD COUNT 3.25 x10^6/uL (3.82-5.3); RED CELL DISTRIBUTION WIDTH 20.7 % (9.6-15.2)
[2020-01-24 06:33] LABS: ALBUMIN 2.7 g/dL (3.4-5.0); ANION GAP 5 mmol/L (5-15); CALCIUM 8.4 mg/dL (8.5-10.1); CHLORIDE 109 mmol/L (98-107); CREATININE 0.51 mg/dL (0.55-1.02)
[2020-01-24 06:35] LABS: ALANINE AMINOTRANSFERASE 46 U/L (12-78); ALKALINE PHOSPHATASE 62 U/L (45-117); BILIRUBIN,TOTAL 0.4 mg/dL (0.2-1.0); TOTAL PROTEIN 6.1 g/dL (6.4-8.2)
[2020-01-24 07:32] VITALS: BP 104/72
[2020-01-24] MEDS: PANCRELIPASE 24,000 CAPSULE.DR PO SCH ×3 (09:13→17:07)
[2020-01-24] MEDS: MAGNESIUM OXIDE 400 MG TABLET PO SCH ×2 (09:13→22:17)
[2020-01-24] MEDS: OXYcodone/APAP 5/325MG TABLET PO PRN ×3 (10:10→23:11)
[2020-01-24] MEDS: ENOXAPARIN 40 MG/0.4 ML SQ SCH (11:00)
[2020-01-24] MEDS ORDERED: morphine SULFATE/PF 0.5 MG/ML, 10ML IV PRN (11:00)
[2020-01-24] MEDS: NICOTINE 14MG/24 HR PATCH.TD24 TD SCH (13:12)
[2020-01-24 13:23] VITALS: BP 98/64
[2020-01-24] MEDS: GABAPENTIN 300 MG CAPSULE PO SCH ×2 (17:07→22:17)
[2020-01-24] MEDS: MORPHINE SULFATE 4 MG/ML, 1ML IV PRN (18:47)
[2020-01-24 18:54] VITALS: BP 99/67
[2020-01-25 00:16] VITALS: BP 97/62
[2020-01-25] MEDS: MORPHINE SULFATE 4 MG/ML, 1ML IV PRN (00:50)
[2020-01-25] MEDS: OXYcodone/APAP 5/325MG TABLET PO PRN ×2 (05:14→12:34)
[2020-01-25] MEDS: OMEPRAZOLE 20 MG CAPSULE.DR PO SCH (05:14)
[2020-01-25 05:49] LABS: BASOPHILS # (AUTO) 0.03 x10^3/uL (0-0.1); BASOPHILS % (AUTO) 1 % (0-1); EOSINOPHILS # (AUTO) 0.07 x10^3/uL (0-0.4); EOSINOPHILS % (AUTO) 2 % (1-7); LYMPHOCYTES # (AUTO) 2.08 x10^3/uL (1-3.4); LYMPHOCYTES % (AUTO) 46 % (22-44); MD NO; MEAN CORPUSCULAR HEMOGLOBIN 28.5 pg (27.0-34.8); MEAN CORPUSCULAR HGB CONC 32.4 g/dL (32.4-35.8); MEAN PLATELET VOLUME 7.7 fL (7.4-10.4); MONOCYTES # (AUTO) 0.54 x10^3/uL (0.2-0.8); MONOCYTES % (AUTO) 12 % (2-9); NEUTROPHILS # (AUTO) 1.77 x10^3/uL (1.8-6.8); NEUTROPHILS % (AUTO) 40 % (42-75); PLATELET COUNT 244 x10^3/uL (130-400); RED BLOOD COUNT 3.35 x10^6/uL (3.82-5.3); RED CELL DISTRIBUTION WIDTH 20.5 % (9.6-15.2)
[2020-01-25 06:23] LABS: ALBUMIN 2.6 g/dL (3.4-5.0); ANION GAP 7 mmol/L (5-15); CALCIUM 8.7 mg/dL (8.5-10.1); CHLORIDE 106 mmol/L (98-107)
[2020-01-25 06:34] LABS: ALKALINE PHOSPHATASE 62 U/L (45-117); BILIRUBIN,TOTAL 0.2 mg/dL (0.2-1.0); CREATININE 0.64 mg/dL (0.55-1.02); TOTAL PROTEIN 5.8 g/dL (6.4-8.2)
[2020-01-25 06:43] LABS: ALANINE AMINOTRANSFERASE 31 U/L (12-78)
[2020-01-25 07:14] VITALS: BP 94/59
[2020-01-25] MEDS: GABAPENTIN 300 MG CAPSULE PO SCH (09:09)
[2020-01-25] MEDS: PANCRELIPASE 24,000 CAPSULE.DR PO SCH ×2 (09:09→12:33)
[2020-01-25] MEDS: MAGNESIUM OXIDE 400 MG TABLET PO SCH (09:09)
[2020-01-25] MEDS: ENOXAPARIN 40 MG/0.4 ML SQ SCH (11:02)
[2020-01-25] MEDS: NICOTINE 14MG/24 HR PATCH.TD24 TD SCH (12:33)
[2020-01-25 13:33] VITALS: BP 100/65
[2020-01-25] MEDS ORDERED: LIPA1CAP61 PO (15:22)
[2020-01-25] MEDS ORDERED: GABA300C10 PO (15:22)
[2020-01-25] MEDS ORDERED: OMEP-110 PO (15:22)
[2020-01-25] MEDS ORDERED: MAGN400T9 PO (15:24)
[2020-01-25] MEDS ORDERED: MULT-500 PO (15:25)
== END 2020-01-25 16:21 | disposition home or self-care (01) | DRG 300 ==
LOC: ED 07:56 → EDIP 13:27 → 3N 16:28
PROVIDERS: ADMIT Internal Medicine; ATTEND Internal Medicine
PROC: 0DJ08ZZ Inspection of Upper Intestinal Tract, Via Natural or Artificial Opening Endoscopic (ICD-10-PCS; principal; 2020-01-22 14:15)
DX: I86.4 Gastric varices (principal); K86.3 Pseudocyst of pancreas; K76.6 Portal hypertension; K86.0 Alcohol-induced chronic pancreatitis; D64.9 Anemia, unspecified; E83.42 Hypomagnesemia; F17.210 Nicotine dependence, cigarettes, uncomplicated; F20.9 Schizophrenia, unspecified; G40.909 Epilepsy, unspecified, not intractable, without status epilepticus; G89.29 Other chronic pain; I72.8 Aneurysm of other specified arteries; K31.89 Other diseases of stomach and duodenum; K76.0 Fatty (change of) liver, not elsewhere classified; R73.9 Hyperglycemia, unspecified; F10.20 Alcohol dependence, uncomplicated; Y90.9 Presence of alcohol in blood, level not specified; N30.90 Cystitis, unspecified without hematuria; Z59.0 Homelessness; Z87.19 Personal history of other diseases of the digestive system; Z91.14 Patient's other noncompliance with medication regimen; Z91.19 Patient's noncompliance with other medical treatment and regimen; Z79.899 Other long term (current) drug therapy; Z88.8 Allergy status to other drugs, medicaments and biological substances; Z90.49 Acquired absence of other specified parts of digestive tract
CPT/HCPCS: 36415; 71045; 74177; 74181; 80053; 80307; 81001; 81025; 82607; 82728; 83540; 83550; 83605; 83690; 83735; 84443; 84484; 85025; 85610; 87040; 87086; 93005; 96361; 96365; 96375; 99285; G0378; J0696; J1100; J1170; J1750; J2405; J2704; J3010; Q9967; J0330; J2270; J7030; J7050

== ENCOUNTER 2020-01-30 01:22 | Emergency (ER) | payer MEDICAID ==
[~2020-01-30] VITALS: Ht 154.9 cm; Wt 60.0 kg
[~2020-01-30 01:22] MED LIST changes: +LIPA1CAP61 PO; +MAGN400T9 PO; +MULT-500 PO; +OMEP-110 PO
[2020-01-30 01:27] VITALS: BP 90/59
--- NOTE | 2020-01-30 01:41 | NUR ---
EPIGASTRIC PAIN SINCE THIS MORNING. +N/V 06/24. LAST DRINK TODAY, 1 PINT
[2020-01-30 02:04] LABS: MEAN CORPUSCULAR HEMOGLOBIN 28.6 pg (27.0-34.8); MEAN CORPUSCULAR HGB CONC 32.1 g/dL (32.4-35.8); MEAN CORPUSCULAR VOLUME 89.3 fL (80-100); MEAN PLATELET VOLUME 6.5 fL (7.4-10.4); PLATELET COUNT 447 x10^3/uL (130-400); RED BLOOD COUNT 3.69 x10^6/uL (3.82-5.3); RED CELL DISTRIBUTION WIDTH 22.9 % (9.6-15.2)
[2020-01-30 02:06] LABS: ALANINE AMINOTRANSFERASE 73 U/L (12-78); ALBUMIN 2.8 g/dL (3.4-5.0); ANION GAP 10 mmol/L (5-15); CALCIUM 7.4 mg/dL (8.5-10.1); CHLORIDE 113 mmol/L (98-107); CREATININE 0.57 mg/dL (0.55-1.02)
[2020-01-30 02:08] LABS: ALKALINE PHOSPHATASE 82 U/L (45-117); BILIRUBIN,TOTAL 0.2 mg/dL (0.2-1.0); TOTAL PROTEIN 6.5 g/dL (6.4-8.2)
[2020-01-30 02:28] LABS: BASOPHILS # (AUTO) 0.09 x10^3/uL (0-0.1); BASOPHILS % (AUTO) 2 % (0-1); EOSINOPHILS # (AUTO) 0.02 x10^3/uL (0-0.4); EOSINOPHILS % (AUTO) 1 % (1-7); LYMPHOCYTES # (AUTO) 2.46 x10^3/uL (1-3.4); LYMPHOCYTES % (AUTO) 50 % (22-44); MD SCAN; MONOCYTES # (AUTO) 0.58 x10^3/uL (0.2-0.8); MONOCYTES % (AUTO) 12 % (2-9); NEUTROPHILS # (AUTO) 1.74 x10^3/uL (1.8-6.8); NEUTROPHILS % (AUTO) 36 % (42-75)
--- NOTE | 2020-01-30 02:41 | NUR ---
pt resting on gurney under blankets, eyes closed. respirations even and unlabored.
--- NOTE | 2020-01-30 03:15 | NUR ---
pt ambulatory to the discharge with steady gait
== END 2020-01-30 03:17 | disposition home or self-care (01) ==
LOC: ED 01:40
DX: K86.0 Alcohol-induced chronic pancreatitis (principal); F10.120 Alcohol abuse with intoxication, uncomplicated; F17.210 Nicotine dependence, cigarettes, uncomplicated; Z90.49 Acquired absence of other specified parts of digestive tract; Z95.828 Presence of other vascular implants and grafts; Y90.9 Presence of alcohol in blood, level not specified
CPT/HCPCS: 36415; 80053; 80307; 83690; 85025; 99283

== ENCOUNTER 2020-02-04 06:59 | Emergency (ER) | payer MEDICAID ==
[~2020-02-04] VITALS: Ht 154.9 cm; Wt 55.0 kg
[~2020-02-04 06:59] MED LIST changes: -CALC-666 PO; +CALC500T14 PO; -PANT20TA3 PO; +PANT20TA4 PO
[2020-02-04] MEDS ORDERED: LORazepam 2 MG/ML, 1ML IVPush ONE (07:30)
[2020-02-04] MEDS ORDERED: LORazepam 2 MG/ML, 1ML ONE (07:34)
--- NOTE | 2020-02-04 07:43 | NUR ---
BIB EMS FOR SEIZURE. PT STATES SHE HAD SEIZURE FOR 3 MIN SITTING. NO INJURY. PT BEEN OFF KEPPRA FOR 3 YEARS. VSS. LABS DRAWN. MEDICATED PER ORDERS.
[2020-02-04] MEDS ORDERED: LEVETIRACETAM 500 MG TABLET PO ONE (08:00)
[2020-02-04 08:05] LABS: MEAN CORPUSCULAR HEMOGLOBIN 29.5 pg (27.0-34.8); MEAN CORPUSCULAR HGB CONC 32.3 g/dL (32.4-35.8); MEAN PLATELET VOLUME 6.4 fL (7.4-10.4); PLATELET COUNT 343 x10^3/uL (130-400); RED BLOOD COUNT 3.43 x10^6/uL (3.82-5.3); RED CELL DISTRIBUTION WIDTH 24.4 % (9.6-15.2)
[2020-02-04 08:09] LABS: ALBUMIN 3.1 g/dL (3.4-5.0); ANION GAP 14 mmol/L (5-15); CALCIUM 7.9 mg/dL (8.5-10.1); CHLORIDE 100 mmol/L (98-107)
[2020-02-04 08:16] LABS: ALANINE AMINOTRANSFERASE 44 U/L (12-78); ALKALINE PHOSPHATASE 147 U/L (45-117); BILIRUBIN,TOTAL 1.8 mg/dL (0.2-1.0); CREATININE 0.56 mg/dL (0.55-1.02)
[2020-02-04] MEDS ORDERED: LEVETIRACETAM 500 MG TABLET ONE (08:21)
[2020-02-04 08:32] LABS: BASOPHILS # (AUTO) 0.07 x10^3/uL (0-0.1); BASOPHILS % (AUTO) 1 % (0-1); EOSINOPHILS # (AUTO) 0.02 x10^3/uL (0-0.4); EOSINOPHILS % (AUTO) 0 % (1-7); LYMPHOCYTES # (AUTO) 0.82 x10^3/uL (1-3.4); LYMPHOCYTES % (AUTO) 11 % (22-44); MD SCAN; MONOCYTES # (AUTO) 0.32 x10^3/uL (0.2-0.8); MONOCYTES % (AUTO) 4 % (2-9); NEUTROPHILS # (AUTO) 6.36 x10^3/uL (1.8-6.8); NEUTROPHILS % (AUTO) 84 % (42-75)
--- NOTE | 2020-02-04 09:00 | NUR ---
pt amublated to bathroom. steady gait. vss
[2020-02-04 09:47] VITALS: BP 124/87
--- NOTE | 2020-02-04 10:01 | NUR ---
Patient/Caregiver given discharge instructions and they have confirmed that they understand the instructions. Patient ambulatory with steady gait.
== END 2020-02-04 10:17 | disposition home or self-care (01) ==
LOC: ED 07:59
DX: K86.1 Other chronic pancreatitis (principal); R56.9 Unspecified convulsions; R10.9 Unspecified abdominal pain; I95.9 Hypotension, unspecified; E87.6 Hypokalemia; Z90.49 Acquired absence of other specified parts of digestive tract; Z76.0 Encounter for issue of repeat prescription
CPT/HCPCS: 36415; 80053; 83690; 84703; 85025; 96374; 99283; J2060

== ENCOUNTER 2020-02-19 15:40 | Emergency (ER) | payer MEDICAID ==
[~2020-02-19] VITALS: Ht 154.9 cm; Wt 63.5 kg
[~2020-02-19 15:40] MED LIST changes: +CALC-666 PO; -CALC500T14 PO; +PANT20TA3 PO; -PANT20TA4 PO
--- NOTE | 2020-02-19 15:45 | NUR ---
MANY, PA BS FOR EXAM. PT ADMITS TO ETOH INTAKE "ALOT". PER EMS, PT REPORTED NOT TAKING HER KEPPRA.
--- NOTE | 2020-02-19 15:51 | NUR ---
SEIZURE PADS PLACED. BOUFFANT CAP PLACED ON PT - LICE IN HER HAIR
[2020-02-19] MEDS ORDERED: GABA-826 PO (16:08)
[2020-02-19] MEDS ORDERED: LEVE500T8 PO (16:08)
--- NOTE | 2020-02-19 16:13 | NUR ---
EKG AT BS
[2020-02-19 16:31] LABS: ALANINE AMINOTRANSFERASE 27 U/L (12-78); ALBUMIN 3.3 g/dL (3.4-5.0); ANION GAP 16 mmol/L (5-15); CALCIUM 8.2 mg/dL (8.5-10.1); CHLORIDE 106 mmol/L (98-107); CREATININE 0.65 mg/dL (0.55-1.02)
[2020-02-19 16:36] LABS: ALKALINE PHOSPHATASE 110 U/L (45-117); BILIRUBIN,TOTAL 0.5 mg/dL (0.2-1.0); TOTAL PROTEIN 8.3 g/dL (6.4-8.2)
[2020-02-19 16:50] LABS: BASOPHILS # (AUTO) 0.14 x10^3/uL (0-0.1); BASOPHILS % (AUTO) 1 % (0-1); EOSINOPHILS # (AUTO) 0.08 x10^3/uL (0-0.4); EOSINOPHILS % (AUTO) 1 % (1-7); LYMPHOCYTES # (AUTO) 2.82 x10^3/uL (1-3.4); LYMPHOCYTES % (AUTO) 26 % (22-44); MD MORPH REVIEW ONLY; MEAN CORPUSCULAR HEMOGLOBIN 29.4 pg (27.0-34.8); MEAN CORPUSCULAR HGB CONC 31.6 g/dL (32.4-35.8); MEAN CORPUSCULAR VOLUME 92.8 fL (80-100); MEAN PLATELET VOLUME 6.1 fL (7.4-10.4); MONOCYTES # (AUTO) 0.51 x10^3/uL (0.2-0.8); MONOCYTES % (AUTO) 5 % (2-9); NEUTROPHILS # (AUTO) 7.19 x10^3/uL (1.8-6.8); NEUTROPHILS % (AUTO) 67 % (42-75); PLATELET COUNT 909 x10^3/uL (130-400); RED BLOOD COUNT 4.38 x10^6/uL (3.82-5.3); RED CELL DISTRIBUTION WIDTH 25.1 % (9.6-15.2)
[2020-02-19 16:51] LABS: <PLATELET ESTIMATE> INCREASED; <PLT MORPHOLOGY> NORMAL PLT MORPH; ANISOCYTOSIS 1+
--- NOTE | 2020-02-19 16:52 | NUR ---
PT ASLEEP ON GURNEY. SEIZURE PADS IN PLACE. EVEN CHEST RISE & FALL NOTED.
[2020-02-19] MEDS ORDERED: SODIUM CHLORIDE 0.9% 1,000ML IVBOLUS ONE (17:00)
--- NOTE | 2020-02-19 17:00 | NUR ---
PT ENDORSED TO BREAK RN.
[2020-02-19 17:14] VITALS: BP 102/71
--- NOTE | 2020-02-19 17:15 | NUR ---
TASK RN: PT SLEEPING ON ANA. NADN. KEY.
--- NOTE | 2020-02-19 17:42 | NUR ---
PT REPORT FROM NI SHEPARD RN. PT CARE RESUMED. PT ASLEEP ON GURCORBIN, EVEN CHEST RISE & FALL NOTED, SEIZURE PADS IN PLACE.
--- NOTE | 2020-02-19 18:15 | NUR ---
PT AMBULATORY TO RN DESK. ACCOMPANIED PT BACK TO ROOM; GAIT STEADY.
== END 2020-02-19 18:25 | disposition left against medical advice (07) ==
LOC: ED 16:21
DX: K85.20 Alcohol induced acute pancreatitis without necrosis or infection (principal); R10.13 Epigastric pain; F10.220 Alcohol dependence with intoxication, uncomplicated; R11.2 Nausea with vomiting, unspecified; G40.909 Epilepsy, unspecified, not intractable, without status epilepticus; F17.200 Nicotine dependence, unspecified, uncomplicated; Z90.49 Acquired absence of other specified parts of digestive tract; Z72.9 Problem related to lifestyle, unspecified; Y90.0 Blood alcohol level of less than 20 mg/100 ml
CPT/HCPCS: 36415; 80053; 83690; 84703; 85025; 93005; 99284

== ENCOUNTER 2020-02-22 13:26 | Emergency (ER) | payer MEDICAID ==
[~2020-02-22] VITALS: Ht 154.9 cm; Wt 70.0 kg
[2020-02-22 13:29] VITALS: BP 120/80
[2020-02-22] MEDS ORDERED: FAMOTIDINE 20 MG TABLET PO ONE (14:00)
[2020-02-22] MEDS ORDERED: MAALOX/HYOSCYAMINE/LIDOCAINE 45 ML BTL PO ONE (14:00)
[2020-02-22] MEDS ORDERED: MAALOX/HYOSCYAMINE/LIDOCAINE 45 ML BTL ONE (14:02)
[2020-02-22] MEDS ORDERED: FAMOTIDINE 20 MG TABLET ONE (14:02)
[2020-02-22 14:39] LABS: ALANINE AMINOTRANSFERASE 22 U/L (12-78); ANION GAP 14 mmol/L (5-15); CALCIUM 7.9 mg/dL (8.5-10.1); CHLORIDE 100 mmol/L (98-107); CREATININE 0.62 mg/dL (0.55-1.02)
[2020-02-22 14:41] LABS: ALKALINE PHOSPHATASE 122 U/L (45-117); BILIRUBIN,TOTAL 0.8 mg/dL (0.2-1.0); TOTAL PROTEIN 7.3 g/dL (6.4-8.2)
[2020-02-22 14:45] LABS: MEAN CORPUSCULAR HEMOGLOBIN 29.7 pg (27.0-34.8); MEAN CORPUSCULAR HGB CONC 32.4 g/dL (32.4-35.8); MEAN CORPUSCULAR VOLUME 91.7 fL (80-100); MEAN PLATELET VOLUME 6.5 fL (7.4-10.4); PLATELET COUNT 673 x10^3/uL (130-400); RED BLOOD COUNT 4.07 x10^6/uL (3.82-5.3); RED CELL DISTRIBUTION WIDTH 25.2 % (9.6-15.2)
[2020-02-22 15:26] LABS: MD MORPH REVIEW ONLY
[2020-02-22 15:27] LABS: ANISOCYTOSIS 1+; BASOPHILS # (AUTO) 0.11 x10^3/uL (0-0.1); BASOPHILS % (AUTO) 1 % (0-1); EOSINOPHILS # (AUTO) 0.03 x10^3/uL (0-0.4); EOSINOPHILS % (AUTO) 0 % (1-7); LYMPHOCYTES % (AUTO) 24 % (22-44); MONOCYTES # (AUTO) 0.34 x10^3/uL (0.2-0.8); MONOCYTES % (AUTO) 3 % (2-9); NEUTROPHILS # (AUTO) 7.91 x10^3/uL (1.8-6.8); NEUTROPHILS % (AUTO) 72 % (42-75)
[2020-02-22 15:28] LABS: <PLATELET ESTIMATE> INCREASED; <PLT MORPHOLOGY> NORMAL PLT MORPH; HYPOCHROMIA 1+
--- NOTE | 2020-02-22 15:29 | NUR ---
PT WAS REPEATEDLY ASKED TO PROVIDE A URINE SAMPLE. PT CLIMBED OUT OF HER BED AND URINATED ON THE FLOOR AND THEN GOT BACK IN BED. THEN PT ELOPED.
[2020-02-22] MEDS ORDERED: OXYcodone/APAP 5/325MG TABLET PO ONE (15:30)
[2020-02-22] MEDS ORDERED: ONDANSETRON ODT 4 MG PO ONE (15:30)
== END 2020-02-22 15:31 | disposition home or self-care (01) ==
LOC: ED 15:16
DX: K86.0 Alcohol-induced chronic pancreatitis (principal); F10.229 Alcohol dependence with intoxication, unspecified; R11.2 Nausea with vomiting, unspecified; I10 Essential (primary) hypertension; G40.909 Epilepsy, unspecified, not intractable, without status epilepticus; F17.200 Nicotine dependence, unspecified, uncomplicated; R10.13 Epigastric pain; Z90.49 Acquired absence of other specified parts of digestive tract; Y90.0 Blood alcohol level of less than 20 mg/100 ml
CPT/HCPCS: 36415; 80053; 83690; 85025; 99283

== ENCOUNTER 2020-03-07 08:20 | Emergency (ER) | payer MEDICAID ==
[~2020-03-07] VITALS: Ht 154.9 cm; Wt 68.2 kg
[2020-03-07] MEDS ORDERED: MAALOX/HYOSCYAMINE/LIDOCAINE 45 ML BTL PO ONE (08:30)
[2020-03-07] MEDS ORDERED: OXYcodone/APAP 10/325MG TABLET PO ONE (08:30)
[2020-03-07] MEDS ORDERED: FAMOTIDINE 20 MG TABLET PO ONE (08:30)
[2020-03-07] MEDS ORDERED: HYDROcodone/APAP 10/325 MG TABLET ONE (08:37)
[2020-03-07] MEDS ORDERED: FAMOTIDINE 20 MG TABLET ONE (08:37)
[2020-03-07] MEDS ORDERED: MAALOX/HYOSCYAMINE/LIDOCAINE 45 ML BTL ONE (08:38)
[2020-03-07] MEDS ORDERED: OXYcodone/APAP 10/325MG TABLET ONE (08:42)
[2020-03-07 08:58] LABS: ALANINE AMINOTRANSFERASE 242 U/L (12-78); ANION GAP 9 mmol/L (5-15); CALCIUM 8.4 mg/dL (8.5-10.1); CHLORIDE 106 mmol/L (98-107)
[2020-03-07 09:01] LABS: ALKALINE PHOSPHATASE 92 U/L (45-117); BILIRUBIN,TOTAL 0.4 mg/dL (0.2-1.0); CREATININE 0.51 mg/dL (0.55-1.02); TOTAL PROTEIN 6.9 g/dL (6.4-8.2)
[2020-03-07 09:06] LABS: MEAN CORPUSCULAR HEMOGLOBIN 30.8 pg (27.0-34.8); MEAN CORPUSCULAR HGB CONC 32.4 g/dL (32.4-35.8); MEAN CORPUSCULAR VOLUME 95.2 fL (80-100); MEAN PLATELET VOLUME 7.4 fL (7.4-10.4); PLATELET COUNT 212 x10^3/uL (130-400); RED BLOOD COUNT 3.94 x10^6/uL (3.82-5.3)
[2020-03-07 09:28] LABS: ANISOCYTOSIS 1+; BASOPHILS # (AUTO) 0.03 x10^3/uL (0-0.1); BASOPHILS % (AUTO) 1 % (0-1); EOSINOPHILS # (AUTO) 0.07 x10^3/uL (0-0.4); EOSINOPHILS % (AUTO) 1 % (1-7); LYMPHOCYTES # (AUTO) 1.37 x10^3/uL (1-3.4); LYMPHOCYTES % (AUTO) 30 % (22-44); MD MORPH REVIEW ONLY; MONOCYTES # (AUTO) 0.64 x10^3/uL (0.2-0.8); MONOCYTES % (AUTO) 14 % (2-9); NEUTROPHILS % (AUTO) 54 % (42-75); RED CELL DISTRIBUTION WIDTH 24.2 % (9.6-15.2)
[2020-03-07 09:29] LABS: <PLATELET ESTIMATE> ADEQUATE; <PLT MORPHOLOGY> NORMAL PLT MORPH
[2020-03-07 09:42] VITALS: BP 96/68
== END 2020-03-07 09:44 | disposition home or self-care (01) ==
LOC: ED 08:24
DX: K86.0 Alcohol-induced chronic pancreatitis (principal); R10.13 Epigastric pain; F10.10 Alcohol abuse, uncomplicated; G89.29 Other chronic pain; I10 Essential (primary) hypertension; F17.200 Nicotine dependence, unspecified, uncomplicated; Z90.49 Acquired absence of other specified parts of digestive tract; Y90.9 Presence of alcohol in blood, level not specified
CPT/HCPCS: 36415; 80053; 80307; 83690; 85025; 93005; 99284

== ENCOUNTER 2020-03-15 14:02 | Emergency (ER) | payer MEDICAID ==
[~2020-03-15] VITALS: Ht 154.9 cm; Wt 57.0 kg
--- NOTE | 2020-03-15 14:31 | NUR ---
BREAK RN NOTE: PT BIBA FOR PUBLIC INTOXICATION, C/O PERIUMBILICAL AND BILATERAL LOWER BACK PAIN. PT IS A POOR HISTORIAN, UNABLE TO STATE WHETHER OR NOT SHE HAS INJURY/TRAUMA. DENIES OTHER SX. PER EMS, PT AMBULATORY. PT ATTACHED TO BP AND SPO2 MONITORS. PT UNDRESSED AND PLACED IN GOWN. REPORT GIVEN TO PRIMARY RN ALONDRA.
--- NOTE | 2020-03-15 14:57 | NUR ---
PT SLEEPING ON GURNEY, CHEST RISE AND FALL OBSERVED. CONNECTED TO MONITORING. VSS, NADN.
--- NOTE | 2020-03-15 15:34 | NUR ---
PT SLEEPING ON GURNEY, CHEST RISE AND FALL OBSERVED. CONNECTED TO MONITORING. VSS, NADN. SIDE RAILS UPX2.
[2020-03-15 16:48] VITALS: BP 103/65
--- NOTE | 2020-03-15 16:50 | NUR ---
PT REFUSING TO ATTEMPT TO SIT UP ON GURNEY. WILL TRY TO AMBULATE AGAIN IN AN HOUR. PT RESTING ON GURNEY, CONNECTED TO MONITORING, VSS, NADN.
--- NOTE | 2020-03-15 17:31 | NUR ---
PT AMBULATED DOWN THE [facility]SHAD W/ A STEADY GAIT.
--- NOTE | 2020-03-15 17:39 | NUR ---
PT LEFT PRIOR TO RECEIVING DC [facility]WK.
== END 2020-03-15 17:41 | disposition home or self-care (01) ==
LOC: ED 17:39
DX: F10.129 Alcohol abuse with intoxication, unspecified (principal); I10 Essential (primary) hypertension; Y90.9 Presence of alcohol in blood, level not specified
CPT/HCPCS: 99283

== ENCOUNTER 2020-03-17 10:17 | Emergency (ER) | payer MEDICAID ==
[~2020-03-17] VITALS: Ht 154.9 cm; Wt 70.0 kg
[2020-03-17 10:17] VITALS: BP 137/92
--- NOTE | 2020-03-17 10:17 | NUR ---
Pt BIB [facility]/o [facility]F today onto her face. Old scabbed abrasion noted to pt's nose, appears to be well healing. Pt A&O x4, ambulatory with steady gait. Pt reports to EMS that she tripped and fell, pt reports to this RN that she passed out and fell, pt reports to MD that she had a seizure and fell. Pt also c/o RUQ abd pain, states hx of pancreatitis. Pt states last drink was 2 weeks ago, however ED records show that she was in ED 2 days ago intoxicated. Pt requesting pain medications for 10/10 abd pain. MD made aware. Pt positioned for comfort in bed, continuous oxygen, heart and BP monitors applied, all safety measures observed. Pt provided with warm blanket per request.
--- NOTE | 2020-03-17 10:43 | NUR ---
Per laboratory manager pt requesting to leave. This RN entered pt room, pt states "Am I going to get pain medication?" This RN advised pt that no medication is ordered at this time but the MD is aware of pt request for pain medication. Pt reports that she wants to leave. Pt dressed self fully and ambulated out of unit with steady gait, NADN.
--- NOTE | 2020-03-17 10:46 | NUR ---
made aware that pt left.
== END 2020-03-17 10:47 | disposition left against medical advice (07) ==
LOC: ED 10:41
DX: R10.13 Epigastric pain (principal); R55 Syncope and collapse; R10.9 Unspecified abdominal pain; I10 Essential (primary) hypertension; G40.909 Epilepsy, unspecified, not intractable, without status epilepticus; F17.200 Nicotine dependence, unspecified, uncomplicated; Z90.49 Acquired absence of other specified parts of digestive tract
CPT/HCPCS: 99283

== ENCOUNTER 2020-03-17 13:35 | Emergency (ER) | payer MEDICAID ==
--- NOTE | 2020-03-17 13:50 | NUR ---
MECHANIC FOREMAN. PT CALLED X1 TO TRIAGE, NO ANSWER.
--- NOTE | 2020-03-17 14:06 | NUR ---
CALLED X2 NO ANSWER
--- NOTE | 2020-03-17 14:29 | NUR ---
NO ANSWER X 3
== END 2020-03-17 14:30 | disposition left against medical advice (07) ==
LOC: ED 14:24
DX: K85.90 Acute pancreatitis without necrosis or infection, unspecified (principal); Z53.21 Procedure and treatment not carried out due to patient leaving prior to being seen by health care provider

== ENCOUNTER 2020-03-17 14:56 | Emergency (ER) | payer MEDICAID ==
[~2020-03-17] VITALS: Ht 154.9 cm; Wt 68.0 kg
--- NOTE | 2020-03-17 14:59 | NUR ---
OCCUPATIONAL THERAPY DIRECTOR. PT CALLED TO TRIAGE, NO ANSWER X1
[2020-03-17 15:05] VITALS: BP 110/78
--- NOTE | 2020-03-17 15:52 | NUR ---
ORDER DISPATCHER: PT TO ROOM FROM LOBBY VIA WHEELCHAIR AT THIS TIME. JORJE
--- NOTE | 2020-03-17 16:06 | NUR ---
PT AMBULATED TO RESTROOM WITH STEADY GAIT. PER PROVIDER, PT TO BE MTF.
--- NOTE | 2020-03-17 16:11 | NUR ---
PT CONNECTED TO MONITORING. CALL LIGHT IN REACH. WARM BLANKET PROVIDED.
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
== END 2020-03-17 21:39 | disposition left against medical advice (07) ==
LOC: ED 19:20
DX: K85.90 Acute pancreatitis without necrosis or infection, unspecified (principal); R10.9 Unspecified abdominal pain; M54.5 Low back pain; Z53.21 Procedure and treatment not carried out due to patient leaving prior to being seen by health care provider

== ENCOUNTER 2020-03-25 12:52 | Emergency (ER) | payer MEDICAID ==
[~2020-03-25] VITALS: Ht 162.6 cm; Wt 60.0 kg
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
[2020-03-25] MEDS ORDERED: ACETAMINOPHEN 500 MG TABLET ONE (13:24)
[2020-03-25] MEDS ORDERED: ACETAMINOPHEN 325 MG TABLET PO ONE (13:30)
--- NOTE | 2020-03-25 13:43 | NUR ---
pt to ct. meds per nov. as
[2020-03-25 13:49] LABS: ALBUMIN 3.4 g/dL (3.4-5.0); ANION GAP 9 mmol/L (5-15); CALCIUM 8.1 mg/dL (8.5-10.1); CHLORIDE 106 mmol/L (98-107); CREATININE 1.82 mg/dL (0.55-1.02)
--- NOTE | 2020-03-25 14:04 | NUR ---
back from ct oob to bathroom gait steady. as
[2020-03-25 14:05] LABS: MEAN CORPUSCULAR HEMOGLOBIN 30.9 pg (27.0-34.8); MEAN CORPUSCULAR HGB CONC 32.8 g/dL (32.4-35.8); MEAN CORPUSCULAR VOLUME 94.5 fL (80-100); MEAN PLATELET VOLUME 7.9 fL (7.4-10.4); PLATELET COUNT 92 x10^3/uL (130-400); RED BLOOD COUNT 3.83 x10^6/uL (3.82-5.3); RED CELL DISTRIBUTION WIDTH 23.6 % (9.6-15.2)
[2020-03-25 14:16] LABS: BASOPHILS # (AUTO) 0.01 x10^3/uL (0-0.1); BASOPHILS % (AUTO) 0 % (0-1); EOSINOPHILS # (AUTO) 0.06 x10^3/uL (0-0.4); EOSINOPHILS % (AUTO) 1 % (1-7); LYMPHOCYTES # (AUTO) 0.78 x10^3/uL (1-3.4); LYMPHOCYTES % (AUTO) 11 % (22-44); MD SCAN; MONOCYTES # (AUTO) 0.56 x10^3/uL (0.2-0.8); MONOCYTES % (AUTO) 8 % (2-9); NEUTROPHILS # (AUTO) 5.58 x10^3/uL (1.8-6.8); NEUTROPHILS % (AUTO) 80 % (42-75)
[2020-03-25] MEDS ORDERED: POTASSIUM CHLORIDE 20 MEQ TAB.ER.PRT PO ONE (14:30)
--- NOTE | 2020-03-25 14:41 | NUR ---
pt pulled iv out and left, then came back. pt now back in bed. as
[2020-03-25] MEDS ORDERED: POTASSIUM CHLORIDE 20 MEQ TAB.ER.PRT ONE (14:53)
[2020-03-25 15:00] VITALS: BP 123/86
--- NOTE | 2020-03-25 15:01 | NUR ---
KCL PER MAR, VSS. SZ PRECS IN PLACE.
--- NOTE | 2020-03-25 19:56 | NUR ---
CHART ACCESSED FOR RECORDS REQUEST FROM [facility].
== END 2020-03-25 15:51 | disposition home or self-care (01) ==
LOC: ED 13:40
DX: S00.12XA Contusion of left eyelid and periocular area, initial encounter (principal); S00.11XA Contusion of right eyelid and periocular area, initial encounter; G93.89 Other specified disorders of brain; M54.2 Cervicalgia; R51 Headache; M79.603 Pain in arm, unspecified; Z90.49 Acquired absence of other specified parts of digestive tract; Y04.8XXA Assault by other bodily force, initial encounter; Y93.89 Activity, other specified; Y92.488 Other paved roadways as the place of occurrence of the external cause; Y99.8 Other external cause status
CPT/HCPCS: 36415; 70450; 70486; 72125; 72128; 80048; 82040; 85025; 93005; 99285

== ENCOUNTER 2020-03-31 22:12 | Emergency (ER) | payer MEDICAID ==
[~2020-03-31] VITALS: Ht 154.9 cm; Wt 55.9 kg
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
[2020-03-31] MEDS ORDERED: SODIUM CHLORIDE FLUSH 10ML SYR IVF ONE (22:30)
[2020-03-31] MEDS ORDERED: SODIUM CHLORIDE 0.9% 1,000ML IVBOLUS ONE (22:30)
[2020-03-31] MEDS ORDERED: ONDANSETRON 2MG/ML, 2ML IVPush ONE (22:30)
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
--- NOTE | 2020-03-31 23:03 | NUR ---
SLEEPING QUIETLY, RESP RATE EVEN AND REGULAR, REMAINS IN CHAIR AT NURSES STATION FOR PT SAFETY.
--- NOTE | 2020-03-31 23:07 | NUR ---
PT REFUSING IV AT THIS TIME, OFFER PO ZOFRAN DECLINES, NOT VOMITING, WILL CONITNUE TO MONITOR. MOST UNFORTUNATE LADY
[2020-03-31 23:11] LABS: MEAN CORPUSCULAR HEMOGLOBIN 31.2 pg (27.0-34.8); MEAN CORPUSCULAR VOLUME 97.4 fL (80-100); MEAN PLATELET VOLUME 6.4 fL (7.4-10.4); PLATELET COUNT 333 x10^3/uL (130-400); RED BLOOD COUNT 4.25 x10^6/uL (3.82-5.3); RED CELL DISTRIBUTION WIDTH 22.3 % (9.6-15.2)
[2020-03-31 23:14] LABS: ALANINE AMINOTRANSFERASE 228 U/L (12-78); ALBUMIN 3.7 g/dL (3.4-5.0); ANION GAP 11 mmol/L (5-15); CALCIUM 7.6 mg/dL (8.5-10.1); CHLORIDE 110 mmol/L (98-107); CREATININE 0.54 mg/dL (0.55-1.02)
[2020-03-31 23:16] LABS: ALKALINE PHOSPHATASE 130 U/L (45-117); BILIRUBIN,TOTAL 0.5 mg/dL (0.2-1.0); TOTAL PROTEIN 7.9 g/dL (6.4-8.2)
[2020-03-31 23:43] VITALS: BP 96/74
--- NOTE | 2020-03-31 23:43 | NUR ---
REMAINS SEATED IN CHAIR AT NURSES STATION FOR PT SAFETY DUE TO LEVEL OF INTOXICATION, NO N/V CURRENTLY, ATTEMPTING TO DRINK VODKA, BOTTLE TAKEN AWAY.
[2020-03-31 23:49] LABS: MD YES
[2020-03-31 23:51] LABS: ANISOCYTOSIS 1+; EOS#(MANUAL) 0.05 x10^3/uL (0.0-0.4); EOS% (MANUAL) 1 % (1-7); HYPOCHROMIA 1+; LYMPH#(MANUAL) 2.39 x10^3/uL (1-3.4); LYMPHS% (MANUAL) 45 % (22-44); MONOS#(MANUAL) 0.16 x10^3/uL (0.3-2.7); MONOS% (MANUAL) 3 % (2-9); NRBC % (MANUAL) 1 % (0-1); SEGS% (MANUAL) 51 % (42-75); TARGET CELLS 1+
[2020-03-31 23:52] LABS: <PLATELET ESTIMATE> ADEQUATE; <PLT MORPHOLOGY> NORMAL PLT MORPH
--- NOTE | 2020-04-01 00:27 | NUR ---
SLEEPING QUIETLY IN WHEELCHAIR, RESP RATE EVEN AND REGULAR, WRAPPED IN WARM BLANKETS AND WITHIN VIEW OF NURSES STATION FOR PT SAFETY
--- NOTE | 2020-04-01 00:46 | NUR ---
REMAINS SEATED IN WHEELCHAIR AT NURSES STATION, ALERT AND ORIENTED TO SELF AND SITUATION, AWAIT SOBRIETY FOR SAFE DISCHARGE, REFUSE OFFERS OF FLUIDS
--- NOTE | 2020-04-01 01:10 | NUR ---
PT UP AND AMBULATING IN HALLWAY.
--- NOTE | 2020-04-01 01:15 | NUR ---
pt yelling and threatening staff, demanding return of her vodka, aware that this is no longer available. Security called and escorts pt out ambulance bay with steady gait
== END 2020-04-01 01:58 | disposition left against medical advice (07) ==
LOC: ED 22:59
DX: K86.1 Other chronic pancreatitis (principal); F10.229 Alcohol dependence with intoxication, unspecified; R94.5 Abnormal results of liver function studies; F17.210 Nicotine dependence, cigarettes, uncomplicated; G40.909 Epilepsy, unspecified, not intractable, without status epilepticus; Y90.9 Presence of alcohol in blood, level not specified
CPT/HCPCS: 36415; 80053; 80307; 83690; 85025; 99283; 99406

== ENCOUNTER 2020-04-03 13:47 | Emergency (ER) | payer MEDICAID ==
[~2020-04-03] VITALS: Ht 154.9 cm; Wt 65.0 kg
--- NOTE | 2020-04-03 14:01 | NUR ---
THIS IS A 44 YO F W/ C/O EPIGASTRIC ABD PAIN. PT HAS HX OF ETOH ABUSE AND PANCREATITIS. PT REPORTS DRINKING 1/2 PINT TODAY. PT RESTING ON GURNEY W/ CALL LIGHT IN REACH, RESP EVEN AND UNLABORED, NADN. CONNECTED TO MONITORING, VSS. AWAITING ED EVAL.
[2020-04-03 15:17] LABS: ALBUMIN 3.3 g/dL (3.4-5.0); ANION GAP 12 mmol/L (5-15); CHLORIDE 109 mmol/L (98-107)
[2020-04-03 16:08] VITALS: BP 96/59
--- NOTE | 2020-04-03 16:13 | NUR ---
PT REQUESTING VODKA, EDUCATED THAT ED DOES NOT SERVE ALCOHOL, PT STATES SHE LEAVING THEN. RECOMMENDED TO PT TO WAIT FOR LAB RESULTS. PT DRESSED SELF AND AMBULATED TO LOBBY W/ A STEADY GAIT.
== END 2020-04-03 16:16 | disposition left against medical advice (07) ==
LOC: ED 14:05
DX: F10.229 Alcohol dependence with intoxication, unspecified (principal); Z90.49 Acquired absence of other specified parts of digestive tract; Y90.9 Presence of alcohol in blood, level not specified
CPT/HCPCS: 36415; 80048; 80307; 82040; 83690; 99283

== ENCOUNTER 2020-04-03 17:37 | Emergency (ER) | payer MEDICAID ==
[~2020-04-03] VITALS: Ht 162.6 cm; Wt 55.0 kg
[2020-04-03 17:39] VITALS: BP 108/78
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
--- NOTE | 2020-04-03 17:44 | NUR ---
WHILE CHECKING PATIENT IN, MD CAME TO ASSESS AND PATIENT STATED SHE JUST WANTED TO LEAVE. SHE GOT UP, AND SAFELY WALKED OUT. ESCORTED HER TO DOOR, SHE WAS ADAMENT THAT NOTHING IS WRONG, SHE FEELS FINE AND SHE WALKED WITH EASE OUT THE DOOR.
== END 2020-04-03 18:09 | disposition left against medical advice (07) ==
LOC: ED 18:00
DX: F10.129 Alcohol abuse with intoxication, unspecified (principal); Y90.9 Presence of alcohol in blood, level not specified
CPT/HCPCS: 99283

== ENCOUNTER 2020-04-06 15:41 | Emergency (ER) | payer MEDICAID ==
[~2020-04-06] VITALS: Ht 162.6 cm; Wt 55.0 kg
[2020-04-06 15:45] VITALS: BP 133/72
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
[2020-04-06 16:30] LABS: MEAN CORPUSCULAR HEMOGLOBIN 31.3 pg (27.0-34.8); MEAN CORPUSCULAR HGB CONC 32.9 g/dL (32.4-35.8); MEAN CORPUSCULAR VOLUME 94.9 fL (80-100); MEAN PLATELET VOLUME 6.7 fL (7.4-10.4); PLATELET COUNT 409 x10^3/uL (130-400); RED BLOOD COUNT 4.01 x10^6/uL (3.82-5.3); RED CELL DISTRIBUTION WIDTH 20.4 % (9.6-15.2)
[2020-04-06 16:40] LABS: ALANINE AMINOTRANSFERASE 119 U/L (12-78); ALBUMIN 3.2 g/dL (3.4-5.0); ANION GAP 13 mmol/L (5-15); CALCIUM 8.1 mg/dL (8.5-10.1); CHLORIDE 103 mmol/L (98-107); CREATININE 1.24 mg/dL (0.55-1.02)
[2020-04-06 16:45] LABS: ALKALINE PHOSPHATASE 135 U/L (45-117); BILIRUBIN,TOTAL 0.9 mg/dL (0.2-1.0); TOTAL PROTEIN 7.4 g/dL (6.4-8.2)
[2020-04-06 16:50] LABS: BASOPHILS # (AUTO) 0.12 x10^3/uL (0-0.1); BASOPHILS % (AUTO) 2 % (0-1); EOSINOPHILS # (AUTO) 0.01 x10^3/uL (0-0.4); EOSINOPHILS % (AUTO) 0 % (1-7); LYMPHOCYTES # (AUTO) 1.65 x10^3/uL (1-3.4); LYMPHOCYTES % (AUTO) 30 % (22-44); MD SCAN; MONOCYTES # (AUTO) 0.53 x10^3/uL (0.2-0.8); MONOCYTES % (AUTO) 10 % (2-9); NEUTROPHILS # (AUTO) 3.15 x10^3/uL (1.8-6.8); NEUTROPHILS % (AUTO) 58 % (42-75)
--- NOTE | 2020-04-06 17:00 | NUR ---
PT RESTING IN NAD. VSS. WAITING FOR PT TO BE SAFE DISCHARGE AFTER ALCOHOL INTOXICATION.
--- NOTE | 2020-04-06 18:45 | NUR ---
PT NOT IN ROOM AT THIS TIME. ALL BELONGING ARE REMOVED AND BP, PULSE O ARE ON THE BED. PT IS NOT IN THE BATHROOM.
== END 2020-04-06 19:07 | disposition left against medical advice (07) ==
LOC: ED 17:49
DX: K86.0 Alcohol-induced chronic pancreatitis (principal); F10.229 Alcohol dependence with intoxication, unspecified; R41.82 Altered mental status, unspecified; R10.9 Unspecified abdominal pain; R11.0 Nausea; Y90.0 Blood alcohol level of less than 20 mg/100 ml
CPT/HCPCS: 36415; 80053; 83690; 84703; 85025; 99283

== ENCOUNTER 2020-04-12 11:29 | Emergency (ER) | payer MEDICAID ==
[~2020-04-12] VITALS: Ht 154.9 cm; Wt 55.5 kg
[~2020-04-12 11:29] MED LIST changes: -CALC-666 PO; +CALC500T14 PO; -PANT20TA3 PO; +PANT20TA4 PO
[2020-04-12 11:37] VITALS: BP 105/75
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
== END 2020-04-12 11:46 | disposition left against medical advice (07) ==
LOC: ED 11:40
DX: R10.13 Epigastric pain (principal); Z53.21 Procedure and treatment not carried out due to patient leaving prior to being seen by health care provider

== ENCOUNTER 2020-09-02 05:29 | Emergency (ER) | payer MEDICAID ==
[~2020-09-02] VITALS: Ht 160 cm; Wt 55.0 kg
[~2020-09-02 05:29] MED LIST changes: -NICO-487 TD; +NICO-587 TD
[2020-09-02] MEDS ORDERED: MAALOX/HYOSCYAMINE/LIDOCAINE 45 ML BTL ONE (05:40)
--- NOTE | 2020-09-02 05:42 | NUR ---
Side rails up, call moreno in reach, RR equal and unlabored. Lab drawing blood. PIV field start in LAC
--- NOTE | 2020-09-02 05:56 | NUR ---
Requested urine, pt reports unable to void now.
[2020-09-02] MEDS ORDERED: MAALOX/HYOSCYAMINE/LIDOCAINE 45 ML BTL PO ONE (06:00)
[2020-09-02 06:06] LABS: BASOPHILS % (AUTO) 0 % (0-1); EOSINOPHILS % (AUTO) 1 % (1-7); LYMPHOCYTES % (AUTO) 23 % (22-44); MEAN CORPUSCULAR HEMOGLOBIN 34.1 pg (27.0-34.8); MEAN CORPUSCULAR HGB CONC 33.7 g/dL (32.4-35.8); MONOCYTES % (AUTO) 9 % (2-9); NEUTROPHILS % (AUTO) 68 % (42-75); PLATELET COUNT 528 x10^3/uL (130-400); RED BLOOD COUNT 3.41 x10^6/uL (3.82-5.3); RED CELL DISTRIBUTION WIDTH 17.8 % (9.6-15.2)
--- NOTE | 2020-09-02 06:08 | NUR ---
Encouraged pt to provide urine, was told "no i can't go and i won't try". Sitting up in [place] asking for more pain medications, reports no relief post gi cocktail. VSS. Labs pending.
[2020-09-02 06:09] LABS: MD NO
--- NOTE | 2020-09-02 06:14 | NUR ---
Pt asking for pain medication, RR equal and unlabored. VSS. Pt states she will try to provide urine sample now.
[2020-09-02 06:21] LABS: ALBUMIN 2.2 g/dL (3.4-5.0); ANION GAP 7 mmol/L (5-15); CHLORIDE 103 mmol/L (98-107)
[2020-09-02 06:25] LABS: ALANINE AMINOTRANSFERASE 38 U/L (12-78); ALKALINE PHOSPHATASE 106 U/L (45-117); BILIRUBIN,TOTAL 0.5 mg/dL (0.2-1.0); CREATININE 0.61 mg/dL (0.55-1.02); TOTAL PROTEIN 6.7 g/dL (6.4-8.2)
--- NOTE | 2020-09-02 06:46 | NUR ---
Report to ALICIA Cowart
[2020-09-02 06:48] LABS: MICROSCOPIC INDICATED
[2020-09-02] MEDS ORDERED: SODIUM CHLORIDE 0.9% 1,000ML IVBOLUS ONE (07:00)
[2020-09-02] MEDS ORDERED: PANTOPRAZOLE 40 MG IV IVPush ONE (07:00)
[2020-09-02] MEDS ORDERED: MORPHINE SULFATE 4 MG/ML, 1ML IVPush ONE (07:00)
[2020-09-02] MEDS ORDERED: KETOROLAC 30 MG/1 ML IVPush ONE (07:00)
[2020-09-02] MEDS ORDERED: KETOROLAC 30 MG/1 ML ONE (07:02)
[2020-09-02] MEDS ORDERED: MORPHINE SULFATE 4 MG/ML, 1ML ONE (07:03)
[2020-09-02] MEDS ORDERED: PANTOPRAZOLE 40 MG IV ONE (07:03)
--- NOTE | 2020-09-02 07:10 | NUR ---
REPORT FROM ALICIA MOREL. PT BACK FROM IMAGING. VERY TENDER ABDOMEN. GROANING, SITTING FORWARD IN BED. DISCUSSION WITH ERMD REGARDING PTS APPEARANCE. SIDE RAILS UP, CALL LIGHT IN REACH. MED ADMINISTRATION IN PROGRESS.
--- NOTE | 2020-09-02 07:39 | NUR ---
PT UP FOR RECHECK. AWAITING FURTHER ORDERS.
--- NOTE | 2020-09-02 07:53 | NUR ---
med request to pharmacy
[2020-09-02] MEDS ORDERED: POTASSIUM CHLORIDE 40 MEQ in SODIUM CHLORIDE 0.9% 500 ML IV ONE (08:00)
[2020-09-02] MEDS ORDERED: POTASSIUM CHLORIDE 20 MEQ TAB.ER.PRT PO ONE ×2 (08:00→10:00)
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
--- NOTE | 2020-09-02 08:44 | NUR ---
PT SITTING UP IN BED WATCHING TELEVISION, NAD NOTED AT THIS TIME. IVF INFUSING PER EMAR. PT C/O PERSISTING ABD PAIN, LOWER THAN PRIOR TO MEDICATIONS. AWAITING FURTHER ORDERS.
--- NOTE | 2020-09-02 08:58 | NUR ---
REPORT TO ALICIA WALTERS.
--- NOTE | 2020-09-02 10:20 | NUR ---
PT REQUESTING ADDITIONAL PAIN MEDICATIONS X2 ERMD UPDATED, NO ORDERS FOR PAIN MEDICATIONS RECIEIVED PT IS TO DC ONCE POTASSIUM IVPB INFUSED
[2020-09-02] MEDS ORDERED: AZITHROMYCIN 500 MG TABLET ONE (11:42)
[2020-09-02] MEDS ORDERED: LIDOCAINE-MPF 1%, 2ML ONE (11:43)
[2020-09-02] MEDS ORDERED: CEFTRIAXONE 250 MG ONE (11:43)
[2020-09-02] MEDS ORDERED: AZITHROMYCIN 500 MG TABLET PO ONE (12:00)
[2020-09-02] MEDS ORDERED: CEFTRIAXONE 250 MG IM ONE (12:00)
[2020-09-02 12:03] VITALS: BP 107/68
== END 2020-09-02 12:05 | disposition home or self-care (01) ==
LOC: ED 05:41
DX: K86.0 Alcohol-induced chronic pancreatitis (principal); E87.6 Hypokalemia; F17.210 Nicotine dependence, cigarettes, uncomplicated; G40.909 Epilepsy, unspecified, not intractable, without status epilepticus; Z90.49 Acquired absence of other specified parts of digestive tract
CPT/HCPCS: 36415; 74021; 80053; 81001; 83690; 84703; 85025; 87086; 87491; 87591; 96361; 96365; 96366; 96372; 96375; 99285; 99406; C9113; J0696; J1885; J2270; J3480; J7030; J7040; 87147

== ENCOUNTER 2020-10-07 14:17 | Emergency (ER) | payer MEDICAID ==
[~2020-10-07] VITALS: Ht 162.6 cm; Wt 65.0 kg
[~2020-10-07 14:17] MED LIST changes: -OXYC5TAB3 PO; +OXYC5TAB98 PO
--- NOTE | 2020-10-07 14:48 | NUR ---
TASK RN: PT SMELLS OF ALCHOHOL AND APPEARS INTOXICATED. PA AT BEDSIDE EXAMING PT WITH VS OBTAINED FOR TRIAGE.
--- NOTE | 2020-10-07 15:27 | NUR ---
Pt resting, eyes closed. sitter outside room.
--- NOTE | 2020-10-07 16:02 | NUR ---
Pt resting, right side lying, even respiratory rate and effort. sitter outside room.
--- NOTE | 2020-10-07 17:49 | NUR ---
pt resting, right side lying, on monitor.
--- NOTE | 2020-10-07 18:18 | NUR ---
Pt up to bathroom, even steady agit. dior silver. pt states [facility], agrees to taxi.
[2020-10-07 18:40] VITALS: BP 120/72
== END 2020-10-07 18:43 | disposition home or self-care (01) ==
LOC: ED 18:14
DX: F10.229 Alcohol dependence with intoxication, unspecified (principal); Z90.49 Acquired absence of other specified parts of digestive tract; Y90.0 Blood alcohol level of less than 20 mg/100 ml
CPT/HCPCS: 36415; 80320; 99285; G0480

== ENCOUNTER 2020-10-17 14:03 | Emergency (ER) | payer MEDICAID ==
[~2020-10-17] VITALS: Ht 162.6 cm; Wt 59.1 kg
[~2020-10-17 14:03] MED LIST changes: -FOLI-17 PO; +FOLI1TAB32 PO; +METH-640 PO; -METH750T2 PO
[2020-10-17 14:48] LABS: BASOPHILS % (AUTO) 1 % (0-1); EOSINOPHILS % (AUTO) 1 % (1-7); LYMPHOCYTES % (AUTO) 31 % (22-44); MEAN CORPUSCULAR HEMOGLOBIN 31.4 pg (27.0-34.8); MEAN CORPUSCULAR HGB CONC 33.1 g/dL (32.4-35.8); MEAN PLATELET VOLUME 6.7 fL (7.4-10.4); MONOCYTES % (AUTO) 6 % (2-9); NEUTROPHILS % (AUTO) 61 % (42-75); PLATELET COUNT 180 x10^3/uL (130-400); RED BLOOD COUNT 3.85 x10^6/uL (3.82-5.3); RED CELL DISTRIBUTION WIDTH 15.3 % (9.6-15.2)
[2020-10-17 14:49] LABS: MD NO
[2020-10-17 14:57] LABS: ALANINE AMINOTRANSFERASE 28 U/L (12-78); ALBUMIN 3.5 g/dL (3.4-5.0); ANION GAP 13 mmol/L (5-15); CALCIUM 7.9 mg/dL (8.5-10.1); CHLORIDE 112 mmol/L (98-107); CREATININE 0.55 mg/dL (0.55-1.02)
[2020-10-17 15:02] LABS: ALKALINE PHOSPHATASE 111 U/L (45-117); BILIRUBIN,TOTAL 0.7 mg/dL (0.2-1.0); TOTAL PROTEIN 7.8 g/dL (6.4-8.2)
[2020-10-17 15:07] VITALS: BP 102/70
--- NOTE | 2020-10-17 15:08 | NUR ---
PT RESTING ON GURNEY WITH EYES CLOSED, RESPIRATIONS EVEN AND NONLABORED. CALL LIGHT WITHIN REACH, MONITORING IN PLACE.
[2020-10-17] MEDS ORDERED: POTASSIUM CHLORIDE 20 MEQ TAB.ER.PRT ONE (15:53)
[2020-10-17] MEDS ORDERED: POTASSIUM CHLORIDE 20 MEQ TAB.ER.PRT PO ONE (16:30)
[2020-10-17] MEDS ORDERED: SODIUM CHLORIDE FLUSH 10ML SYR IVF ONE (16:30)
[2020-10-17] MEDS ORDERED: POTASSIUM CHLORIDE 40 MEQ in SODIUM CHLORIDE 0.9% 500 ML IV ONE (16:30)
== END 2020-10-17 16:35 | disposition home or self-care (01) ==
LOC: ED 16:12
DX: F10.129 Alcohol abuse with intoxication, unspecified (principal); E87.6 Hypokalemia; R11.0 Nausea; R00.0 Tachycardia, unspecified; I10 Essential (primary) hypertension; Y90.0 Blood alcohol level of less than 20 mg/100 ml
CPT/HCPCS: 36415; 80053; 80320; 85025; 93005; 99284; G0480

== ENCOUNTER 2020-11-09 08:56 | Emergency (ER) | payer MEDICAID ==
[~2020-11-09] VITALS: Ht 160 cm; Wt 70.0 kg
[2020-11-09 09:30] LABS: BASOPHILS % (AUTO) 1 % (0-1); EOSINOPHILS % (AUTO) 0 % (1-7); LYMPHOCYTES % (AUTO) 16 % (22-44); MEAN CORPUSCULAR HEMOGLOBIN 31.7 pg (27.0-34.8); MEAN CORPUSCULAR HGB CONC 33.5 g/dL (32.4-35.8); MEAN PLATELET VOLUME 6.7 fL (7.4-10.4); MONOCYTES % (AUTO) 7 % (2-9); NEUTROPHILS % (AUTO) 76 % (42-75); PLATELET COUNT 278 x10^3/uL (130-400); RED BLOOD COUNT 3.89 x10^6/uL (3.82-5.3); RED CELL DISTRIBUTION WIDTH 17.2 % (9.6-15.2)
[2020-11-09] MEDS ORDERED: MAALOX/HYOSCYAMINE/LIDOCAINE 45 ML BTL PO ONE (09:30)
[2020-11-09] MEDS ORDERED: SODIUM CHLORIDE 0.9% 1,000ML IVBOLUS ONE (09:30)
[2020-11-09] MEDS ORDERED: FAMOTIDINE 20 MG TABLET PO ONE (09:30)
[2020-11-09] MEDS ORDERED: FAMOTIDINE 20 MG TABLET ONE (09:34)
[2020-11-09 09:35] LABS: ALANINE AMINOTRANSFERASE 20 U/L (12-78); ALBUMIN 2.8 g/dL (3.4-5.0); ANION GAP 11 mmol/L (5-15); CALCIUM 7.7 mg/dL (8.5-10.1); CHLORIDE 101 mmol/L (98-107); CREATININE 0.48 mg/dL (0.55-1.02)
[2020-11-09] MEDS ORDERED: MAALOX/HYOSCYAMINE/LIDOCAINE 45 ML BTL ONE (09:35)
[2020-11-09 09:37] LABS: ALKALINE PHOSPHATASE 141 U/L (45-117); BILIRUBIN,TOTAL 1.3 mg/dL (0.2-1.0); TOTAL PROTEIN 7.4 g/dL (6.4-8.2)
[2020-11-09 09:39] LABS: MD NO
[2020-11-09] MEDS ORDERED: ALPR0.25 PO (09:56)
[2020-11-09] MEDS ORDERED: CITA20TA9 PO (09:56)
[2020-11-09 09:57] LABS: MICROSCOPIC INDICATED
[2020-11-09] MEDS ORDERED: POTASSIUM CHLORIDE 40 MEQ in SODIUM CHLORIDE 0.9% 500 ML IV ONE (10:00)
[2020-11-09] MEDS ORDERED: MAGNESIUM OXIDE 400 MG TABLET PO ONE (10:00)
[2020-11-09] MEDS ORDERED: POTASSIUM CHLORIDE 20 MEQ TAB.ER.PRT PO ONE (10:00)
--- NOTE | 2020-11-09 10:00 | NUR ---
Report given to ALICIA Hahn and care transferred.
--- NOTE | 2020-11-09 10:05 | NUR ---
ASSUMED CARE OF PT. PT RESTING ON GURCORBIN. CALL LIGHT W/IN REACH.
[2020-11-09] MEDS ORDERED: MAGNESIUM OXIDE 400 MG TABLET ONE (10:08)
[2020-11-09] MEDS ORDERED: NS + 40MEQ KCL 0 ML IV ONE (10:09)
[2020-11-09] MEDS ORDERED: POTASSIUM CHLORIDE 20 MEQ TAB.ER.PRT ONE (10:09)
[2020-11-09] MEDS ORDERED: LORazepam 2 MG/ML, 1ML IVPush ONE (11:00)
[2020-11-09] MEDS ORDERED: LORazepam 2 MG/ML, 1ML ONE (11:08)
--- NOTE | 2020-11-09 11:49 | NUR ---
PT RESTING ON GURCORBIN. ORDERED MEDICATIONS ADMINISTERED AND INFUSING. PT STATES "MY PAIN IS A LITTLE BETTER". NAD. CALL LIGHT W/IN REACH.
--- NOTE | 2020-11-09 13:17 | NUR ---
PT SLEEPING ON GURNEY. ORDERED MEDICATIONS CONTINUE TO INFUSE. NAD. CALL LIGHT W/I REACH.
[2020-11-09] MEDS ORDERED: PIPERACILLIN/TAZO/PMX 3.375GM 50 ML ONE (14:04)
[2020-11-09] MEDS ORDERED: OXYcodone/APAP 5/325MG TABLET ONE (14:05)
--- NOTE | 2020-11-09 14:44 | NUR ---
BREAK RN: PATIENT RESTING IN GURNEY, EYES CLOSED, RESP EVEN AND UNLABORED, FLUIDS RUNNING, CALL LIGHT WITHIN REACH. WAITING FOR FLUIDS TO FINISH RUNNING TO DC HOME.
--- NOTE | 2020-11-09 15:46 | NUR ---
PT SITTING UP ON GURNEY. IV MEDICATION CONTINUES TO INFUSE. DIET TRAY ORDERED. DRINK AND SNACK PROVIDED. NAD. CALL LIGHT W/I REACH
--- NOTE | 2020-11-09 17:09 | NUR ---
REPORT GIVEN TO MERY VARGAS.
[2020-11-09 17:35] VITALS: BP 97/77
--- NOTE | 2020-11-09 17:44 | NUR ---
TASK RN: PatienT given discharge instructions and prescription and they have confirmed that they understand the instructions. Patient stable and ambulatory with steady gait from ED, patient calling [facility] for transportation.
== END 2020-11-09 17:45 | disposition home or self-care (01) ==
LOC: ED 09:12
DX: K29.20 Alcoholic gastritis without bleeding (principal); N30.00 Acute cystitis without hematuria; F10.10 Alcohol abuse, uncomplicated; R11.2 Nausea with vomiting, unspecified; R10.12 Left upper quadrant pain; I10 Essential (primary) hypertension; F17.290 Nicotine dependence, other tobacco product, uncomplicated; Z90.49 Acquired absence of other specified parts of digestive tract; Y90.9 Presence of alcohol in blood, level not specified
CPT/HCPCS: 36415; 80053; 81001; 83690; 85025; 87077; 87086; 87186; 93005; 96361; 96365; 96366; 96375; 99285; 99406; J2060; J3480; J7030; J7040

== ENCOUNTER 2020-11-16 18:31 | Emergency (ER) | payer MEDICAID ==
[~2020-11-16] VITALS: Ht 167.6 cm; Wt 70.0 kg
--- NOTE | 2020-11-16 18:44 | NUR ---
PT IS A 45F BIB EMS WITH COMPLAINTS OF EPIGASTRIC BURNING SHARP PAIN AND NAUSEA, VOMITNG SINCE THIS MORNING. HER LAST DRINK WAS YESTERDAY. SHE DENIES DAILY DRINKING. SHE HAS A HX OF PANCREATITIS AND SZ. EMS PLACED A 20G IN THE LEFT FOREARM. SHE WAS GIVEN 250 NS, 100 FENTANYL, AND 8 OF ZOFRAN EN ROUTE. CARDIAC, SP02, AND BP MONITORS IN PLACE. EKG COMPLETED. CALL LIGHT WITHIN REACH.
--- NOTE | 2020-11-16 18:49 | NUR ---
REPORT TO KIYA VARGAS
[2020-11-16 19:47] LABS: MEAN CORPUSCULAR HEMOGLOBIN 31.9 pg (27.0-34.8); MEAN CORPUSCULAR HGB CONC 33.2 g/dL (32.4-35.8); MEAN PLATELET VOLUME 6.5 fL (7.4-10.4); PLATELET COUNT 383 x10^3/uL (130-400); RED BLOOD COUNT 3.74 x10^6/uL (3.82-5.3); RED CELL DISTRIBUTION WIDTH 17.9 % (9.6-15.2)
[2020-11-16 19:58] LABS: ALANINE AMINOTRANSFERASE 49 U/L (12-78); ALBUMIN 2.4 g/dL (3.4-5.0); ANION GAP 9 mmol/L (5-15); CALCIUM 7.3 mg/dL (8.5-10.1); CHLORIDE 111 mmol/L (98-107)
[2020-11-16 20:00] LABS: ALKALINE PHOSPHATASE 129 U/L (45-117); BILIRUBIN,TOTAL 0.3 mg/dL (0.2-1.0); CREATININE 0.66 mg/dL (0.55-1.02); MD YES; TOTAL PROTEIN 7.1 g/dL (6.4-8.2)
[2020-11-16 20:03] LABS: ANISOCYTOSIS 1+; BASOS#(MANUAL) 0.04 x10^3/uL (0-0.1); BASOS% (MANUAL) 1 % (0-1); EOS#(MANUAL) 0.09 x10^3/uL (0.0-0.4); EOS% (MANUAL) 2 % (1-7); LYMPH#(MANUAL) 2.24 x10^3/uL (1-3.4); LYMPHS% (MANUAL) 51 % (22-44); MONOS% (MANUAL) 9 % (2-9); SEG#(MANUAL) 1.63 x10^3/uL (1.8-6.8); SEGS% (MANUAL) 37 % (42-75)
[2020-11-16 20:04] LABS: <PLATELET ESTIMATE> ADEQUATE; <PLT MORPHOLOGY> NORMAL PLT MORPH
--- NOTE | 2020-11-16 20:09 | NUR ---
Pt to BR indp with no issues. Pt back to room. Warm blanket given. On monitor. Will monitor.
[2020-11-16 20:45] LABS: MICROSCOPIC AUTO
[2020-11-16] MEDS ORDERED: POTASSIUM CHLORIDE 20 MEQ TAB.ER.PRT ONE (20:59)
[2020-11-16] MEDS ORDERED: POTASSIUM CHLORIDE 10% 40 MEQ/30 ML UDC PO ONE (21:00)
[2020-11-16 21:23] VITALS: BP 100/58
--- NOTE | 2020-11-16 21:25 | NUR ---
Pt RA trial passed at 94%. Pt medicated per order. Pt IV dc'd intact. Pt dressed and home with belongings. Pt ambulatrory out of ED without difficulty. DC instructions reviewed with patient and patient states understanding.
[2020-11-16] MEDS ORDERED: POTASSIUM CHLORIDE 20 MEQ TAB.ER.PRT PO ONE (21:30)
== END 2020-11-16 21:28 | disposition home or self-care (01) ==
LOC: ED 19:35
DX: F10.220 Alcohol dependence with intoxication, uncomplicated (principal); E87.6 Hypokalemia; R10.10 Upper abdominal pain, unspecified; Y90.0 Blood alcohol level of less than 20 mg/100 ml
CPT/HCPCS: 36415; 74021; 80053; 80320; 81001; 83690; 85025; 87077; 87086; 87186; 93005; 99285; G0480

== ENCOUNTER 2020-11-27 14:30 | Emergency (ER) | payer MEDICAID ==
[~2020-11-27] VITALS: Ht 154.9 cm; Wt 72.0 kg
[2020-11-27] MEDS ORDERED: ONDANSETRON 2MG/ML, 2ML IVPush ONE (15:30)
[2020-11-27] MEDS ORDERED: FAMOTIDINE 20 MG/2 ML IVPush ONE (15:30)
[2020-11-27] MEDS ORDERED: MAALOX/HYOSCYAMINE/LIDOCAINE 45 ML BTL PO ONE (15:30)
[2020-11-27] MEDS ORDERED: SODIUM CHLORIDE 0.9% 1,000ML IVBOLUS ONE (15:30)
[2020-11-27] MEDS ORDERED: MAALOX/HYOSCYAMINE/LIDOCAINE 45 ML BTL ONE (15:31)
[2020-11-27] MEDS ORDERED: ONDANSETRON 2MG/ML, 2ML ONE (15:31)
[2020-11-27] MEDS ORDERED: FAMOTIDINE 20 MG/2 ML ONE (15:31)
[2020-11-27 15:44] LABS: BASOPHILS % (AUTO) 2 % (0-1); EOSINOPHILS % (AUTO) 2 % (1-7); LYMPHOCYTES % (AUTO) 21 % (22-44); MEAN CORPUSCULAR HEMOGLOBIN 31.7 pg (27.0-34.8); MEAN CORPUSCULAR HGB CONC 33.5 g/dL (32.4-35.8); MEAN PLATELET VOLUME 7.5 fL (7.4-10.4); MONOCYTES % (AUTO) 6 % (2-9); NEUTROPHILS % (AUTO) 71 % (42-75); PLATELET COUNT 128 x10^3/uL (130-400); RED BLOOD COUNT 4.44 x10^6/uL (3.82-5.3); RED CELL DISTRIBUTION WIDTH 18.5 % (9.6-15.2)
[2020-11-27 15:45] LABS: MD NO
[2020-11-27 15:46] VITALS: BP 107/70
[2020-11-27 15:53] LABS: ALANINE AMINOTRANSFERASE 48 U/L (12-78); ALBUMIN 2.9 g/dL (3.4-5.0); ANION GAP 10 mmol/L (5-15); CALCIUM 7.6 mg/dL (8.5-10.1); CHLORIDE 102 mmol/L (98-107); CREATININE 0.59 mg/dL (0.55-1.02)
[2020-11-27 15:58] LABS: ALKALINE PHOSPHATASE 161 U/L (45-117); BILIRUBIN,TOTAL 1.1 mg/dL (0.2-1.0); TOTAL PROTEIN 7.9 g/dL (6.4-8.2); TROPONIN I < 0.015 ng/mL (0.000-0.045)
--- NOTE | 2020-11-27 16:16 | NUR ---
pt states she wants to go ama, provider aware, pt educated on risks of leaving without complete exam or interventions, pt verbalizes understanding and agreement. pt educated by rn on the importance of clear liquid diet while feeling sick, importance of electrolytes in her fluids and follow up/return as needed. pt verbalizes understanding and agreement, states she feels safe to go home, signed ewa, iv dc'd pt ambulatory out of unit with all belongings.
== END 2020-11-27 16:28 | disposition left against medical advice (07) ==
LOC: ED 14:35
DX: K85.20 Alcohol induced acute pancreatitis without necrosis or infection (principal); R10.13 Epigastric pain; R11.2 Nausea with vomiting, unspecified; M25.512 Pain in left shoulder; I10 Essential (primary) hypertension; E87.6 Hypokalemia; G40.909 Epilepsy, unspecified, not intractable, without status epilepticus
CPT/HCPCS: 36415; 80053; 83690; 84484; 85025; 93005; 96361; 96374; 96375; 99284; J2405; J7030

== ENCOUNTER 2021-01-05 09:27 | Emergency (ER) | payer MEDICAID ==
[~2021-01-05] VITALS: Ht 154.9 cm; Wt 65.0 kg
[2021-01-05 09:32] VITALS: BP 98/63
--- NOTE | 2021-01-05 09:34 | NUR ---
PT BIB EMS FOR RIGHT SIDE RIB PAIN X1 DAY. DENIES INJURY OR FALL. SOME N/V. EKG DONE. DENIES CP OR SOB. 50 MCG FENT BY EMS
[2021-01-05] MEDS ORDERED: KETOROLAC 30 MG/1 ML IVPush STA (09:47)
[2021-01-05] MEDS ORDERED: KETOROLAC 30 MG/1 ML ONE (09:53)
[2021-01-05] MEDS ORDERED: SODIUM CHLORIDE FLUSH 10ML SYR IVF ONE (10:00)
[2021-01-05] MEDS ORDERED: SODIUM CHLORIDE 0.9% 1,000ML IVBOLUS ONE (10:00)
[2021-01-05 10:08] LABS: BASOPHILS % (AUTO) 1 % (0-1); EOSINOPHILS % (AUTO) 2 % (1-7); LYMPHOCYTES % (AUTO) 22 % (22-44); MEAN CORPUSCULAR HEMOGLOBIN 30.7 pg (27.0-34.8); MEAN CORPUSCULAR HGB CONC 32.8 g/dL (32.4-35.8); MEAN PLATELET VOLUME 6.8 fL (7.4-10.4); MONOCYTES % (AUTO) 9 % (2-9); NEUTROPHILS % (AUTO) 67 % (42-75); PLATELET COUNT 450 x10^3/uL (130-400); RED BLOOD COUNT 3.86 x10^6/uL (3.82-5.3); RED CELL DISTRIBUTION WIDTH 18.7 % (9.6-15.2)
[2021-01-05 10:09] LABS: MD NO
[2021-01-05 10:16] LABS: ANION GAP 7 mmol/L (5-15); CHLORIDE 107 mmol/L (98-107); CREATININE 0.69 mg/dL (0.55-1.02)
[2021-01-05] MEDS ORDERED: ONDANSETRON 2MG/ML, 2ML ONE (10:28)
[2021-01-05] MEDS ORDERED: MORPHINE SULFATE 4 MG/ML, 1ML ONE ×2 (10:28→11:07)
--- NOTE | 2021-01-05 11:11 | NUR ---
MEDICATED FOR PAIN
--- NOTE | 2021-01-05 11:25 | NUR ---
PT TO CTA
[2021-01-05] MEDS ORDERED: MORPHINE SULFATE 4 MG/ML, 1ML IVPush PRN (11:30)
[2021-01-05] MEDS ORDERED: OMNIPAQUE 350 MG/ML, 75ML BOTTLE ONE (11:44)
--- NOTE | 2021-01-05 12:23 | NUR ---
Patient given discharge instructions and they have confirmed that they understand the instructions. Patient ambulatory with steady gait.
== END 2021-01-05 12:39 | disposition home or self-care (01) ==
LOC: ED 11:54
DX: S22.41XA Multiple fractures of ribs, right side, initial encounter for closed fracture (principal); R07.89 Other chest pain; R11.2 Nausea with vomiting, unspecified; Z90.49 Acquired absence of other specified parts of digestive tract; X58.XXXA Exposure to other specified factors, initial encounter; Y93.89 Activity, other specified; Y92.89 Other specified places as the place of occurrence of the external cause; Y99.8 Other external cause status
CPT/HCPCS: 36415; 71045; 71275; 80048; 82040; 85025; 85379; 93005; 96361; 96374; 96375; 99285; J1885; J2270; J7030; Q9967

== ENCOUNTER 2021-01-19 20:34 | Emergency (ER) | payer MEDICAID ==
[~2021-01-19] VITALS: Ht 162.6 cm; Wt 75.0 kg
[2021-01-19 20:40] VITALS: BP 102/69
--- NOTE | 2021-01-19 21:09 | NUR ---
PT BIB [facility] FOR ABDOMINAL PAIN. PT HAS HISTORY OF PANCREATITIS. PER PT SHE DRINKS APPROX A PINT OF VODKA A DAY. PT HAD A BOTTLE OF VODKA IN HER POCKET WHICH WAS TAKEN AND DISPOSED OF, PT ADVISE SHE CAN'T HAVE THAT IN THE ROOM OR ON HER PERSON IN THE ER. PT TRIAGED AND PLACED ON MONITOR. PT REQUESTING NARCOTICS TO BE GIVEN TO HER FOR PAIN. ADVISED OF PT AND PA STUDENT IN TO DO INITIAL ASSESMENT.
--- NOTE | 2021-01-19 21:47 | NUR ---
RECEIVED XRAY ORDERS. PT SLEEPING IN ROOM, IN NO ACUTE DISTRESS. AIRWAY INTACT, AND GOOD AERATION AND OXYGENATION.
[2021-01-19] MEDS ORDERED: ONDANSETRON ODT 4 MG PO ONE (22:00)
[2021-01-19] MEDS ORDERED: THIAMINE 100MG TABLET PO ONE (22:00)
[2021-01-19] MEDS ORDERED: IBUPROFEN 600 MG TABLET PO ONE (22:00)
--- NOTE | 2021-01-19 23:25 | NUR ---
ALL RESULTS BACK. PT SLEEPING CURRENTLY, ON CR MONITOR. O2 SAT 96%.
--- NOTE | 2021-01-19 23:52 | NUR ---
PT A&OX4, AMBULATORY NOW, AND F/U AND D/C INSTRUCTIONS AND PRESCRIPTIONS GIVEN AND PT V/U.
== END 2021-01-19 23:53 ==
LOC: ED 20:43
DX: R07.89 Other chest pain (principal); J15.9 Unspecified bacterial pneumonia; F10.10 Alcohol abuse, uncomplicated; Z72.9 Problem related to lifestyle, unspecified; F17.210 Nicotine dependence, cigarettes, uncomplicated; Y90.0 Blood alcohol level of less than 20 mg/100 ml
CPT/HCPCS: 71045; 99406

== ENCOUNTER 2021-01-22 05:15 | Emergency (ER) | payer MEDICAID ==
[~2021-01-22] VITALS: Ht 154.9 cm; Wt 54.0 kg
[2021-01-22] MEDS ORDERED: KETOROLAC 30 MG/1 ML IVPush ONE (06:00)
[2021-01-22] MEDS ORDERED: KETOROLAC 30 MG/1 ML ONE (06:04)
--- NOTE | 2021-01-22 06:06 | NUR ---
PT MEDICATED PER NOV 17 RIGHTS VERIFIED.
[2021-01-22 06:20] LABS: BASOPHILS % (AUTO) 1 % (0-1); EOSINOPHILS % (AUTO) 1 % (1-7); LYMPHOCYTES % (AUTO) 15 % (22-44); MEAN CORPUSCULAR HEMOGLOBIN 31.2 pg (27.0-34.8); MEAN CORPUSCULAR HGB CONC 32.3 g/dL (32.4-35.8); MONOCYTES % (AUTO) 15 % (2-9); NEUTROPHILS % (AUTO) 69 % (42-75); PLATELET COUNT 183 x10^3/uL (130-400); RED BLOOD COUNT 3.86 x10^6/uL (3.82-5.3); RED CELL DISTRIBUTION WIDTH 20.9 % (9.6-15.2)
[2021-01-22 06:21] LABS: MD NO
[2021-01-22 06:33] LABS: ALANINE AMINOTRANSFERASE 24 U/L (12-78); ALBUMIN 3.3 g/dL (3.4-5.0); ANION GAP 6 mmol/L (5-15); CALCIUM 7.9 mg/dL (8.5-10.1); CHLORIDE 105 mmol/L (98-107); CREATININE 0.51 mg/dL (0.55-1.02)
[2021-01-22 06:36] LABS: ALKALINE PHOSPHATASE 146 U/L (45-117); BILIRUBIN,TOTAL 0.8 mg/dL (0.2-1.0); TOTAL PROTEIN 8.1 g/dL (6.4-8.2)
[2021-01-22 06:59] VITALS: BP 95/60
== END 2021-01-22 07:18 | disposition home or self-care (01) ==
LOC: ED 06:35
DX: S22.41XA Multiple fractures of ribs, right side, initial encounter for closed fracture (principal); R00.0 Tachycardia, unspecified; Z90.49 Acquired absence of other specified parts of digestive tract; F17.200 Nicotine dependence, unspecified, uncomplicated; Z88.5 Allergy status to narcotic agent; X58.XXXA Exposure to other specified factors, initial encounter; Y93.89 Activity, other specified; Y92.89 Other specified places as the place of occurrence of the external cause; Y99.8 Other external cause status
CPT/HCPCS: 36415; 71045; 80053; 80320; 83690; 85025; 93005; 96374; 99285; J1885; G0480

== ENCOUNTER 2021-01-22 15:22 | Emergency (ER) | payer MEDICAID ==
[~2021-01-22] VITALS: Ht 162.6 cm; Wt 70.0 kg
== END 2021-01-22 16:41 | disposition home or self-care (01) ==
LOC: ED 15:45
DX: S20.211A Contusion of right front wall of thorax, initial encounter (principal); I10 Essential (primary) hypertension; Z90.49 Acquired absence of other specified parts of digestive tract; X58.XXXA Exposure to other specified factors, initial encounter; Y93.89 Activity, other specified; Y92.89 Other specified places as the place of occurrence of the external cause; Y99.8 Other external cause status
CPT/HCPCS: 99283

== ENCOUNTER 2021-02-15 15:17 | Emergency (ER) | payer MEDICAID ==
[~2021-02-15] VITALS: Ht 154.9 cm; Wt 55.3 kg
--- NOTE | 2021-02-15 15:22 | NUR ---
TO ED ROOM 37 PER WC. STATES SHE DRANK 1/2 PINT VODKA TODAY.
[2021-02-15] MEDS ORDERED: OXYC5TAB2 PO (15:29)
--- NOTE | 2021-02-15 15:30 | NUR ---
PT DOZING, SIDE RAILS UP X2, CALL LIGHT W/IN REACH.
--- NOTE | 2021-02-15 16:54 | NUR ---
PT SLEEPING; RESP UNLABORED & EVEN.
--- NOTE | 2021-02-15 18:22 | NUR ---
PT SLEEPING IN LT LATERAL POSITION. STRONG ETOH AROMA STILL PRESENT. SIDE RAILS UP X2, CALL LIGHT W/IN REACH.
--- NOTE | 2021-02-15 18:50 | NUR ---
RECEIVED REPORT FROM MARISSA VARGAS
--- NOTE | 2021-02-15 19:25 | NUR ---
pt resting in bed. nadn. attached to monitors. vss. giving pt water and snacks. bed in low position. call light within reach. rails enaged. wctm
[2021-02-15 19:29] VITALS: BP 112/82
--- NOTE | 2021-02-15 19:29 | NUR ---
Patient is resting comfortably in bed. Bed in lowest, rails engaged, call light on lap. Vital Signs within normal limits. WCTM.
--- NOTE | 2021-02-15 19:33 | NUR ---
[facility]
--- NOTE | 2021-02-15 20:00 | NUR ---
Patient given discharge instructions and they have confirmed that they understand the instructions. Patient ambulatory with steady gait. NAD, all questions answered appropriately, denies additional needs at this time. No personal belongings left in room after discharge. PT PROVIDED EDUCATION ON ALCOHOL CESSATION RESOURCES.
== END 2021-02-15 20:01 | disposition home or self-care (01) ==
LOC: ED 19:08
DX: F10.120 Alcohol abuse with intoxication, uncomplicated (principal); Y90.0 Blood alcohol level of less than 20 mg/100 ml; I10 Essential (primary) hypertension; Z90.49 Acquired absence of other specified parts of digestive tract; X58.XXXA Exposure to other specified factors, initial encounter; Y93.89 Activity, other specified; Y92.89 Other specified places as the place of occurrence of the external cause; Y99.8 Other external cause status
CPT/HCPCS: 99285

== ENCOUNTER 2021-02-18 11:59 | Inpatient (IN) | payer MEDICAID ==
[~2021-02-18] VITALS: Ht 154.9 cm; Wt 57.4 kg
[~2021-02-18 11:59] MED LIST changes: +OXYC5TAB2 PO
--- NOTE | 2021-02-18 12:08 | NUR ---
MERY HUBER (FRIEND) [phone]
[2021-02-18] MEDS ORDERED: FAMOTIDINE 20 MG/2 ML IVPush ONE (13:00)
[2021-02-18] MEDS ORDERED: ONDANSETRON 2MG/ML, 2ML IVPush ONE (13:00)
[2021-02-18] MEDS ORDERED: SODIUM CHLORIDE 0.9% 1,000ML IVBOLUS ONE (13:00)
[2021-02-18] MEDS ORDERED: ONDANSETRON 2MG/ML, 2ML ONE (13:02)
[2021-02-18] MEDS ORDERED: FAMOTIDINE 20 MG/2 ML ONE (13:02)
--- NOTE | 2021-02-18 13:12 | NUR ---
PIV PLACED, LABS DRAWN AND COLLECTED BY CANAL DRIVER. MEDS ADMIN PER NOV, IVF RUNNING. PT CONNECTED TO MONITORNG. CALL LIGHT IN REACH.
[2021-02-18 13:23] LABS: ALANINE AMINOTRANSFERASE 53 U/L (12-78); ALBUMIN 3.5 g/dL (3.4-5.0); ANION GAP 17 mmol/L (5-15); CALCIUM 7.3 mg/dL (8.5-10.1); CHLORIDE 92 mmol/L (98-107)
[2021-02-18 13:28] LABS: ALKALINE PHOSPHATASE 174 U/L (45-117); BILIRUBIN,TOTAL 1.9 mg/dL (0.2-1.0); CREATININE 0.69 mg/dL (0.55-1.02); TOTAL PROTEIN 8.2 g/dL (6.4-8.2)
--- NOTE | 2021-02-18 13:44 | NUR ---
US AT BEDSIDE.
--- NOTE | 2021-02-18 13:50 | NUR ---
PER ERPA, OK TO WAIT ON EKG UNTIL US COMPLETE
[2021-02-18 13:56] LABS: BASOPHILS % (AUTO) 1 % (0-1); EOSINOPHILS % (AUTO) 0 % (1-7); LYMPHOCYTES % (AUTO) 22 % (22-44); MEAN CORPUSCULAR HEMOGLOBIN 32.8 pg (27.0-34.8); MEAN CORPUSCULAR HGB CONC 34.1 g/dL (32.4-35.8); MEAN PLATELET VOLUME 7.8 fL (7.4-10.4); MONOCYTES % (AUTO) 9 % (2-9); NEUTROPHILS % (AUTO) 68 % (42-75); PLATELET COUNT 159 x10^3/uL (130-400); RED BLOOD COUNT 4.25 x10^6/uL (3.82-5.3); RED CELL DISTRIBUTION WIDTH 19.2 % (9.6-15.2)
[2021-02-18] MEDS ORDERED: POTASSIUM CHLORIDE 20 MEQ TAB.ER.PRT PO ONE (14:00)
[2021-02-18] MEDS ORDERED: POTASSIUM CHLORIDE 40 MEQ in SODIUM CHLORIDE 0.9% 500 ML IV ONE (14:00)
[2021-02-18] MEDS ORDERED: POTASSIUM CHLORIDE 20 MEQ TAB.ER.PRT ONE (14:16)
--- NOTE | 2021-02-18 14:27 | NUR ---
WINDOW GLASS CUTTER OFF PER NOV. IV POTASSIUM RUNNING. PT RESTING COMFORTABLY ON GURNEY. RESP EVEN AND UNLABORED
--- NOTE | 2021-02-18 14:28 | NUR ---
ALL RESULTS ARE BACK AT THIS TIME. CHART UP FOR RECHECK.
[2021-02-18] MEDS ORDERED: ONDANSETRON ODT 4 MG PO PRN (16:00)
[2021-02-18] MEDS ORDERED: PROMETHAZINE 25 MG/ML, 1ML IM PRN (16:00)
[2021-02-18] MEDS ORDERED: POLYETHYLENE GLYCOL 17 GM PACKET PO PRN (16:00)
[2021-02-18] MEDS ORDERED: LORazepam 2 MG/ML, 1ML IV PRN ×5 (16:00)
[2021-02-18] MEDS ORDERED: POTASSIUM CHLORIDE 20 MEQ, MAGNESIUM SULFATE 1 GM, THIAMINE 200 MG, FOLIC ACID 1 MG, MV... IV ONE (16:00)
[2021-02-18] MEDS ORDERED: ONDANSETRON 2MG/ML, 2ML IVPush PRN (16:00)
[2021-02-18] MEDS ORDERED: ACETAMINOPHEN 325 MG TABLET PO PRN (16:00)
[2021-02-18] MEDS ORDERED: LORazepam 0.5MG TABLET PO PRN (16:00)
[2021-02-18] MEDS ORDERED: LORazepam 1MG TABLET PO PRN ×4 (16:00)
[2021-02-18 16:28] VITALS: BP 110/76
[2021-02-18] MEDS ORDERED: MAGNESIUM SULFATE PMX 4GM/100M 100 ML IVPB ONE (16:28)
[2021-02-18] MEDS: PANTOPRAZOLE 40 MG IV IVPush SCH (17:43)
[2021-02-18] MEDS: HEPARIN 5,000 UNITS/ML, 1ML SQ SCH (17:43)
[2021-02-18] MEDS: morphine SULFATE 10 MG/ML, 1ML IVPush PRN ×2 (17:43→20:44)
[2021-02-18] MEDS: NS + 40MEQ KCL 1,000 ML IV SCH (17:44)
[2021-02-18 19:42] VITALS: BP 106/68
[2021-02-18] MEDS ORDERED: MAGNESIUM SULFATE PMX 2GM/50ML 50 ML IV ONE (22:00)
[2021-02-19] MEDS: HEPARIN 5,000 UNITS/ML, 1ML SQ SCH ×4 (00:03→23:49)
[2021-02-19] MEDS: morphine SULFATE 10 MG/ML, 1ML IVPush PRN ×3 (00:03→06:36)
[2021-02-19 02:25] VITALS: BP 93/54
[2021-02-19 06:07] LABS: BASOPHILS % (AUTO) 1 % (0-1); EOSINOPHILS % (AUTO) 2 % (1-7); LYMPHOCYTES % (AUTO) 27 % (22-44); MEAN CORPUSCULAR HEMOGLOBIN 32.8 pg (27.0-34.8); MEAN CORPUSCULAR HGB CONC 33.2 g/dL (32.4-35.8); MEAN PLATELET VOLUME 8.2 fL (7.4-10.4); MONOCYTES % (AUTO) 5 % (2-9); NEUTROPHILS % (AUTO) 64 % (42-75); PLATELET COUNT 105 x10^3/uL (130-400); RED CELL DISTRIBUTION WIDTH 19.9 % (9.6-15.2)
[2021-02-19] MEDS: PANTOPRAZOLE 40 MG IV IVPush SCH ×2 (06:26→16:10)
[2021-02-19] MEDS: NS + 40MEQ KCL 1,000 ML IV SCH (06:26)
[2021-02-19 06:31] VITALS: BP 96/64
[2021-02-19 08:07] LABS: ALBUMIN 2.6 g/dL (3.4-5.0); ANION GAP 5 mmol/L (5-15); CHLORIDE 107 mmol/L (98-107)
[2021-02-19 08:10] LABS: ALANINE AMINOTRANSFERASE 37 U/L (12-78); ALKALINE PHOSPHATASE 122 U/L (45-117); BILIRUBIN,TOTAL 1.9 mg/dL (0.2-1.0); CREATININE 0.42 mg/dL (0.55-1.02)
[2021-02-19 08:35] LABS: CALCIUM 6.3 mg/dL (8.5-10.1)
[2021-02-19] MEDS: FOLIC ACID 1 MG TABLET PO SCH (08:57)
[2021-02-19] MEDS: THIAMINE 100MG TABLET PO SCH (08:57)
[2021-02-19] MEDS: NICOTINE 21 MG/24 HR PATCH.TD24 TD SCH (08:57)
[2021-02-19] MEDS: MULTIVITAMIN 1 TABLET PO SCH (08:57)
[2021-02-19] MEDS: SENNA/DOCUSATE TABLET PO SCH (08:58)
[2021-02-19] MEDS: MORPHINE SULFATE 4 MG/ML, 1ML IVPush PRN ×5 (09:49→23:49)
[2021-02-19 11:26] LABS: MICROSCOPIC INDICATED
[2021-02-19] MEDS ORDERED: POTASSIUM PHOSPHATE 22 MEQ in SODIUM CHLORIDE 0.9% 500 ML IV ONE (11:30)
[2021-02-19] MEDS: LACTATED RINGERS 1,000 ML IV SCH ×2 (12:05→18:48)
[2021-02-19 12:56] VITALS: BP 102/71
[2021-02-19 19:02] VITALS: BP 113/79
[2021-02-20] MEDS: LACTATED RINGERS 1,000 ML IV SCH ×2 (01:00→09:07)
[2021-02-20 01:59] VITALS: BP 108/78
[2021-02-20] MEDS: MORPHINE SULFATE 4 MG/ML, 1ML IVPush PRN (03:32)
[2021-02-20 05:11] LABS: BASOPHILS % (AUTO) 1 % (0-1); EOSINOPHILS % (AUTO) 2 % (1-7); LYMPHOCYTES % (AUTO) 29 % (22-44); MEAN CORPUSCULAR HEMOGLOBIN 33.5 pg (27.0-34.8); MEAN CORPUSCULAR HGB CONC 33.6 g/dL (32.4-35.8); MEAN PLATELET VOLUME 8.1 fL (7.4-10.4); MONOCYTES % (AUTO) 8 % (2-9); NEUTROPHILS % (AUTO) 61 % (42-75); PLATELET COUNT 91 x10^3/uL (130-400); RED BLOOD COUNT 3.31 x10^6/uL (3.82-5.3); RED CELL DISTRIBUTION WIDTH 19.7 % (9.6-15.2)
[2021-02-20 05:20] LABS: ALANINE AMINOTRANSFERASE 30 U/L (12-78); ALBUMIN 2.5 g/dL (3.4-5.0); ANION GAP 11 mmol/L (5-15); CALCIUM 6.8 mg/dL (8.5-10.1); CHLORIDE 105 mmol/L (98-107); CREATININE 0.25 mg/dL (0.55-1.02)
[2021-02-20 05:22] LABS: ALKALINE PHOSPHATASE 117 U/L (45-117); BILIRUBIN,TOTAL 1.8 mg/dL (0.2-1.0)
[2021-02-20] MEDS: PANTOPRAZOLE 40 MG IV IVPush SCH (06:09)
[2021-02-20 07:28] VITALS: BP 103/69
[2021-02-20] MEDS: SENNA/DOCUSATE TABLET PO SCH (09:00)
[2021-02-20] MEDS: THIAMINE 100MG TABLET PO SCH (09:08)
[2021-02-20] MEDS: HEPARIN 5,000 UNITS/ML, 1ML SQ SCH (09:08)
[2021-02-20] MEDS: FOLIC ACID 1 MG TABLET PO SCH (09:08)
[2021-02-20] MEDS: MULTIVITAMIN 1 TABLET PO SCH (09:08)
[2021-02-20] MEDS: NICOTINE 21 MG/24 HR PATCH.TD24 TD SCH (09:09)
[2021-02-20] MEDS ORDERED: MAGNESIUM SULFATE PMX 2GM/50ML 50 ML IV ONE (10:30)
[2021-02-20 10:36] LABS: CLOSTRIDIUM DIFFICILE ANTIGEN POSITIVE; CLOSTRIDIUM DIFFICILE TOXIN NEGATIVE (Negative)
[2021-02-20 12:08] VITALS: BP 113/78
[2021-02-20] MEDS ORDERED: PANTOPRAZOLE 40MG TABLET PO SCH (16:00)
[2021-02-21] MEDS ORDERED: CIPR250T27 PO (17:35)
== END 2021-02-20 13:48 | disposition home or self-care (01) | DRG 641 ==
LOC: ED 12:16 → EDIP 14:56 → 4EST 16:21
PROVIDERS: ADMIT Hospitalist; ATTEND Family Medicine
DX: E87.6 Hypokalemia (principal); K86.1 Other chronic pancreatitis; N39.0 Urinary tract infection, site not specified; E86.0 Dehydration; F10.229 Alcohol dependence with intoxication, unspecified; F32.9 Major depressive disorder, single episode, unspecified; F41.1 Generalized anxiety disorder; F17.210 Nicotine dependence, cigarettes, uncomplicated; K76.0 Fatty (change of) liver, not elsewhere classified; E83.42 Hypomagnesemia; G89.29 Other chronic pain; R94.5 Abnormal results of liver function studies; Z59.0 Homelessness; Z79.899 Other long term (current) drug therapy; Z79.891 Long term (current) use of opiate analgesic; Z79.01 Long term (current) use of anticoagulants; Z80.1 Family history of malignant neoplasm of trachea, bronchus and lung; Z91.19 Patient's noncompliance with other medical treatment and regimen; Z88.8 Allergy status to other drugs, medicaments and biological substances; Z88.5 Allergy status to narcotic agent; Z82.49 Family history of ischemic heart disease and other diseases of the circulatory system
CPT/HCPCS: 36415; 76700; 80053; 80320; 81001; 83690; 83735; 84100; 84703; 85025; 87077; 87086; 87147; 87186; 87324; 87493; 93005; 96374; 96375; G0378; J1644; J2405; J3411; J3475; J3480; C9113; G0480; J2270; J7030; J7040; J7120

== ENCOUNTER 2021-05-02 16:33 | Inpatient (IN) | payer MEDICAID ==
[~2021-05-02] VITALS: Ht 154.9 cm; Wt 55.3 kg
[~2021-05-02 16:33] MED LIST changes: +CIPR250T27 PO; +POTA-143 PO; -POTA20TA6 PO
[2021-05-02] MEDS ORDERED: MORPHINE SULFATE 4 MG/ML, 1ML ONE ×3 (17:52→23:10)
[2021-05-02] MEDS ORDERED: METOCLOPRAMIDE 5 MG/ML, 2ML ONE (17:52)
[2021-05-02] MEDS: MORPHINE SULFATE 4 MG/ML, 1ML IVPush PRN ×2 (17:54→20:10)
[2021-05-02 18:28] LABS: BASOPHILS % (AUTO) 1 % (0-1); EOSINOPHILS % (AUTO) 0 % (1-7); LYMPHOCYTES % (AUTO) 13 % (22-44); MEAN CORPUSCULAR HGB CONC 33.1 g/dL (32.4-35.8); MEAN PLATELET VOLUME 7.2 fL (7.4-10.4); MONOCYTES % (AUTO) 4 % (2-9); NEUTROPHILS % (AUTO) 83 % (42-75); PLATELET COUNT 161 x10^3/uL (130-400); RED BLOOD COUNT 3.21 x10^6/uL (3.82-5.3); RED CELL DISTRIBUTION WIDTH 16.5 % (9.6-15.2)
[2021-05-02] MEDS ORDERED: SODIUM CHLORIDE 0.9% 1,000ML IVBOLUS ONE (18:30)
[2021-05-02] MEDS ORDERED: METOCLOPRAMIDE 5 MG/ML, 2ML IVPush ONE (18:30)
[2021-05-02] MEDS ORDERED: SODIUM CHLORIDE FLUSH 10ML SYR IVF ONE (18:30)
[2021-05-02 18:34] LABS: CHLORIDE 99 mmol/L (98-107)
[2021-05-02 18:40] LABS: ANION GAP 20 mmol/L (5-15); CALCIUM 6.9 mg/dL (8.5-10.1)
[2021-05-02 18:41] LABS: ALANINE AMINOTRANSFERASE 94 U/L (12-78); ALBUMIN 1.9 g/dL (3.4-5.0); ALKALINE PHOSPHATASE 184 U/L (45-117); BILIRUBIN,TOTAL 3.9 mg/dL (0.2-1.0); TOTAL PROTEIN 5.8 g/dL (6.4-8.2)
--- NOTE | 2021-05-02 18:53 | NUR ---
pain now 7/10, down from 10/10. pt requesting more pain meds
[2021-05-02] MEDS ORDERED: OMNIPAQUE 350 MG/ML, 100ML BOTTLE ONE (19:54)
[2021-05-02] MEDS ORDERED: DIPHENHYDRAMINE 50 MG/ML, 1ML ONE (19:59)
--- NOTE | 2021-05-02 20:44 | NUR ---
PT NOW RATING PAIN /
[2021-05-02 21:00] LABS: MICROSCOPIC INDICATED
[2021-05-02] MEDS ORDERED: DIPHENHYDRAMINE 50 MG/ML, 1ML IVPush ONE (21:00)
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
[2021-05-02] MEDS ORDERED: MORPHINE SULFATE 4 MG/ML, 1ML IVPush ONE (23:00)
[2021-05-02 23:28] VITALS: BP 106/73
[2021-05-03 01:10] VITALS: BP 103/72
[2021-05-03] MEDS ORDERED: DOCUSATE 100 MG CAPSULE PO PRN (02:00)
[2021-05-03] MEDS: MORPHINE SULFATE 4 MG/ML, 1ML IVPush PRN ×7 (02:10→22:59)
[2021-05-03] MEDS: MELATONIN 5 MG TABLET PO PRN (02:18)
[2021-05-03 07:24] VITALS: BP 99/69
[2021-05-03] MEDS: LEVETIRACETAM 500 MG TABLET PO SCH ×2 (09:00→21:02)
[2021-05-03] MEDS: GABAPENTIN 100 MG CAPSULE PO SCH ×3 (09:00→21:02)
[2021-05-03] MEDS: CITALOPRAM 20 MG TABLET PO SCH (09:00)
[2021-05-03 09:06] LABS: BASOPHILS % (AUTO) 1 % (0-1); EOSINOPHILS % (AUTO) 1 % (1-7); LYMPHOCYTES % (AUTO) 17 % (22-44); MEAN CORPUSCULAR HEMOGLOBIN 33.2 pg (27.0-34.8); MEAN CORPUSCULAR HGB CONC 33.4 g/dL (32.4-35.8); MEAN PLATELET VOLUME 7.4 fL (7.4-10.4); MONOCYTES % (AUTO) 5 % (2-9); NEUTROPHILS % (AUTO) 77 % (42-75); PLATELET COUNT 132 x10^3/uL (130-400); RED BLOOD COUNT 3.34 x10^6/uL (3.82-5.3); RED CELL DISTRIBUTION WIDTH 16.3 % (9.6-15.2)
[2021-05-03 09:18] LABS: ALBUMIN 2.1 g/dL (3.4-5.0); ANION GAP 10 mmol/L (5-15); CALCIUM 7.7 mg/dL (8.5-10.1); CHLORIDE 96 mmol/L (98-107)
[2021-05-03] MEDS: LACTATED RINGERS 1,000 ML IV SCH ×3 (09:20→23:04)
[2021-05-03 09:22] LABS: ALANINE AMINOTRANSFERASE 88 U/L (12-78); ALKALINE PHOSPHATASE 195 U/L (45-117); BILIRUBIN,TOTAL 5.4 mg/dL (0.2-1.0); CREATININE 0.51 mg/dL (0.55-1.02); TOTAL PROTEIN 6.7 g/dL (6.4-8.2)
[2021-05-03 12:39] VITALS: BP 100/70
[2021-05-03 17:55] VITALS: BP 101/71
[2021-05-03] MEDS ORDERED: POTASSIUM CHLORIDE 20 MEQ TAB.ER.PRT PO ONE (18:00)
[2021-05-03 19:19] VITALS: BP 102/70
[2021-05-04 01:50] VITALS: BP 96/67
[2021-05-04] MEDS: MORPHINE SULFATE 4 MG/ML, 1ML IVPush PRN ×6 (02:52→21:02)
[2021-05-04 07:30] LABS: BASOPHILS % (AUTO) 1 % (0-1); EOSINOPHILS % (AUTO) 1 % (1-7); LYMPHOCYTES % (AUTO) 13 % (22-44); MEAN CORPUSCULAR HEMOGLOBIN 33.5 pg (27.0-34.8); MEAN CORPUSCULAR HGB CONC 33.3 g/dL (32.4-35.8); MEAN PLATELET VOLUME 7.8 fL (7.4-10.4); MONOCYTES % (AUTO) 4 % (2-9); NEUTROPHILS % (AUTO) 81 % (42-75); PLATELET COUNT 108 x10^3/uL (130-400); RED CELL DISTRIBUTION WIDTH 16.7 % (9.6-15.2)
[2021-05-04] MEDS: CITALOPRAM 20 MG TABLET PO SCH (07:32)
[2021-05-04] MEDS: LEVETIRACETAM 500 MG TABLET PO SCH ×2 (07:32→21:02)
[2021-05-04 07:33] LABS: ANION GAP 10 mmol/L (5-15); CALCIUM 7.7 mg/dL (8.5-10.1); CHLORIDE 103 mmol/L (98-107); CREATININE 0.28 mg/dL (0.55-1.02)
[2021-05-04] MEDS: GABAPENTIN 100 MG CAPSULE PO SCH ×3 (07:33→21:02)
[2021-05-04] MEDS: LACTATED RINGERS 1,000 ML IV SCH ×3 (07:33→21:08)
[2021-05-04 07:55] VITALS: BP 92/62
[2021-05-04 12:01] LABS: BILIRUBIN, DIRECT 3.1 mg/dL (0.1-0.2); BILIRUBIN,INDIRECT 1.1 mg/dL (0.0-2.0); BILIRUBIN,TOTAL 4.2 mg/dL (0.2-1.0)
[2021-05-04 12:02] LABS: TOTAL PROTEIN 6.2 g/dL (6.4-8.2)
[2021-05-04 13:44] VITALS: BP 103/76
[2021-05-04 19:11] VITALS: BP 102/71
[2021-05-04] MEDS: NICOTINE 21 MG/24 HR PATCH.TD24 TD SCH (21:03)
[2021-05-05] MEDS: MORPHINE SULFATE 4 MG/ML, 1ML IVPush PRN ×3 (00:20→10:09)
[2021-05-05 00:50] VITALS: BP 94/63
[2021-05-05] MEDS: LACTATED RINGERS 1,000 ML IV SCH ×4 (04:22→23:57)
[2021-05-05 05:47] LABS: BASOPHILS % (AUTO) 1 % (0-1); EOSINOPHILS % (AUTO) 2 % (1-7); LYMPHOCYTES % (AUTO) 23 % (22-44); MEAN CORPUSCULAR HEMOGLOBIN 33.6 pg (27.0-34.8); MEAN CORPUSCULAR HGB CONC 33.2 g/dL (32.4-35.8); MEAN PLATELET VOLUME 8.1 fL (7.4-10.4); MONOCYTES % (AUTO) 6 % (2-9); NEUTROPHILS % (AUTO) 69 % (42-75); PLATELET COUNT 89 x10^3/uL (130-400); RED BLOOD COUNT 2.82 x10^6/uL (3.82-5.3); RED CELL DISTRIBUTION WIDTH 16.7 % (9.6-15.2)
[2021-05-05 06:20] LABS: ALBUMIN 1.5 g/dL (3.4-5.0); ANION GAP 6 mmol/L (5-15); CALCIUM 7.6 mg/dL (8.5-10.1); CHLORIDE 104 mmol/L (98-107)
[2021-05-05 06:25] LABS: ALANINE AMINOTRANSFERASE 52 U/L (12-78); ALKALINE PHOSPHATASE 159 U/L (45-117); BILIRUBIN,TOTAL 2.5 mg/dL (0.2-1.0); TOTAL PROTEIN 5.3 g/dL (6.4-8.2)
[2021-05-05 06:28] LABS: CREATININE < 0.15 mg/dL (0.55-1.02)
[2021-05-05 07:05] VITALS: BP 109/77
[2021-05-05] MEDS: GABAPENTIN 100 MG CAPSULE PO SCH ×3 (08:06→21:12)
[2021-05-05] MEDS: LEVETIRACETAM 500 MG TABLET PO SCH ×2 (08:06→21:12)
[2021-05-05] MEDS: CITALOPRAM 20 MG TABLET PO SCH (08:06)
[2021-05-05 09:14] LABS: INTERNATIONAL NORMALIZED RATIO 1.49 (0.93-1.1); PROTHROMBIN TIME 15.6 Seconds (9.6-11.5)
[2021-05-05] MEDS ORDERED: POTASSIUM CHLORIDE 20 MEQ TAB.ER.PRT PO ONE (11:00)
[2021-05-05 14:40] VITALS: BP 102/68
[2021-05-05 20:14] VITALS: BP_SYST 101; BP_SYST 93; BP_DIAS 57; BP_DIAS 70
[2021-05-05] MEDS: NICOTINE 21 MG/24 HR PATCH.TD24 TD SCH (21:12)
[2021-05-06 00:05] VITALS: BP 93/64
[2021-05-06] MEDS: LACTATED RINGERS 1,000 ML IV SCH ×3 (06:22→20:01)
[2021-05-06 06:33] LABS: BASOPHILS % (AUTO) 1 % (0-1); EOSINOPHILS % (AUTO) 2 % (1-7); LYMPHOCYTES % (AUTO) 29 % (22-44); MEAN CORPUSCULAR HEMOGLOBIN 33.9 pg (27.0-34.8); MEAN CORPUSCULAR HGB CONC 33.5 g/dL (32.4-35.8); MEAN PLATELET VOLUME 7.6 fL (7.4-10.4); MONOCYTES % (AUTO) 10 % (2-9); NEUTROPHILS % (AUTO) 58 % (42-75); PLATELET COUNT 104 x10^3/uL (130-400); RED BLOOD COUNT 2.75 x10^6/uL (3.82-5.3); RED CELL DISTRIBUTION WIDTH 16.8 % (9.6-15.2)
[2021-05-06 06:37] LABS: ALANINE AMINOTRANSFERASE 43 U/L (12-78); ALBUMIN 1.4 g/dL (3.4-5.0); ANION GAP 8 mmol/L (5-15); CALCIUM 7.1 mg/dL (8.5-10.1); CHLORIDE 104 mmol/L (98-107)
[2021-05-06 06:40] LABS: ALKALINE PHOSPHATASE 145 U/L (45-117); BILIRUBIN,TOTAL 1.9 mg/dL (0.2-1.0); TOTAL PROTEIN 4.9 g/dL (6.4-8.2)
[2021-05-06 06:42] LABS: CREATININE < 0.15 mg/dL (0.55-1.02)
[2021-05-06] MEDS: GABAPENTIN 100 MG CAPSULE PO SCH ×3 (08:57→20:01)
[2021-05-06] MEDS: CITALOPRAM 20 MG TABLET PO SCH (08:57)
[2021-05-06] MEDS: NICOTINE 21 MG/24 HR PATCH.TD24 TD SCH (08:57)
[2021-05-06] MEDS: LEVETIRACETAM 500 MG TABLET PO SCH ×2 (08:57→20:01)
[2021-05-06 09:48] VITALS: BP 98/67
[2021-05-06] MEDS ORDERED: POTASSIUM CHLORIDE 20 MEQ TAB.ER.PRT PO ONE (11:30)
[2021-05-06] MEDS: OXYcodone IR 5MG TABLET PO PRN ×3 (13:19→21:06)
[2021-05-06 13:41] VITALS: BP 109/79
[2021-05-06 19:02] VITALS: BP 119/82
[2021-05-07 00:02] VITALS: BP 117/88
[2021-05-07] MEDS: OXYcodone IR 5MG TABLET PO PRN ×6 (01:13→22:03)
[2021-05-07] MEDS: LACTATED RINGERS 1,000 ML IV SCH ×4 (02:39→22:03)
[2021-05-07 06:04] LABS: CHLORIDE 101 mmol/L (98-107)
[2021-05-07 06:15] LABS: ALANINE AMINOTRANSFERASE 40 U/L (12-78); ALBUMIN 1.3 g/dL (3.4-5.0); ALKALINE PHOSPHATASE 143 U/L (45-117); ANION GAP 8 mmol/L (5-15); BILIRUBIN,TOTAL 1.7 mg/dL (0.2-1.0); CALCIUM 7.2 mg/dL (8.5-10.1); TOTAL PROTEIN 5.1 g/dL (6.4-8.2)
[2021-05-07 06:16] LABS: CREATININE < 0.15 mg/dL (0.55-1.02)
[2021-05-07 07:55] VITALS: BP 93/63
[2021-05-07] MEDS: CITALOPRAM 20 MG TABLET PO SCH (08:06)
[2021-05-07] MEDS: NICOTINE 21 MG/24 HR PATCH.TD24 TD SCH (08:06)
[2021-05-07] MEDS: LEVETIRACETAM 500 MG TABLET PO SCH ×2 (08:06→20:54)
[2021-05-07] MEDS: GABAPENTIN 100 MG CAPSULE PO SCH ×3 (08:08→20:54)
[2021-05-07] MEDS ORDERED: POTASSIUM CHLORIDE 20 MEQ TAB.ER.PRT PO ONE (10:00)
[2021-05-07] MEDS ORDERED: POTASSIUM CHLORIDE 40 MEQ in SODIUM CHLORIDE 0.9% 500 ML IV ONE (10:00)
[2021-05-07 13:32] VITALS: BP 94/63
[2021-05-07 18:32] VITALS: BP 101/68
[2021-05-07] MEDS: ENOXAPARIN 40 MG/0.4 ML SQ SCH (20:54)
[2021-05-08 01:03] VITALS: BP 109/75
[2021-05-08] MEDS: MELATONIN 5 MG TABLET PO PRN (02:07)
[2021-05-08] MEDS: OXYcodone IR 5MG TABLET PO PRN ×5 (02:07→20:23)
[2021-05-08] MEDS: LACTATED RINGERS 1,000 ML IV SCH (07:05)
[2021-05-08 07:24] VITALS: BP 102/68
[2021-05-08] MEDS: GABAPENTIN 100 MG CAPSULE PO SCH ×3 (08:01→20:23)
[2021-05-08] MEDS: CITALOPRAM 20 MG TABLET PO SCH (08:01)
[2021-05-08] MEDS: LEVETIRACETAM 500 MG TABLET PO SCH ×2 (08:01→20:23)
[2021-05-08] MEDS: NICOTINE 21 MG/24 HR PATCH.TD24 TD SCH (08:01)
[2021-05-08 08:17] LABS: INTERNATIONAL NORMALIZED RATIO 1.52 (0.93-1.1); PROTHROMBIN TIME 15.9 Seconds (9.6-11.5)
[2021-05-08 08:19] LABS: BASOPHILS % (AUTO) 1 % (0-1); EOSINOPHILS % (AUTO) 2 % (1-7); LYMPHOCYTES % (AUTO) 36 % (22-44); MEAN CORPUSCULAR HEMOGLOBIN 34.2 pg (27.0-34.8); MEAN CORPUSCULAR HGB CONC 33.4 g/dL (32.4-35.8); MEAN PLATELET VOLUME 7.2 fL (7.4-10.4); MONOCYTES % (AUTO) 19 % (2-9); NEUTROPHILS % (AUTO) 42 % (42-75); PLATELET COUNT 140 x10^3/uL (130-400); RED BLOOD COUNT 2.75 x10^6/uL (3.82-5.3); RED CELL DISTRIBUTION WIDTH 17.1 % (9.6-15.2)
[2021-05-08 08:25] LABS: ALBUMIN 1.4 g/dL (3.4-5.0); BILIRUBIN, DIRECT 0.9 mg/dL (0.1-0.2)
[2021-05-08 08:27] LABS: BILIRUBIN,INDIRECT 0.7 mg/dL (0.0-2.0); BILIRUBIN,TOTAL 1.6 mg/dL (0.2-1.0)
[2021-05-08 08:28] LABS: ANION GAP 5 mmol/L (5-15); CALCIUM 7.1 mg/dL (8.5-10.1); CHLORIDE 107 mmol/L (98-107); CREATININE 0.18 mg/dL (0.55-1.02)
[2021-05-08 09:38] VITALS: BP 103/65
[2021-05-08] MEDS ORDERED: PHYTONADIONE 5 MG TABLET PO ONE (10:00)
[2021-05-08] MEDS ORDERED: MAGNESIUM SULFATE PMX 4GM/100M 100 ML IVPB ONE ×2 (10:00→18:30)
[2021-05-08] MEDS ORDERED: POTASSIUM CHLORIDE 20 MEQ TAB.ER.PRT PO ONE (10:00)
[2021-05-08] MEDS ORDERED: POTASSIUM PHOSPHATE 44 MEQ in SODIUM CHLORIDE 0.9% 500 ML IV ONE (10:00)
[2021-05-08] MEDS: PANCRELIPASE 24,000 CAPSULE.DR PO SCH ×2 (11:00→16:04)
[2021-05-08] MEDS: ONDANSETRON 2MG/ML, 2ML IVPush SCH ×2 (11:00→16:04)
[2021-05-08 14:19] VITALS: BP 94/63
[2021-05-08 19:52] VITALS: BP 95/63
[2021-05-08] MEDS: ENOXAPARIN 40 MG/0.4 ML SQ SCH (20:23)
[2021-05-09] MEDS: OXYcodone IR 5MG TABLET PO PRN ×6 (00:25→21:28)
[2021-05-09 00:29] VITALS: BP 98/65
[2021-05-09 07:02] VITALS: BP 69/46
[2021-05-09 07:03] VITALS: BP 87/61
[2021-05-09] MEDS: PANCRELIPASE 24,000 CAPSULE.DR PO SCH ×3 (07:36→16:34)
[2021-05-09] MEDS: ONDANSETRON 2MG/ML, 2ML IVPush SCH ×3 (07:37→16:35)
[2021-05-09] MEDS: LEVETIRACETAM 500 MG TABLET PO SCH ×2 (09:08→21:21)
[2021-05-09] MEDS: NICOTINE 21 MG/24 HR PATCH.TD24 TD SCH (09:08)
[2021-05-09] MEDS: GABAPENTIN 100 MG CAPSULE PO SCH ×3 (09:08→21:22)
[2021-05-09] MEDS: CITALOPRAM 20 MG TABLET PO SCH (09:08)
[2021-05-09 09:16] LABS: ANION GAP 5 mmol/L (5-15); CALCIUM 7.3 mg/dL (8.5-10.1); CHLORIDE 108 mmol/L (98-107)
[2021-05-09 13:30] VITALS: BP 88/55
[2021-05-09] MEDS: LACTATED RINGERS 1,000 ML IV SCH (14:00)
[2021-05-09 20:10] VITALS: BP 92/60
[2021-05-09] MEDS: ENOXAPARIN 40 MG/0.4 ML SQ SCH (21:00)
[2021-05-10 01:31] VITALS: BP 92/58
[2021-05-10] MEDS: OXYcodone IR 5MG TABLET PO PRN ×5 (01:34→20:53)
[2021-05-10] MEDS: LACTATED RINGERS 1,000 ML IV SCH ×2 (03:52→17:02)
[2021-05-10] MEDS: PANCRELIPASE 24,000 CAPSULE.DR PO SCH ×3 (06:33→16:58)
[2021-05-10] MEDS: ONDANSETRON 2MG/ML, 2ML IVPush SCH ×3 (06:33→16:58)
[2021-05-10 07:03] VITALS: BP 91/57
[2021-05-10] MEDS: GABAPENTIN 100 MG CAPSULE PO SCH ×3 (08:09→20:53)
[2021-05-10] MEDS: CITALOPRAM 20 MG TABLET PO SCH (08:09)
[2021-05-10] MEDS: LEVETIRACETAM 500 MG TABLET PO SCH ×2 (08:09→20:53)
[2021-05-10] MEDS: NICOTINE 21 MG/24 HR PATCH.TD24 TD SCH (08:10)
[2021-05-10 13:35] VITALS: BP 89/65
[2021-05-10 19:48] VITALS: BP 92/61
[2021-05-10] MEDS: ENOXAPARIN 40 MG/0.4 ML SQ SCH (20:59)
[2021-05-11] MEDS: OXYcodone IR 5MG TABLET PO PRN ×5 (00:59→20:49)
[2021-05-11 01:55] VITALS: BP 98/66
[2021-05-11] MEDS: LACTATED RINGERS 1,000 ML IV SCH (05:31)
[2021-05-11 07:56] VITALS: BP 107/71
[2021-05-11] MEDS: ONDANSETRON 2MG/ML, 2ML IVPush SCH ×3 (10:06→17:18)
[2021-05-11] MEDS: GABAPENTIN 100 MG CAPSULE PO SCH ×3 (10:06→20:49)
[2021-05-11] MEDS: LEVETIRACETAM 500 MG TABLET PO SCH ×2 (10:07→20:49)
[2021-05-11] MEDS: CITALOPRAM 20 MG TABLET PO SCH (10:07)
[2021-05-11] MEDS: NICOTINE 21 MG/24 HR PATCH.TD24 TD SCH (10:07)
[2021-05-11] MEDS: PANCRELIPASE 24,000 CAPSULE.DR PO SCH ×3 (10:07→17:18)
[2021-05-11 13:52] VITALS: BP 94/60
[2021-05-11] MEDS: ENOXAPARIN 40 MG/0.4 ML SQ SCH (20:50)
[2021-05-11 20:56] VITALS: BP 122/85
[2021-05-12 01:35] VITALS: BP 119/73
[2021-05-12] MEDS: OXYcodone IR 5MG TABLET PO PRN ×5 (01:35→22:16)
[2021-05-12] MEDS: PANCRELIPASE 24,000 CAPSULE.DR PO SCH ×3 (07:09→18:07)
[2021-05-12] MEDS: ONDANSETRON 2MG/ML, 2ML IVPush SCH ×3 (07:09→18:07)
[2021-05-12 07:16] VITALS: BP 110/75
[2021-05-12] MEDS: GABAPENTIN 100 MG CAPSULE PO SCH ×3 (09:30→20:20)
[2021-05-12] MEDS: LEVETIRACETAM 500 MG TABLET PO SCH ×2 (09:30→20:20)
[2021-05-12] MEDS: CITALOPRAM 20 MG TABLET PO SCH (09:31)
[2021-05-12] MEDS: NICOTINE 21 MG/24 HR PATCH.TD24 TD SCH (09:31)
[2021-05-12 12:01] VITALS: BP 96/50
[2021-05-12 18:13] VITALS: BP 138/80
[2021-05-12 20:16] VITALS: BP 124/80
[2021-05-12] MEDS: ENOXAPARIN 40 MG/0.4 ML SQ SCH (20:26)
[2021-05-13 02:08] VITALS: BP 94/63
[2021-05-13] MEDS: OXYcodone IR 5MG TABLET PO PRN ×4 (03:20→20:21)
[2021-05-13 05:53] LABS: BASOPHILS % (AUTO) 3 % (0-1); EOSINOPHILS % (AUTO) 2 % (1-7); LYMPHOCYTES % (AUTO) 39 % (22-44); MEAN CORPUSCULAR HEMOGLOBIN 33.3 pg (27.0-34.8); MEAN CORPUSCULAR HGB CONC 32.8 g/dL (32.4-35.8); MEAN PLATELET VOLUME 7.4 fL (7.4-10.4); MONOCYTES % (AUTO) 20 % (2-9); NEUTROPHILS % (AUTO) 37 % (42-75); PLATELET COUNT 229 x10^3/uL (130-400); RED BLOOD COUNT 2.85 x10^6/uL (3.82-5.3); RED CELL DISTRIBUTION WIDTH 16.1 % (9.6-15.2)
[2021-05-13 05:54] LABS: INTERNATIONAL NORMALIZED RATIO 1.22 (0.93-1.1); PROTHROMBIN TIME 12.9 Seconds (9.6-11.5)
[2021-05-13 05:57] LABS: ALANINE AMINOTRANSFERASE 28 U/L (12-78); ALBUMIN 1.5 g/dL (3.4-5.0); ANION GAP 4 mmol/L (5-15); CHLORIDE 107 mmol/L (98-107); CREATININE 0.37 mg/dL (0.55-1.02)
[2021-05-13 06:03] LABS: ALKALINE PHOSPHATASE 95 U/L (45-117); BILIRUBIN,TOTAL 0.7 mg/dL (0.2-1.0); TOTAL PROTEIN 5.3 g/dL (6.4-8.2)
[2021-05-13] MEDS: ONDANSETRON 2MG/ML, 2ML IVPush SCH ×3 (07:59→17:21)
[2021-05-13] MEDS: PANCRELIPASE 24,000 CAPSULE.DR PO SCH ×3 (07:59→17:21)
[2021-05-13] MEDS: NICOTINE 21 MG/24 HR PATCH.TD24 TD SCH (07:59)
[2021-05-13] MEDS: GABAPENTIN 100 MG CAPSULE PO SCH ×3 (07:59→20:22)
[2021-05-13] MEDS: CITALOPRAM 20 MG TABLET PO SCH (07:59)
[2021-05-13] MEDS: LEVETIRACETAM 500 MG TABLET PO SCH ×2 (07:59→20:22)
[2021-05-13 08:30] VITALS: BP 105/65
[2021-05-13 13:39] VITALS: BP 92/60
[2021-05-13 18:43] VITALS: BP 132/73
[2021-05-13] MEDS: ENOXAPARIN 40 MG/0.4 ML SQ SCH (20:22)
[2021-05-14 01:18] VITALS: BP 128/76
[2021-05-14] MEDS: OXYcodone IR 5MG TABLET PO PRN ×3 (01:23→11:21)
[2021-05-14] MEDS: ONDANSETRON 2MG/ML, 2ML IVPush SCH ×2 (07:00→11:00)
[2021-05-14 07:19] VITALS: BP 107/62
[2021-05-14] MEDS: ENOXAPARIN 40 MG/0.4 ML SQ SCH (07:46)
[2021-05-14] MEDS: CITALOPRAM 20 MG TABLET PO SCH (07:55)
[2021-05-14] MEDS: GABAPENTIN 100 MG CAPSULE PO SCH (07:55)
[2021-05-14] MEDS: PANCRELIPASE 24,000 CAPSULE.DR PO SCH ×2 (07:55→11:20)
[2021-05-14] MEDS: NICOTINE 21 MG/24 HR PATCH.TD24 TD SCH (07:55)
[2021-05-14] MEDS: LEVETIRACETAM 500 MG TABLET PO SCH (07:55)
[2021-05-14] MEDS ORDERED: CITA20TA9 PO (08:59)
[2021-05-14] MEDS ORDERED: GABA-826 PO (08:59)
[2021-05-14] MEDS ORDERED: OXYC5TAB98 PO (08:59)
[2021-05-14] MEDS ORDERED: NICO-587 TD (08:59)
[2021-05-14] MEDS ORDERED: ONDA4TAB7 PO (08:59)
[2021-05-14] MEDS ORDERED: LIPA1CAP61 PO (08:59)
[2021-05-14] MEDS ORDERED: LEVE500T8 PO (08:59)
== END 2021-05-14 11:31 | disposition home or self-care (01) | DRG 438 ==
LOC: ED 21:01 → EDIP 22:45 → 4NW 23:23 → 3N 05-03 17:51
PROVIDERS: ADMIT Internal Medicine; ATTEND Hospitalist
DX: K85.90 Acute pancreatitis without necrosis or infection, unspecified (principal); E43 Unspecified severe protein-calorie malnutrition; K76.6 Portal hypertension; N17.9 Acute kidney failure, unspecified; K86.3 Pseudocyst of pancreas; G89.29 Other chronic pain; K86.1 Other chronic pancreatitis; F32.9 Major depressive disorder, single episode, unspecified; E87.6 Hypokalemia; E86.0 Dehydration; R82.4 Acetonuria; K70.9 Alcoholic liver disease, unspecified; F10.20 Alcohol dependence, uncomplicated; Z20.822 Contact with and (suspected) exposure to COVID-19; I10 Essential (primary) hypertension; I95.9 Hypotension, unspecified; E86.9 Volume depletion, unspecified; I27.20 Pulmonary hypertension, unspecified; F20.9 Schizophrenia, unspecified; Z68.23 Body mass index [BMI] 23.0-23.9, adult
CPT/HCPCS: 36415; 74177; 74181; 80048; 80053; 80074; 80076; 81001; 82533; 83690; 83735; 84100; 85025; 85610; 86301; 87086; 93005; 93306; 93356; 96361; 96374; 96375; 96376; 99285; G0378; J2405; J3480; Q9967; J1200; J2270; J2765; J3475; J7030; J7040; J7120